=== PATIENT | male | born 1960 | race Caucasian/White ===

== ENCOUNTER 2017-10-10 01:41 | Emergency (ER) | payer MEDICARE, MEDICAID, SELFPAY ==
[2017-10-10 02:41] VITALS: BP 179/107; PULSE 64; RESP 18; TEMP 36.1; O2SAT 94; BMI 30.4
--- NOTE | 2017-10-10 03:05 | ED.NECK ---
HPI - Neck Pain/Injury General Chief Complaint: Neck Pain/Injury Stated Complaint: neck problem, right forearm scrape Time Seen by Provider: 10/10/17 01:46 Source: patient Mode of arrival: wheelchair Limitations: no limitations History of Present Illness HPI Narrative: 56-year-old male with a history of MS right for evaluation of an abrasion to his right arm and neck pain that is causing him headache. Patient states that he has a history of daily migraines. He is on Imitrex 100 mg but states that he only gets 9 pills of this month secondary to his insurance coverage and states that the rest of the time he takes ibuprofen. He states that he was moving some objects a couple days ago causing some right sided neck and shoulder pain. States he has been taking the ibuprofen at home. States that he was watching TV earlier today and turned his head to the right causing an increase in the neck pain. Related Data Previous Rx's Medication Instructions Recorded albuterol sulfate 3 ml INH Q6HP PRN #25 ea 06/09/16 atenolol 50 mg PO BID 15 Days #0 tab 06/09/16 baclofen 20 mg PO TID PRN 15 Days #0 tab 06/09/16 doxycycline hyclate 100 mg PO Q12H 7 Days #0 cap 06/09/16 prednisone 50 mg PO AMCC 5 Days #0 tab 06/09/16 sumatriptan succinate [Imitrex] 100 mg PO PRN PRN #10 tab 06/09/16 hydrocodone-acetaminophen [Colton] 1 tab PO Q4HP PRN #60 tab 05/23/17 penicillin V potassium 500 mg PO Q6H 7 Days #0 tab 05/23/17 uscyzfmdro-frebinftgqxje-xhgq 1 cap PO Q6H PRN #14 cap 10/10/17 Allergies Allergy/AdvReac Type Severity Reaction Status Date / Time aspirin [ASPIRIN] Allergy Severe stomach Verified 10/10/17 02:56 ulcers hydrocodone [HYDROCODONE] AdvReac Intermediate hurts Verified 10/10/17 02:56 stomach Review of Systems Constitutional Denies fatigue, Denies fever(s) and Reports headache(s) ENT Ears, Nose, Mouth, and Throat: Reports headache(s) Cardiovascular Denies chest pain, Denies irregular heart rhythm, Denies lightheadedness, Denies palpitations, Denies dyspnea, Denies dyspnea on exertion and Denies orthopnea Respiratory Denies cough, Denies dyspnea, Denies dyspnea on exertion and Denies wheezing Musculoskeletal Comments: Right-sided neck pain Integumentary/Breasts Denies pruritus, Denies erythema, Denies rash and Denies wounds Neurologic Reports headache(s) Endocrine Denies fatigue and Denies palpitations Allergic/Immunologic Denies wheezing Exam Initial Vital Signs Initial Vital Signs: Vital Signs Temperature 97.0 F L 10/10/17 02:41 Pulse Rate 64 10/10/17 02:41 Respiratory Rate 18 10/10/17 02:41 Blood Pressure 179/107 H 10/10/17 02:41 Pulse Oximetry 94 10/10/17 02:41 Const General: cooperative and well developed Nutritional Appearance: well nourished Orientation: alert, awake, oriented x3 and not confused HENMT Head: normal to inspection, normocephalic and atraumatic Resp Effort & Inspection: normal respiratory effort Back/Spine/Pelvis Back: normal to inspection Cervical Spine: cervical ROM normal, cervical muscular tenderness, No cervical spinal tenderness and No step off deformity Skin Other: Patient with a 3 cm superficial abrasion to his dorsal forearm just proximal to the wrist no active bleeding. Neuro General: alert, awake and oriented x3 Cognition: normal cognition Speech: speech normal Course Vital Signs - 8 hr 10/10/17 02:41 Temperature 97.0 F L Pulse Rate 64 Respiratory Rate 18 Blood Pressure 179/107 H Pulse Oximetry 94 MDM - Neck Pain/Injury MDM Narrative Medical decision making narrative: Patient with abrasion on his forearm has no signs of infection. Bacitracin was placed and covered with a bandage. No indication for suturing. Patient also with right-sided neck pain consistent with musculoskeletal pain causing his migraine. He was given an Imitrex injection here in the emergency department. Patient seems to be taking quite a bit amount of nonsteroidal anti-inflammatories that he is buying [id number] to control his headaches since he only gets 9 Imitrex pills a month secondary to his insurance coverage. Informed him that he needs to talk with his primary doctor regarding a possible switch to another medicine that his insurance could potentially cover. I also informed him that long-term use of nonsteroidal anti-inflammatories can cause problems with stomach issues and kidney issues. Informed him that he did need to be taking these with food. Will give a prescription for Fioricet. Informed him that I am unsure whether not his insurance would cover this however he could try and it may decrease the amount of anti-inflammatories that he has taken. He is given return precautions. He expressed understanding and agreement with plan Discharge Plan Departure Patient Disposition: Home, Self-Care Clinical Impression: Strain of neck muscle, Abrasion Instructions: DI for Cervical Muscle Strain, DI for Abrasion Activity Restrictions/Additional Instructions: I recommend that you contact your primary doctor did discuss a potential change in your migraine medicine. Unsure if your insurance will cover the Fioricet but recommend that you try to take this medication instead of the anti-inflammatories that you have been taking. Return to the emergency department for any new or worsening symptoms Prescriptions: New hamvmaizam-cjxawraqbnpvs-flck 50-325-40 mg capsule 1 cap PO Q6H PRN (Reason: pain) Qty: 14 RF: 0 No Action atenolol 50 MG tablet 50 mg PO BID 15 Days Qty: 0 RF: 0 baclofen 20 MG tablet 20 mg PO TID PRN15 Days Qty: 0 RF: 0 albuterol sulfate 2.5 MG/3 ML solution for nebulization 3 ml INH Q6HP PRNQty: 25 RF: 0 sumatriptan succinate [Imitrex] 100 MG tablet 100 mg PO PRN PRNQty: 10 RF: 0 doxycycline hyclate 100 MG capsule 100 mg PO Q12H 7 Days Qty: 0 RF: 0 prednisone 50 MG tablet 50 mg PO AMCC 5 Days Qty: 0 RF: 0 hydrocodone-acetaminophen [Colton] 5 MG/325 MG tablet 1 tab PO Q4HP PRNQty: 60 RF: 0 penicillin V potassium 500 MG tablet 500 mg PO Q6H 7 Days Qty: 0 RF: 0
--- NOTE | 2017-10-10 03:08 | ED_ITS ---
HPI - Neck Pain/Injury General Chief Complaint: Neck Pain/Injury Stated Complaint: neck problem, right forearm scrape Time Seen by Provider: 10/10/17 01:46 Source: patient Mode of arrival: wheelchair Limitations: no limitations History of Present Illness HPI Narrative: 56-year-old male with a history of MS right for evaluation of an abrasion to his right arm and neck pain that is causing him headache. Patient states that he has a history of daily migraines. He is on Imitrex 100 mg but states that he only gets 9 pills of this month secondary to his insurance coverage and states that the rest of the time he takes ibuprofen. He states that he was moving some objects a couple days ago causing some right sided neck and shoulder pain. States he has been taking the ibuprofen at home. States that he was watching TV earlier today and turned his head to the right causing an increase in the neck pain. Related Data Previous Rx's Medication Instructions Recorded albuterol sulfate 3 ml INH Q6HP PRN #25 ea 06/09/16 atenolol 50 mg PO BID 15 Days #0 tab 06/09/16 baclofen 20 mg PO TID PRN 15 Days #0 tab 06/09/16 doxycycline hyclate 100 mg PO Q12H 7 Days #0 cap 06/09/16 prednisone 50 mg PO AMCC 5 Days #0 tab 06/09/16 sumatriptan succinate [Imitrex] 100 mg PO PRN PRN #10 tab 06/09/16 hydrocodone-acetaminophen [Raymore] 1 tab PO Q4HP PRN #60 tab 05/23/17 penicillin V potassium 500 mg PO Q6H 7 Days #0 tab 05/23/17 cdajzteawb-exedossdikwum-fmzi 1 cap PO Q6H PRN #14 cap 10/10/17 Allergies Allergy/AdvReac Type Severity Reaction Status Date / Time aspirin [ASPIRIN] Allergy Severe stomach Verified 10/10/17 02:56 ulcers hydrocodone [HYDROCODONE] AdvReac Intermediate hurts Verified 10/10/17 02:56 stomach Review of Systems Constitutional Denies fatigue, Denies fever(s) and Reports headache(s) ENT Ears, Nose, Mouth, and Throat: Reports headache(s) Cardiovascular Denies chest pain, Denies irregular heart rhythm, Denies lightheadedness, Denies palpitations, Denies dyspnea, Denies dyspnea on exertion and Denies orthopnea Respiratory Denies cough, Denies dyspnea, Denies dyspnea on exertion and Denies wheezing Musculoskeletal Comments: Right-sided neck pain Integumentary/Breasts Denies pruritus, Denies erythema, Denies rash and Denies wounds Neurologic Reports headache(s) Endocrine Denies fatigue and Denies palpitations Allergic/Immunologic Denies wheezing Exam Initial Vital Signs Initial Vital Signs: Vital Signs Temperature 97.0 F L 10/10/17 02:41 Pulse Rate 64 10/10/17 02:41 Respiratory Rate 18 10/10/17 02:41 Blood Pressure 179/107 H 10/10/17 02:41 Pulse Oximetry 94 10/10/17 02:41 Const General: cooperative and well developed Nutritional Appearance: well nourished Orientation: alert, awake, oriented x3 and not confused HENMT Head: normal to inspection, normocephalic and atraumatic Resp Effort & Inspection: normal respiratory effort Back/Spine/Pelvis Back: normal to inspection Cervical Spine: cervical ROM normal, cervical muscular tenderness, No cervical spinal tenderness and No step off deformity Skin Other: Patient with a 3 cm superficial abrasion to his dorsal forearm just proximal to the wrist no active bleeding. Neuro General: alert, awake and oriented x3 Cognition: normal cognition Speech: speech normal Course Vital Signs - 8 hr 10/10/17 02:41 Temperature 97.0 F L Pulse Rate 64 Respiratory Rate 18 Blood Pressure 179/107 H Pulse Oximetry 94 MDM - Neck Pain/Injury MDM Narrative Medical decision making narrative: Patient with abrasion on his forearm has no signs of infection. Bacitracin was placed and covered with a bandage. No indication for suturing. Patient also with right-sided neck pain consistent with musculoskeletal pain causing his migraine. He was given an Imitrex injection here in the emergency department. Patient seems to be taking quite a bit amount of nonsteroidal anti-inflammatories that he is buying over-the- counter to control his headaches since he only gets 9 Imitrex pills a month secondary to his insurance coverage. Informed him that he needs to talk with his primary doctor regarding a possible switch to another medicine that his insurance could potentially cover. I also informed him that long-term use of nonsteroidal anti-inflammatories can cause problems with stomach issues and kidney issues. Informed him that he did need to be taking these with food. Will give a prescription for Fioricet. Informed him that I am unsure whether not his insurance would cover this however he could try and it may decrease the amount of anti-inflammatories that he has taken. He is given return precautions. He expressed understanding and agreement with plan Discharge Plan Departure Patient Disposition: Home, Self-Care Clinical Impression: Strain of neck muscle, Abrasion Instructions: DI for Cervical Muscle Strain, DI for Abrasion Activity Restrictions/Additional Instructions: I recommend that you contact your primary doctor did discuss a potential change in your migraine medicine. Unsure if your insurance will cover the Fioricet but recommend that you try to take this medication instead of the anti- inflammatories that you have been taking. Return to the emergency department for any new or worsening symptoms Prescriptions: New fabhdyfjst-hqpcqusbpkqip-iybu 50-325-40 mg capsule 1 cap PO Q6H PRN (Reason: pain) Qty: 14 RF: 0 No Action atenolol 50 MG tablet 50 mg PO BID 15 Days Qty: 0 RF: 0 baclofen 20 MG tablet 20 mg PO TID PRN15 Days Qty: 0 RF: 0 albuterol sulfate 2.5 MG/3 ML solution for nebulization 3 ml INH Q6HP PRNQty: 25 RF: 0 sumatriptan succinate [Imitrex] 100 MG tablet 100 mg PO PRN PRNQty: 10 RF: 0 doxycycline hyclate 100 MG capsule 100 mg PO Q12H 7 Days Qty: 0 RF: 0 prednisone 50 MG tablet 50 mg PO AMCC 5 Days Qty: 0 RF: 0 hydrocodone-acetaminophen [Raymore] 5 MG/325 MG tablet 1 tab PO Q4HP PRNQty: 60 RF: 0 penicillin V potassium 500 MG tablet 500 mg PO Q6H 7 Days Qty: 0 RF: 0
[2017-10-10] MEDS: SUMAtriptan 6 MG/0.5 ML VIAL SUBCUT (03:11)
[2017-10-10] MEDS: BACITRACIN OINT 0.9 GM PCKT 1 APPLIC TOP (03:11)
[2017-10-10] MEDS: ALBUTEROL/IPRATROPIUM 3 ML AMPUL INH (03:25)
[2017-10-10 03:44] VITALS: BP 192/104; PULSE 67; RESP 18; TEMP 36.4; O2SAT 95
== END 2017-10-10 03:44 | disposition home or self-care (01) ==
PROVIDERS: Emergency Provider Emergency Medicine; Family Provider Family Medicine; PCP Family Medicine
DX: M54.2 Cervicalgia (principal)
CPT/HCPCS: 99282; 99283; J3030

== ENCOUNTER 2017-11-06 05:09 | Emergency (ER) | payer MEDICARE, MEDICAID, SELFPAY ==
[2017-11-06 05:14] VITALS: BP 116/85; PULSE 69; RESP 20; TEMP 36.2; O2SAT 97; BMI 30.4
--- NOTE | 2017-11-06 05:17 | DI.CT.S_ITS ---
PROCEDURE: CT HEAD/BRAIN WO CON INDICATIONS: head injury s/p fall TECHNIQUE: Noncontrast 4.5 mm thick angled axial sections acquired from the foramen magnum to the vertex, with coronal and sagittal reformats. For radiation dose reduction, the following was used: automated exposure control, adjustment of mA and/or kV according to patient size. COMPARISON: [facility], CT, HEAD WITHOUT CONTRAST, 05/04/2015, 23:32. FINDINGS: Image quality: Excellent. CSF spaces: Basal cisterns are patent. No extra-axial fluid collections. Ventricles are normal in size and shape. Brain: Chronic left temporoparietal encephalomalacia No midline shift. No intracranial masses or hemorrhage. Yang-white matter interface is normal. Skull and face: Calvarium and visualized facial bones are intact, without suspicious lesions. Sinuses: Visualized sinuses and mastoids are clear. IMPRESSION: No acute intracranial process. Redemonstration of chronic left temporoparietal encephalomalacia Dictated by: Talib Edmondson M.D. on 11/06/2017 at 8:23 Approved by: Talib Edmondson M.D. on 11/06/2017 at 8:25
--- NOTE | 2017-11-06 05:28 | ED.FALL ---
HPI - Fall General Chief Complaint: Fall Stated Complaint: GLF Time Seen by Provider: 11/06/17 05:10 Source: patient and EMS Mode of arrival: EMS Limitations: no limitations History of Present Illness HPI Narrative: Patient presents to the emergency department today with a chief complaint of fall from a seated position. He was eating breakfast in his wheelchair a sidewalk up by the street when fell forward striking his head and causing a skin tear to the dorsum of his right arm. He is not dizzy nor weak or lightheaded. He denies any new neck or back pain. He denies chest pain or shortness of breath MD complaint: fall Onset (ago): minute(s) Fall from: wheelchair Fall witnessed: no Place fall occurred: street Loss of consciousness: none Prolonged down time: no Symptoms prior to fall: none Context: tripped/slipped and alcohol use Location of injury: head Location of injury - extremities: Right: forearm Severity: mild Associated symptoms (after fall): denies Related Data Previous Rx's Medication Instructions Recorded albuterol sulfate 3 ml INH Q6HP PRN #25 ea 06/09/16 atenolol 50 mg PO BID 15 Days #0 tab 06/09/16 baclofen 20 mg PO TID PRN 15 Days #0 tab 06/09/16 doxycycline hyclate 100 mg PO Q12H 7 Days #0 cap 06/09/16 prednisone 50 mg PO AMCC 5 Days #0 tab 06/09/16 sumatriptan succinate [Imitrex] 100 mg PO PRN PRN #10 tab 06/09/16 hydrocodone-acetaminophen [[place]] 1 tab PO Q4HP PRN #60 tab 05/23/17 penicillin V potassium 500 mg PO Q6H 7 Days #0 tab 05/23/17 lxzqbzhxkv-wdxtnlyvmfcja-agns 1 cap PO Q6H PRN #14 cap 10/10/17 Allergies Allergy/AdvReac Type Severity Reaction Status Date / Time aspirin [ASPIRIN] Allergy Severe stomach Verified 11/06/17 05:49 ulcers hydrocodone [HYDROCODONE] AdvReac Intermediate hurts Verified 11/06/17 05:49 stomach Review of Systems Review of Systems All systems reviewed & are unremarkable except as noted in HPI and below Constitutional Denies chills, Denies fever(s), Denies lethargy and Denies weakness Eyes Denies change in vision, Denies eye discharge, Denies irritation and Denies loss of vision ENT Ears, Nose, Mouth, and Throat: Denies change in voice, Denies neck pain and Denies sore throat Cardiovascular Denies chest pain, Denies irregular heart rhythm, Denies lightheadedness, Denies palpitations, Denies dyspnea, Denies dyspnea on exertion and Denies orthopnea Respiratory Denies cough, Denies dyspnea, Denies dyspnea on exertion and Denies wheezing Gastrointestinal Gastrointestinal: Denies abdominal pain, Denies change in bowel habits, Denies diarrhea, Denies nausea and Denies vomiting Genitourinary Denies hematuria, Denies flank pain, Denies urinary incontinence and Denies urinary urgency Musculoskeletal Denies neck pain Integumentary/Breasts Denies pruritus, Denies erythema, Denies rash and Denies wounds Neurologic Denies confusion, Denies loss of vision and Denies weakness Psychiatric Denies anxiety, Denies confusion, Denies depression, Denies homicidal ideation and Denies suicidal ideation Endocrine Denies palpitations Hematologic/Lymphatic Denies easy bruising Allergic/Immunologic Denies wheezing Exam Initial Vital Signs Initial Vital Signs: Vital Signs Temperature 97.2 F L 11/06/17 05:14 Pulse Rate 69 11/06/17 05:14 Respiratory Rate 20 11/06/17 05:14 Blood Pressure 116/85 H 11/06/17 05:14 Pulse Oximetry 97 11/06/17 05:14 Const General: cooperative, comfortable, well developed and disheveled Nutritional Appearance: well nourished Orientation: alert, awake and oriented x3 HENMT Head: abrasion (Forehead) Ears: hearing grossly normal bilaterally Nose: external nose normal Face and sinus: normal facial exam Mouth: oral mucosae normal Eyes General: appearance normal, both eyes and all related structures Eyelids: eyelids normal Conjunctivae: conjunctivae normal Sclera: sclerae normal Pupils: PERRL EOM: EOM intact bilaterally Neck Neck: normal visual inspection, trachea midline, No lymphadenopathy, No midline deformity and No JVD Lymphatic: No lymphedema Resp Effort & Inspection: normal respiratory effort, able to speak in complete sentences, no respiratory distress and no use of accessory muscles Auscultation: clear to auscultation bilaterally, no rales, no rhonchi and no wheezes Cardio Rate: regular rate Rhythm: regular rhythm Heart Sounds: no click, no gallops, no murmurs and no rubs Pulses: normal peripheral pulses GI Inspection: non-distended Palpation: soft, no hepatosplenomegaly, No guarding, No pulsatile mass and No tender Auscultation: normal bowel sounds Back/Spine/Pelvis Back: No CVA tenderness Cervical Spine: cervical ROM normal and No pain with cervical ROM Thoracic/Lumbar Spine: thoracic and lumbar spine normal to inspection Skin Trauma: abrasion (Right forearm) Neuro General: alert, awake and oriented x3 Cognition: normal cognition Speech: speech normal Gait: other (Bilateral lower extremity weakness from prior stroke and MS) Extrem Right upper extremity: full ROM, normal capillary refill and elbow/forearm Details: abrasion and laceration; no cyanosis and no edema PFSH Medical History CVA (cerebral vascular accident) (Acute) Emphysema lung (Acute) Multiple sclerosis (Acute) Social History Smoking Status: Current every day smoker Course Orders Ordered: Discontinued Medications Albuterol/Ipratropium (Duoneb) 3 ml INH NOW ONE Stop: 11/06/17 06:36 Last Admin: 11/06/17 06:40 Dose: 3 ml Diphtheria/Tetanus/Acell Pertussis (Adacel) 0.5 ml IM .ONCE ONE Stop: 11/06/17 05:51 Last Admin: 11/06/17 05:57 Dose: 0.5 ml Vital Signs - 8 hr 11/06/17 05:14 11/06/17 06:00 Temperature 97.2 F L Pulse Rate 69 Respiratory Rate 20 Blood Pressure 116/85 H Blood Pressure [Left Arm] 138/81 H Pulse Oximetry 97 MDM - Fall Differential Diagnosis Likely concussion with loss of consciousness and concussion without loss of consciousness Medical Records Attestation: I reviewed the patient's medical records. Imaging Data CT scan - head: Attestation: I personally reviewed and interpreted this imaging study as follows: My impression: NAP Radiologist's impression: NAP Discharge Plan Departure Patient Disposition: Home, Self-Care Clinical Impression: Abrasion of forehead, Skin tear of right upper extremity Discharge Date/Time: 11/06/17 06:55 Interventions: ED Discharge Assessment Last Done: 11/06/17 06:57 Instructions: DI for Abrasion Prescriptions: No Action atenolol 50 MG tablet 50 mg PO BID 15 Days Qty: 0 RF: 0 baclofen 20 MG tablet 20 mg PO TID PRN15 Days Qty: 0 RF: 0 albuterol sulfate 2.5 MG/3 ML solution for nebulization 3 ml INH Q6HP PRNQty: 25 RF: 0 sumatriptan succinate [Imitrex] 100 MG tablet 100 mg PO PRN PRNQty: 10 RF: 0 doxycycline hyclate 100 MG capsule 100 mg PO Q12H 7 Days Qty: 0 RF: 0 prednisone 50 MG tablet 50 mg PO AMCC 5 Days Qty: 0 RF: 0 hydrocodone-acetaminophen [Hillrose] 5 MG/325 MG tablet 1 tab PO Q4HP PRNQty: 60 RF: 0 penicillin V potassium 500 MG tablet 500 mg PO Q6H 7 Days Qty: 0 RF: 0 mlrpmuyyag-cpwhwpwpozezv-snts 50-325-40 mg capsule 1 cap PO Q6H PRN (Reason: pain) Qty: 14 RF: 0
[2017-11-06] MEDS: TET,DIPH,PERTUSS(ACELL),VAC/PF 0.5 ML SYRINGE IM (05:57)
[2017-11-06 06:00] VITALS: BP 138/81
[2017-11-06 06:30] VITALS: BP 133/90
[2017-11-06] MEDS: ALBUTEROL/IPRATROPIUM 3 ML AMPUL INH (06:40)
--- NOTE | 2017-11-06 06:58 | PC.NURSE ---
Pt skin tears cleansed well prior to D/C. Bacitracin, telfa, and coban applied to wound.
--- NOTE | 2018-02-09 17:31 | PC.NURSE ---
Called for pt follow up,no answer
== END 2017-11-06 06:55 | disposition home or self-care (01) ==
PROVIDERS: Emergency Provider Emergency Medicine; Family Provider Family Medicine; PCP Family Medicine
DX: S00.81XA Abrasion of other part of head, initial encounter (principal); S41.111A Laceration without foreign body of right upper arm, initial encounter; W07.XXXA Fall from chair, initial encounter
CPT/HCPCS: 70450; 90471; 99283; 99284; 90715

== ENCOUNTER 2018-01-09 20:14 | Emergency (ER) | payer MEDICARE, MEDICAID, SELFPAY ==
--- NOTE | 2018-01-09 | DI.RAD.S_ITS ---
PROCEDURE: XR CERVICAL SPINE 1V INDICATIONS: FORIEGN BODY TECHNIQUE: Single lateral view of the cervical spine acquired. COMPARISON: None. FINDINGS: Bones: No fractures or dislocations to the C5 level. No suspicious bony lesions. Degenerative endplate changes are noted throughout visualized cervical spine. Soft tissues: No prevertebral soft tissue swelling. No radiopaque foreign body is seen. IMPRESSION: No radiopaque foreign body is seen. Dictated by: Iron Miranda M.D. on 01/09/2018 at 20:50 Approved by: Iron Miranda M.D. on 01/09/2018 at 20:52
[2018-01-09 20:16] VITALS: TEMP 36.7
[2018-01-09 20:19] VITALS: BP 126/85; PULSE 104; RESP 18; O2SAT 96
--- NOTE | 2018-01-09 20:20 | DI.RAD.S_ITS ---
PROCEDURE: XR CHEST 2V INDICATIONS: possible fb, pt believes he may have a tooth in esophagus TECHNIQUE: 2 views of the chest were acquired. COMPARISON: [facility], , CHEST 1 VIEW, 06/08/2016, 22:13. FINDINGS: Surgical changes and devices: None. Lungs and pleura: No pleural effusions or pneumothorax. Lungs are clear. Mediastinum: Mediastinal contours are normal. Heart size is normal. Bones and chest wall: No suspicious bony abnormalities. Soft tissues appear unremarkable. IMPRESSION: No acute cardiopulmonary pathology. No radiopaque foreign body is seen. Dictated by: Iron Miranda M.D. on 01/09/2018 at 20:44 Approved by: Iron Miranda M.D. on 01/09/2018 at 20:45
--- NOTE | 2018-01-09 22:24 | ED.SOB ---
HPI - SOB/Dyspnea General Chief Complaint: Upper Respiratory Symptoms Stated Complaint: TOOTH BROKE OFF HURTING OF THE THROAT Time Seen by Provider: 01/09/18 21:37 Source: patient Mode of arrival: wheelchair History of Present Illness This is a 57-year-old gentleman who comes in with complaint of a fractured tooth and difficulty breathing. Patient states 3 days ago he was eating a sandwich with brisk it with the he noticed that his tooth was gone. He states that he did not have any pain at the area of the tooth. Patient states he then noticed sort of scratchy feeling in the back of his throat and felt like something might be stuck in the back of his throat. It has been feeling that way for several days. On the way here he sort of had a bump Um and felt like the tooth had mood further down in more to his central chest. He has felt sort of like it has been difficult to breathe since then he denies any fevers. He does have a history of COPD. He has not been having any productive cough. He does have some albuterol but only has 1 vial left. He does have a prescription to refill but did make it to the pharmacy tonight. No chest pain. No nausea or vomiting, no GI or urinary symptoms other new. Onset (ago): day(s) (3) Context: other (Thinks he swallowed or inhaled a tooth) Severity: moderate Consistency/Duration: constant Relieving factors: nothing Exacerbating factors: coughing Known history of: COPD Treatment prior to arrival: bronchodilator Related Data Previous Rx's Medication Instructions Recorded albuterol sulfate 3 ml INH Q6HP PRN #25 ea 06/09/16 atenolol 50 mg PO BID 15 Days #0 tab 06/09/16 baclofen 20 mg PO TID PRN 15 Days #0 tab 06/09/16 doxycycline hyclate 100 mg PO Q12H 7 Days #0 cap 06/09/16 prednisone 50 mg PO AMCC 5 Days #0 tab 06/09/16 sumatriptan succinate [Imitrex] 100 mg PO PRN PRN #10 tab 06/09/16 hydrocodone-acetaminophen [Glynn] 1 tab PO Q4HP PRN #60 tab 05/23/17 penicillin V potassium 500 mg PO Q6H 7 Days #0 tab 05/23/17 kovxotxaty-fwhnjofxgeyys-jfki 1 cap PO Q6H PRN #14 cap 10/10/17 Allergies Allergy/AdvReac Type Severity Reaction Status Date / Time aspirin [ASPIRIN] Allergy Severe stomach Verified 11/06/17 05:49 ulcers hydrocodone [HYDROCODONE] AdvReac Intermediate hurts Verified 11/06/17 05:49 stomach Review of Systems Review of Systems All systems reviewed & are unremarkable except as noted in HPI and below Constitutional Denies chills, Denies fever(s), Denies lethargy and Denies weakness ENT Ears, Nose, Mouth, and Throat: Reports as per HPI, Denies change in voice, Denies dental pain, Denies hoarseness, Denies nasal congestion, Denies neck pain, Denies sore throat, Denies throat swelling and Reports other (Fractured tooth, sensation of scratch in the back of throat) Cardiovascular Denies chest pain, Denies irregular heart rhythm, Denies lightheadedness, Denies palpitations, Denies dyspnea, Denies dyspnea on exertion and Denies orthopnea Respiratory Denies chest congestion, Reports cough (Chronic per patient), Denies excessive phlegm production, Denies dyspnea, Denies dyspnea on exertion, Denies stridor and Denies wheezing Gastrointestinal Gastrointestinal: Denies abdominal pain, Denies change in bowel habits, Denies diarrhea, Denies nausea and Denies vomiting Musculoskeletal Denies neck pain Neurologic Denies weakness Endocrine Denies palpitations Allergic/Immunologic Denies throat swelling and Denies wheezing [facility] Medical History CVA (cerebral vascular accident) (Acute) Emphysema lung (Acute) Multiple sclerosis (Acute) Exam Initial Vital Signs Initial Vital Signs: Vital Signs Temperature 98.1 F 01/09/18 20:16 Const General: cooperative and well developed Nutritional Appearance: average body habitus Orientation: alert, awake, oriented x3 and not confused Limitations: physical limitations (Sitting in wheelchair) [facility] Head: normocephalic and atraumatic Ears: external ears normal and TM's normal bilaterally Nose: external nose normal and No nasal discharge Face and sinus: sinuses nontender, face symmetric, no sinus tenderness and No dry mucous membranes Mouth: oral mucosae normal, oropharynx normal, moist mucous membranes, No audible dysphonia, No drooling and No muffled voice Teeth and gingiva: abnormal tooth or associated gingiva (Fractured incisor. Patient root is still present. There is no erythema, fluctuance or signs of infection. Patient has poor dentition in general.) upper left lateral incisor Throat: tonsils normal and uvula midline Neck Neck: normal visual inspection, full ROM, trachea midline, No lymphadenopathy, No midline deformity and No JVD Thyroid: not diffusely enlarged and no masses Lymphatic: No lymphedema Chest Chest: normal inspection of the chest Resp Effort & Inspection: normal respiratory effort, able to speak in complete sentences, cough Quality of cough: dry, no respiratory distress, no stridor, not tachypneic, no use of accessory muscles and No prolonged expiratory phase Auscultation: no crackles, diminished lung sounds bilaterally, no rales, no rhonchi and no wheezes Cardio Rate: regular rate Rhythm: regular rhythm Heart Sounds: no click, no gallops, no murmurs and no rubs Pulses: normal peripheral pulses GI Inspection: non-distended Palpation: soft, no hepatosplenomegaly, No guarding, No pulsatile mass and No tender Auscultation: normal bowel sounds Neuro General: alert, awake and oriented x3 Cranial Nerves: CN's II-XI intact bilaterally Cognition: normal cognition Speech: speech normal Motor: muscle tone abnormal (Decreased muscle tone bilateral lower extremity) and strength abnormal (Decreased strength bilateral lower extremities) Course Orders Ordered: ED Orders 01/09/18 20:20 Chest [XR chest 2V] Stat Discontinued Medications Albuterol/Ipratropium (Duoneb) 3 ml INH NOW ONE Stop: 01/09/18 22:25 Last Admin: 01/09/18 22:34 Dose: 3 ml Reevaluation(s) Time: 23:11 Vital Signs - 8 hr 01/09/18 20:16 01/09/18 20:19 01/09/18 22:51 Temperature 98.1 F Pulse Rate 104 H 98 H Respiratory Rate 18 20 Blood Pressure [Left Arm] 126/85 128/83 Pulse Oximetry 96 98 MDM - SOB/Dyspnea Imaging Data Chest x-ray: Attestation: I personally reviewed and interpreted this imaging study as follows: Radiologist's impression: Patient: Jose Denton RMR#: [id number] : 1960Acct:[id number] Age/Sex: 57 / MDate of Service: 01/09/18 Loc: ED Accession Number: [id number] Procedure: XR chest 2V Ordering Provider: Mignon Ashton D.O. PROCEDURE: XR CHEST 2V INDICATIONS: possible fb, pt believes he may have a tooth in esophagus TECHNIQUE: 2 views of the chest were acquired. COMPARISON: [facility], , CHEST 1 VIEW, 06/08/2016, 22:13. FINDINGS: Surgical changes and devices: None. Lungs and pleura: No pleural effusions or pneumothorax. Lungs are clear. Mediastinum: Mediastinal contours are normal. Heart size is normal. Bones and chest wall: No suspicious bony abnormalities. Soft tissues appear unremarkable. IMPRESSION: No acute cardiopulmonary pathology. No radiopaque foreign body is seen. Dictated by: Iron Miranda M.D. on 01/09/2018 at 20:44 Approved by: Iron Miranda M.D. on 01/09/2018 at 20:45 cspine xray: Attestation: I personally reviewed and interpreted this imaging study as follows: My impression: No fractures noted, no radiopaque foreign body noted. Radiologist's impression: [place] [address] XRay Report Signed Patient: Jose Denton RMR#: [id number] : 1960Acct:[id number] Age/Sex: 57 / MDate of Service: 01/09/18 Loc: ED Accession Number: [id number] Procedure: XR cervical spine 1V Ordering Provider: Mignon Ashton D.O. PROCEDURE: XR CERVICAL SPINE 1V INDICATIONS: FORIEGN BODY TECHNIQUE: Single lateral view of the cervical spine acquired. COMPARISON: None. FINDINGS: Bones: No fractures or dislocations to the C5 level. No suspicious bony lesions. Degenerative endplate changes are noted throughout visualized cervical spine. Soft tissues: No prevertebral soft tissue swelling. No radiopaque foreign body is seen. IMPRESSION: No radiopaque foreign body is seen. Dictated by: Iron Miranda M.D. on 01/09/2018 at 20:50 Approved by: Iron Miranda M.D. on 01/09/2018 at 20: MDM Narrative Medical decision making narrative: Patient does not have any foreign body on his C-spine or chest x-ray which makes me L&I to be to leave the he did not inhale the fractured portion of tooth. He may have ingested it by swallowing it down his esophagus Um midday could potentially be further along in his system. Patient was not having any distress other than cough here the emergency department. Checks x-ray also does not show any signs of focal infection. Patient was given a DuoNeb as he only has 1 while left until he can get to the pharmacy tomorrow to obtain his refill. He has not had any fevers or other signs of infection. He does not appear to be in any acute distress. We did discuss that the irritation in the back of his throat potentially be from the tooth there is no signs of trauma. The tooth itself is not uncomfortable although I am able to visualize the root of the tooth is still present Um and recommend follow-up with dentistry. Discharge Plan Departure Patient Disposition: Home Clinical Impression: Fracture of tooth, SOB (shortness of breath) Discharge Date/Time: 01/09/18 23:27 Interventions: ED Discharge Assessment Last Done: 01/09/18 23:26 Instructions: DI for Fractured Tooth Activity Restrictions/Additional Instructions: Follow-up with some a dentist in the next 3-5 days for dental care for her fractured tooth. You're tooth is not present on your imaging and suspected that you swallowed it and will pass that through your stool. Continue your home medications as prescribed. Prescriptions: No Action atenolol 50 MG tablet 50 mg PO BID 15 Days Qty: 0 RF: 0 baclofen 20 MG tablet 20 mg PO TID PRN15 Days Qty: 0 RF: 0 albuterol sulfate 2.5 MG/3 ML solution for nebulization 3 ml INH Q6HP PRNQty: 25 RF: 0 sumatriptan succinate [Imitrex] 100 MG tablet 100 mg PO PRN PRNQty: 10 RF: 0 doxycycline hyclate 100 MG capsule 100 mg PO Q12H 7 Days Qty: 0 RF: 0 prednisone 50 MG tablet 50 mg PO AMCC 5 Days Qty: 0 RF: 0 hydrocodone-acetaminophen [Glynn] 5 MG/325 MG tablet 1 tab PO Q4HP PRNQty: 60 RF: 0 penicillin V potassium 500 MG tablet 500 mg PO Q6H 7 Days Qty: 0 RF: 0 hsnpbfmvdy-yjqwnqgyyrxfh-zgln 50-325-40 mg capsule 1 cap PO Q6H PRN (Reason: pain) Qty: 14 RF: 0
[2018-01-09] MEDS: ALBUTEROL/IPRATROPIUM 3 ML AMPUL INH (22:34)
[2018-01-09 22:51] VITALS: BP 128/83; PULSE 98; RESP 20; O2SAT 98
== END 2018-01-09 23:27 | disposition home or self-care (01) ==
PROVIDERS: Emergency Provider Emergency Medicine; Family Provider Family Medicine; PCP Family Medicine
DX: S02.5XXA Fracture of tooth (traumatic), initial encounter for closed fracture (principal); R06.02 Shortness of breath
CPT/HCPCS: 71046; 72020; 99282; 99283

== ENCOUNTER 2018-01-15 17:11 | Inpatient (IN) | payer MEDICARE, MEDICAID, SELFPAY ==
[2018-01-15] VITALS (9 sets, daily range): BP systolic 80–155; BP diastolic 60–86; PULSE 88–112; RESP 18–32; TEMP 36.7–36.9; O2SAT 87–96; BMI 30.4; BMI 24.0
[2018-01-15] MEDS: ALBUTEROL/IPRATROPIUM 3 ML AMPUL INH ×2 (17:30→17:58)
[2018-01-15] MEDS: methylPREDNISolone 125 MG/2 ML VIAL IV (17:58)
[2018-01-15 18:03] LABS: Add Manual Diff / Slide Review NO; Basophils Percent Auto 0.4 % (0-2); Eosinophils Percent Auto 0.4 % (2-4); Hematocrit 46.3 % (41-53); Hemoglobin 15.9 g/dL (13.5-17.5); Lymphocytes Percent Auto 11.5 % (25-40); Mean Corpuscular HGB Conc 34.5 % (30-36); Mean Corpuscular Hemoglobin 30.7 PG (26-34); Mean Corpuscular Volume 89.2 fL (80-100); Monocytes Percent Auto 10.5 % (3-14); Neutrophils Absolute Auto 9500 /uL (3000-5900); Neutrophils Percent Auto 77.2 % (50-75); Platelet Count 186 X10^3/uL (150-400); Red Blood Cell Count 5.19 X10^6/uL (4.5-5.9); Red Cell Distribution Width 14.8 % (11.6-14.8); White Blood Cell Count 12.3 X10^3/uL (4.5-11.0)
[2018-01-15 18:07] LABS: BUN Creatinine Ratio 8.9 (6-22); Blood Urea Nitrogen 8 mg/dL (9-20); Calcium 9.6 mg/dL (8.4-10.2); Carbon Dioxide 28 mmol/L (22-32); Chloride 101 mmol/L (98-107); Creatine Kinase 134 U/L (55-170); Estimated Glomerular Filt Rate > 60.0 mL/min (>60); Glucose 113 mg/dL (70-100); HEMOLYSIS < 15 (0-50); Potassium 4.1 mmol/L (3.4-5.1); Sodium 140 mmol/L (137-145)
--- NOTE | 2018-01-15 18:10 | DI.RAD.S_ITS ---
PROCEDURE: XR CHEST 2V INDICATIONS: shortness of breath TECHNIQUE: 2 views of the chest were acquired. COMPARISON: None. FINDINGS: Surgical changes and devices: None. Lungs and pleura: No pleural effusions or pneumothorax. Lungs are clear. Mediastinum: Mediastinal contours are normal. Heart size is normal. Bones and chest wall: No suspicious bony abnormalities. Soft tissues appear unremarkable. IMPRESSION: No acute cardiopulmonary findings. Dictated by: Sara Abreu M.D. on 01/15/2018 at 18:28 Approved by: Sara Abreu M.D. on 01/15/2018 at 18:28
[2018-01-15 18:20] LABS: Troponin I < 0.012 ng/mL (0.01-0.034)
--- NOTE | 2018-01-15 18:21 | RT ---
Some improvement noted after second Duoneb tx. Pt appearing slightly more comfortable. Posterior LS still very diminished but a very faint intermittent expiratory wheeze can be noted. This could also be secretion related as pt has a very productive cough. When not coughing, he is appearing in less distress. A sputum culture has been collected and sent to lab. Will continue to monitor and provide more nebulizer tx as needed.
--- NOTE | 2018-01-15 18:28 | ED_ITS ---
HPI - Chest Pain General Chief Complaint: Chest Pain Stated Complaint: trouble breathing Time Seen by Provider: 01/15/18 18:11 Source: patient Mode of arrival: wheelchair Limitations: no limitations History of Present Illness HPI narrative: Patient is a 57-year-old male well known to this emergency department. He has a history of COPD. He is wheelchair-bound. He is not on oxygen at home. Patient states for the past couple days he has become more short of breath and has had a productive cough and subjective fevers. Has been using his inhaler at home. Arrived today because he was having a hard time breathing. Patient states that his symptoms today are worse than his normal COPD exacerbations. Has not tried anything for it prior to arrival except for his normal albuterol. Related Data Home Medications Medication Instructions Recorded Confirmed albuterol sulfate 3 ml INH Q6HP PRN 01/15/18 01/15/18 baclofen 1 tab PO TID PRN 01/15/18 01/15/18 hydroxyzine HCl 25 mg PO TID-QID PRN 01/15/18 01/15/18 levothyroxine 50 mcg PO DAILY 01/15/18 01/15/18 metoprolol tartrate 50 mg PO BID 01/15/18 01/15/18 oxycodone-acetaminophen [Percocet] 1 tab PO Q4-6H PRN 01/15/18 01/15/18 simvastatin 20 mg PO QPM 01/15/18 01/15/18 Previous Rx's Medication Instructions Recorded kaalapzkvn-hwmswfpgzdqwj-epif 1 cap PO Q6H PRN #14 cap 10/10/17 Allergies Allergy/AdvReac Type Severity Reaction Status Date / Time aspirin [ASPIRIN] Allergy Severe stomach Verified 01/15/18 17:26 ulcers hydrocodone [HYDROCODONE] AdvReac Intermediate hurts Verified 01/15/18 17:26 stomach Review of Systems Constitutional Reports chills, Reports fatigue and Reports fever(s) Cardiovascular Denies chest pain, Denies syncope, Denies edema, Denies palpitations and Reports dyspnea Respiratory Reports cough, Reports pain on inspiration, Reports pain with cough and Reports dyspnea Comments: Productive cough Gastrointestinal Gastrointestinal: Denies abdominal pain, Denies diarrhea, Denies nausea and Denies vomiting Genitourinary Denies dysuria Musculoskeletal Comments: No change in musculoskeletal status Integumentary/Breasts Denies lesions and Denies rash Neurologic Denies syncope Endocrine Reports fatigue and Denies palpitations Hematologic/Lymphatic Denies easy bleeding and Denies easy bruising [facility] Medical History Hypothyroid (Acute) CVA (cerebral vascular accident) (Acute) Emphysema lung (Acute) Multiple sclerosis (Acute) Social History household members: none Smoking Status: Current some day smoker alcohol intake: current Exam Initial Vital Signs Initial Vital Signs: Vital Signs Pulse Rate 94 H 01/15/18 17:26 Respiratory Rate 30 H 01/15/18 17:26 Blood Pressure 80/60 L 01/15/18 17:26 Pulse Oximetry 91 01/15/18 17:26 Const General: cooperative, comfortable, No acute distress and ill appearing [place] Head: normal to inspection and normocephalic Resp Effort & Inspection: cough, no grunting, labored, no nasal flaring, respiratory distress, no retractions, tachypneic, no use of accessory muscles and prolonged expiratory phase Auscultation: rhonchi upper bilaterally and lower bilaterally Cardio Rate: regular rate Rhythm: regular rhythm Pulses: radial pulses present GI Inspection: non-distended Palpation: soft Skin Lesions: no lesions Rashes: no rashes Neuro General: alert, awake and oriented x3 Cognition: normal cognition Speech: speech normal Extrem General: normal to inspection and capillary refill normal Psych Appearance: grossly normal and well kempt Course Orders Ordered: ED Orders 01/15/18 16:40 Sputum Culture Stat 01/15/18 17:42 B Type Natriuretic Peptide Stat Basic Metabolic Panel Stat Complete Blood Count AUTO DIFF Stat Magnesium Stat Procalcitonin Stat Troponin & CK Cardiac Panel Stat 01/15/18 17:48 Consult to Respiratory Therapy Evaluate & Treat EKG-12 Lead Stat 01/15/18 18:10 XR chest 2V Stat 01/15/18 18:30 Blood Culture Stat Lactate (Lactic Acid) Stat 01/15/18 20:10 Education, smoking cessation ONGOING RT Respiratory Nebulizer Treat RT PROTOCOL 01/15/18 20:14 Consult to Respiratory Therapy Evaluate & Treat Acetaminophen (Tylenol) 650 mg PO Q6HR PRN PRN Reason: As Needed for Fever/Mild Pain Albuterol (Ventolin) 2.5 mg INH [id number] PRN PRN Reason: Shortness Of Breath Albuterol/Ipratropium (Duoneb) 3 ml INH RTQ4HR PRN PRN Reason: Shortness Of Breath Baclofen (Lioresal) 10 mg PO TID [facility] Last Admin: 01/15/18 22:06 Dose: 10 mg Benzocaine (Cepacol Lozenge) 1 each PO Q1H PRN PRN Reason: Sore Throat Last Admin: 01/15/18 22:06 Dose: 1 each Guaifenesin/Codeine Phosphate (Guaifenesin/Codeine Liquid) 10 ml PO Q4H PRN PRN Reason: Cough Levofloxacin (Levaquin) 750 mg PO DAILY [facility] Magnesium Hydroxide (Milk Of Magnesia) 30 ml PO DAILY PRN PRN Reason: Constipation Methylprednisolone (Solu-Medrol 125 Mg Vial) 60 mg IV BID [facility] Metoprolol Tartrate (Lopressor) 50 mg PO BID [facility] Last Admin: 01/15/18 22:05 Dose: 50 mg Nicotine (Nicoderm) 21 mg TOP DAILY [facility] Last Admin: 01/15/18 22:09 Dose: 14 mg Simvastatin (Zocor) 20 mg PO BEDTIME [facility] Discontinued Medications Albuterol/Ipratropium (Duoneb) 3 ml INH NOW ONE Stop: 01/15/18 17:49 Last Admin: 01/15/18 17:30 Dose: 3 ml Albuterol/Ipratropium (Duoneb) 3 ml INH NOW ONE Stop: 01/15/18 17:55 Last Admin: 01/15/18 17:58 Dose: 3 ml Levofloxacin (Levaquin) 750 mg in 150 mls @ 100 mls/hr IV NOW ONE Stop: 01/15/18 19:56 Last Infusion: 01/15/18 20:28 Dose: 0 mls/hr Admin: 01/15/18 18:56 Dose: 100 mls/hr Methylprednisolone (Solu-Medrol 125 Mg Vial) 125 mg IV NOW ONE Stop: 01/15/18 17:49 Last Admin: 01/15/18 17:58 Dose: 125 mg Vital Signs - 8 hr 01/15/18 17:26 01/15/18 17:30 01/15/18 17:56 Temperature Pulse Rate 94 H 112 H Respiratory Rate 30 H 32 H Blood Pressure 80/60 L Blood Pressure [Right Arm] Pulse Oximetry 91 90 L 87 L 01/15/18 17:58 01/15/18 20:05 01/15/18 20:10 Temperature 98.4 F Pulse Rate 103 H 95 H 101 H Respiratory Rate 28 H 18 24 Blood Pressure 155/86 H Blood Pressure [Right Arm] 132/86 Pulse Oximetry 93 96 93 01/15/18 22:14 Temperature Pulse Rate 94 H Respiratory Rate 22 Blood Pressure Blood Pressure [Right Arm] Pulse Oximetry 94 MDM - Chest Pain Medical Records Data Attestation: I reviewed the patient's medical records. Lab Data Attestation: I reviewed the patient's lab results. Result diagrams: 01/15/18 17:42 01/15/18 17:42 Lab Results 01/15/18 01/15/18 01/15/18 Range/Units 17:42 17:42 17:42 WBC 12.3 H (4.5-11.0) X10^3/uL RBC 5.19 (4.5-5.9) X10^6/uL Hgb 15.9 (13.5-17.5) g/dL Hct 46.3 (41-53) % MCV 89.2 (80-100) fL MCH 30.7 (26-34) PG MCHC 34.5 (30-36) % RDW 14.8 (11.6-14.8) % Plt Count 186 (150-400) X10^3/uL Neut % (Auto) 77.2 H (50-75) % Lymph % (Auto) 11.5 L (25-40) % Winkler % (Auto) 10.5 (3-14) % Eos % (Auto) 0.4 L (2-4) % Baso % (Auto) 0.4 (0-2) % Neut # (Auto) 9500 H (2740-2447) /uL Sodium 140 (137-145) mmol/L Potassium 4.1 (3.4-5.1) mmol/L Chloride 101 (98-107) mmol/L Carbon Dioxide 28 (22-32) mmol/L BUN 8 L (9-20) mg/dL Creatinine 0.90 (0.66-1.25) mg/dL Estimated GFR > 60.0 (>60) mL/min BUN/Creatinine Ratio 8.9 (6-22) Glucose 113 H (70-100) mg/dL Lactate (0.7-2.1) mmol/L Calcium 9.6 (8.4-10.2) mg/dL Magnesium 2.0 (1.6-2.3) mg/dL Total Creatine Kinase 134 (55-170) U/L Troponin I < 0.012 (0.01-0.034) ng/mL B-Natriuretic Peptide 106.0 H (<100) Procalcitonin 0.05 (<0.5) ng/mL 01/15/18 Range/Units 18:30 WBC (4.5-11.0) X10^3/uL RBC (4.5-5.9) X10^6/uL Hgb (13.5-17.5) g/dL Hct (41-53) % MCV (80-100) fL MCH (26-34) PG MCHC (30-36) % RDW (11.6-14.8) % Plt Count (150-400) X10^3/uL Neut % (Auto) (50-75) % Lymph % (Auto) (25-40) % Winkler % (Auto) (3-14) % Eos % (Auto) (2-4) % Baso % (Auto) (0-2) % Neut # (Auto) (1540-9547) /uL Sodium (137-145) mmol/L Potassium (3.4-5.1) mmol/L Chloride (98-107) mmol/L Carbon Dioxide (22-32) mmol/L BUN (9-20) mg/dL Creatinine (0.66-1.25) mg/dL Estimated GFR (>60) mL/min BUN/Creatinine Ratio (6-22) Glucose (70-100) mg/dL Lactate 2.1 (0.7-2.1) mmol/L Calcium (8.4-10.2) mg/dL Magnesium (1.6-2.3) mg/dL Total Creatine Kinase (55-170) U/L Troponin I (0.01-0.034) ng/mL B-Natriuretic Peptide (<100) Procalcitonin (<0.5) ng/mL Urine Dip Bedside Urine Glucose Negative Bedside Urine Bilirubin - Negative Bedside Urine Ketone - Negative Urine Specific [place] 1.010 Bedside Urine Occult Blood - Negative Bedside Urine pH 6.0 Bedside Urine Protein - Negative Bedside Urine Urobilinogen +/- 1mg Bedside Urine Nitrite - Negative Bedside Urine Leukocytes - Negative Esterase Imaging Data Chest x-ray: Radiologist's impression: PROCEDURE: XR CHEST 2V INDICATIONS: shortness of breath TECHNIQUE: 2 views of the chest were acquired. COMPARISON: None. FINDINGS: Surgical changes and devices: None. Lungs and pleura: No pleural effusions or pneumothorax. Lungs are clear. Mediastinum: Mediastinal contours are normal. Heart size is normal. Bones and chest wall: No suspicious bony abnormalities. Soft tissues appear unremarkable. IMPRESSION: No acute cardiopulmonary findings. Dictated by: Sara Abreu M.D. on 01/15/2018 at 18:28 Approved by: Sara Abreu M.D. on 01/15/2018 at 18:28 ECG Data Attestation: I personally reviewed and interpreted this ECG as follows: Prior ECG tracings: not available for review Interpretation: Sinus rhythm Ventricular rate of 93 Normal axis Normal intervals Normal QRS Normal QTC Wandering baseline V2 through V 6 MDM Narrative Medical decision making narrative: Patient arrived hypoxic in improved with 2 L of nasal cannula. Received 2 nebulizer treatments and also steroids here in the ER. Secondary to his productive cough, subjective fevers and elevated white blood cell count he was given Levaquin here in the emergency department. He was observed here in the ER for period of time. His rhonchi improved after the 1st 2 nebulizers however was returning. When I took him off his oxygen during my exam he became hypoxic again into the high 80s. He is unable to ambulate given his history of multiple sclerosis. He states that he feels worse today than what he has in the past with his COPD exacerbations. He was afebrile. Lactate 2.1. Not hypotensive. Secondary to his oxygen requirement, the return of his rhonchi, his tachypnea, will admit to the hospital for further evaluation and treatment. Discussed the case with Dr. Gonzalez with Internal Medicine who accepts the patient in admission. Patient was informed of the decision for admission. He expressed understanding and agreement. Discharge Plan Departure Patient Disposition: Admitted As Inpatient Clinical Impression: COPD exacerbation, Acute respiratory distress Discharge Date/Time: 01/15/18 20:51 Interventions: ED Discharge Assessment Last Done: 01/15/18 20:51 Admit Date/Time: 01/15/18 20:40 Admit Provider: Bertin Gonzalez
[2018-01-15] MEDS: levoFLOXacin 750 MG/150 ML PIGGYBACK 100 MG IV (18:56)
[2018-01-15 19:26] LABS: Procalcitonin 0.05 ng/mL (<0.5)
[2018-01-15 19:29] LABS: Lactate (Lactic Acid) 2.1 mmol/L (0.7-2.1)
[2018-01-15] MEDS: METOPROLOL 50 MG TABLET PO (22:05)
[2018-01-15] MEDS: BENZOCAINE/MENTHOL 1 LOZ PKT 1 EACH PO (22:06)
[2018-01-15] MEDS: BACLOFEN 10 MG TABLET PO (22:06)
[2018-01-15] MEDS: NICOTINE 21 MG PATCH TOP (22:09)
[2018-01-16] VITALS (16 sets, daily range): BP systolic 110–153; BP diastolic 58–100; PULSE 82–113; RESP 18–30; TEMP 36.2–37.2; O2SAT 91–96
[2018-01-16] MEDS: ALBUTEROL/IPRATROPIUM 3 ML AMPUL INH ×6 (01:46→21:38)
[2018-01-16] MEDS: BENZOCAINE/MENTHOL 1 LOZ PKT 1 EACH PO ×3 (01:50→23:58)
[2018-01-16] MEDS: GUAIFENESIN/DM 200/20 MG/10 ML UDC PO ×3 (01:51→23:57)
--- NOTE | 2018-01-16 02:20 | PC.NURSE ---
Patient has MS and uses a motorized wheelchair for mobility.
[2018-01-16] MEDS: NICOTINE 21 MG PATCH TOP (08:24)
[2018-01-16] MEDS: CODEINE/GUAIFENESIN LIQUID 10 ML PO ×3 (08:31→20:42)
[2018-01-16] MEDS: BACLOFEN 10 MG TABLET PO ×3 (08:34→23:56)
[2018-01-16] MEDS: methylPREDNISolone 125 MG/2 ML VIAL 60 MG IV ×2 (08:34→20:42)
--- NOTE | 2018-01-16 08:36 | PM.HP.1 ---
History of Present Illness Date Patient Seen: 01/16/18 Time Patient Seen: 08:00 Chief complaint: trouble breathing Narrative: Patient is a 57-year-old male with history of COPD, cigarette dependence, multiple sclerosis, prior strokes, presented to emergency department due to cough and difficulty breathing. He is not on home O2 or chronic steroids. He was hypoxic with O2 sat 87% on room air. He states his breathing has bothered him for few weeks. He also recently broke off a tooth and felt it lodged in his throat and precipitated worsening cough. The past couple days his cough and breathing worsened. He states he is coughing up copious amounts of yellow to brown phlegm. He denies fever or chills. Chest x-ray did not show infiltrate. Patient History Medical History Multiple sclerosis (Chronic) COPD (chronic obstructive pulmonary disease) (Chronic) Cigarette nicotine dependence (Chronic) Hypothyroidism (Chronic) Hyperlipidemia (Chronic) Hypertension (Chronic) CVA (cerebral vascular accident) (Chronic) History of RI (myocardial infarction) (Chronic) Family & Social History Social History: household members none Prior [place] Safety & Behavioral: Feels Safe in Current No Environment Been Physically Hurt or No Threatened By a Person Suicidal Ideation Description None Suicide Plan Description No Plan Tobacco & Substance use: Smoking Status Current some day smoker Smoking packs per day 1.5 alcohol intake current alcohol intake frequency 0-2 drinks per day Substance Use Type marijuana Meds Home Medications Medication Instructions Recorded Confirmed Type [id number]-[id number] 1 cap PO Q6H PRN #14 cap 10/10/17 01/15/18 Rx albuterol sulfate 3 ml INH Q6HP PRN 01/15/18 01/15/18 History baclofen 1 tab PO TID PRN 01/15/18 01/15/18 History hydroxyzine HCl 25 mg PO TID-QID PRN 01/15/18 01/15/18 History levothyroxine 50 mcg PO DAILY 01/15/18 01/15/18 History metoprolol tartrate 50 mg PO BID 01/15/18 01/15/18 History oxycodone-acetaminophen [Percocet] 1 tab PO Q4-6H PRN 01/15/18 01/15/18 History simvastatin 20 mg PO QPM 01/15/18 01/15/18 History hydroxyzine pamoate 01/16/18 History Allergies Allergy/AdvReac Type Severity Reaction Status Date / Time aspirin [ASPIRIN] Allergy Severe stomach Verified 01/15/18 17:26 ulcers hydrocodone [HYDROCODONE] AdvReac Intermediate hurts Verified 01/15/18 17:26 stomach Review of Systems Review of Systems All systems reviewed & are unremarkable except as noted in HPI and below Exam Vital Signs (past 8 hours): - 01/16/18 01:10 01/16/18 01:47 01/16/18 04:15 Temperature 97.8 F Pulse Rate 85 88 Respiratory Rate 20 20 Blood Pressure 128/78 Pulse Oximetry 94 94 92 01/16/18 05:47 01/16/18 07:57 01/16/18 08:09 Temperature 98 F Pulse Rate 99 H 105 H Respiratory Rate 30 H 21 Blood Pressure 134/83 Pulse Oximetry 95 92 91 Oxygen Delivery Method Room Air Oxygen Flow Rate 0 Narrative Exam Narrative: GENERAL: Alert cooperative male with a productive cough HEAD: Atraumatic. Normocephalic. EYES: Pupils equal, round and reactive. Extraocular motions intact. No scleral icterus. No injection or drainage. OROPHARYNX: No lesions, very poor dentition with missing teeth NECK: Trachea midline. No JVD or lymphadenopathy. CARDIOVASCULAR: Mildly tachycardic with regular rhythm without murmurs, gallops, or rubs. RESPIRATORY: Breathing labored but able to speak full sentences and not using accessory muscles. Diminished throughout with bilateral wheeze GASTROINTESTINAL: Abdomen nondistended, soft, non-tender. No hepato-splenomegaly, or palpable masses. EXTREMITIES: No edema. NEUROLOGICAL: Alert, oriented x3, intact speech, able to raise both arms above shoulders, 0/5 strength in lower extremities SKIN: warm, dry, no rash Objective Imaging Chest x-ray: My impression: No cardiomegaly, no infiltrate, no effusions, no lung mass Radiologist's impression: Normal ECG: My impression: Sinus rhythm, normal axis and intervals, no ST or T-wave abnormality Labs Result Diagrams: 01/15/18 17:42 01/15/18 17:42 Labs: Laboratory Results - last 24 hr 01/15/18 01/15/18 01/15/18 17:42 17:42 17:42 WBC 12.3 H RBC 5.19 Hgb 15.9 Hct 46.3 MCV 89.2 MCH 30.7 MCHC 34.5 RDW 14.8 Plt Count 186 Neut % (Auto) 77.2 H Lymph % (Auto) 11.5 L [place] % (Auto) 10.5 Eos % (Auto) 0.4 L Baso % (Auto) 0.4 Neut # (Auto) 9500 H Sodium 140 Potassium 4.1 Chloride 101 Carbon Dioxide 28 BUN 8 L Creatinine 0.90 Estimated GFR > 60.0 BUN/Creatinine Ratio 8.9 Glucose 113 H Lactate Calcium 9.6 Magnesium 2.0 Total Creatine Kinase 134 Troponin I < 0.012 B-Natriuretic Peptide 106.0 H Procalcitonin 0.05 01/15/18 18:30 WBC RBC Hgb Hct MCV MCH MCHC RDW Plt Count Neut % (Auto) Lymph % (Auto) [place] % (Auto) Eos % (Auto) Baso % (Auto) Neut # (Auto) Sodium Potassium Chloride Carbon Dioxide BUN Creatinine Estimated GFR BUN/Creatinine Ratio Glucose Lactate 2.1 Calcium Magnesium Total Creatine Kinase Troponin I B-Natriuretic Peptide Procalcitonin Assessment & Plan Plan: Assessment/Plan Narrative: 1. COPD exacerbation: Patient presented with recent very productive cough, wheezing, hypoxia. Very diminished breath sounds on exam. No infiltrate on x-ray and normal procalcitonin but WBC slightly elevated. Sputum culture with many polys and gram-positive cocci and gram-negative bacteria, final pending. Plan: Continue Solu-Medrol 60 mg q.12 hours, Levaquin 750 mg by mouth daily times 5-7 days, DuoNeb q.4 hours, supplemental O2 as needed. Ordered codeine cough syrup as well. 2. Acute hypoxic respiratory failure: Treat underlying COPD exacerbation and provide supplemental O2 as needed. 3. Hypertension, hyperlipidemia, hypothyroidism: Continue routine home medications. 4. Cigarette dependency: Nicotine patch. Smoking cessation counseling provided. 5. Multiple sclerosis, history of strokes and RI: Patient takes care of self and uses motorized wheelchair. Patient states he is not on low-dose aspirin because it upset his stomach. 6. DVT prophylaxis: Low-dose Lovenox 7. Disposition: Inpatient management. Return to independent living when medically stable.
--- NOTE | 2018-01-16 08:55 | P.HP_ITS ---
History of Present Illness Date Patient Seen: 01/16/18 Time Patient Seen: 08:00 Chief complaint: trouble breathing Narrative: Patient is a 57-year-old male with history of COPD, cigarette dependence, multiple sclerosis, prior strokes, presented to emergency department due to cough and difficulty breathing. He is not on home O2 or chronic steroids. He was hypoxic with O2 sat 87% on room air. He states his breathing has bothered him for few weeks. He also recently broke off a tooth and felt it lodged in his throat and precipitated worsening cough. The past couple days his cough and breathing worsened. He states he is coughing up copious amounts of yellow to brown phlegm. He denies fever or chills. Chest x- ray did not show infiltrate. Patient History Medical History Multiple sclerosis (Chronic) COPD (chronic obstructive pulmonary disease) (Chronic) Cigarette nicotine dependence (Chronic) Hypothyroidism (Chronic) Hyperlipidemia (Chronic) Hypertension (Chronic) CVA (cerebral vascular accident) (Chronic) History of SD (myocardial infarction) (Chronic) Family & Social History Social History: household members none Prior [place] Safety & Behavioral: Feels Safe in Current No Environment Been Physically Hurt or No Threatened By a Person Suicidal Ideation Description None Suicide Plan Description No Plan Tobacco & Substance use: Smoking Status Current some day smoker Smoking packs per day 1.5 alcohol intake current alcohol intake frequency 0-2 drinks per day Substance Use Type marijuana Meds Home Medications Medication Instructions Recorded Confirmed Type [id number]-[id number] 1 cap PO Q6H PRN #14 cap 10/10/17 01/15/18 Rx albuterol sulfate 3 ml INH Q6HP PRN 01/15/18 01/15/18 History baclofen 1 tab PO TID PRN 01/15/18 01/15/18 History hydroxyzine HCl 25 mg PO TID-QID PRN 01/15/18 01/15/18 History levothyroxine 50 mcg PO DAILY 01/15/18 01/15/18 History metoprolol tartrate 50 mg PO BID 01/15/18 01/15/18 History oxycodone-acetaminophen [Percocet] 1 tab PO Q4-6H PRN 01/15/18 01/15/18 History simvastatin 20 mg PO QPM 01/15/18 01/15/18 History hydroxyzine pamoate 01/16/18 History Allergies Allergy/AdvReac Type Severity Reaction Status Date / Time aspirin [ASPIRIN] Allergy Severe stomach Verified 01/15/18 17:26 ulcers hydrocodone [HYDROCODONE] AdvReac Intermediate hurts Verified 01/15/18 17:26 stomach Review of Systems Review of Systems All systems reviewed & are unremarkable except as noted in HPI and below Exam Vital Signs (past 8 hours): - 01/16/18 01:10 01/16/18 01:47 01/16/18 04:15 Temperature 97.8 F Pulse Rate 85 88 Respiratory Rate 20 20 Blood Pressure 128/78 Pulse Oximetry 94 94 92 01/16/18 05:47 01/16/18 07:57 01/16/18 08:09 Temperature 98 F Pulse Rate 99 H 105 H Respiratory Rate 30 H 21 Blood Pressure 134/83 Pulse Oximetry 95 92 91 Oxygen Delivery Method Room Air Oxygen Flow Rate 0 Narrative Exam Narrative: GENERAL: Alert cooperative male with a productive cough HEAD: Atraumatic. Normocephalic. EYES: Pupils equal, round and reactive. Extraocular motions intact. No scleral icterus. No injection or drainage. OROPHARYNX: No lesions, very poor dentition with missing teeth NECK: Trachea midline. No JVD or lymphadenopathy. CARDIOVASCULAR: Mildly tachycardic with regular rhythm without murmurs, gallops , or rubs. RESPIRATORY: Breathing labored but able to speak full sentences and not using accessory muscles. Diminished throughout with bilateral wheeze GASTROINTESTINAL: Abdomen nondistended, soft, non-tender. No hepato- splenomegaly, or palpable masses. EXTREMITIES: No edema. NEUROLOGICAL: Alert, oriented x3, intact speech, able to raise both arms above shoulders, 0/5 strength in lower extremities SKIN: warm, dry, no rash Objective Imaging Chest x-ray: My impression: No cardiomegaly, no infiltrate, no effusions, no lung mass Radiologist's impression: Normal ECG: My impression: Sinus rhythm, normal axis and intervals, no ST or T- wave abnormality Labs Result Diagrams: 01/15/18 17:42 01/15/18 17:42 Labs: Laboratory Results - last 24 hr 01/15/18 01/15/18 01/15/18 17:42 17:42 17:42 WBC 12.3 H RBC 5.19 Hgb 15.9 Hct 46.3 MCV 89.2 MCH 30.7 MCHC 34.5 RDW 14.8 Plt Count 186 Neut % (Auto) 77.2 H Lymph % (Auto) 11.5 L [place] % (Auto) 10.5 Eos % (Auto) 0.4 L Baso % (Auto) 0.4 Neut # (Auto) 9500 H Sodium 140 Potassium 4.1 Chloride 101 Carbon Dioxide 28 BUN 8 L Creatinine 0.90 Estimated GFR > 60.0 BUN/Creatinine Ratio 8.9 Glucose 113 H Lactate Calcium 9.6 Magnesium 2.0 Total Creatine Kinase 134 Troponin I < 0.012 B-Natriuretic Peptide 106.0 H Procalcitonin 0.05 01/15/18 18:30 WBC RBC Hgb Hct MCV MCH MCHC RDW Plt Count Neut % (Auto) Lymph % (Auto) [place] % (Auto) Eos % (Auto) Baso % (Auto) Neut # (Auto) Sodium Potassium Chloride Carbon Dioxide BUN Creatinine Estimated GFR BUN/Creatinine Ratio Glucose Lactate 2.1 Calcium Magnesium Total Creatine Kinase Troponin I B-Natriuretic Peptide Procalcitonin Assessment & Plan Plan: Assessment/Plan Narrative: 1. COPD exacerbation: Patient presented with recent very productive cough, wheezing, hypoxia. Very diminished breath sounds on exam. No infiltrate on x- ray and normal procalcitonin but WBC slightly elevated. Sputum culture with many polys and gram-positive cocci and gram-negative bacteria, final pending. Plan: Continue Solu-Medrol 60 mg q.12 hours, Levaquin 750 mg by mouth daily times 5-7 days, DuoNeb q.4 hours, supplemental O2 as needed. Ordered codeine cough syrup as well. 2. Acute hypoxic respiratory failure: Treat underlying COPD exacerbation and provide supplemental O2 as needed. 3. Hypertension, hyperlipidemia, hypothyroidism: Continue routine home medications. 4. Cigarette dependency: Nicotine patch. Smoking cessation counseling provided. 5. Multiple sclerosis, history of strokes and SD: Patient takes care of self and uses motorized wheelchair. Patient states he is not on low-dose aspirin because it upset his stomach. 6. DVT prophylaxis: Low-dose Lovenox 7. Disposition: Inpatient management. Return to independent living when medically stable.
[2018-01-16] MEDS: ENOXAPARIN 40 MG/0.4 ML SYRINGE SUBCUT (11:25)
[2018-01-16] MEDS: METOPROLOL 50 MG TABLET PO ×2 (11:25→20:42)
--- NOTE | 2018-01-16 11:40 | PC.NURSE ---
AM shift Pt noted with Gram + Cocci to sputum, placed on contact precautions, education provided for such. Copious amount of sputum with coughing. Afebrile, flushed cheeks, fan placed at bedside. Lungs are tight, with exp wheeze. Dim to bases. C/o neck spasms, requesting home vistaril. Orders rec'd from Dr Gonzalez.
--- NOTE | 2018-01-16 12:11 | CM.DANOTE ---
DCP/Assessment: Reviewed chart. Patient is a 57yr old male admitted to [facility] with SOB. PCP listed is Tawanna Stoll. Primary payor is 1)Medicaid (specific plan not listed). [employer] attempted to meet with patient this AM. Patient coughing profusely and requiring respiratory attention throughout the morning. Spoke with RN/Hermelinda. Notified her that [employer] would reattempt visit later today or in AM tomorrow. Per notes, patient with h/o COPD. Patient currently with cigarette dependence. Patient medical history also includes MS, and previous strokes. Per notes, patient living situation unknown. It is suspected that patient is homeless. RN reports that patient told her that he couch surfs. All patient's belongings currently in room. P: [employer] to assess for d/c planning/social needs either later this afternoon or in AM. reports that patient most likely will not be medically stable for discharge for a few days. CONY Sweet
[2018-01-16] MEDS: hydrOXYzine pamoate 25 MG CAPSULE PO ×2 (14:14→20:42)
[2018-01-16] MEDS: levoFLOXacin 250 MG TABLET 750 MG PO (18:18)
[2018-01-16] MEDS: SIMVASTATIN 20 MG TABLET PO (20:42)
[2018-01-17] VITALS (13 sets, daily range): BP systolic 127–168; BP diastolic 72–95; PULSE 75–93; RESP 18–27; TEMP 35.8–37; O2SAT 85–97
[2018-01-17] MEDS: hydrOXYzine pamoate 25 MG CAPSULE PO ×3 (00:22→09:18)
[2018-01-17] MEDS: CODEINE/GUAIFENESIN LIQUID 10 ML PO ×6 (01:16→21:34)
[2018-01-17] MEDS: ALBUTEROL/IPRATROPIUM 3 ML AMPUL INH ×5 (02:49→23:37)
[2018-01-17] MEDS: LEVOTHYROXINE 50 MCG TABLET PO (05:29)
[2018-01-17] MEDS: BENZOCAINE/MENTHOL 1 LOZ PKT 1 EACH PO ×4 (05:35→17:25)
[2018-01-17] MEDS: GUAIFENESIN/DM 200/20 MG/10 ML UDC PO (05:51)
[2018-01-17] MEDS: ENOXAPARIN 40 MG/0.4 ML SYRINGE SUBCUT (09:14)
[2018-01-17] MEDS: methylPREDNISolone 125 MG/2 ML VIAL 60 MG IV (09:15)
[2018-01-17] MEDS: METOPROLOL 50 MG TABLET PO ×2 (09:15→21:35)
[2018-01-17] MEDS: BACLOFEN 10 MG TABLET PO ×2 (09:16→17:22)
[2018-01-17] MEDS: NICOTINE 21 MG PATCH TOP (09:16)
--- NOTE | 2018-01-17 13:05 | PM.PN.1 ---
Subjective Date Patient Seen: 01/17/18 Interval history: Patient is still short of breath with productive cough and wheezing. He is not hypoxic. We discussed SNF at discharge and he is only willing to go to a facility in town. He will be presented to [facility] today Exam Vital Signs (past 8 hours): - 01/17/18 05:58 01/17/18 07:20 01/17/18 08:52 Temperature 98 F Pulse Rate 87 85 Respiratory Rate 20 27 H Blood Pressure 168/89 H Pulse Oximetry 96 85 L 96 01/17/18 12:10 Temperature 98.1 F Pulse Rate 75 Respiratory Rate 19 Blood Pressure 150/95 H Pulse Oximetry 94 Oxygen Delivery Method Room Air Oxygen Flow Rate 0 Narrative Exam Narrative: Chronically ill appearing male Lungs: Decreased breath sounds which scattered rhonchi CV: RRR nl Sl S2 Abd: soft/ non tender/non distended Ext: no edema Objective Labs Result Diagrams: 01/15/18 17:42 01/15/18 17:42 Assessment & Plan (1) COPD (chronic obstructive pulmonary disease): Problem details: Will continue oxygen, nebs, sterods Current visit: No Status: Chronic (2) Cigarette nicotine dependence: Problem details: continue abstinence. Smoking cessation discussed today Current visit: No Status: Chronic (3) Hypothyroidism: Problem details: continue levothyroxine Current visit: No Status: Chronic (4) Hyperlipidemia: Problem details: continue statin Current visit: No Status: Chronic (5) Hypertension: Problem details: continue metoprolol Current visit: No Status: Chronic (6) Multiple sclerosis: Problem details: Uses motorized wheelchair Current visit: No Status: Chronic Plan: Assessment/Plan Narrative: To [facility] or home in 1-2 days
--- NOTE | 2018-01-17 13:08 | P.PN_ITS ---
Subjective Date Patient Seen: 01/17/18 Interval history: Patient is still short of breath with productive cough and wheezing. He is not hypoxic. We discussed SNF at discharge and he is only willing to go to a facility in town. He will be presented to [facility] today Exam Vital Signs (past 8 hours): - 01/17/18 05:58 01/17/18 07:20 01/17/18 08:52 Temperature 98 F Pulse Rate 87 85 Respiratory Rate 20 27 H Blood Pressure 168/89 H Pulse Oximetry 96 85 L 96 01/17/18 12:10 Temperature 98.1 F Pulse Rate 75 Respiratory Rate 19 Blood Pressure 150/95 H Pulse Oximetry 94 Oxygen Delivery Method Room Air Oxygen Flow Rate 0 Narrative Exam Narrative: Chronically ill appearing male Lungs: Decreased breath sounds which scattered rhonchi CV: RRR nl Sl S2 Abd: soft/ non tender/non distended Ext: no edema Objective Labs Result Diagrams: 01/15/18 17:42 01/15/18 17:42 Assessment & Plan (1) COPD (chronic obstructive pulmonary disease): Problem details: Will continue oxygen, nebs, sterods Current visit: No Status: Chronic (2) Cigarette nicotine dependence: Problem details: continue abstinence. Smoking cessation discussed today Current visit: No Status: Chronic (3) Hypothyroidism: Problem details: continue levothyroxine Current visit: No Status: Chronic (4) Hyperlipidemia: Problem details: continue statin Current visit: No Status: Chronic (5) Hypertension: Problem details: continue metoprolol Current visit: No Status: Chronic (6) Multiple sclerosis: Problem details: Uses motorized wheelchair Current visit: No Status: Chronic Plan: Assessment/Plan Narrative: To [facility] or home in 1-2 days
--- NOTE | 2018-01-17 13:40 | CM.DANOTE ---
DCP/continued: Reviewed chart. [employer] met with patient this AM to discuss d/c planning and community resources. Patient alert and oriented during visit but continues to have issues related to breathing. Spoke with Dr. Rhodes and she is requesting SNF to improve respiratory status. Patient reports that he currently has trailer in area and sleeps in that or stays at friend's in the area off/on. Patient identifies has w/c bound. He does report that he can transport himself to/from motorized chair. Notified patient that current medical team recommendation is for patient to go to SNF for short stay to improve his respiratory status. Patient hesitant but agreeable. Patient appears to be worried about affairs outside of the hospital i.e. paying bills etc. Patient notified that he is unable to smoke at facility. Discussed SNF options with patient and he reports that he will not leave [place]. Therefore, patient aware and agreeable for [facility] to review for potential admit. Patient denies needing additional community resources at this time. However, it would be worthwhile to recheck with patient when he is feeling better. Dr. Rhodes updated. Demographic sheet indicates that primary payor is 1)Medicaid 2)Medicare. CM team determined that it is the opposite and Medicare is prime. P: Anticipate [facility] if they can accept or patient to return to previous living arrangements. Patient strongly encourage to go to SNF for his well being. CONY Sweet
[2018-01-17] MEDS: predniSONE 20 MG TABLET 40 MG PO (14:21)
[2018-01-17] MEDS: AMOXICILLIN/CLAV 875/125 MG 1 TAB PO ×2 (14:21→21:35)
[2018-01-17] MEDS: SIMVASTATIN 20 MG TABLET PO (21:35)
--- NOTE | 2018-01-17 22:50 | PC.NURSE ---
01/170: pt continues to have extreme coughing episodes, temporary de-saturations with episodes but quickly rebounds on RA. uses call light appropriately and voices all needs.
[2018-01-17] MEDS: SODIUM CHLORIDE 0.9% FLUSH 10 ML IV (22:59)
[2018-01-18] VITALS (11 sets, daily range): BP systolic 113–163; BP diastolic 78–111; PULSE 64–111; RESP 16–22; TEMP 36.2–37.1; O2SAT 93–97
[2018-01-18] MEDS: GUAIFENESIN/DM 200/20 MG/10 ML UDC PO ×2 (00:01→08:38)
[2018-01-18] MEDS: BENZOCAINE/MENTHOL 1 LOZ PKT 1 EACH PO ×4 (00:02→23:47)
[2018-01-18] MEDS: CODEINE/GUAIFENESIN LIQUID 10 ML PO ×4 (01:48→20:12)
[2018-01-18] MEDS: hydrOXYzine pamoate 25 MG CAPSULE PO ×4 (04:27→15:56)
[2018-01-18] MEDS: LEVOTHYROXINE 50 MCG TABLET PO (06:00)
[2018-01-18] MEDS: ALBUTEROL/IPRATROPIUM 3 ML AMPUL INH ×6 (06:19→22:54)
[2018-01-18] MEDS: AMOXICILLIN/CLAV 875/125 MG 1 TAB PO ×2 (08:35→20:13)
[2018-01-18] MEDS: METOPROLOL 50 MG TABLET PO ×2 (08:36→20:13)
[2018-01-18] MEDS: predniSONE 20 MG TABLET 40 MG PO (08:36)
[2018-01-18] MEDS: BACLOFEN 10 MG TABLET PO ×4 (08:37→23:47)
[2018-01-18] MEDS: ENOXAPARIN 40 MG/0.4 ML SYRINGE SUBCUT (09:57)
[2018-01-18] MEDS: NICOTINE 21 MG PATCH TOP (09:57)
[2018-01-18] MEDS: SODIUM CHLORIDE 0.9% FLUSH 10 ML IV ×2 (09:57→20:12)
--- NOTE | 2018-01-18 10:00 | P.PN_ITS ---
Subjective Date Patient Seen: 01/18/18 Interval history: Patient is very [place]IN[place]. He is still short of breath. He continues to have a cough. He refuses to go to a SNF outside of [place] Patient feels a little better but not at baseline. He has a long history of tobacco use, up to 5 packs of cigarettes per day. Most recently he was smoking 2 packs per day Exam Vital Signs (past 8 hours): - 01/18/18 05:40 01/18/18 06:22 01/18/18 08:40 Temperature 97.1 F L 98.7 F Pulse Rate 111 H 85 85 Respiratory Rate 20 22 21 Blood Pressure 163/111 H 144/108 H Pulse Oximetry 97 95 95 Oxygen Delivery Method Room Air Oxygen Flow Rate 0 Narrative Exam Narrative: Awake and alert in no acute distress Lungs: Decreased breath sounds with prolonged expiratory phase and end expiratory wheezing CV: RRR nl Sl s2 Abd: soft/ non tender/ non distended Ext: no edema Objective Labs Result Diagrams: 01/15/18 17:42 01/15/18 17:42 Assessment & Plan (1) Acute bacterial bronchitis: Problem details: Continue Augmentin given sputum culture sensitivity Current visit: Yes Status: Acute (2) Acute exacerbation of chronic obstructive pulmonary disease (COPD): Problem details: Continue nebs, Steroids for now Current visit: Yes Status: Acute (3) Cigarette nicotine dependence: Problem details: continue abstinence. Smoking cessation discussed today Current visit: No Status: Chronic (4) Hypothyroidism: Problem details: continue levothyroxine Current visit: No Status: Chronic (5) Hyperlipidemia: Problem details: continue statin Current visit: No Status: Chronic (6) Hypertension: Problem details: continue metoprolol Current visit: No Status: Chronic Plan: Assessment/Plan Narrative: Awaiting on response from [facility] regarding placement
--- NOTE | 2018-01-18 15:00 | CM.DPC ---
DCP Cont: LM for [facility] admissions; requested update re: referral and acceptance (?). JOSELUIS
[2018-01-18] MEDS: ACETAMINOPHEN 325 MG TABLET 650 MG PO (15:55)
[2018-01-18] MEDS: SIMVASTATIN 20 MG TABLET PO (20:13)
[2018-01-19] VITALS (15 sets, daily range): BP systolic 152–177; BP diastolic 94–109; PULSE 70–89; RESP 14–22; TEMP 36.5–37.1; O2SAT 92–96
[2018-01-19] MEDS: CODEINE/GUAIFENESIN LIQUID 10 ML PO ×3 (00:20→18:13)
[2018-01-19] MEDS: ACETAMINOPHEN 325 MG TABLET 650 MG PO (03:06)
[2018-01-19] MEDS: hydrOXYzine pamoate 25 MG CAPSULE PO (03:06)
[2018-01-19] MEDS: ALBUTEROL/IPRATROPIUM 3 ML AMPUL INH ×5 (06:10→23:39)
[2018-01-19] MEDS: LEVOTHYROXINE 50 MCG TABLET PO (06:34)
[2018-01-19] MEDS: BENZOCAINE/MENTHOL 1 LOZ PKT 1 EACH PO ×3 (06:42→20:44)
[2018-01-19] MEDS: ALBUTEROL 2.5 MG/3 ML NEB (ADULT) INH (08:10)
[2018-01-19] MEDS: ENOXAPARIN 40 MG/0.4 ML SYRINGE SUBCUT (09:40)
[2018-01-19] MEDS: AMOXICILLIN/CLAV 875/125 MG 1 TAB PO ×2 (09:40→20:35)
[2018-01-19] MEDS: METOPROLOL 50 MG TABLET PO ×2 (09:40→20:35)
[2018-01-19] MEDS: NICOTINE 21 MG PATCH TOP (09:40)
[2018-01-19] MEDS: BACLOFEN 10 MG TABLET PO ×2 (09:41→18:13)
[2018-01-19] MEDS: SODIUM CHLORIDE 0.9% FLUSH 10 ML IV ×2 (09:41→20:35)
[2018-01-19] MEDS: predniSONE 20 MG TABLET 40 MG PO (09:41)
--- NOTE | 2018-01-19 14:54 | P.PN_ITS ---
Subjective Date Patient Seen: 01/19/18 Interval history: Patient is still markedly short of breath with any movement. He refuses to go to a SNF outside of [place]. He is still fairly winded with any activity Exam Vital Signs (past 8 hours): - 01/19/18 07:00 01/19/18 08:00 01/19/18 08:10 Temperature 97.7 F Pulse Rate 77 Respiratory Rate 15 Pulse Oximetry 93 92 01/19/18 12:02 Temperature Pulse Rate 76 Respiratory Rate 14 Pulse Oximetry 94 Oxygen Delivery Method Room Air Oxygen Flow Rate 0 Narrative Exam Narrative: Short of breath with minimal movement Lungs: Decreased breath sounds with end expiratory wheezing CV: RRR nl Sl S2 Abd: Soft/ non tender/non distended Ext: trace edema Objective Labs Result Diagrams: 01/15/18 17:42 01/15/18 17:42 Assessment & Plan (1) Acute exacerbation of chronic obstructive pulmonary disease (COPD): Problem details: Continue nebs, Steroids for now Current visit: Yes Status: Acute (2) Acute bacterial bronchitis: Problem details: Continue Augmentin given sputum culture sensitivity Current visit: Yes Status: Acute (3) Multiple sclerosis: Problem details: Uses motorized wheelchair Current visit: No Status: Chronic (4) Cigarette nicotine dependence: Problem details: continue abstinence. Smoking cessation discussed today Current visit: No Status: Chronic (5) Hypothyroidism: Problem details: continue levothyroxine Current visit: No Status: Chronic (6) Hyperlipidemia: Problem details: continue statin Current visit: No Status: Chronic (7) Hypertension: Problem details: continue metoprolol Current visit: No Status: Chronic Plan: Assessment/Plan Narrative: Home when breathing improved
[2018-01-19] MEDS: SIMVASTATIN 20 MG TABLET PO (20:35)
[2018-01-20] VITALS (10 sets, daily range): BP systolic 148–173; BP diastolic 100–117; PULSE 74–89; RESP 14–24; TEMP 36.3–36.8; O2SAT 92–97
[2018-01-20] MEDS: BACLOFEN 10 MG TABLET PO ×2 (00:48→09:17)
[2018-01-20] MEDS: CODEINE/GUAIFENESIN LIQUID 10 ML PO ×4 (00:48→14:15)
[2018-01-20] MEDS: BENZOCAINE/MENTHOL 1 LOZ PKT 1 EACH PO ×6 (00:49→16:00)
[2018-01-20] MEDS: hydrOXYzine pamoate 25 MG CAPSULE PO ×2 (00:58→05:30)
[2018-01-20] MEDS: ALBUTEROL/IPRATROPIUM 3 ML AMPUL INH ×3 (04:48→14:37)
[2018-01-20] MEDS: LEVOTHYROXINE 50 MCG TABLET PO (05:30)
[2018-01-20] MEDS: predniSONE 20 MG TABLET 40 MG PO (09:09)
[2018-01-20] MEDS: NICOTINE 21 MG PATCH TOP (09:15)
[2018-01-20] MEDS: ENOXAPARIN 40 MG/0.4 ML SYRINGE SUBCUT (09:15)
[2018-01-20] MEDS: METOPROLOL 50 MG TABLET PO (09:16)
[2018-01-20] MEDS: AMOXICILLIN/CLAV 875/125 MG 1 TAB PO (09:16)
[2018-01-20] MEDS: SODIUM CHLORIDE 0.9% FLUSH 10 ML IV (09:17)
--- NOTE | 2018-01-20 09:19 | RT ---
Assessed pt. Lung sounds remain distant, coarse with scattered rhonchi/exp wz. O2 sats on room air 96%, pulse 70ish, RR 20 Pt did infact, have a incessant coughing spell X ~5 min, and expectorated scant amt phlegm into blue bag. Neb tx given with fair results, informed Nurse Ramya to consider giving him guifenesin/codeine mixture (last was 529). Pt is using his acapella/IS often. Encouraged pt to increase water intake also.
--- NOTE | 2018-01-20 11:34 | PC.NURSE ---
Addendum entered by Ramya Howard R.N. 01/20/18 13:26: Pt will be discharging to [facility] today, Will be giving him a 1x dose of lisnopril and clonidine for increased blood pressure. Up to bathroom and had a bm. Will be picked up this afternoon. Original Note: Pt has been getting throat lozenges every hour this morning. He has had 1 each an hour apart. He has a productive cough with yellow colored, thick sputum. Given cough syrup x1 as well. After RT nebs, pt seems to cough the most. Bp has been running high, Dr. Flores is aware of this, given Metoprolol, will recheck VS before lunch time. Pt is stable and resting comfortably. He swabbed + for the Flu and is on droplet precautions.
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
[2018-01-20] MEDS: LISINOPRIL 10 MG TABLET PO (14:16)
[2018-01-20] MEDS: cloNIDine 0.1 MG TABLET PO (14:16)
--- NOTE | 2018-01-20 14:35 | P.DS_ITS ---
History of Present Illness Chief complaint: trouble breathing Discharge Providers Date of admission: 01/15/18 20:40 Primary care physician: Elly Stoll DO Consults: 01/15/18 17:48 Consult to Respiratory Therapy Evaluate & Treat Comment: Physician Instructions: Evaluate and treat 01/15/18 20:14 Consult to Respiratory Therapy Evaluate & Treat Comment: Physician Instructions: Evaluate and treat Discharge provider: Dioni William MD Summary Discharge Diagnosis: One acute exacerbation of COPD 2. Acute bacterial bronchitis 3. Multiple sclerosis 4. Tobacco dependence 5. Hypothyroidism 6. Hyperlipidemia 7. Hyperthyroidism 8. Prior CVA 9. 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 HOMELESS CONSULTATIONS: None PROCEDURES CHEST X-RAY 01/15/2018: NO ACUTE CARDIOPULMONARY DISEASE NOTED Hospital Course: The patient is a 57-year-old male with the diseases as listed above presented on admission 01/15/2018 with hypoxia of 87% on room air and increased breathlessness. He stated that this had been ongoing IgE the breathlessness for a few weeks and that in the past couple of days he has had increased cough and sputum production. He was afebrile white count was 12.3 and this x-ray did not reveal any acute infiltrate. He was admitted for acute exacerbation of his COPD. He was placed on IV Solu- Medrol, IV Levaquin, doing neb treatments and supplemental O2. With these measures his acute exacerbation resolved. His all been changed from IV Solu- Medrol to p.o. prednisone continues to do well. The same applies for his IV antibiotic. He is on Augmentin and continues to do well. He is continued to remain afebrile and his T-max in the prior 24 hr is 98.7 His only issue during his hospitalization has been his blood pressure. He will be placed on Procardia 30 mg XL in addition to his metoprolol.. He will need ongoing close monitoring of his blood pressures an outpatient Exam Vital Signs (past 8 hours): - 01/20/18 07:00 01/20/18 08:00 01/20/18 09:00 Temperature 97.9 F Pulse Rate 79 Respiratory Rate 14 Blood Pressure 163/100 H Pulse Oximetry 96 92 96 01/20/18 09:25 01/20/18 12:20 Temperature 98.2 F Pulse Rate 74 Respiratory Rate 16 Blood Pressure 164/113 H Pulse Oximetry 96 95 Oxygen Delivery Method Room Air Oxygen Flow Rate 0 Narrative Exam Narrative: General NAD talking in full sentences without stopping her head problems with shortness of breath HEENT normocephalic atraumatic extraocular movement was intact pupils were equal round reactive sclera nonicteric Neck is supple without thyromegaly bruits or jugular venous distension Respiratory slightly diminished breath sounds a very soft faint rare expiratory wheeze Cardiovascular regular rhythm S1-S2 was normal Abdomen benign bowel sounds active Neurologic decreased motor strength of the lower extremities Psychiatric mood and affect were normal Objective Labs Result Diagrams: 01/15/18 17:42 01/15/18 17:42 Discharge Plan Discharge Plan Patient Disposition: Home Discharge Med Rec/Prescriptions Prescriptions: New codeine-guaifenesin 10-100 mg/5 mL Liquid 10 ml PO Q4H PRN (Reason: Cough) Qty: 480 RF: 0 amoxicillin-pot clavulanate [Augmentin] 875-125 mg Tablet 1 tab PO BID 5 Days Qty: 10 RF: 0 Continue oxycodone-acetaminophen [Percocet] 5-325 mg Tablet 1 tab PO Q4-6H PRN (Reason: Pain, Moderate) RF: 0 hydroxyzine HCl 25 mg Tablet 25 mg PO TID-QID PRN (Reason: Muscle Spasm) RF: 0 levothyroxine 50 mcg Capsule 50 mcg PO DAILY RF: 0 baclofen 20 MG tablet 1 tab PO TID PRN (Reason: Muscle Spasm) RF: 0 albuterol sulfate 2.5 MG/3 ML solution for nebulization 3 ml INH Q6HP PRN (Reason: Shortness Of Breath Or Wheezing) RF: 0 simvastatin 20 mg Tablet 20 mg PO QPM RF: 0 metoprolol tartrate 50 mg Tablet 50 mg PO BID RF: 0 ngqzoijwyj-qbgabodpskwct-hrqz 50-325-40 mg capsule 1 cap PO Q6H PRN (Reason: pain) Qty: 14 RF: 0 Follow up/Referrals: Elly Stoll DO [Primary Care Provider] - Provider Discharge Instructions Diet: Diet as Tolerated Activity: Wheelchair/motorized chair as before admission Skin/Wound/Dressing Care Report to your healthcare provider any signs of infection, such as:: chills, fever Discharge Data Primary Care Provider: Elly Stoll Attending Provider: Bertin Gonzlaez Admit Date/Time: 01/15/18 20:40
== END 2018-01-20 17:20 | disposition home or self-care (01) | DRG 190 ==
LOC: ED 20:09 → AC 20:40
PROVIDERS: Emergency Medicine; Admitting Provider Internal Medicine; Emergency Provider Emergency Medicine; Family Provider Family Medicine; PCP Family Medicine; Visit Provider Internal Medicine
DX: J44.1 Chronic obstructive pulmonary disease with (acute) exacerbation (principal); J96.01 Acute respiratory failure with hypoxia; G35 Multiple sclerosis; Z59.0 Homelessness; J20.8 Acute bronchitis due to other specified organisms; J44.0 Chronic obstructive pulmonary disease with (acute) lower respiratory infection; F17.210 Nicotine dependence, cigarettes, uncomplicated; E03.9 Hypothyroidism, unspecified; E78.5 Hyperlipidemia, unspecified; I10 Essential (primary) hypertension; I25.10 Atherosclerotic heart disease of native coronary artery without angina pectoris; Z86.73 Personal history of transient ischemic attack (TIA), and cerebral infarction without residual deficits
CPT/HCPCS: 36415; 36591; 71046; 80048; 81003; 82550; 82553; 83605; 83735; 83880; 84145; 84484; 85025; 87040; 87070; 87077; 87147; 87186; 87205; 93005; 93041; 94640; 94760; 94762; 96365; 96367; 96375; 99284; 99406; J1650; J1956; J2930; J7613

== ENCOUNTER 2018-02-05 10:35 | Emergency (ER) | payer MEDICARE, MEDICAID, OTHER, SELFPAY ==
[2018-01-15 20:51] VITALS: BMI 24.0
[2018-02-05 10:46] VITALS: BP 139/88; PULSE 84; RESP 20; TEMP 36.9; O2SAT 96; BMI 30.4
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
[2018-02-05] MEDS: KETOROLAC 60 MG/2 ML VIAL IM (12:34)
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
[2018-02-05 13:35] LABS: Add Manual Diff / Slide Review NO; Eosinophils Percent Auto 1.6 % (2-4); Hematocrit 47.6 % (41-53); Hemoglobin 15.9 g/dL (13.5-17.5); Lymphocytes Percent Auto 19.4 % (25-40); Mean Corpuscular HGB Conc 33.5 % (30-36); Mean Corpuscular Hemoglobin 30.7 PG (26-34); Mean Corpuscular Volume 91.5 fL (80-100); Neutrophils Absolute Auto 10800 /uL (3000-5900); Platelet Count 187 X10^3/uL (150-400); Red Cell Distribution Width 14.7 % (11.6-14.8); White Blood Cell Count 15.4 X10^3/uL (4.5-11.0)
[2018-02-05 13:44] LABS: Appearance Urine UA CLEAR; Bacteria Urine None Seen; Bilirubin Urine UA NEGATIVE (NEGATIVE); Color Urine UA YELLOW; Glucose Urine UA NEGATIVE (Normal); Ketones Urine UA NEGATIVE (NEGATIVE); Leukocyte Esterase Urine UA NEGATIVE (NEGATIVE); Nitrite Urine UA Negative (Negative); Occult Blood Urine UA NEGATIVE (Negative); Protein Urine UA NEGATIVE (Negative); RBC Urine None Seen (0-5/HPF); WBC Urine None Seen (0-5/HPF); pH Urine UA 5.5 (4.5-8.0)
[2018-02-05 13:45] LABS: Alanine Aminotransferase 32 IU/L (21-72); Albumin 3.9 g/dL (3.5-5.0); Albumin Globulin Ratio 1.4 (1.0-2.8); Alkaline Phosphatase 68 U/L (38-126); Aspartate Aminotransferase 26 IU/L (17-59); Bilirubin Total 0.6 mg/dL (0.2-1.3); Blood Urea Nitrogen 23 mg/dL (9-20); Calcium 8.7 mg/dL (8.4-10.2); Carbon Dioxide 29 mmol/L (22-32); Chloride 100 mmol/L (98-107); Estimated Glomerular Filt Rate > 60.0 mL/min (>60); Globulin 2.7 g/dL (1.7-4.1); Glucose 97 mg/dL (70-100); HEMOLYSIS < 15 (0-50); Potassium 4.6 mmol/L (3.4-5.1); Sodium 136 mmol/L (137-145); Total Protein 6.6 g/dL (6.3-8.2)
[2018-02-05 13:51] LABS: Culture Indicated Urine Cult Not Indicated; Urine Comments Microscopic Normal
[2018-02-05 14:20] VITALS: PULSE 73; RESP 20; O2SAT 95
[2018-02-05] MEDS: ALBUTEROL/IPRATROPIUM 3 ML AMPUL INH (14:20)
== END 2018-02-05 15:03 | disposition home or self-care (01) ==
PROVIDERS: Emergency Provider Nurse Practitioner Family; PCP Family Medicine
DX: S20.229A Contusion of unspecified back wall of thorax, initial encounter (principal); Y04.8XXA Assault by other bodily force, initial encounter
CPT/HCPCS: 36415; 71101; 80053; 81001; 85025; 94640; 94760; 96372; 99282; 99284; J1885

== ENCOUNTER 2018-07-16 02:10 | Emergency (ER) | payer MEDICARE, MEDICAID, SELFPAY ==
[2018-01-15 20:51] VITALS: BMI 24.0
[2018-07-16] VITALS (11 sets, daily range): BP systolic 96–118; BP diastolic 68–84; PULSE 66–92; RESP 18–28; TEMP 36.7; O2SAT 88–100
[2018-07-16] MEDS: ALBUTEROL 2.5 MG/3 ML NEB (ADULT) INH (03:46)
[2018-07-16] MEDS: ALBUTEROL/IPRATROPIUM 3 ML AMPUL INH ×2 (03:46→04:08)
[2018-07-16] MEDS: SODIUM CHLORIDE 0.9% 1,000 ML 150 ML IV (04:00)
--- NOTE | 2018-07-16 04:01 | DI.RAD.S_ITS ---
PROCEDURE: XR CHEST 1V INDICATIONS: cough TECHNIQUE: One view of the chest was acquired. COMPARISON: [facility], CR, XR CHEST 2V, 01/15/2018, 17:26. [facility], CR, XR RIBS LT MIN 3V W CXR1V, 02/05/2018, 11:57. FINDINGS: Surgical changes and devices: None. Lungs and pleura: Lungs are clear. No pleural effusions or pneumothorax. Mediastinum: Mediastinal contours appear normal. Heart size is normal. Bones and chest wall: No suspicious bony lesions. Overlying soft tissues appear unremarkable. IMPRESSION: No acute process. Dictated by: Jono Aviles M.D. on 07/16/2018 at 10:04 Approved by: Jono Aviles M.D. on 07/16/2018 at 10:04
--- NOTE | 2018-07-16 04:02 | ED.SOB ---
HPI - SOB/Dyspnea <Rola Marcelle, DO - Last Filed: 07/16/18 18:38> General Chief Complaint: Shortness of Breath/Dyspnea Stated Complaint: RIGHT UPPER TOOTH PAIN/THROAT PROBLEM Time Seen by Provider: 07/16/18 03:48 Source: patient Mode of arrival: ambulatory Limitations: no limitations History of Present Illness The patient is a 57-year-old male with multiple sclerosis and COPD his. He states he is he is because he has some right-sided neck and jaw and throat pain. He says that been ongoing since November when he lost a tooth. He was actually admitted in December with COPD exacerbation looks as though they tried to get him to a care facility he only wanted to go to care facility in [place] and refuse to go elsewhere. On exam today he is noted to be hypoxic 88%. According to records this is not typical for him. He has not noticed any worsening shortness of breath no fever or cough. He has no chest pain but occasional chest tightness. MD Complaint: shortness of breath and cough Related Data Home Medications Medication Instructions Recorded Confirmed albuterol sulfate 3 ml INH Q6HP PRN 01/15/18 01/15/18 baclofen 1 tab PO TID PRN 01/15/18 01/15/18 hydroxyzine HCl 25 mg PO TID-QID PRN 01/15/18 01/15/18 levothyroxine 50 mcg PO DAILY 01/15/18 01/15/18 metoprolol tartrate 50 mg PO BID 01/15/18 01/15/18 oxycodone-acetaminophen [Percocet] 1 tab PO Q4-6H PRN 01/15/18 01/15/18 simvastatin 20 mg PO QPM 01/15/18 01/15/18 Previous Rx's Medication Instructions Recorded auyyqahdst-weyscjkxwlhoo-nnga 1 cap PO Q6H PRN #14 cap 10/10/17 codeine-guaifenesin 10 ml PO Q4H PRN #480 ml 01/20/18 naproxen 500 mg PO BID PRN #30 tab 02/05/18 prednisone 60 mg PO DAILY #15 tab 07/16/18 Allergies Allergy/AdvReac Type Severity Reaction Status Date / Time aspirin [ASPIRIN] Allergy Severe stomach Verified 01/15/18 17:26 ulcers hydrocodone [HYDROCODONE] AdvReac Intermediate hurts Verified 01/15/18 17:26 stomach Review of Systems <Rola Ibanez DO - Last Filed: 07/16/18 18:38> Review of Systems ROS Unobtainable: All systems reviewed & are unremarkable except as noted in HPI and below Constitutional Denies chills, Denies fever(s), Denies lethargy and Denies weakness Eyes Denies change in vision, Denies eye discharge, Denies irritation and Denies loss of vision ENT Ears, Nose, Mouth, and Throat: Reports neck pain (Right side ongoing November 2017), Reports sore throat and Denies throat swelling Cardiovascular Denies chest pain, Denies irregular heart rhythm, Denies lightheadedness, Denies palpitations and Denies orthopnea Respiratory Reports as per HPI Gastrointestinal Gastrointestinal: Denies abdominal pain, Denies change in bowel habits, Denies diarrhea, Denies nausea and Denies vomiting Musculoskeletal Reports neck pain (Right side ongoing November 2017) Integumentary/Breasts Denies pruritus, Denies erythema, Denies rash and Denies wounds Neurologic Denies loss of vision and Denies weakness Endocrine Denies palpitations Allergic/Immunologic Denies throat swelling PFSH <Rola Ibanez DO - Last Filed: 07/16/18 18:38> Medical History Multiple sclerosis (Chronic) COPD (chronic obstructive pulmonary disease) (Chronic) Cigarette nicotine dependence (Chronic) Hypothyroidism (Chronic) Hyperlipidemia (Chronic) Hypertension (Chronic) CVA (cerebral vascular accident) (Chronic) History of NV (myocardial infarction) (Chronic) Social History household members: none Smoking Status: Current some day smoker alcohol intake: current Social History household members: none Smoking Status: Current some day smoker alcohol intake: current Exam <Rola Ibanez DO - Last Filed: 07/16/18 18:38> Initial Vital Signs Initial Vital Signs: Vital Signs Temperature 98.0 F 07/16/18 03:18 Pulse Rate 70 07/16/18 03:18 Respiratory Rate 24 07/16/18 03:18 Blood Pressure 99/82 07/16/18 03:18 Pulse Oximetry 88 L 07/16/18 03:18 GENERAL: Alert male HEENT: Head atraumatic,EOMI, no JVD no bulging CARDIOVASCULAR: Regular rate and rhythm without murmurs, rubs or gallops. RESPIRATORY: Decreased breath sounds bilaterally slight expiratory wheeze ABDOMEN: Soft, nontender. Normoactive bowel sounds all 4 quadrants. No guarding or rebound. EXTREMITIES: Normal range of motion, no clubbing or edema. Neurovascularly intact NEUROLOGICAL: Alert and oriented x4. SKIN: Warm, dry, no laceration, no petechiae, no rashes or lesions. <Colleen Prado MD - Last Filed: 07/16/18 08:21> Initial Vital Signs Initial Vital Signs: Vital Signs Temperature 98.0 F 07/16/18 03:18 Pulse Rate 70 07/16/18 03:18 Respiratory Rate 24 07/16/18 03:18 Blood Pressure 99/82 07/16/18 03:18 Pulse Oximetry 88 L 07/16/18 03:18 Course <Rola Ibanez DO - Last Filed: 07/16/18 18:38> Orders Ordered: Discontinued Medications Albuterol (Ventolin) 2.5 mg INH NOW ONE Stop: 07/16/18 03:43 Last Admin: 07/16/18 03:46 Dose: 2.5 mg Albuterol (Ventolin) 20 mg INH NOW ONE Stop: 07/16/18 05:54 Last Admin: 07/16/18 05:55 Dose: 20 mg Albuterol/Ipratropium (Duoneb) 3 ml INH NOW ONE Stop: 07/16/18 03:43 Last Admin: 07/16/18 03:46 Dose: 3 ml Albuterol/Ipratropium (Duoneb) 3 ml INH NOW ONE Stop: 07/16/18 04:00 Last Admin: 07/16/18 04:08 Dose: 3 ml Sodium Chloride (Normal Saline 0.9%) 1,000 mls @ 150 mls/hr IV CONT KALEE Last Admin: 07/16/18 04:00 Dose: 150 mls/hr Methylprednisolone (Solu-Medrol 125 Mg Vial) 125 mg IV NOW ONE Stop: 07/16/18 04:00 Last Admin: 07/16/18 04:45 Dose: 125 mg Vital Signs - 8 hr 07/16/18 03:18 07/16/18 03:30 07/16/18 03:46 Temperature 98.0 F Pulse Rate 70 77 75 Respiratory Rate 24 21 28 H Blood Pressure 99/82 Blood Pressure [Right Arm] 106/74 Pulse Oximetry 88 L 96 92 07/16/18 04:00 07/16/18 04:30 07/16/18 05:21 Temperature Pulse Rate 75 69 66 Respiratory Rate 18 19 19 Blood Pressure Blood Pressure [Right Arm] 118/84 96/68 100/71 Pulse Oximetry 91 94 89 L 07/16/18 05:55 07/16/18 06:00 07/16/18 06:30 Temperature Pulse Rate 70 92 H 77 Respiratory Rate 28 H 26 H 21 Blood Pressure Blood Pressure [Right Arm] 106/71 110/75 Pulse Oximetry 97 91 100 07/16/18 07:00 Temperature Pulse Rate Respiratory Rate Blood Pressure Blood Pressure [Right Arm] Pulse Oximetry 98 <Colleen Prado MD - Last Filed: 07/16/18 08:21> Course Narrative: Eve note: The patient was signed out to me by Dr. Ibanez after being evaluated last night for anterior neck pain, which is chronic. The patient at time of presentation had no respiratory complaints other than occasional chest tightness, and did not have any respiratory complaints throughout his stay in the emergency department. However, his oxygen was found to be somewhat decreased from his baseline in our records, and as such, he was treated with inhaled bronchodilators and steroids. The patient did not have any worsening of his condition, and according to Dr. Jacobo neck is note, seemed to be moving air a little better after treatment. His chest x-ray was unremarkable and his white count was normal. The patient continued to be without respiratory complaints throughout his stay in the emergency department. He was found to be moderately acidotic on initial ABG and was hypercarbic prior to treatment. Patient was signed out to me after Dr. Ibanez had tried to admit the patient for observation, and patient was refused because hospitalist, who had not seen the patient, stated the patient could not be admitted without BiPAP. It was Dr. Ibanez's opinion, as well as mine, that this patient, who is without respiratory complaints or objective dyspnea, did not need BiPAP. He received several nebulizer treatments in the emergency department, including a period of continuous nebulizer, which did not change his oxygen saturation initially. However, re-evaluation I did come to his room and found him to have an oxygen saturation 99% on 2 L of oxygen per nasal cannula. The patient was sitting up in bed and speaking without difficulty. I did remove oxygen and found that as long as the patient was sitting in an upright position and awake, his oxygen saturation was 94-95% on room air. His lungs were clear, though air movement was diminished bilaterally. This may be the patient's baseline. The patient continued to be without respiratory complaints. He was not in any distress and was speaking easily in full sentences. He reiterated that his only complaint is anterior neck pain. The patient was noted to be resting in a position of leaning forward and laying forward on his lap, and when doing so, his oxygen saturation was noted to drop into the upper 80s. However, with upright position and being awake and talking again, his oxygen saturation did improve back to the mid 90s. I did not feel that this patient clinically was having a COPD exacerbation, and as his white count was normal and his chest x-ray was clear, I did not find a reason to admit the patient to the hospital. We have discussed home management of his symptoms, as well as the usual indications for return. Patient understands he may return to the emergency department any time, should he begin to have any difficulty breathing. As far as his neck pain, he may follow up with his primary care physician. No emergent condition has been identified in that regard at this time. Orders Ordered: Discontinued Medications Albuterol (Ventolin) 2.5 mg INH NOW ONE Stop: 07/16/18 03:43 Last Admin: 07/16/18 03:46 Dose: 2.5 mg Albuterol (Ventolin) 20 mg INH NOW ONE Stop: 07/16/18 05:54 Last Admin: 07/16/18 05:55 Dose: 20 mg Albuterol/Ipratropium (Duoneb) 3 ml INH NOW ONE Stop: 07/16/18 03:43 Last Admin: 07/16/18 03:46 Dose: 3 ml Albuterol/Ipratropium (Duoneb) 3 ml INH NOW ONE Stop: 07/16/18 04:00 Last Admin: 07/16/18 04:08 Dose: 3 ml Sodium Chloride (Normal Saline 0.9%) 1,000 mls @ 150 mls/hr IV CONT KALEE Last Admin: 07/16/18 04:00 Dose: 150 mls/hr Methylprednisolone (Solu-Medrol 125 Mg Vial) 125 mg IV NOW ONE Stop: 07/16/18 04:00 Last Admin: 07/16/18 04:45 Dose: 125 mg Vital Signs - 8 hr 07/16/18 03:18 07/16/18 03:30 07/16/18 03:46 Temperature 98.0 F Pulse Rate 70 77 75 Respiratory Rate 24 21 28 H Blood Pressure 99/82 Blood Pressure [Right Arm] 106/74 Pulse Oximetry 88 L 96 92 07/16/18 04:00 07/16/18 04:30 07/16/18 05:21 Temperature Pulse Rate 75 69 66 Respiratory Rate 18 19 19 Blood Pressure Blood Pressure [Right Arm] 118/84 96/68 100/71 Pulse Oximetry 91 94 89 L 07/16/18 05:55 07/16/18 06:00 07/16/18 06:30 Temperature Pulse Rate 70 92 H 77 Respiratory Rate 28 H 26 H 21 Blood Pressure Blood Pressure [Right Arm] 106/71 110/75 Pulse Oximetry 97 91 100 07/16/18 07:00 Temperature Pulse Rate Respiratory Rate Blood Pressure Blood Pressure [Right Arm] Pulse Oximetry 98 MDM - SOB/Dyspnea <Rola Ibanez, - Last Filed: 07/16/18 18:38> Lab Data Attestation: I reviewed the patient's lab results. Result diagrams: 07/16/18 03:30 07/16/18 03:30 Lab Results 07/16/18 07/16/18 07/16/18 Range/Units 03:30 03:30 03:30 WBC 8.9 (4.5-11.0) X10^3/uL RBC 4.97 (4.5-5.9) X10^6/uL Hgb 14.8 (13.5-17.5) g/dL Hct 44.0 (41-53) % MCV 88.4 (80-100) fL MCH 29.8 (26-34) PG MCHC 33.7 (30-36) % RDW 13.2 (11.6-14.8) % Plt Count 140 L (150-400) X10^3/uL Neut % (Auto) 58.6 (50-75) % Lymph % (Auto) 22.0 L (25-40) % [place] % (Auto) 13.3 (3-14) % Eos % (Auto) 5.3 H (2-4) % Baso % (Auto) 0.8 (0-2) % Neut # (Auto) 5200 (1533-2316) /uL Lymph # (Auto) 2000 (5706-7493) /uL [place] # (Auto) 1200 H (0-900) /uL Eos # (Auto) 500 H (0-450) /uL Baso # (Auto) 100 (0-100) /uL ABG pH (7.35-7.45) ABG pCO2 (35-45) mmHg ABG pO2 (80-100) mmHg ABG HCO3 (22-26) mmol/L ABG Total CO2 (21-31) mmol/L ABG O2 Saturation (95-100) % ABG Base Excess (-2-2) mmol/L FiO2 Sodium 138 (137-145) mmol/L Potassium 4.4 (3.4-5.1) mmol/L Chloride 101 (98-107) mmol/L Carbon Dioxide 28 (22-32) mmol/L BUN 20 (9-20) mg/dL Creatinine 1.00 (0.66-1.25) mg/dL Estimated GFR > 60.0 (>60) mL/min BUN/Creatinine Ratio 20.0 (6-22) Glucose 96 (70-100) mg/dL Lactate (0.7-2.1) mmol/L Calcium 9.2 (8.4-10.2) mg/dL Magnesium 2.0 (1.6-2.3) mg/dL Total Bilirubin 0.5 (0.2-1.3) mg/dL AST 24 (17-59) IU/L ALT 21 (21-72) IU/L Alkaline Phosphatase 71 (38-126) U/L Total Creatine Kinase 92 (55-170) U/L CK-MB (CK-2) TNP CK-MB (CK-2) Rel Index TNP Troponin I < 0.012 (0.01-0.034) ng/mL B-Natriuretic Peptide < 100 (<100) Total Protein 7.1 (6.3-8.2) g/dL Albumin 4.0 (3.5-5.0) g/dL Globulin 3.1 (1.7-4.1) g/dL Albumin/Globulin Ratio 1.3 (1.0-2.8) Procalcitonin < 0.05 (<0.5) ng/mL Influenza A & B (PCR) (Negative) 07/16/18 07/16/18 07/16/18 Range/Units 04:47 05:30 05:34 WBC (4.5-11.0) X10^3/uL RBC (4.5-5.9) X10^6/uL Hgb (13.5-17.5) g/dL Hct (41-53) % MCV (80-100) fL MCH (26-34) PG MCHC (30-36) % RDW (11.6-14.8) % Plt Count (150-400) X10^3/uL Neut % (Auto) (50-75) % Lymph % (Auto) (25-40) % [place] % (Auto) (3-14) % Eos % (Auto) (2-4) % Baso % (Auto) (0-2) % Neut # (Auto) (6239-5048) /uL Lymph # (Auto) (9951-5382) /uL [place] # (Auto) (0-900) /uL Eos # (Auto) (0-450) /uL Baso # (Auto) (0-100) /uL ABG pH 7.29 L (7.35-7.45) ABG pCO2 56.9 H (35-45) mmHg ABG pO2 68 L (80-100) mmHg ABG HCO3 28 H (22-26) mmol/L ABG Total CO2 29 (21-31) mmol/L ABG O2 Saturation 90 L (95-100) % ABG Base Excess 1.0 (-2-2) mmol/L FiO2 32 Sodium (137-145) mmol/L Potassium (3.4-5.1) mmol/L Chloride (98-107) mmol/L Carbon Dioxide (22-32) mmol/L BUN (9-20) mg/dL Creatinine (0.66-1.25) mg/dL Estimated GFR (>60) mL/min BUN/Creatinine Ratio (6-22) Glucose (70-100) mg/dL Lactate 1.0 (0.7-2.1) mmol/L Calcium (8.4-10.2) mg/dL Magnesium (1.6-2.3) mg/dL Total Bilirubin (0.2-1.3) mg/dL AST (17-59) IU/L ALT (21-72) IU/L Alkaline Phosphatase (38-126) U/L Total Creatine Kinase (55-170) U/L CK-MB (CK-2) CK-MB (CK-2) Rel Index Troponin I (0.01-0.034) ng/mL B-Natriuretic Peptide (<100) Total Protein (6.3-8.2) g/dL Albumin (3.5-5.0) g/dL Globulin (1.7-4.1) g/dL Albumin/Globulin Ratio (1.0-2.8) Procalcitonin (<0.5) ng/mL Influenza A & B (PCR) Negative (Negative) MDM Narrative Medical decision making narrative: Patient's oxygen level according to nursing was initially 84% but did come up and he seems to be 87-88% on room air. Not significantly tachypneic but definitely has decreased breath sounds bilaterally. According to records and previous vitals his O2 sat is normally in the 90s is so 88% is abnormal for him. His his complaint is that he has phlegm neck and throat pain ongoing for multiple months. At this time I believe his biggest problem to be his COPD. He is afebrile without leukocytosis did not appear septic. ABG confirms hypercapnia with a pH is 7.29. Unfortunately both BiPAP machines are currently being used however suspect someone will come off the BiPAP machine this morning. Patient is not in significant respiratory distress. He is put on continuous bronchodilator. He starts coughing more and is definitely moving more air than previously. At this time I do not believe patient to need BiPAP he really is speaking in full sentences. I spoke with Aleksandar Calderon and Dr. irwin. Due to on available BiPAP the they feel he needs to be transferred in case if he decompensates. At this time they feel that both patients on BiPAP may still need them. The patient signed out to Dr. Prado possible transfer He will be admitted for COPD exacerbation. <Colleen Prado MD - Last Filed: 07/16/18 08:21> Medical Records Attestation: I reviewed the patient's medical records. Lab Data Attestation: I reviewed the patient's lab results. Lab Results 07/16/18 07/16/18 07/16/18 Range/Units 03:30 03:30 03:30 WBC 8.9 (4.5-11.0) X10^3/uL RBC 4.97 (4.5-5.9) X10^6/uL Hgb 14.8 (13.5-17.5) g/dL Hct 44.0 (41-53) % MCV 88.4 (80-100) fL MCH 29.8 (26-34) PG MCHC 33.7 (30-36) % RDW 13.2 (11.6-14.8) % Plt Count 140 L (150-400) X10^3/uL Neut % (Auto) 58.6 (50-75) % Lymph % (Auto) 22.0 L (25-40) % [place] % (Auto) 13.3 (3-14) % Eos % (Auto) 5.3 H (2-4) % Baso % (Auto) 0.8 (0-2) % Neut # (Auto) 5200 (3853-2233) /uL Lymph # (Auto) 2000 (9940-2810) /uL [place] # (Auto) 1200 H (0-900) /uL Eos # (Auto) 500 H (0-450) /uL Baso # (Auto) 100 (0-100) /uL ABG pH (7.35-7.45) ABG pCO2 (35-45) mmHg ABG pO2 (80-100) mmHg ABG HCO3 (22-26) mmol/L ABG Total CO2 (21-31) mmol/L ABG O2 Saturation (95-100) % ABG Base Excess (-2-2) mmol/L FiO2 Sodium 138 (137-145) mmol/L Potassium 4.4 (3.4-5.1) mmol/L Chloride 101 (98-107) mmol/L Carbon Dioxide 28 (22-32) mmol/L BUN 20 (9-20) mg/dL Creatinine 1.00 (0.66-1.25) mg/dL Estimated GFR > 60.0 (>60) mL/min BUN/Creatinine Ratio 20.0 (6-22) Glucose 96 (70-100) mg/dL Lactate (0.7-2.1) mmol/L Calcium 9.2 (8.4-10.2) mg/dL Magnesium 2.0 (1.6-2.3) mg/dL Total Bilirubin 0.5 (0.2-1.3) mg/dL AST 24 (17-59) IU/L ALT 21 (21-72) IU/L Alkaline Phosphatase 71 (38-126) U/L Total Creatine Kinase 92 (55-170) U/L CK-MB (CK-2) TNP CK-MB (CK-2) Rel Index TNP Troponin I < 0.012 (0.01-0.034) ng/mL B-Natriuretic Peptide < 100 (<100) Total Protein 7.1 (6.3-8.2) g/dL Albumin 4.0 (3.5-5.0) g/dL Globulin 3.1 (1.7-4.1) g/dL Albumin/Globulin Ratio 1.3 (1.0-2.8) Procalcitonin < 0.05 (<0.5) ng/mL Influenza A & B (PCR) (Negative) 07/16/18 07/16/18 07/16/18 Range/Units 04:47 05:30 05:34 WBC (4.5-11.0) X10^3/uL RBC (4.5-5.9) X10^6/uL Hgb (13.5-17.5) g/dL Hct (41-53) % MCV (80-100) fL MCH (26-34) PG MCHC (30-36) % RDW (11.6-14.8) % Plt Count (150-400) X10^3/uL Neut % (Auto) (50-75) % Lymph % (Auto) (25-40) % [place] % (Auto) (3-14) % Eos % (Auto) (2-4) % Baso % (Auto) (0-2) % Neut # (Auto) (8338-9226) /uL Lymph # (Auto) (2907-7878) /uL [place] # (Auto) (0-900) /uL Eos # (Auto) (0-450) /uL Baso # (Auto) (0-100) /uL ABG pH 7.29 L (7.35-7.45) ABG pCO2 56.9 H (35-45) mmHg ABG pO2 68 L (80-100) mmHg ABG HCO3 28 H (22-26) mmol/L ABG Total CO2 29 (21-31) mmol/L ABG O2 Saturation 90 L (95-100) % ABG Base Excess 1.0 (-2-2) mmol/L FiO2 32 Sodium (137-145) mmol/L Potassium (3.4-5.1) mmol/L Chloride (98-107) mmol/L Carbon Dioxide (22-32) mmol/L BUN (9-20) mg/dL Creatinine (0.66-1.25) mg/dL Estimated GFR (>60) mL/min BUN/Creatinine Ratio (6-22) Glucose (70-100) mg/dL Lactate 1.0 (0.7-2.1) mmol/L Calcium (8.4-10.2) mg/dL Magnesium (1.6-2.3) mg/dL Total Bilirubin (0.2-1.3) mg/dL AST (17-59) IU/L ALT (21-72) IU/L Alkaline Phosphatase (38-126) U/L Total Creatine Kinase (55-170) U/L CK-MB (CK-2) CK-MB (CK-2) Rel Index Troponin I (0.01-0.034) ng/mL B-Natriuretic Peptide (<100) Total Protein (6.3-8.2) g/dL Albumin (3.5-5.0) g/dL Globulin (1.7-4.1) g/dL Albumin/Globulin Ratio (1.0-2.8) Procalcitonin (<0.5) ng/mL Influenza A & B (PCR) Negative (Negative) MDM Narrative Medical decision making narrative: See Eve note under Course. Discharge Plan Departure Patient Disposition: Home Clinical Impression: Anterior neck pain, Acute exacerbation of chronic obstructive pulmonary disease (COPD) Discharge Date/Time: 07/16/18 08:21 Interventions: ED Discharge Assessment Last Done: 07/16/18 08:19 Instructions: DI for Chronic Obstructive Pulmonary Disease, DI for Chronic Neck Pain Prescriptions: New prednisone 20 mg tablet 60 mg PO DAILY Qty: 15 RF: 0 No Action oxycodone-acetaminophen [Percocet] 5-325 mg Tablet 1 tab PO Q4-6H PRN (Reason: Pain, Moderate) RF: 0 hydroxyzine HCl 25 mg Tablet 25 mg PO TID-QID PRN (Reason: Muscle Spasm) RF: 0 levothyroxine 50 mcg Capsule 50 mcg PO DAILY RF: 0 baclofen 20 MG tablet 1 tab PO TID PRN (Reason: Muscle Spasm) RF: 0 albuterol sulfate 2.5 MG/3 ML solution for nebulization 3 ml INH Q6HP PRN (Reason: Shortness Of Breath Or Wheezing) RF: 0 simvastatin 20 mg Tablet 20 mg PO QPM RF: 0 metoprolol tartrate 50 mg Tablet 50 mg PO BID RF: 0 codeine-guaifenesin 10-100 mg/5 mL Liquid 10 ml PO Q4H PRN (Reason: Cough) Qty: 480 RF: 0 naproxen 500 mg tablet 500 mg PO BID PRN (Reason: pain) Qty: 30 RF: 0 xdiwjiqkns-vxbufdqnfyvvc-oeqf 50-325-40 mg capsule 1 cap PO Q6H PRN (Reason: pain) Qty: 14 RF: 0 Referrals: Elly Stoll DO [Primary Care Provider] -
--- NOTE | 2018-07-16 04:09 | ED_ITS ---
HPI - SOB/Dyspnea <Rola Marcelle, DO - Last Filed: 07/16/18 18:38> General Chief Complaint: Shortness of Breath/Dyspnea Stated Complaint: RIGHT UPPER TOOTH PAIN/THROAT PROBLEM Time Seen by Provider: 07/16/18 03:48 Source: patient Mode of arrival: ambulatory Limitations: no limitations History of Present Illness The patient is a 57-year-old male with multiple sclerosis and COPD his. He states he is he is because he has some right-sided neck and jaw and throat pain. He says that been ongoing since November when he lost a tooth. He was actually admitted in December with COPD exacerbation looks as though they tried to get him to a care facility he only wanted to go to care facility in [place] and refuse to go elsewhere. On exam today he is noted to be hypoxic 88%. According to records this is not typical for him. He has not noticed any worsening shortness of breath no fever or cough. He has no chest pain but occasional chest tightness. MD Complaint: shortness of breath and cough Related Data Home Medications Medication Instructions Recorded Confirmed albuterol sulfate 3 ml INH Q6HP PRN 01/15/18 01/15/18 baclofen 1 tab PO TID PRN 01/15/18 01/15/18 hydroxyzine HCl 25 mg PO TID-QID PRN 01/15/18 01/15/18 levothyroxine 50 mcg PO DAILY 01/15/18 01/15/18 metoprolol tartrate 50 mg PO BID 01/15/18 01/15/18 oxycodone-acetaminophen [Percocet] 1 tab PO Q4-6H PRN 01/15/18 01/15/18 simvastatin 20 mg PO QPM 01/15/18 01/15/18 Previous Rx's Medication Instructions Recorded zmtyjusera-lruxstpisqoub-vvik 1 cap PO Q6H PRN #14 cap 10/10/17 codeine-guaifenesin 10 ml PO Q4H PRN #480 ml 01/20/18 naproxen 500 mg PO BID PRN #30 tab 02/05/18 prednisone 60 mg PO DAILY #15 tab 07/16/18 Allergies Allergy/AdvReac Type Severity Reaction Status Date / Time aspirin [ASPIRIN] Allergy Severe stomach Verified 01/15/18 17:26 ulcers hydrocodone [HYDROCODONE] AdvReac Intermediate hurts Verified 01/15/18 17:26 stomach Review of Systems <Rola Ibanez DO - Last Filed: 07/16/18 18:38> Review of Systems ROS Unobtainable: All systems reviewed & are unremarkable except as noted in HPI and below Constitutional Denies chills, Denies fever(s), Denies lethargy and Denies weakness Eyes Denies change in vision, Denies eye discharge, Denies irritation and Denies loss of vision ENT Ears, Nose, Mouth, and Throat: Reports neck pain (Right side ongoing November 2017), Reports sore throat and Denies throat swelling Cardiovascular Denies chest pain, Denies irregular heart rhythm, Denies lightheadedness, Denies palpitations and Denies orthopnea Respiratory Reports as per HPI Gastrointestinal Gastrointestinal: Denies abdominal pain, Denies change in bowel habits, Denies diarrhea, Denies nausea and Denies vomiting Musculoskeletal Reports neck pain (Right side ongoing November 2017) Integumentary/Breasts Denies pruritus, Denies erythema, Denies rash and Denies wounds Neurologic Denies loss of vision and Denies weakness Endocrine Denies palpitations Allergic/Immunologic Denies throat swelling PFSH <oRla Ibanez DO - Last Filed: 07/16/18 18:38> Medical History Multiple sclerosis (Chronic) COPD (chronic obstructive pulmonary disease) (Chronic) Cigarette nicotine dependence (Chronic) Hypothyroidism (Chronic) Hyperlipidemia (Chronic) Hypertension (Chronic) CVA (cerebral vascular accident) (Chronic) History of [place] (myocardial infarction) (Chronic) Social History household members: none Smoking Status: Current some day smoker alcohol intake: current Social History household members: none Smoking Status: Current some day smoker alcohol intake: current Exam <Rola Ibanez DO - Last Filed: 07/16/18 18:38> Initial Vital Signs Initial Vital Signs: Vital Signs Temperature 98.0 F 07/16/18 03:18 Pulse Rate 70 07/16/18 03:18 Respiratory Rate 24 07/16/18 03:18 Blood Pressure 99/82 07/16/18 03:18 Pulse Oximetry 88 L 07/16/18 03:18 GENERAL: Alert male HEENT: Head atraumatic,EOMI, no JVD no bulging CARDIOVASCULAR: Regular rate and rhythm without murmurs, rubs or gallops. RESPIRATORY: Decreased breath sounds bilaterally slight expiratory wheeze ABDOMEN: Soft, nontender. Normoactive bowel sounds all 4 quadrants. No guarding or rebound. EXTREMITIES: Normal range of motion, no clubbing or edema. Neurovascularly intact NEUROLOGICAL: Alert and oriented x4. SKIN: Warm, dry, no laceration, no petechiae, no rashes or lesions. <Colleen Prado MD - Last Filed: 07/16/18 08:21> Initial Vital Signs Initial Vital Signs: Vital Signs Temperature 98.0 F 07/16/18 03:18 Pulse Rate 70 07/16/18 03:18 Respiratory Rate 24 07/16/18 03:18 Blood Pressure 99/82 07/16/18 03:18 Pulse Oximetry 88 L 07/16/18 03:18 Course <Rola Ibanez DO - Last Filed: 07/16/18 18:38> Orders Ordered: Discontinued Medications Albuterol (Ventolin) 2.5 mg INH NOW ONE Stop: 07/16/18 03:43 Last Admin: 07/16/18 03:46 Dose: 2.5 mg Albuterol (Ventolin) 20 mg INH NOW ONE Stop: 07/16/18 05:54 Last Admin: 07/16/18 05:55 Dose: 20 mg Albuterol/Ipratropium (Duoneb) 3 ml INH NOW ONE Stop: 07/16/18 03:43 Last Admin: 07/16/18 03:46 Dose: 3 ml Albuterol/Ipratropium (Duoneb) 3 ml INH NOW ONE Stop: 07/16/18 04:00 Last Admin: 07/16/18 04:08 Dose: 3 ml Sodium Chloride (Normal Saline 0.9%) 1,000 mls @ 150 mls/hr IV CONT KALEE Last Admin: 07/16/18 04:00 Dose: 150 mls/hr Methylprednisolone (Solu-Medrol 125 Mg Vial) 125 mg IV NOW ONE Stop: 07/16/18 04:00 Last Admin: 07/16/18 04:45 Dose: 125 mg Vital Signs - 8 hr 07/16/18 03:18 07/16/18 03:30 07/16/18 03:46 Temperature 98.0 F Pulse Rate 70 77 75 Respiratory Rate 24 21 28 H Blood Pressure 99/82 Blood Pressure [Right Arm] 106/74 Pulse Oximetry 88 L 96 92 07/16/18 04:00 07/16/18 04:30 07/16/18 05:21 Temperature Pulse Rate 75 69 66 Respiratory Rate 18 19 19 Blood Pressure Blood Pressure [Right Arm] 118/84 96/68 100/71 Pulse Oximetry 91 94 89 L 07/16/18 05:55 07/16/18 06:00 07/16/18 06:30 Temperature Pulse Rate 70 92 H 77 Respiratory Rate 28 H 26 H 21 Blood Pressure Blood Pressure [Right Arm] 106/71 110/75 Pulse Oximetry 97 91 100 07/16/18 07:00 Temperature Pulse Rate Respiratory Rate Blood Pressure Blood Pressure [Right Arm] Pulse Oximetry 98 <Colleen Prado MD - Last Filed: 07/16/18 08:21> Course Narrative: Eve note: The patient was signed out to me by Dr. Ibanez after being evaluated last night for anterior neck pain, which is chronic. The patient at time of presentation had no respiratory complaints other than occasional chest tightness, and did not have any respiratory complaints throughout his stay in the emergency department. However, his oxygen was found to be somewhat decreased from his baseline in our records, and as such, he was treated with inhaled bronchodilators and steroids. The patient did not have any worsening of his condition, and according to Dr. Jacobo neck is note, seemed to be moving air a little better after treatment. His chest x-ray was unremarkable and his white count was normal. The patient continued to be without respiratory complaints throughout his stay in the emergency department. He was found to be moderately acidotic on initial ABG and was hypercarbic prior to treatment. Patient was signed out to me after Dr. Ibanez had tried to admit the patient for observation, and patient was refused because hospitalist, who had not seen the patient, stated the patient could not be admitted without BiPAP. It was Dr. Ibanez's opinion, as well as mine, that this patient, who is without respiratory complaints or objective dyspnea, did not need BiPAP. He received several nebulizer treatments in the emergency department, including a period of continuous nebulizer, which did not change his oxygen saturation initially. However, re-evaluation I did come to his room and found him to have an oxygen saturation 99% on 2 L of oxygen per nasal cannula. The patient was sitting up in bed and speaking without difficulty. I did remove oxygen and found that as long as the patient was sitting in an upright position and awake, his oxygen saturation was 94-95% on room air. His lungs were clear, though air movement was diminished bilaterally. This may be the patient's baseline. The patient continued to be without respiratory complaints. He was not in any distress and was speaking easily in full sentences. He reiterated that his only complaint is anterior neck pain. The patient was noted to be resting in a position of leaning forward and laying forward on his lap, and when doing so, his oxygen saturation was noted to drop into the upper 80s. However, with upright position and being awake and talking again, his oxygen saturation did improve back to the mid 90s. I did not feel that this patient clinically was having a COPD exacerbation, and as his white count was normal and his chest x-ray was clear, I did not find a reason to admit the patient to the hospital. We have discussed home management of his symptoms, as well as the usual indications for return. Patient understands he may return to the emergency department any time, should he begin to have any difficulty breathing. As far as his neck pain, he may follow up with his primary care physician. No emergent condition has been identified in that regard at this time. Orders Ordered: Discontinued Medications Albuterol (Ventolin) 2.5 mg INH NOW ONE Stop: 07/16/18 03:43 Last Admin: 07/16/18 03:46 Dose: 2.5 mg Albuterol (Ventolin) 20 mg INH NOW ONE Stop: 07/16/18 05:54 Last Admin: 07/16/18 05:55 Dose: 20 mg Albuterol/Ipratropium (Duoneb) 3 ml INH NOW ONE Stop: 07/16/18 03:43 Last Admin: 07/16/18 03:46 Dose: 3 ml Albuterol/Ipratropium (Duoneb) 3 ml INH NOW ONE Stop: 07/16/18 04:00 Last Admin: 07/16/18 04:08 Dose: 3 ml Sodium Chloride (Normal Saline 0.9%) 1,000 mls @ 150 mls/hr IV CONT KALEE Last Admin: 07/16/18 04:00 Dose: 150 mls/hr Methylprednisolone (Solu-Medrol 125 Mg Vial) 125 mg IV NOW ONE Stop: 07/16/18 04:00 Last Admin: 07/16/18 04:45 Dose: 125 mg Vital Signs - 8 hr 07/16/18 03:18 07/16/18 03:30 07/16/18 03:46 Temperature 98.0 F Pulse Rate 70 77 75 Respiratory Rate 24 21 28 H Blood Pressure 99/82 Blood Pressure [Right Arm] 106/74 Pulse Oximetry 88 L 96 92 07/16/18 04:00 07/16/18 04:30 07/16/18 05:21 Temperature Pulse Rate 75 69 66 Respiratory Rate 18 19 19 Blood Pressure Blood Pressure [Right Arm] 118/84 96/68 100/71 Pulse Oximetry 91 94 89 L 07/16/18 05:55 07/16/18 06:00 07/16/18 06:30 Temperature Pulse Rate 70 92 H 77 Respiratory Rate 28 H 26 H 21 Blood Pressure Blood Pressure [Right Arm] 106/71 110/75 Pulse Oximetry 97 91 100 07/16/18 07:00 Temperature Pulse Rate Respiratory Rate Blood Pressure Blood Pressure [Right Arm] Pulse Oximetry 98 MDM - SOB/Dyspnea <Rola Ibanez, - Last Filed: 07/16/18 18:38> Lab Data Attestation: I reviewed the patient's lab results. Result diagrams: 07/16/18 03:30 07/16/18 03:30 Lab Results 07/16/18 07/16/18 07/16/18 Range/Units 03:30 03:30 03:30 WBC 8.9 (4.5-11.0) X10^3/uL RBC 4.97 (4.5-5.9) X10^6/uL Hgb 14.8 (13.5-17.5) g/dL Hct 44.0 (41-53) % MCV 88.4 (80-100) fL MCH 29.8 (26-34) PG MCHC 33.7 (30-36) % RDW 13.2 (11.6-14.8) % Plt Count 140 L (150-400) X10^3/uL Neut % (Auto) 58.6 (50-75) % Lymph % (Auto) 22.0 L (25-40) % Benzie % (Auto) 13.3 (3-14) % Eos % (Auto) 5.3 H (2-4) % Baso % (Auto) 0.8 (0-2) % Neut # (Auto) 5200 (7187-0487) /uL Lymph # (Auto) 2000 (5757-8062) /uL Benzie # (Auto) 1200 H (0-900) /uL Eos # (Auto) 500 H (0-450) /uL Baso # (Auto) 100 (0-100) /uL ABG pH (7.35-7.45) ABG pCO2 (35-45) mmHg ABG pO2 (80-100) mmHg ABG HCO3 (22-26) mmol/L ABG Total CO2 (21-31) mmol/L ABG O2 Saturation (95-100) % ABG Base Excess (-2-2) mmol/L FiO2 Sodium 138 (137-145) mmol/L Potassium 4.4 (3.4-5.1) mmol/L Chloride 101 (98-107) mmol/L Carbon Dioxide 28 (22-32) mmol/L BUN 20 (9-20) mg/dL Creatinine 1.00 (0.66-1.25) mg/dL Estimated GFR > 60.0 (>60) mL/min BUN/Creatinine Ratio 20.0 (6-22) Glucose 96 (70-100) mg/dL Lactate (0.7-2.1) mmol/L Calcium 9.2 (8.4-10.2) mg/dL Magnesium 2.0 (1.6-2.3) mg/dL Total Bilirubin 0.5 (0.2-1.3) mg/dL AST 24 (17-59) IU/L ALT 21 (21-72) IU/L Alkaline Phosphatase 71 (38-126) U/L Total Creatine Kinase 92 (55-170) U/L CK-MB (CK-2) TNP CK-MB (CK-2) Rel Index TNP Troponin I < 0.012 (0.01-0.034) ng/mL B-Natriuretic Peptide < 100 (<100) Total Protein 7.1 (6.3-8.2) g/dL Albumin 4.0 (3.5-5.0) g/dL Globulin 3.1 (1.7-4.1) g/dL Albumin/Globulin Ratio 1.3 (1.0-2.8) Procalcitonin < 0.05 (<0.5) ng/mL Influenza A & B (PCR) (Negative) 07/16/18 07/16/18 07/16/18 Range/Units 04:47 05:30 05:34 WBC (4.5-11.0) X10^3/uL RBC (4.5-5.9) X10^6/uL Hgb (13.5-17.5) g/dL Hct (41-53) % MCV (80-100) fL MCH (26-34) PG MCHC (30-36) % RDW (11.6-14.8) % Plt Count (150-400) X10^3/uL Neut % (Auto) (50-75) % Lymph % (Auto) (25-40) % Benzie % (Auto) (3-14) % Eos % (Auto) (2-4) % Baso % (Auto) (0-2) % Neut # (Auto) (0881-9118) /uL Lymph # (Auto) (7744-3890) /uL Benzie # (Auto) (0-900) /uL Eos # (Auto) (0-450) /uL Baso # (Auto) (0-100) /uL ABG pH 7.29 L (7.35-7.45) ABG pCO2 56.9 H (35-45) mmHg ABG pO2 68 L (80-100) mmHg ABG HCO3 28 H (22-26) mmol/L ABG Total CO2 29 (21-31) mmol/L ABG O2 Saturation 90 L (95-100) % ABG Base Excess 1.0 (-2-2) mmol/L FiO2 32 Sodium (137-145) mmol/L Potassium (3.4-5.1) mmol/L Chloride (98-107) mmol/L Carbon Dioxide (22-32) mmol/L BUN (9-20) mg/dL Creatinine (0.66-1.25) mg/dL Estimated GFR (>60) mL/min BUN/Creatinine Ratio (6-22) Glucose (70-100) mg/dL Lactate 1.0 (0.7-2.1) mmol/L Calcium (8.4-10.2) mg/dL Magnesium (1.6-2.3) mg/dL Total Bilirubin (0.2-1.3) mg/dL AST (17-59) IU/L ALT (21-72) IU/L Alkaline Phosphatase (38-126) U/L Total Creatine Kinase (55-170) U/L CK-MB (CK-2) CK-MB (CK-2) Rel Index Troponin I (0.01-0.034) ng/mL B-Natriuretic Peptide (<100) Total Protein (6.3-8.2) g/dL Albumin (3.5-5.0) g/dL Globulin (1.7-4.1) g/dL Albumin/Globulin Ratio (1.0-2.8) Procalcitonin (<0.5) ng/mL Influenza A & B (PCR) Negative (Negative) MDM Narrative Medical decision making narrative: Patient's oxygen level according to nursing was initially 84% but did come up and he seems to be 87-88% on room air. Not significantly tachypneic but definitely has decreased breath sounds bilaterally. According to records and previous vitals his O2 sat is normally in the 90s is so 88% is abnormal for him. His his complaint is that he has phlegm neck and throat pain ongoing for multiple months. At this time I believe his biggest problem to be his COPD. He is afebrile without leukocytosis did not appear septic. ABG confirms hypercapnia with a pH is 7.29. Unfortunately both BiPAP machines are currently being used however suspect someone will come off the BiPAP machine this morning. Patient is not in significant respiratory distress. He is put on continuous bronchodilator. He starts coughing more and is definitely moving more air than previously. At this time I do not believe patient to need BiPAP he really is speaking in full sentences. I spoke with Aleksandar Calderon and Dr. irwin. Due to on available BiPAP the they feel he needs to be transferred in case if he decompensates. At this time they feel that both patients on BiPAP may still need them. The patient signed out to Dr. Prado possible transfer He will be admitted for COPD exacerbation. <Colleen Prado MD - Last Filed: 07/16/18 08:21> Medical Records Attestation: I reviewed the patient's medical records. Lab Data Attestation: I reviewed the patient's lab results. Lab Results 07/16/18 07/16/18 07/16/18 Range/Units 03:30 03:30 03:30 WBC 8.9 (4.5-11.0) X10^3/uL RBC 4.97 (4.5-5.9) X10^6/uL Hgb 14.8 (13.5-17.5) g/dL Hct 44.0 (41-53) % MCV 88.4 (80-100) fL MCH 29.8 (26-34) PG MCHC 33.7 (30-36) % RDW 13.2 (11.6-14.8) % Plt Count 140 L (150-400) X10^3/uL Neut % (Auto) 58.6 (50-75) % Lymph % (Auto) 22.0 L (25-40) % Benzie % (Auto) 13.3 (3-14) % Eos % (Auto) 5.3 H (2-4) % Baso % (Auto) 0.8 (0-2) % Neut # (Auto) 5200 (9702-0565) /uL Lymph # (Auto) 2000 (4097-0497) /uL Benzie # (Auto) 1200 H (0-900) /uL Eos # (Auto) 500 H (0-450) /uL Baso # (Auto) 100 (0-100) /uL ABG pH (7.35-7.45) ABG pCO2 (35-45) mmHg ABG pO2 (80-100) mmHg ABG HCO3 (22-26) mmol/L ABG Total CO2 (21-31) mmol/L ABG O2 Saturation (95-100) % ABG Base Excess (-2-2) mmol/L FiO2 Sodium 138 (137-145) mmol/L Potassium 4.4 (3.4-5.1) mmol/L Chloride 101 (98-107) mmol/L Carbon Dioxide 28 (22-32) mmol/L BUN 20 (9-20) mg/dL Creatinine 1.00 (0.66-1.25) mg/dL Estimated GFR > 60.0 (>60) mL/min BUN/Creatinine Ratio 20.0 (6-22) Glucose 96 (70-100) mg/dL Lactate (0.7-2.1) mmol/L Calcium 9.2 (8.4-10.2) mg/dL Magnesium 2.0 (1.6-2.3) mg/dL Total Bilirubin 0.5 (0.2-1.3) mg/dL AST 24 (17-59) IU/L ALT 21 (21-72) IU/L Alkaline Phosphatase 71 (38-126) U/L Total Creatine Kinase 92 (55-170) U/L CK-MB (CK-2) TNP CK-MB (CK-2) Rel Index TNP Troponin I < 0.012 (0.01-0.034) ng/mL B-Natriuretic Peptide < 100 (<100) Total Protein 7.1 (6.3-8.2) g/dL Albumin 4.0 (3.5-5.0) g/dL Globulin 3.1 (1.7-4.1) g/dL Albumin/Globulin Ratio 1.3 (1.0-2.8) Procalcitonin < 0.05 (<0.5) ng/mL Influenza A & B (PCR) (Negative) 07/16/18 07/16/18 07/16/18 Range/Units 04:47 05:30 05:34 WBC (4.5-11.0) X10^3/uL RBC (4.5-5.9) X10^6/uL Hgb (13.5-17.5) g/dL Hct (41-53) % MCV (80-100) fL MCH (26-34) PG MCHC (30-36) % RDW (11.6-14.8) % Plt Count (150-400) X10^3/uL Neut % (Auto) (50-75) % Lymph % (Auto) (25-40) % Benzie % (Auto) (3-14) % Eos % (Auto) (2-4) % Baso % (Auto) (0-2) % Neut # (Auto) (6282-1753) /uL Lymph # (Auto) (7510-4552) /uL Benzie # (Auto) (0-900) /uL Eos # (Auto) (0-450) /uL Baso # (Auto) (0-100) /uL ABG pH 7.29 L (7.35-7.45) ABG pCO2 56.9 H (35-45) mmHg ABG pO2 68 L (80-100) mmHg ABG HCO3 28 H (22-26) mmol/L ABG Total CO2 29 (21-31) mmol/L ABG O2 Saturation 90 L (95-100) % ABG Base Excess 1.0 (-2-2) mmol/L FiO2 32 Sodium (137-145) mmol/L Potassium (3.4-5.1) mmol/L Chloride (98-107) mmol/L Carbon Dioxide (22-32) mmol/L BUN (9-20) mg/dL Creatinine (0.66-1.25) mg/dL Estimated GFR (>60) mL/min BUN/Creatinine Ratio (6-22) Glucose (70-100) mg/dL Lactate 1.0 (0.7-2.1) mmol/L Calcium (8.4-10.2) mg/dL Magnesium (1.6-2.3) mg/dL Total Bilirubin (0.2-1.3) mg/dL AST (17-59) IU/L ALT (21-72) IU/L Alkaline Phosphatase (38-126) U/L Total Creatine Kinase (55-170) U/L CK-MB (CK-2) CK-MB (CK-2) Rel Index Troponin I (0.01-0.034) ng/mL B-Natriuretic Peptide (<100) Total Protein (6.3-8.2) g/dL Albumin (3.5-5.0) g/dL Globulin (1.7-4.1) g/dL Albumin/Globulin Ratio (1.0-2.8) Procalcitonin (<0.5) ng/mL Influenza A & B (PCR) Negative (Negative) MDM Narrative Medical decision making narrative: See Eve note under Course. Discharge Plan Departure Patient Disposition: Home Clinical Impression: Anterior neck pain, Acute exacerbation of chronic obstructive pulmonary disease (COPD) Discharge Date/Time: 07/16/18 08:21 Interventions: ED Discharge Assessment Last Done: 07/16/18 08:19 Instructions: DI for Chronic Obstructive Pulmonary Disease, DI for Chronic Neck Pain Prescriptions: New prednisone 20 mg tablet 60 mg PO DAILY Qty: 15 RF: 0 No Action oxycodone-acetaminophen [Percocet] 5-325 mg Tablet 1 tab PO Q4-6H PRN (Reason: Pain, Moderate) RF: 0 hydroxyzine HCl 25 mg Tablet 25 mg PO TID-QID PRN (Reason: Muscle Spasm) RF: 0 levothyroxine 50 mcg Capsule 50 mcg PO DAILY RF: 0 baclofen 20 MG tablet 1 tab PO TID PRN (Reason: Muscle Spasm) RF: 0 albuterol sulfate 2.5 MG/3 ML solution for nebulization 3 ml INH Q6HP PRN (Reason: Shortness Of Breath Or Wheezing) RF: 0 simvastatin 20 mg Tablet 20 mg PO QPM RF: 0 metoprolol tartrate 50 mg Tablet 50 mg PO BID RF: 0 codeine-guaifenesin 10-100 mg/5 mL Liquid 10 ml PO Q4H PRN (Reason: Cough) Qty: 480 RF: 0 naproxen 500 mg tablet 500 mg PO BID PRN (Reason: pain) Qty: 30 RF: 0 fbkljwksik-lgcqttttmpezt-ymeo 50-325-40 mg capsule 1 cap PO Q6H PRN (Reason: pain) Qty: 14 RF: 0 Referrals: Elly Stoll DO [Primary Care Provider] -
[2018-07-16 04:31] LABS: Add Manual Diff / Slide Review NO; Basophils Absolute Auto 100 /uL (0-100); Basophils Percent Auto 0.8 % (0-2); Eosinophils Absolute Auto 500 /uL (0-450); Eosinophils Percent Auto 5.3 % (2-4); Hemoglobin 14.8 g/dL (13.5-17.5); Lymphocytes Absolute Auto 2000 /uL (1100-4500); Mean Corpuscular HGB Conc 33.7 % (30-36); Mean Corpuscular Hemoglobin 29.8 PG (26-34); Mean Corpuscular Volume 88.4 fL (80-100); Monocytes Absolute Auto 1200 /uL (0-900); Monocytes Percent Auto 13.3 % (3-14); Neutrophils Absolute Auto 5200 /uL (1500-7000); Neutrophils Percent Auto 58.6 % (50-75); Platelet Count 140 X10^3/uL (150-400); Red Blood Cell Count 4.97 X10^6/uL (4.5-5.9); Red Cell Distribution Width 13.2 % (11.6-14.8); White Blood Cell Count 8.9 X10^3/uL (4.5-11.0)
[2018-07-16 04:33] LABS: Alanine Aminotransferase 21 IU/L (21-72); Albumin Globulin Ratio 1.3 (1.0-2.8); Alkaline Phosphatase 71 U/L (38-126); Aspartate Aminotransferase 24 IU/L (17-59); Bilirubin Total 0.5 mg/dL (0.2-1.3); Blood Urea Nitrogen 20 mg/dL (9-20); Calcium 9.2 mg/dL (8.4-10.2); Carbon Dioxide 28 mmol/L (22-32); Chloride 101 mmol/L (98-107); Creatine Kinase 92 U/L (55-170); Estimated Glomerular Filt Rate > 60.0 mL/min (>60); Globulin 3.1 g/dL (1.7-4.1); Glucose 96 mg/dL (70-100); HEMOLYSIS 20 (0-50); Potassium 4.4 mmol/L (3.4-5.1); Sodium 138 mmol/L (137-145); Total Protein 7.1 g/dL (6.3-8.2)
[2018-07-16 04:44] LABS: B Type Natriuretic Peptide < 100 (<100)
[2018-07-16 04:45] LABS: Troponin I < 0.012 ng/mL (0.01-0.034)
[2018-07-16] MEDS: methylPREDNISolone 125 MG/2 ML VIAL IV (04:45)
[2018-07-16 04:49] LABS: Procalcitonin < 0.05 ng/mL (<0.5)
[2018-07-16] MEDS: ALBUTEROL 2.5 MG/3 ML NEB (ADULT) 20 MG INH (05:55)
[2018-07-16 06:01] LABS: Fractionated Inspired Oxygen 32; HCO3 ABG 28 mmol/L (22-26); Oxygen Saturation ABG 90 % (95-100); PCO2 ABG 56.9 mmHg (35-45); PO2 ABG 68 mmHg (80-100); TCO2 ABG 29 mmol/L (21-31); pH ABG 7.29 (7.35-7.45)
[2018-07-16 06:37] LABS: Influenza A and B by PCR Rapid Negative (Negative)
[2018-07-17 06:12] LABS: Enterococcus species Not Detected (Not Detect); Listeria monocytogenes Not Detected (Not Detect)
[2018-07-17 06:14] LABS: Acinetobacter baumannii Not Detected (Not Detect); Methicillin-resistant gene Not Detected (Not Detect); Staphylococcus species Detected (Not Detect); Streptococcus agalactiae (Gr B Not Detected (Not Detect); Streptococcus pneumonia Not Detected (Not Detect); Streptococcus pyogenes (Gr A) Not Detected (Not Detect); Streptococcus species Not Detected (Not Detect)
[2018-07-17 06:15] LABS: Candida albicans Not Detected (Not Detect); Candida glabrata Not Detected (Not Detect); Candida krusei Not Detected (Not Detect); Candida parapsilosis Not Detected (Not Detect); Candida tropicalis Not Detected (Not Detect); E. coli Not Detected (Not Detect); Enterobacter cloacae complex Not Detected (Not Detect); Enterobacteriaceae species Not Detected (Not Detect); Haemophilus influenzae Not Detected (Not Detect); Neisseria meningitidis Not Detected (Not Detect); Proteus species Not Detected (Not Detect); Pseudomonas aeruginosa Not Detected (Not Detect); Serratia marcescens Not Detected (Not Detect)
--- NOTE | 2018-08-15 06:32 | PC.NURSE ---
late entry. IV stop time at 08:10 on 07/16/18 with 1000mls infused.
== END 2018-07-16 08:21 | disposition home or self-care (01) ==
PROVIDERS: Emergency Medicine; Emergency Provider Emergency Medicine; PCP Family Medicine
DX: J44.1 Chronic obstructive pulmonary disease with (acute) exacerbation (principal)
CPT/HCPCS: 36415; 36591; 36600; 71045; 80053; 82550; 82805; 83605; 83735; 83880; 84145; 84484; 85025; 87040; 87077; 87150; 87186; 87205; 87400; 93005; 94640; 96374; 99284; 99285; J2930; J7613

== ENCOUNTER 2018-07-16 23:20 | Inpatient (IN) | payer MEDICARE, MEDICAID, SELFPAY ==
[2018-01-15 20:51] VITALS: BMI 24.0
[2018-07-16 23:50] VITALS: BP 138/81; PULSE 97; RESP 23; TEMP 36.9; O2SAT 94; BMI 30.4
[2018-07-16 23:52] VITALS: PULSE 94; RESP 26; O2SAT 94
[2018-07-16] MEDS: ALBUTEROL/IPRATROPIUM 3 ML AMPUL INH (23:54)
[2018-07-17] VITALS (20 sets, daily range): BP systolic 109–156; BP diastolic 69–104; PULSE 85–103; RESP 17–26; TEMP 36.3–36.8; O2SAT 90–97; BMI 30.4
--- NOTE | 2018-07-17 00:02 | DI.RAD.S_ITS ---
PROCEDURE: XR CHEST 1V INDICATIONS: short of breath TECHNIQUE: One view of the chest was acquired. COMPARISON: [facility], , CHEST 2 VIEW, 03/14/2009, 11:10. [facility], , XR CHEST 2V, 01/15/2018, 17:26. [facility], , CHEST 1 VIEW, 06/08/2016, 22:13. [facility], , XR CHEST 1V, 07/16/2018, 4:08. FINDINGS: Surgical changes and devices: None. Lungs and pleura: Lungs are clear. No pleural effusions or pneumothorax. Mediastinum: Mediastinal contours appear normal. Heart size is normal. Bones and chest wall: No suspicious bony lesions. Overlying soft tissues appear unremarkable. IMPRESSION: No acute cardiopulmonary disease. Dictated by: Shantelle Oliveira M.D. on 07/17/2018 at 8:31 Approved by: Shantelle Oliveira M.D. on 07/17/2018 at 8:33
--- NOTE | 2018-07-17 00:08 | ED_ITS ---
HPI - SOB/Dyspnea General Chief Complaint: Shortness of Breath/Dyspnea Stated Complaint: throat/right ear pain, chest pain headache Time Seen by Provider: 07/16/18 23:57 Source: patient Mode of arrival: wheelchair Limitations: no limitations History of Present Illness Patient is a 57-year-old male with known COPD presenting with increasing shortness of breath. He was seen evaluated here earlier this morning as. It was thought he may need admission however after continuous nebulizer treatment he was feeling much better and was discharged. He now returns with increasing shortness of breath and chest tightness. However his oxygen level is improved from what it was previously. He has full workup of this morning influenza was negative. Related Data Home Medications Medication Instructions Recorded Confirmed albuterol sulfate 3 ml INH Q6HP PRN 01/15/18 01/15/18 baclofen 1 tab PO TID PRN 01/15/18 01/15/18 hydroxyzine HCl 25 mg PO TID-QID PRN 01/15/18 01/15/18 levothyroxine 50 mcg PO DAILY 01/15/18 01/15/18 metoprolol tartrate 50 mg PO BID 01/15/18 01/15/18 oxycodone-acetaminophen [Percocet] 1 tab PO Q4-6H PRN 01/15/18 01/15/18 simvastatin 20 mg PO QPM 01/15/18 01/15/18 Previous Rx's Medication Instructions Recorded esiiufezxr-orxbiammqdddi-mcak 1 cap PO Q6H PRN #14 cap 10/10/17 codeine-guaifenesin 10 ml PO Q4H PRN #480 ml 01/20/18 naproxen 500 mg PO BID PRN #30 tab 02/05/18 prednisone 60 mg PO DAILY #15 tab 07/16/18 Allergies Allergy/AdvReac Type Severity Reaction Status Date / Time aspirin [ASPIRIN] Allergy Severe stomach Verified 01/15/18 17:26 ulcers hydrocodone [HYDROCODONE] AdvReac Intermediate hurts Verified 01/15/18 17:26 stomach Review of Systems Review of Systems ROS Unobtainable: All systems reviewed & are unremarkable except as noted in HPI and below Constitutional Denies chills, Denies fever(s), Denies lethargy and Denies weakness Cardiovascular Denies chest pain, Denies irregular heart rhythm, Denies lightheadedness, Denies palpitations, Denies dyspnea, Denies dyspnea on exertion and Denies orthopnea Respiratory Denies cough, Denies dyspnea, Denies dyspnea on exertion and Denies wheezing Neurologic Denies weakness Endocrine Denies palpitations Allergic/Immunologic Denies wheezing PFSH Social History household members: none Smoking Status: Current some day smoker alcohol intake: current Exam Initial Vital Signs Initial Vital Signs: Vital Signs Temperature 98.5 F 07/16/18 23:50 Pulse Rate 97 H 07/16/18 23:50 Respiratory Rate 23 07/16/18 23:50 Blood Pressure 138/81 07/16/18 23:50 Pulse Oximetry 94 07/16/18 23:50 GENERAL: Alert male in tnhe-cm-tjzplphu respiratory distress HEENT: Head atraumatic,EOMI, pupils reactive, CARDIOVASCULAR: Regular rate and rhythm without murmurs, rubs or gallops. RESPIRATORY: Decreased breath sounds bilaterally wheezing ABDOMEN: Soft, nontender. Normoactive bowel sounds all 4 quadrants. No guarding or rebound. EXTREMITIES: Normal range of motion, no clubbing or edema. Neurovascularly intact NEUROLOGICAL: Alert and oriented x4. SKIN: Warm, dry, no laceration, no petechiae, no rashes or lesions. Course Orders Ordered: ED Orders 07/16/18 23:39 EKG-12 Lead Routine 07/17/18 00:02 Consult to Respiratory Therapy Evaluate & Treat XR chest 1V Stat 07/17/18 00:30 B Type Natriuretic Peptide Stat Complete Blood Count AUTO DIFF Stat Comprehensive Metabolic Panel Stat Procalcitonin Stat Troponin & CK Cardiac Panel Stat 07/17/18 00:53 Blood Culture Stat 07/17/18 01:00 ABG [Arterial Blood Gas] Stat 07/17/18 02:54 RT Consult Eval and Treat Now Acetaminophen (Tylenol) 650 mg PO Q6HR PRN PRN Reason: As Needed for Fever/Mild Pain Sodium Chloride (Normal Saline 0.9%) 1,000 mls @ 125 mls/hr IV CONT KALEE Methylprednisolone (Solu-Medrol 125 Mg Vial) 60 mg IV Q6H KALEE Discontinued Medications Albuterol (Ventolin) 2.5 mg INH NOW ONE Stop: 07/17/18 00:28 Last Admin: 07/17/18 00:32 Dose: 2.5 mg Albuterol (Ventolin) 2.5 mg INH NOW ONE Stop: 07/17/18 00:35 Albuterol (Ventolin) 2.5 mg INH NOW ONE Stop: 07/17/18 00:37 Last Admin: 07/17/18 00:38 Dose: 2.5 mg Albuterol/Ipratropium (Duoneb) 3 ml INH NOW ONE Stop: 07/16/18 23:53 Last Admin: 07/16/18 23:54 Dose: 3 ml Albuterol/Ipratropium (Duoneb) 3 ml INH NOW ONE Stop: 07/17/18 00:03 Levofloxacin (Levaquin) 750 mg in 150 mls @ 100 mls/hr IV NOW ONE Stop: 07/17/18 03:07 Last Infusion: 07/17/18 02:59 Dose: 100 mls/hr Admin: 07/17/18 01:58 Dose: 100 mls/hr Methylprednisolone (Solu-Medrol 125 Mg Vial) 80 mg IV NOW ONE Stop: 07/17/18 00:03 Last Admin: 07/17/18 00:44 Dose: 80 mg Sumatriptan Succinate (Imitrex) 100 mg PO NOW ONE Stop: 07/17/18 02:12 Last Admin: 07/17/18 02:18 Dose: Not Given Sumatriptan Succinate (Imitrex) 6 mg SUBCUT NOW ONE Stop: 07/17/18 02:17 Last Admin: 07/17/18 02:18 Dose: 6 mg Vital Signs - 8 hr 07/16/18 23:50 07/16/18 23:52 07/17/18 00:05 Temperature 98.5 F Pulse Rate 97 H 94 H 95 H Respiratory Rate 23 26 H 24 Blood Pressure 138/81 Blood Pressure [Left Arm] Pulse Oximetry 94 94 90 L 07/17/18 00:25 07/17/18 01:20 07/17/18 01:21 Temperature Pulse Rate 97 H 94 H 97 H Respiratory Rate 21 24 20 Blood Pressure Blood Pressure [Left Arm] 125/104 H 115/74 Pulse Oximetry 90 L 91 07/17/18 01:45 07/17/18 03:00 07/17/18 03:02 Temperature 97.3 F L Pulse Rate 90 86 88 Respiratory Rate 18 18 20 Blood Pressure 124/73 131/77 Blood Pressure [Left Arm] 148/81 H Pulse Oximetry 94 94 94 MDM - SOB/Dyspnea Lab Data Attestation: I reviewed the patient's lab results. Result diagrams: 07/17/18 00:30 07/17/18 00:30 Lab Results 07/17/18 07/17/18 07/17/18 Range/Units 00:30 00:30 00:30 WBC 16.1 H D (4.5-11.0) X10^3/uL RBC 4.95 (4.5-5.9) X10^6/uL Hgb 14.5 (13.5-17.5) g/dL Hct 43.6 (41-53) % MCV 88.1 (80-100) fL MCH 29.3 (26-34) PG MCHC 33.3 (30-36) % RDW 13.1 (11.6-14.8) % Plt Count 152 (150-400) X10^3/uL Neut % (Auto) 91.8 H D (50-75) % Lymph % (Auto) 4.9 L (25-40) % [place] % (Auto) 3.1 (3-14) % Eos % (Auto) 0.0 L (2-4) % Baso % (Auto) 0.2 (0-2) % Neut # (Auto) 52855 H (9695-5917) /uL Lymph # (Auto) 800 L (6237-7622) /uL [place] # (Auto) 500 (0-900) /uL Eos # (Auto) 0 (0-450) /uL Baso # (Auto) 0 (0-100) /uL ABG pH (7.35-7.45) ABG pCO2 (35-45) mmHg ABG pO2 (80-100) mmHg ABG HCO3 (22-26) mmol/L ABG Total CO2 (21-31) mmol/L ABG O2 Saturation (95-100) % ABG Base Excess (-2-2) mmol/L FiO2 Sodium 138 (137-145) mmol/L Potassium 4.7 (3.4-5.1) mmol/L Chloride 102 (98-107) mmol/L Carbon Dioxide 25 (22-32) mmol/L BUN 23 H (9-20) mg/dL Creatinine 1.00 (0.66-1.25) mg/dL Estimated GFR > 60.0 (>60) mL/min BUN/Creatinine Ratio 23.0 H (6-22) Glucose 222 H D (70-100) mg/dL Calcium 9.4 (8.4-10.2) mg/dL Total Bilirubin 0.4 (0.2-1.3) mg/dL AST 20 (17-59) IU/L ALT 17 L (21-72) IU/L Alkaline Phosphatase 76 (38-126) U/L Total Creatine Kinase 76 (55-170) U/L CK-MB (CK-2) TNP CK-MB (CK-2) Rel Index TNP Troponin I < 0.012 (0.01-0.034) ng/mL B-Natriuretic Peptide 212 H (<100) Total Protein 7.0 (6.3-8.2) g/dL Albumin 4.0 (3.5-5.0) g/dL Globulin 3.0 (1.7-4.1) g/dL Albumin/Globulin Ratio 1.3 (1.0-2.8) Procalcitonin < 0.05 (<0.5) ng/mL 07/17/ Range/Units 01:00 WBC (4.5-11.0) X10^3/uL RBC (4.5-5.9) X10^6/uL Hgb (13.5-17.5) g/dL Hct (41-53) % MCV (80-100) fL MCH (26-34) PG MCHC (30-36) % RDW (11.6-14.8) % Plt Count (150-400) X10^3/uL Neut % (Auto) (50-75) % Lymph % (Auto) (25-40) % [place] % (Auto) (3-14) % Eos % (Auto) (2-4) % Baso % (Auto) (0-2) % Neut # (Auto) (6812-6251) /uL Lymph # (Auto) (3951-2045) /uL [place] # (Auto) (0-900) /uL Eos # (Auto) (0-450) /uL Baso # (Auto) (0-100) /uL ABG pH 7.33 L (7.35-7.45) ABG pCO2 46.0 H (35-45) mmHg ABG pO2 55 L (80-100) mmHg ABG HCO3 24 (22-26) mmol/L ABG Total CO2 26 (21-31) mmol/L ABG O2 Saturation 86 L (95-100) % ABG Base Excess -1.0 (-2-2) mmol/L FiO2 0.21 Sodium (137-145) mmol/L Potassium (3.4-5.1) mmol/L Chloride (98-107) mmol/L Carbon Dioxide (22-32) mmol/L BUN (9-20) mg/dL Creatinine (0.66-1.25) mg/dL Estimated GFR (>60) mL/min BUN/Creatinine Ratio (6-22) Glucose (70-100) mg/dL Calcium (8.4-10.2) mg/dL Total Bilirubin (0.2-1.3) mg/dL AST (17-59) IU/L ALT (21-72) IU/L Alkaline Phosphatase (38-126) U/L Total Creatine Kinase (55-170) U/L CK-MB (CK-2) CK-MB (CK-2) Rel Index Troponin I (0.01-0.034) ng/mL B-Natriuretic Peptide (<100) Total Protein (6.3-8.2) g/dL Albumin (3.5-5.0) g/dL Globulin (1.7-4.1) g/dL Albumin/Globulin Ratio (1.0-2.8) Procalcitonin (<0.5) ng/mL Imaging Data Chest x-ray: Attestation: I personally reviewed and interpreted this imaging study as follows: My impression: No acute cardiopulmonary process similar to previous ECG Data Attestation: I personally reviewed and interpreted this ECG as follows: Prior ECG tracings: available for review Interpretation: Normal sinus rhythm rate [address] changes similar to previous EKG MDM Narrative Medical decision making narrative: Patient's ABG actually is improved from earlier however he is still hypoxic. His breathing did improve with stacked bronchodilators. He has leukocytosis but also received IV Solu-Medrol earlier this morning. Patient is still able to keep talk without significant distress, at this time I do not believe him for require BiPAP. But does need to be admitted as for frequent breathing treatments and IV steroids. He is given a dose of IV Levaquin as well. Dr. Rueda accepts patient. Patient is complaining of migraine headache. He states that he does have headaches used to take Imitrex for it. Discharge Plan Departure Patient Disposition: Admitted As Inpatient Clinical Impression: COPD (chronic obstructive pulmonary disease) Qualifiers: COPD type: COPD with acute exacerbation Qualified Code(s): J44.1 - Chronic obstructive pulmonary disease with (acute) exacerbation Discharge Date/Time: 07/17/18 02:45 Interventions: ED Discharge Assessment Last Done: 07/17/18 03:00 Admit Date/Time: 07/17/18 01:44 Admit Provider: Ja Rueda
[2018-07-17] MEDS: ALBUTEROL 2.5 MG/3 ML NEB (ADULT) INH ×3 (00:32→13:47)
[2018-07-17] MEDS: methylPREDNISolone 125 MG/2 ML VIAL 80 MG IV (00:44)
[2018-07-17 00:49] LABS: Add Manual Diff / Slide Review NO; Basophils Absolute Auto 0 /uL (0-100); Basophils Percent Auto 0.2 % (0-2); Eosinophils Absolute Auto 0 /uL (0-450); Hematocrit 43.6 % (41-53); Hemoglobin 14.5 g/dL (13.5-17.5); Lymphocytes Absolute Auto 800 /uL (1100-4500); Lymphocytes Percent Auto 4.9 % (25-40); Mean Corpuscular HGB Conc 33.3 % (30-36); Mean Corpuscular Hemoglobin 29.3 PG (26-34); Mean Corpuscular Volume 88.1 fL (80-100); Monocytes Absolute Auto 500 /uL (0-900); Monocytes Percent Auto 3.1 % (3-14); Neutrophils Absolute Auto 14700 /uL (1500-7000); Neutrophils Percent Auto 91.8 % (50-75); Platelet Count 152 X10^3/uL (150-400); Red Blood Cell Count 4.95 X10^6/uL (4.5-5.9); Red Cell Distribution Width 13.1 % (11.6-14.8); White Blood Cell Count 16.1 X10^3/uL (4.5-11.0)
[2018-07-17 01:07] LABS: Alanine Aminotransferase 17 IU/L (21-72); Albumin Globulin Ratio 1.3 (1.0-2.8); Alkaline Phosphatase 76 U/L (38-126); Aspartate Aminotransferase 20 IU/L (17-59); Bilirubin Total 0.4 mg/dL (0.2-1.3); Blood Urea Nitrogen 23 mg/dL (9-20); Calcium 9.4 mg/dL (8.4-10.2); Carbon Dioxide 25 mmol/L (22-32); Chloride 102 mmol/L (98-107); Creatine Kinase 76 U/L (55-170); Estimated Glomerular Filt Rate > 60.0 mL/min (>60); Glucose 222 mg/dL (70-100); HEMOLYSIS < 15 (0-50); Potassium 4.7 mmol/L (3.4-5.1); Sodium 138 mmol/L (137-145)
[2018-07-17 01:14] LABS: B Type Natriuretic Peptide 212 (<100)
[2018-07-17 01:19] LABS: Troponin I < 0.012 ng/mL (0.01-0.034)
[2018-07-17 01:19] LABS: Fractionated Inspired Oxygen 0.21; HCO3 ABG 24 mmol/L (22-26); Oxygen Saturation ABG 86 % (95-100); PO2 ABG 55 mmHg (80-100); TCO2 ABG 26 mmol/L (21-31); pH ABG 7.33 (7.35-7.45)
[2018-07-17 01:23] LABS: Procalcitonin < 0.05 ng/mL (<0.5)
[2018-07-17] MEDS: levoFLOXacin 750 MG/150 ML PIGGYBACK 100 MG IV (01:58)
[2018-07-17] MEDS: SUMAtriptan 6 MG/0.5 ML VIAL SUBCUT (02:18)
[2018-07-17] MEDS: SODIUM CHLORIDE 0.9% 1,000 ML 125 ML IV (03:34)
[2018-07-17] MEDS: methylPREDNISolone 125 MG/2 ML VIAL 60 MG IV ×3 (05:10→18:30)
[2018-07-17] MEDS: NICOTINE 21 MG PATCH TOP (05:10)
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
[2018-07-17] MEDS: ALBUTEROL/IPRATROPIUM 3 ML AMPUL INH ×4 (07:27→19:30)
[2018-07-17] MEDS: VANCOMYCIN 1,500 MG in SODIUM CHLORIDE 0.9% 500 ML 333.333 ML IV (09:19)
[2018-07-17] MEDS: guaiFENesin/DEXTROMETH Syrup 5 ML SYRUP PO ×4 (10:19→21:55)
[2018-07-17] MEDS: HYDROCODONE/ACET 5/325 TABLET 1 TAB PO (12:17)
[2018-07-17] MEDS: ENOXAPARIN 40 MG/0.4 ML SYRINGE SUBCUT (13:13)
[2018-07-17] MEDS: SUMAtriptan 25 MG TABLET 100 MG PO (13:13)
[2018-07-17] MEDS: METOPROLOL ER 50 MG TABLET PO ×2 (13:13→21:55)
[2018-07-17] MEDS: BACLOFEN 10 MG TABLET PO ×3 (13:14→21:55)
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
[2018-07-17] MEDS: MORPHINE 2 MG/ML INJ IV ×3 (14:26→21:54)
[2018-07-17] MEDS: SODIUM CHLORIDE 0.9% FLUSH 10 ML IV ×2 (14:26→21:56)
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
--- NOTE | 2018-07-17 16:40 | PC.NURSE ---
Addendum entered by Elma Cuello R.N. 07/17/18 23:19: Patient more calm tonight, respirations less labored. Less cough, he reports cough syrup and Morphine are helping. Voiding with no difficulty, using urinal at bedside. Vitals remain stable and he is oriented, denies other needs/concerns tonight. IV Vanco infusing. Original Note: Evening note: Idris very SOB with any conversation or activity, RA oxygen 91-93%. Active cough, non-productive, LS tight throughout. RT in to give neb treatment. Pt with long coughing spell, face turning red, able to recover after few minutes. After that he started moaning with expiration, respirations 28/minute. Morphine 2 mg IV administered to help decrease oxygen demand. IV to right wrist flushing with no difficulty. Patient repositioning self in bed, sometimes sitting at side of bed to use urinal. Voided 250 ml clear yellow urine. Ox3 and using call button appropriately, I reminded him to call for any needs/concerns. Bed alarm active/fall precautions in place.
[2018-07-17] MEDS: VANCOMYCIN 1,500 MG in SODIUM CHLORIDE 0.9% 500 ML 333 ML IV (20:06)
[2018-07-17] MEDS: SIMVASTATIN 20 MG TABLET PO (21:55)
[2018-07-17] MEDS: DOXYCYCLINE HYCLATE 100 MG TABLET PO (21:55)
[2018-07-18] VITALS (17 sets, daily range): BP systolic 135–176; BP diastolic 87–106; PULSE 62–93; RESP 18–20; TEMP 36.3–36.8; O2SAT 91–97
[2018-07-18] MEDS: ALBUTEROL/IPRATROPIUM 3 ML AMPUL INH ×5 (00:11→19:26)
[2018-07-18] MEDS: methylPREDNISolone 125 MG/2 ML VIAL 60 MG IV ×3 (00:29→12:31)
--- NOTE | 2018-07-18 01:27 | PC.NURSE ---
2300- Pt admit for chronic COPD & possible bronchitis. Receiving IV predisone & Robitussin as treatment. Currently sats @ 92 on RA; chronic cough present w/ SOB at rest. Pt's skin is cece in face, neck, and arms. CO room being warm, fan in place, cool ice packs applied to skin. Pt is afebrile. Hx of MS, with no use of bilat legs--motorized wheelchair (pts home device) in room. BG checks taking place bc of IV prednisone treatment. 0000- IV predinose administered as ordered. Pt using the urinal in bed, educated pt on why IV Morphine was given to him last shift. Stated we would try just Robitussin next @ 0200 to see if that helps w/ cough. 0300- Inc cough/SOB. Reddened face, pt cannot talk to this RN with having a coughing fit. Sats at 88%; IV Morphine given & Robitussin given as well. 0600- AM meds & next dose of Robitussin given.
[2018-07-18] MEDS: guaiFENesin/DEXTROMETH Syrup 5 ML SYRUP PO ×5 (02:52→20:44)
[2018-07-18] MEDS: MORPHINE 2 MG/ML INJ IV ×4 (02:54→21:15)
[2018-07-18] MEDS: NICOTINE 21 MG PATCH TOP (03:02)
[2018-07-18] MEDS: PANTOPRAZOLE 40 MG TABLET PO (06:15)
[2018-07-18] MEDS: LEVOTHYROXINE 50 MCG TABLET PO (06:15)
[2018-07-18] MEDS: SODIUM CHLORIDE 0.9% FLUSH 10 ML IV ×4 (09:08→22:41)
[2018-07-18] MEDS: VANCOMYCIN 1,500 MG in SODIUM CHLORIDE 0.9% 500 ML 333 ML IV ×2 (09:08→20:39)
[2018-07-18] MEDS: DOXYCYCLINE HYCLATE 100 MG TABLET PO ×2 (09:09→22:40)
[2018-07-18] MEDS: VENLAFAXINE 37.5 MG TABLET 75 MG PO (09:10)
[2018-07-18] MEDS: ENOXAPARIN 40 MG/0.4 ML SYRINGE SUBCUT (09:10)
[2018-07-18] MEDS: METOPROLOL ER 50 MG TABLET PO ×2 (09:10→22:38)
[2018-07-18] MEDS: LISINOPRIL 20 MG TABLET 40 MG PO (09:10)
[2018-07-18] MEDS: BACLOFEN 10 MG TABLET PO ×3 (12:31→22:40)
--- NOTE | 2018-07-18 15:50 | P.PN_ITS ---
Subjective Date Patient Seen: 07/18/18 Interval history: The patient is a 57-year-old homeless man with a history of multiple sclerosis and COPD. The patient reports his breathing has improved somewhat. However he continues to have a productive cough. He continues to require extensive therapy with RT including multiple nebulizer treatments and the addition of morphine for his shortness of breath. Exam Vital Signs (past 8 hours): - 07/18/18 08:53 07/18/18 10:00 07/18/18 10:13 Temperature Pulse Rate Respiratory Rate Blood Pressure 151/98 H 146/98 H Pulse Oximetry 94 07/18/18 11:17 07/18/18 12:20 07/18/18 15:10 Temperature 97.7 F Pulse Rate 81 Respiratory Rate 18 Blood Pressure Pulse Oximetry 95 94 97 Oxygen Delivery Method Room Air Oxygen Flow Rate 0 Narrative Exam Narrative: Ill-appearing male coughing and short of breath lungs: Diffuse rhonchi bilaterally with end-expiratory wheezing cardiac exam: Regular rate and rhythm normal S1 and S2 abdomen: Soft nontender nondistended extremities: 1+ to 2+ pitting edema Objective Labs Result Diagrams: 07/17/18 00:30 07/17/18 00:30 Assessment & Plan (1) Acute respiratory failure with hypoxia: Problem details: 57-year-old male with known history of COPD admitted with acute hypoxic resp iratory failure present on admission. Patient has made significant improvement with nebulizer treatments. Will continue nebulizers and steroids. Will taper steroids given hyperglycemia and some improvement Current visit: Yes Status: Acute (2) Acute exacerbation of chronic obstructive pulmonary disease (COPD): Problem details: Acute COPD exacerbation, present on admission, acute will continue treatment as above patient will be placed on oral doxycycline given hospitalization for COPD. Current visit: No Status: Acute (3) Cigarette nicotine dependence: Problem details: continue abstinence. Smoking cessation discussed today Nicotine patch placed. Current visit: No Status: Chronic (4) Hypothyroidism: Problem details: continue levothyroxine Current visit: No Status: Chronic (5) Hyperlipidemia: Problem details: continue statin Current visit: No Status: Chronic (6) Hypertension: Problem details: continue metoprolol Current visit: No Status: Chronic Assessment & Plan narrative: Discharge in 1-2 days
[2018-07-18 20:12] LABS: Vancomycin Trough 18.5 ug/mL (10-20)
[2018-07-18] MEDS: VANCOMYCIN TROUGH 1 REQUEST MISC (20:40)
[2018-07-18] MEDS: SIMVASTATIN 20 MG TABLET PO (22:41)
[2018-07-18] MEDS: SUMAtriptan 25 MG TABLET 100 MG PO (22:46)
[2018-07-19] VITALS (21 sets, daily range): BP systolic 147–184; BP diastolic 94–115; PULSE 62–88; RESP 16–22; TEMP 36.3–36.8; O2SAT 92–98
[2018-07-19] MEDS: MORPHINE 2 MG/ML INJ IV ×5 (00:17→23:51)
[2018-07-19] MEDS: NICOTINE 21 MG PATCH TOP (00:21)
[2018-07-19] MEDS: guaiFENesin/DEXTROMETH Syrup 5 ML SYRUP PO ×4 (01:27→23:51)
[2018-07-19] MEDS: ALBUTEROL/IPRATROPIUM 3 ML AMPUL INH ×5 (01:51→19:01)
--- NOTE | 2018-07-19 01:52 | PC.NURSE ---
2300- Pt w/ chronic cough/COPD exacerb. getting neb treatments, IV morphine, & Robitussin currently. Wheezing heard on auscultation; tele in place reading SR at this time. 0000- PRINCIPAL ACCOUNTS CLERK stated pt's BP was high. When rechecked diastolic stable @ 95. Educated pt on albuterol and its affect on the heart. IV morphine given as ordered for persistant coughing/wheezing. Pt remains saline locked. 0600- Pt demanding more morphine thru the night. Educated on why he is taking this, still states that he needs it.
[2018-07-19] MEDS: LEVOTHYROXINE 50 MCG TABLET PO (05:24)
[2018-07-19] MEDS: PANTOPRAZOLE 40 MG TABLET PO (05:24)
[2018-07-19] MEDS: VENLAFAXINE 37.5 MG TABLET 75 MG PO (08:15)
[2018-07-19] MEDS: DOXYCYCLINE HYCLATE 100 MG TABLET PO ×2 (08:15→20:51)
[2018-07-19] MEDS: ENOXAPARIN 40 MG/0.4 ML SYRINGE SUBCUT (08:15)
[2018-07-19] MEDS: SODIUM CHLORIDE 0.9% FLUSH 10 ML IV ×2 (08:16→20:56)
[2018-07-19] MEDS: predniSONE 20 MG TABLET 40 MG PO (08:16)
[2018-07-19] MEDS: VANCOMYCIN 1,500 MG in SODIUM CHLORIDE 0.9% 500 ML 333 ML IV (08:18)
[2018-07-19] MEDS: LISINOPRIL 20 MG TABLET 40 MG PO (11:08)
[2018-07-19] MEDS: METOPROLOL ER 50 MG TABLET PO ×2 (11:08→23:51)
[2018-07-19] MEDS: BACLOFEN 10 MG TABLET PO ×3 (11:09→20:49)
--- NOTE | 2018-07-19 15:16 | PM.PN.1 ---
Subjective Date Patient Seen: 07/19/18 Interval history: Still short of breath. He has a non productive cough. He does not feel that he is at his baseline. Exam Vital Signs (past 8 hours): - 07/19/18 07:52 07/19/18 08:00 07/19/18 08:45 Temperature 98.3 F Pulse Rate 65 63 Respiratory Rate 22 Blood Pressure 173/110 H 184/115 H Pulse Oximetry 93 93 07/19/18 08:48 07/19/18 11:08 07/19/18 11:58 Temperature 97.7 F Pulse Rate 62 70 Respiratory Rate 20 Blood Pressure 178/111 H 178/111 H 168/110 H Pulse Oximetry 93 07/19/18 11:59 07/19/18 12:41 Temperature Pulse Rate 67 Respiratory Rate 20 Blood Pressure 158/108 H Pulse Oximetry 93 Oxygen Delivery Method Room Air Oxygen Flow Rate 0 Narrative Exam Narrative: ill appearing male Lungs: decreased breath sounds with end expiratory wheezing CV: RRR Nl Sl S2 ABd: soft/ nontender/ Ext 1+edema Objective Labs Result Diagrams: 07/17/18 00:30 07/17/18 00:30 Labs: Laboratory Results - last 24 hr 07/18/18 19:33 Vancomycin Trough 18.5 Assessment & Plan (1) Acute respiratory failure with hypoxia: Problem details: 57-year-old male with known history of COPD admitted with acute hypoxic respiratory failure present on admission. Patient has made significant improvement with nebulizer treatments. Will continue nebulizers and steroids. Will taper steroids given hyperglycemia and some improvement Current visit: Yes Status: Acute (2) Acute exacerbation of chronic obstructive pulmonary disease (COPD): Problem details: Acute COPD exacerbation, present on admission, acute will continue treatment as above patient will be placed on oral doxycycline given hospitalization for COPD. Current visit: No Status: Acute (3) Acute bacterial bronchitis: Problem details: Continue Augmentin given sputum culture sensitivity Current visit: No Status: Acute (4) Multiple sclerosis: Problem details: Uses motorized wheelchair Current visit: No Status: Chronic (5) Cigarette nicotine dependence: Problem details: continue abstinence. Smoking cessation discussed today Nicotine patch placed. Current visit: No Status: Chronic (6) Hypothyroidism: Problem details: continue levothyroxine Current visit: No Status: Chronic (7) Hyperlipidemia: Problem details: continue statin Current visit: No Status: Chronic (8) Hypertension: Problem details: continue metoprolol Current visit: No Status: Chronic Assessment & Plan narrative: Blood cultures revealed staph..likely a contaminant will stop vancomycin
[2018-07-19] MEDS: guaiFENesin ER 600 MG TAB PO (18:43)
--- NOTE | 2018-07-19 18:59 | PC.NURSE ---
Addendum entered by Nesha Davies R.N. 07/19/18 21:40: Relatively uneventful evening. In W/C most evening. Productive cough of small amout clear mucus. HL intact/patent. Voids per urinal. HS CBG = 124 Call light w/in reach. Bed alarm on for pt safety.. Continue w/plan of care. Original Note: Pt sitting up in W/C Lungs w/course throughout. SpO2 95% RA. Med at 1615 w/ MS 2mg IV w/good relief. Mucinex given for cough HL RFA intact/patent. Tele was D/C'd per MD orders. Call light w/in reach. Pt kasey appropriately.
[2018-07-19] MEDS: SIMVASTATIN 20 MG TABLET PO (20:56)
[2018-07-20] VITALS (14 sets, daily range): BP systolic 115–199; BP diastolic 77–122; PULSE 57–95; RESP 16–20; TEMP 36.2–36.6; O2SAT 91–100
--- NOTE | 2018-07-20 01:30 | PC.NURSE ---
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 No coughing at this time; some sputum coughed up as pt states Mucinex is helping him. VSS; RA; no tele in place. BG levels have been stable. Moving in room using his personal wheelchair. 0020- IV Morphine & Robitussin given to pt per his request. Educated on each of their uses, and pt agreed. 0630- Pt slightly hypertensive & tachy after breathing treatment; educated pt on effects of Albuterol. IV Morphine & Robitussin given for cough and inc work of breathing.
[2018-07-20] MEDS: ALBUTEROL/IPRATROPIUM 3 ML AMPUL INH ×4 (06:16→19:09)
[2018-07-20] MEDS: guaiFENesin/DEXTROMETH Syrup 5 ML SYRUP PO ×2 (06:28→15:49)
[2018-07-20] MEDS: LEVOTHYROXINE 50 MCG TABLET PO (06:28)
[2018-07-20] MEDS: PANTOPRAZOLE 40 MG TABLET PO (06:28)
[2018-07-20] MEDS: NICOTINE 21 MG PATCH TOP (06:28)
[2018-07-20] MEDS: MORPHINE 2 MG/ML INJ IV ×2 (06:31→09:17)
[2018-07-20] MEDS: guaiFENesin ER 600 MG TAB PO (07:59)
[2018-07-20] MEDS: BENZONATATE 100 MG CAPSULE PO (07:59)
[2018-07-20] MEDS: ENOXAPARIN 40 MG/0.4 ML SYRINGE SUBCUT (07:59)
[2018-07-20] MEDS: VENLAFAXINE 37.5 MG TABLET 75 MG PO (07:59)
[2018-07-20] MEDS: SODIUM CHLORIDE 0.9% FLUSH 10 ML IV (07:59)
[2018-07-20] MEDS: predniSONE 20 MG TABLET 40 MG PO (07:59)
[2018-07-20] MEDS: DOXYCYCLINE HYCLATE 100 MG TABLET PO (07:59)
[2018-07-20] MEDS: SUMAtriptan 25 MG TABLET 100 MG PO ×2 (08:01→15:49)
--- NOTE | 2018-07-20 08:22 | PM.DS.1 ---
History of Present Illness Chief complaint: throat/right ear pain, chest pain headache Narrative: The patient is a 57-year-old male with a history of COPD, hypertension, hypothyroidism, nicotine dependence and, multiple sclerosis who is wheelchair-bound. Patient was evaluated in the emergency room for acute shortness of breath. He received multiple nebulizer treatments and was discharged from the ER. Patient return to the emergency department with continued shortness of breath and wheezing. Repeat ABG revealed significant hypoxia. Patient was admitted to the hospital for inpatient treatment for acute respiratory failure secondary to COPD. Patient reports having a cough, wheezing, chills, unknown whether he has had a fever. The patient is homeless. He continues to smoke. He denies any hemoptysis. He does report some throat pain. And runny nose. Chest x-ray revealed no evidence of infiltrate. Patient received multiple nebulizers and is admitted for inpatient treatment. Discharge Providers Date of admission: 07/17/18 01:44 Discharge Date: 07/20/18 Primary care physician: Elly Stoll DO Consults: 07/17/18 00:02 Consult to Respiratory Therapy Evaluate & Treat Comment: Physician Instructions: Evaluate and treat Discharge provider: Hannah Rhodes MD Summary Discharge Diagnosis: The patient is a 57-year-old male with a history of COPD who presented with acute hypoxic respiratory failure. The patient's PO2 was 55 on admission. He received oxygen nebulizer treatment and antibiotics. He had improvement in his breathing. He continued to have significant coughing and occasional wheezing. He no longer required oxygen. The patient continued to have some evidence of shortness of breath but overall appeared to be improved. His chest x-ray was negative for infiltrate. Blood culture was positive for Staph epidermidis which was felt to be a contaminant. The patient was deemed appropriate for discharge management were made for him to be discharged. Exam Vital Signs (past 8 hours): - 07/20/18 00:40 07/20/18 06:16 07/20/18 06:20 Temperature 97.2 F L Pulse Rate 95 H 71 57 L Respiratory Rate 20 18 Blood Pressure 155/98 H 187/119 H Pulse Oximetry 96 100 07/20/18 06:31 07/20/18 07:55 Temperature Pulse Rate Respiratory Rate Blood Pressure 175/110 H Pulse Oximetry 98 Oxygen Delivery Method Room Air Oxygen Flow Rate 0 Narrative Exam Narrative: Pleasant male sitting up eating breakfast Lungs: Decreased breath sounds with end-expiratory wheezing Cardiac exam: Regular rate and rhythm normal S1-S2 Abdomen: Soft nontender nondistended Extremities: 1+ edema bilaterally Objective Labs Result Diagrams: 07/17/18 00:30 07/17/18 00:30 Discharge Plan Discharge Plan Discharge Problem: COPD (chronic obstructive pulmonary disease) Patient Disposition: Home Discharge Med Rec/Prescriptions Prescriptions: New albuterol sulfate 2.5 mg /3 mL (0.083 %) Solution For Nebulization 2.5 mg INH [id number] PRN (Reason: Shortness Of Breath) 30 Days RF: 0 dextromethorphan-guaifenesin 10-100 mg/5 mL Syrup 5 ml PO Q4H PRN (Reason: Cough) 14 Days RF: 0 baclofen 10 mg Tablet 10 mg PO 1100,1700,2100 30 Days Qty: 90 RF: 0 doxycycline hyclate 100 mg Tablet 100 mg PO BID 5 Days Qty: 10 RF: 0 prednisone 20 mg Tablet 40 mg PO DAILY 5 Days RF: 0 benzonatate 100 mg Capsule 100 mg PO Q4H PRN (Reason: Cough) Qty: 14 RF: 0 guaifenesin 600 mg Tablet Extended Release 12hr 600 mg PO BID 14 Days Qty: 28 RF: 0 Continued oxycodone-acetaminophen [Percocet] 5-325 mg Tablet 1 tab PO Q4-6H PRN (Reason: Pain, Moderate) RF: 0 hydroxyzine HCl 25 mg Tablet 25 mg PO TID-QID PRN (Reason: Muscle Spasm) RF: 0 levothyroxine 50 mcg Capsule 50 mcg PO DAILY RF: 0 baclofen 20 MG tablet 1 tab PO TID PRN (Reason: Muscle Spasm) RF: 0 albuterol sulfate 2.5 MG/3 ML solution for nebulization 3 ml INH Q6HP PRN (Reason: Shortness Of Breath Or Wheezing) RF: 0 simvastatin 20 mg Tablet 20 mg PO QPM RF: 0 metoprolol tartrate 50 mg Tablet 50 mg PO BID RF: 0 codeine-guaifenesin 10-100 mg/5 mL Liquid 10 ml PO Q4H PRN (Reason: Cough) Qty: 480 RF: 0 naproxen 500 mg tablet 500 mg PO BID PRN (Reason: pain) Qty: 30 RF: 0 venlafaxine 75 mg capsule,extended release 24hr 75 mg PO DAILY RF: 0 nifedipine 30 mg tablet extended release 30 mg PO DAILY RF: 0 ranitidine HCl 300 mg capsule 300 mg PO DAILY RF: 0 omeprazole 20 mg capsule,delayed release(DR/EC) 20 mg PO DAILY RF: 0 lisinopril 40 mg tablet 40 mg PO DAILY RF: 0 naproxen 500 mg tablet 500 mg PO BID RF: 0 sumatriptan succinate [Imitrex] 100 mg Tablet 100 mg PO Q4-6H PRN (Reason: Headache) RF: 0 yoigcwveio-vzwjaesnnwzxw-gfab 50-325-40 mg capsule 1 cap PO Q6H PRN (Reason: pain) Qty: 14 RF: 0 Discontinued prednisone 20 mg tablet 60 mg PO DAILY Qty: 15 RF: 0 Follow up/Referrals: Elly Stoll DO [Primary Care Provider] - Provider Discharge Instructions Diet: Diet as Tolerated Activity: as tolerated Oxygen: not indicated Discharge Data Primary Care Provider: Elly Stoll Attending Provider: Ja Rueda Admvinny Date/Time: 07/17/18 01:44
[2018-07-20] MEDS: LISINOPRIL 20 MG TABLET 40 MG PO (09:26)
[2018-07-20] MEDS: METOPROLOL ER 50 MG TABLET PO (09:27)
[2018-07-20] MEDS: BACLOFEN 10 MG TABLET PO ×2 (12:34→17:11)
[2018-07-20] MEDS: NIFEdipine 10 MG CAPSULE 30 MG PO (12:34)
--- NOTE | 2018-07-20 15:40 | CM.SWNOTE ---
Social Work Note: Reviewed chart. SW consult requested to review housing resources. Pt medically stable for DC today, DC order completed by Dr Rhodes. Met w/pt, reviewed DCP. IMM reviewed and verbal agreement obtained. Pt uses an electric w/c to get around town, he does not have any housing at this time. His truck, trailer, and other belongings are in storage. All together, pt pays approx $400 monthly in storage to keep these items. Pt explains he is looking for a place he can park his trailer. Re: efforts towards stable housing; pt admits to living at [facility], low income/subsidized housing in [place], approx 5 years ago. At that time, the person managing [facility] was embezzling money and kicking people out. Asked about efforts to get another apt? Pt says they will not allow him to move in until he pays an outstanding utility bill that has gone to collections. Pt says he will never pay this because I wasn't even living there during the month they are charging me for. Pt is aware of [facility] and [employer] network, although [facility] will not allow someone who has a w/c and can not walk up a flight of stairs. Pt is aware of the food bank, but states he can't carry or store bulk items. He attends the public dinners available monthly at local churches. Pt gets approx $700 in disability benefits. He has food stamps. He used [facility] cold weather usp in [place] until they closed June 30. Re: Medical coverage, pt admits he can not always pay for his Rx if there is any co-pay at all, even $1 Pt spends a lot of time at the [facility], visiting until they need to close, he then takes to the streets. Pt says he could take a bus to [place] or [facility] for [employer]. resources but says my bank and all my things are here (?) Pt admits he continues to smoke because it's something for my hands to do, I am fidgety. Reviewed all above w/pt and in conclusion pt asks if he can stay another night? This METHODS ANALYST consulted SHANTAL Zelaya and returned to pt's room to ask what he was hoping for if he stayed another night? Pt says he could have his friend p/u his clothes to help w/his laundry and he could see if Mucinex was working. Pt has no medical reason to remain another night, pt agreeable. P: DC in electric w/c, homeless, denies need for addtl. resources at this time and is familiar w/available housing resources. Melissa Mclean MSW
[2018-07-20] MEDS: ALBUTEROL 2.5 MG/3 ML NEB (ADULT) INH (17:06)
== END 2018-07-20 20:28 | disposition home or self-care (01) | DRG 190 ==
LOC: ED 07-17 01:32 → AC 07-17 02:06
PROVIDERS: Admitting Provider Internal Medicine; Emergency Provider Emergency Medicine; PCP Family Medicine; Visit Provider Internal Medicine
DX: J44.1 Chronic obstructive pulmonary disease with (acute) exacerbation (principal); J96.01 Acute respiratory failure with hypoxia; G82.20 Paraplegia, unspecified; G35 Multiple sclerosis; M54.2 Cervicalgia; Z99.3 Dependence on wheelchair; R53.1 Weakness; Z59.0 Homelessness; F17.210 Nicotine dependence, cigarettes, uncomplicated; I10 Essential (primary) hypertension; E78.5 Hyperlipidemia, unspecified; E03.9 Hypothyroidism, unspecified
CPT/HCPCS: 36415; 36591; 36600; 71045; 80053; 80202; 82550; 82805; 82962; 83605; 83735; 83880; 84145; 84484; 85025; 87040; 87077; 87150; 87186; 87205; 87400; 93005; 93041; 94640; 94760; 96365; 96374; 96375; 99283; 99285; J1650; J1956; J2270; J2930; J3030; J7613

== ENCOUNTER 2018-07-29 01:17 | Emergency (ER) | payer MEDICARE, MEDICAID, SELFPAY ==
[2018-07-17 01:49] VITALS: BMI 30.4
[2018-07-29] VITALS (8 sets, daily range): BP systolic 113–136; BP diastolic 79–89; PULSE 32–79; RESP 15–20; TEMP 36.5; O2SAT 91–98; BMI 27.8
[2018-07-29] MEDS: ALBUTEROL 2.5 MG/3 ML NEB (ADULT) INH ×2 (01:33→01:52)
[2018-07-29] MEDS: ALBUTEROL/IPRATROPIUM 3 ML AMPUL INH ×3 (01:33→02:43)
--- NOTE | 2018-07-29 01:45 | DI.RAD.S_ITS ---
PROCEDURE: XR SOFT TISSUE NECK INDICATIONS: Foreign body sensation TECHNIQUE: 2 views of the neck were acquired. COMPARISON: None. FINDINGS: Airway: The airway appears patent. However, there is a radiopacity projecting over the posterior aspect of the hypopharynx at the level of C3, which may actually represent a small radiopaque foreign body. Soft tissues: Prevertebral soft tissues are normal in thickness. The epiglottis and aryepiglottic folds appear normal. No soft tissue gas. Bones: No suspicious bony lesions. Visualized cervical spine is normally aligned. IMPRESSION: Question small radiopaque foreign body anterior to C3. CT or direct visualization may be helpful. Dictated by: Romeo Robison M.D. on 07/29/2018 at 9:08 Approved by: Romeo Robison M.D. on 07/29/2018 at 9:09
--- NOTE | 2018-07-29 02:35 | ED_ITS ---
HPI - SOB/Dyspnea General Chief Complaint: Shortness of Breath/Dyspnea Stated Complaint: hard time breathing and swallowing Time Seen by Provider: 07/29/18 01:21 Source: patient Mode of arrival: wheelchair Limitations: no limitations History of Present Illness 57-year-old male daily smoker presents with a chief complaint of an itching and scratching sensation on the left side of his throat. He questions if a bug may have crawled into his throat and is biting him. Furthermore patient states he has had a broken tooth stuck in his throat since November. He is able to eat and drink but states it feels a bit different than normal. He denies any chest pain or shortness of breath. He has been smoking since age 7 and has ongoing episodes of breathing difficulty, today no different than normal. He denies any nausea, vomiting or diarrhea Onset (ago): hour(s) Context: anxiety Severity: moderate Consistency/Duration: constant Relieving factors: nothing Exacerbating factors: nothing Known history of: COPD Treatment prior to arrival: none Related Data Home Medications Medication Instructions Recorded Confirmed albuterol sulfate 3 ml INH Q6HP PRN 01/15/18 07/17/18 baclofen 1 tab PO TID PRN 01/15/18 07/17/18 hydroxyzine HCl 25 mg PO TID-QID PRN 01/15/18 07/17/18 levothyroxine 50 mcg PO DAILY 01/15/18 07/17/18 metoprolol tartrate 50 mg PO BID 01/15/18 07/17/18 oxycodone-acetaminophen [Percocet] 1 tab PO Q4-6H PRN 01/15/18 07/17/18 simvastatin 20 mg PO QPM 01/15/18 07/17/18 lisinopril 40 mg PO DAILY 07/17/18 07/17/18 naproxen 500 mg PO BID 07/17/18 07/17/18 nifedipine 30 mg PO DAILY 07/17/18 07/17/18 omeprazole 20 mg PO DAILY 07/17/18 07/17/18 ranitidine HCl 300 mg PO DAILY 07/17/18 07/17/18 sumatriptan succinate [Imitrex] 100 mg PO Q4-6H PRN 07/17/18 07/17/18 venlafaxine 75 mg PO DAILY 07/17/18 07/17/18 Previous Rx's Medication Instructions Recorded [id number]-sqfwppekgcnrs-lyma 1 cap PO Q6H PRN #14 cap 10/10/17 codeine-guaifenesin 10 ml PO Q4H PRN #480 ml 01/20/18 naproxen 500 mg PO BID PRN #30 tab 02/05/18 albuterol sulfate 2.5 mg INH [id number] PRN 30 Days ml 07/20/18 baclofen 10 mg PO 1100,1700,2100 30 Days 07/20/18 #90 tab benzonatate 100 mg PO Q4H PRN #14 cap 07/20/18 dextromethorphan-guaifenesin 5 ml PO Q4H PRN 14 Days ml 07/20/18 guaifenesin 600 mg PO BID 14 Days #28 tab 07/20/18 Allergies Allergy/AdvReac Type Severity Reaction Status Date / Time aspirin [ASPIRIN] Allergy Severe stomach Verified 01/15/18 17:26 ulcers hydrocodone [HYDROCODONE] AdvReac Intermediate hurts Verified 01/15/18 17:26 stomach Review of Systems Constitutional Denies chills, Denies fever(s), Denies lethargy and Denies weakness Eyes Denies change in vision, Denies eye discharge, Denies irritation and Denies loss of vision ENT Ears, Nose, Mouth, and Throat: Denies change in voice, Denies neck pain and Reports sore throat Cardiovascular Denies chest pain, Denies irregular heart rhythm, Denies lightheadedness, Denies palpitations, Denies dyspnea, Denies dyspnea on exertion and Denies orthopnea Respiratory Reports cough, Denies dyspnea, Denies dyspnea on exertion and Denies wheezing Gastrointestinal Gastrointestinal: Denies abdominal pain, Denies change in bowel habits, Denies diarrhea, Denies nausea and Denies vomiting Genitourinary Denies hematuria, Denies flank pain, Denies urinary incontinence and Denies urinary urgency Musculoskeletal Denies neck pain Integumentary/Breasts Denies pruritus, Denies erythema, Denies rash and Denies wounds Neurologic Denies confusion, Denies loss of vision and Denies weakness Psychiatric Denies anxiety, Denies confusion, Denies depression, Denies homicidal ideation and Denies suicidal ideation Endocrine Denies palpitations Hematologic/Lymphatic Denies easy bruising Allergic/Immunologic Denies wheezing PFSH Medical History Multiple sclerosis (Chronic) COPD (chronic obstructive pulmonary disease) (Chronic) Cigarette nicotine dependence (Chronic) Hypothyroidism (Chronic) Hyperlipidemia (Chronic) Hypertension (Chronic) CVA (cerebral vascular accident) (Chronic) History of [place] (myocardial infarction) (Chronic) Family History (Updated 07/17/18 @ 16:44 by Hannah Rhodes MD) Mother Hypertension Diabetes mellitus Sister Pacemaker Social History household members: none Smoking Status: Current some day smoker alcohol intake: current Family History Mother Hypertension Diabetes mellitus Sister Pacemaker Social History household members: none Smoking Status: Current some day smoker alcohol intake: current Exam Narrative Exam Narrative: GENERAL: 57-year-old male is older and appearance than his stated age. He is in no obvious or significant distress HEAD: Atraumatic. Normocephalic. No temporal or scalp tenderness. EYES: Pupils equal round and reactive. Extraocular motions intact. No scleral icterus. No injection or drainage. ENT: Nose without bleeding, purulent drainage or septal hematoma. Throat without erythema, tonsillar hypertrophy or exudate. Uvula midline. Airway patent. NECK: Trachea midline. No JVD or lymphadenopathy. Supple, nontender, no meningeal signs. CARDIOVASCULAR: Regular rate and rhythm without murmurs, gallops, or rubs. RESPIRATORY: Prolonged expiratory phase with decreased bowel sounds bilaterally GASTROINTESTINAL: Abdomen soft, non-tender, nondistended. No hepato-splenomegal y, or palpable masses. No guarding. EXTREMITIES: No clubbing, cyanosis, or edema. No joint tenderness, effusion, or edema noted. BACK: Nontender without deformity or crepitance. No flank tenderness. NEURO: AOx3. SKIN: No rash or erythema. Initial Vital Signs Initial Vital Signs: Vital Signs Temperature 97.7 F 07/29/18 01:29 Pulse Rate 79 07/29/18 01:29 Respiratory Rate 20 07/29/18 01:29 Blood Pressure 136/89 07/29/18 01:29 Pulse Oximetry 98 07/29/18 01:29 Course Orders Ordered: ED Orders 07/29/18 01:20 EKG-12 Lead Stat 07/29/18 01:45 XR soft tissue neck Stat Discontinued Medications Albuterol (Ventolin) 2.5 mg INH NOW ONE Stop: 07/29/18 01:33 Last Admin: 07/29/18 01:33 Dose: 2.5 mg Albuterol (Ventolin) 2.5 mg INH NOW ONE Stop: 07/29/18 01:51 Last Admin: 07/29/18 01:52 Dose: 2.5 mg Albuterol/Ipratropium (Duoneb) 3 ml INH NOW ONE Stop: 07/29/18 01:33 Last Admin: 07/29/18 01:33 Dose: 3 ml Albuterol/Ipratropium (Duoneb) 3 ml INH NOW ONE Stop: 07/29/18 01:51 Last Admin: 07/29/18 01:52 Dose: 3 ml Albuterol/Ipratropium (Duoneb) 3 ml INH NOW ONE Stop: 07/29/18 02:44 Last Admin: 07/29/18 02:43 Dose: 3 ml Reevaluation(s) Reevaluation #1: Minimal improvement of respiratory troubles after a few bronchodilators Vital Signs - 8 hr 07/29/18 01:29 07/29/18 01:33 07/29/18 01:52 Temperature 97.7 F Pulse Rate 79 73 73 Respiratory Rate 20 18 18 Blood Pressure 136/89 Pulse Oximetry 98 95 95 07/29/18 02:43 Temperature Pulse Rate 71 Respiratory Rate 15 Blood Pressure Pulse Oximetry 94 Discharge Plan Departure Patient Disposition: Home Clinical Impression: COPD (chronic obstructive pulmonary disease) Qualifiers: COPD type: COPD with acute exacerbation Qualified Code(s): J44.1 - Chronic obstructive pulmonary disease with (acute) exacerbation Activity Restrictions/Additional Instructions: *You have been diagnosed with [ throat irritation and chronic obstructive pulmonary disease ] *What to do: *Take medications as directed *Follow up with your primary care provider in 2-3 days, call for an appointment. Let them know you were seen in the Emergency Department and that we ask that you be seen in follow up *Return to ER if you should have any new, worsening or concerning symptoms, such as [ ] Prescriptions: No Action oxycodone-acetaminophen [Percocet] 5-325 mg Tablet 1 tab PO Q4-6H PRN (Reason: Pain, Moderate) RF: 0 hydroxyzine HCl 25 mg Tablet 25 mg PO TID-QID PRN (Reason: Muscle Spasm) RF: 0 levothyroxine 50 mcg Capsule 50 mcg PO DAILY RF: 0 baclofen 20 MG tablet 1 tab PO TID PRN (Reason: Muscle Spasm) RF: 0 albuterol sulfate 2.5 MG/3 ML solution for nebulization 3 ml INH Q6HP PRN (Reason: Shortness Of Breath Or Wheezing) RF: 0 simvastatin 20 mg Tablet 20 mg PO QPM RF: 0 metoprolol tartrate 50 mg Tablet 50 mg PO BID RF: 0 codeine-guaifenesin 10-100 mg/5 mL Liquid 10 ml PO Q4H PRN (Reason: Cough) Qty: 480 RF: 0 naproxen 500 mg tablet 500 mg PO BID PRN (Reason: pain) Qty: 30 RF: 0 venlafaxine 75 mg capsule,extended release 24hr 75 mg PO DAILY RF: 0 nifedipine 30 mg tablet extended release 30 mg PO DAILY RF: 0 ranitidine HCl 300 mg capsule 300 mg PO DAILY RF: 0 omeprazole 20 mg capsule,delayed release(DR/EC) 20 mg PO DAILY RF: 0 lisinopril 40 mg tablet 40 mg PO DAILY RF: 0 naproxen 500 mg tablet 500 mg PO BID RF: 0 sumatriptan succinate [Imitrex] 100 mg Tablet 100 mg PO Q4-6H PRN (Reason: Headache) RF: 0 albuterol sulfate 2.5 mg /3 mL (0.083 %) Solution For Nebulization 2.5 mg INH [id number] PRN (Reason: Shortness Of Breath) 30 Days RF: 0 dextromethorphan-guaifenesin 10-100 mg/5 mL Syrup 5 ml PO Q4H PRN (Reason: Cough) 14 Days RF: 0 baclofen 10 mg Tablet 10 mg PO 1100,1700,2100 30 Days Qty: 90 RF: 0 benzonatate 100 mg Capsule 100 mg PO Q4H PRN (Reason: Cough) Qty: 14 RF: 0 guaifenesin 600 mg Tablet Extended Release 12hr 600 mg PO BID 14 Days Qty: 28 RF: 0 pelfrvpggc-lrnchxejxxzob-ceiw 50-325-40 mg capsule 1 cap PO Q6H PRN (Reason: pain) Qty: 14 RF: 0 Referrals: Andrew Tariq MD [Physician] - Elly Stoll DO [Primary Care Provider] -
== END 2018-07-29 03:25 | disposition home or self-care (01) ==
PROVIDERS: Emergency Provider Emergency Medicine; PCP Family Medicine
DX: J44.1 Chronic obstructive pulmonary disease with (acute) exacerbation (principal); I25.2 Old myocardial infarction
CPT/HCPCS: 70360; 93005; 94640; 99283; 99284; J7613

== ENCOUNTER 2018-08-03 11:23 | Emergency (ER) | payer MEDICARE, MEDICAID, SELFPAY ==
[2018-07-17 01:49] VITALS: BMI 30.4
[2018-08-03 11:33] VITALS: BP 125/86; PULSE 79; RESP 19; TEMP 36.6; O2SAT 98; BMI 30.4
[2018-08-03 12:16] VITALS: BP 96/59; PULSE 77; RESP 16; O2SAT 99
[2018-08-03] MEDS: ALBUTEROL/IPRATROPIUM 3 ML AMPUL INH (12:52)
[2018-08-03] MEDS: SILVER SULFADIAZINE 1% CREAM 25 GM 1 APPLIC TOP (12:55)
[2018-08-03 12:56] VITALS: PULSE 74; RESP 19; O2SAT 91
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
== END 2018-08-03 13:16 | disposition home or self-care (01) ==
PROVIDERS: Emergency Provider Emergency Medicine; PCP Family Medicine
DX: L55.0 Sunburn of first degree (principal); J44.1 Chronic obstructive pulmonary disease with (acute) exacerbation
CPT/HCPCS: 94640; 99282; 99283

== ENCOUNTER 2018-08-08 22:57 | Emergency (ER) | payer MEDICARE, MEDICAID, SELFPAY ==
[2018-07-17 01:49] VITALS: BMI 30.4
[2018-08-08 23:01] VITALS: BP 121/83; PULSE 80; RESP 16; TEMP 36.4; O2SAT 98
[2018-08-08 23:18] VITALS: O2SAT 97
[2018-08-08] MEDS: ALBUTEROL/IPRATROPIUM 3 ML AMPUL INH ×3 (23:18→23:27)
--- NOTE | 2018-08-08 23:24 | DI.RAD.S_ITS ---
PROCEDURE: XR CHEST 2V INDICATIONS: shortness of breath TECHNIQUE: 2 views of the chest were acquired. COMPARISON: [facility], CR, XR CHEST 1V, 07/17/2018, 0:09. [facility], CR, XR CHEST 1V, 07/16/2018, 4:08. FINDINGS: Surgical changes and devices: None. Lungs and pleura: Lungs are abnormal, with a mild interstitial prominence previously present and also with pulmonary hyperexpansion consistent with COPD. No pleural effusions or pneumothorax. Mediastinum: Mediastinal contours are normal. Heart size is normal. Bones and chest wall: No suspicious bony abnormalities. Soft tissues appear unremarkable. IMPRESSION: COPD, chronic mild interstitial prominence but no acute disease. Note: These findings are concordant with the preliminary interpretation. Dictated by: Kvng Velazco M.D. on 08/09/2018 at 8:27 Approved by: Kvng Velazco M.D. on 08/09/2018 at 8:27
[2018-08-08 23:25] VITALS: O2SAT 97
[2018-08-08 23:27] VITALS: O2SAT 95
--- NOTE | 2018-08-08 23:32 | ED.SOB ---
HPI - SOB/Dyspnea General Chief Complaint: Shortness of Breath/Dyspnea Stated Complaint: DIFFICULTY BREATHING Time Seen by Provider: 08/08/18 23:12 Source: patient Mode of arrival: ambulatory Limitations: no limitations History of Present Illness A 57-year-old male lifetime smoker with history of COPD and coronary disease presents with a chief complaint of increasing shortness of breath. He ran out of his albuterol and is hoping we can help him with that. He denies any fever or chills but has had some significant cough. He denies any chest pain is not dizzy nor weak or lightheaded. He denies nausea, vomiting or diarrhea MD Complaint: shortness of breath and cough Onset (ago): hour(s) Context: recent illness Severity: moderate Consistency/Duration: constant Relieving factors: rest Exacerbating factors: exertion, movement and coughing Known history of: COPD Associated symptoms: denies other symptoms Treatment prior to arrival: bronchodilator Related Data Home oxygen amount: none Home Medications Medication Instructions Recorded Confirmed albuterol sulfate 3 ml INH Q6HP PRN 01/15/18 07/17/18 baclofen 1 tab PO TID PRN 01/15/18 07/17/18 hydroxyzine HCl 25 mg PO TID-QID PRN 01/15/18 07/17/18 levothyroxine 50 mcg PO DAILY 01/15/18 07/17/18 metoprolol tartrate 50 mg PO BID 01/15/18 07/17/18 oxycodone-acetaminophen [Percocet] 1 tab PO Q4-6H PRN 01/15/18 07/17/18 simvastatin 20 mg PO QPM 01/15/18 07/17/18 lisinopril 40 mg PO DAILY 07/17/18 07/17/18 naproxen 500 mg PO BID 07/17/18 07/17/18 nifedipine 30 mg PO DAILY 07/17/18 07/17/18 omeprazole 20 mg PO DAILY 07/17/18 07/17/18 ranitidine HCl 300 mg PO DAILY 07/17/18 07/17/18 sumatriptan succinate [Imitrex] 100 mg PO Q4-6H PRN 07/17/18 07/17/18 venlafaxine 75 mg PO DAILY 07/17/18 07/17/18 Previous Rx's Medication Instructions Recorded [id number]-[id number]-hyid 1 cap PO Q6H PRN #14 cap 10/10/17 codeine-guaifenesin 10 ml PO Q4H PRN #480 ml 01/20/18 naproxen 500 mg PO BID PRN #30 tab 02/05/18 albuterol sulfate 2.5 mg INH [id number] PRN 30 Days ml 07/20/18 baclofen 10 mg PO 1100,1700,2100 30 Days 07/20/18 #90 tab benzonatate 100 mg PO Q4H PRN #14 cap 07/20/18 doxycycline monohydrate 100 mg PO BID 10 Days #20 cap 08/09/18 prednisone 20 mg PO DAILY #5 tab 08/09/18 Allergies Allergy/AdvReac Type Severity Reaction Status Date / Time aspirin [ASPIRIN] Allergy Severe stomach Verified 08/08/18 23:01 ulcers hydrocodone [HYDROCODONE] AdvReac Intermediate hurts Verified 08/08/18 23:01 stomach Review of Systems Review of Systems ROS Unobtainable: All systems reviewed & are unremarkable except as noted in HPI and below Constitutional Denies chills, Denies fever(s), Denies lethargy and Denies weakness Eyes Denies change in vision, Denies eye discharge, Denies irritation and Denies loss of vision ENT Ears, Nose, Mouth, and Throat: Denies change in voice, Denies neck pain and Denies sore throat Cardiovascular Denies chest pain, Denies irregular heart rhythm, Denies lightheadedness, Denies palpitations, Reports dyspnea, Reports dyspnea on exertion and Denies orthopnea Respiratory Reports cough, Reports dyspnea, Reports dyspnea on exertion and Reports wheezing Gastrointestinal Gastrointestinal: Denies abdominal pain, Denies change in bowel habits, Denies diarrhea, Denies nausea and Denies vomiting Genitourinary Denies hematuria, Denies flank pain, Denies urinary incontinence and Denies urinary urgency Musculoskeletal Denies neck pain Integumentary/Breasts Denies pruritus, Denies erythema, Denies rash and Denies wounds Neurologic Denies confusion, Denies loss of vision and Denies weakness Psychiatric Denies anxiety, Denies confusion, Denies depression, Denies homicidal ideation and Denies suicidal ideation Endocrine Denies palpitations Hematologic/Lymphatic Denies easy bruising Allergic/Immunologic Reports wheezing PFSH Medical History Multiple sclerosis (Chronic) COPD (chronic obstructive pulmonary disease) (Chronic) Cigarette nicotine dependence (Chronic) Hypothyroidism (Chronic) Hyperlipidemia (Chronic) Hypertension (Chronic) CVA (cerebral vascular accident) (Chronic) History of [place] (myocardial infarction) (Chronic) Family History Mother Hypertension Diabetes mellitus Sister Pacemaker Social History household members: none Smoking Status: Current some day smoker alcohol intake: current Family History Mother Hypertension Diabetes mellitus Sister Pacemaker Social History household members: none Smoking Status: Current some day smoker alcohol intake: current Exam Narrative Exam Narrative: GENERAL: 57-year-old male appears older than stated age, chronically ill and in mild respiratory distress HEAD: Atraumatic. Normocephalic. No temporal or scalp tenderness. EYES: Pupils equal round and reactive. Extraocular motions intact. No scleral icterus. No injection or drainage. ENT: Nose without bleeding, purulent drainage or septal hematoma. Throat without erythema, tonsillar hypertrophy or exudate. Uvula midline. Airway patent. NECK: Trachea midline. No JVD or lymphadenopathy. Supple, nontender, no meningeal signs. CARDIOVASCULAR: Regular rate and rhythm without murmurs, gallops, or rubs. RESPIRATORY: Clear to auscultation. Breath sounds equal bilaterally. No wheezes, rales, or rhonchi. GASTROINTESTINAL: Abdomen soft, non-tender, nondistended. No hepato-splenomegaly, or palpable masses. No guarding. EXTREMITIES: No clubbing, cyanosis, or edema. No joint tenderness, effusion, or edema noted. BACK: Nontender without deformity or crepitance. No flank tenderness. NEURO: AOx3. SKIN: No rash or erythema. Initial Vital Signs Initial Vital Signs: Vital Signs Temperature 97.5 F L 08/08/18 23:01 Pulse Rate 80 08/08/18 23:01 Respiratory Rate 16 08/08/18 23:01 Blood Pressure 121/83 08/08/18 23:01 Pulse Oximetry 98 08/08/18 23:01 Course Course Narrative: Patient feeling much better after above-stated therapies Orders Ordered: ED Orders 08/08/18 23:01 RT Consult Eval and Treat Now 08/08/18 23:05 EKG-12 Lead Stat 08/08/18 23:24 XR chest 2V Stat 08/08/18 23:45 Complete Blood Count AUTO DIFF Stat Comprehensive Metabolic Panel Stat Lactate (Lactic Acid) Stat 08/09/18 EKG-12 Lead Stat 08/09/18 00:08 Troponin & CK Cardiac Panel Stat 08/09/18 00:09 B Type Natriuretic Peptide Stat Discontinued Medications Albuterol (Ventolin Hfa Prepack) 1 box MISC SEEINSTR ONE Stop: 08/09/18 01:23 Last Admin: 08/09/18 01:23 Dose: 1 box Albuterol/Ipratropium (Duoneb) 3 ml INH NOW ONE Stop: 08/08/18 23:09 Last Admin: 08/08/18 23:18 Dose: 3 ml Albuterol/Ipratropium (Duoneb) 3 ml INH NOW ONE Stop: 08/08/18 23:24 Last Admin: 08/08/18 23:25 Dose: 3 ml Albuterol/Ipratropium (Duoneb) 3 ml INH NOW ONE Stop: 08/08/18 23:25 Last Admin: 08/08/18 23:27 Dose: 3 ml Vital Signs - 8 hr 08/08/18 23:01 08/08/18 23:18 08/08/18 23:25 Temperature 97.5 F L Pulse Rate 80 Respiratory Rate 16 Blood Pressure 121/83 Pulse Oximetry 98 97 97 08/08/18 23:27 08/09/18 02:01 Temperature Pulse Rate 81 Respiratory Rate 24 Blood Pressure 118/81 Pulse Oximetry 95 95 MDM - SOB/Dyspnea Differential Diagnosis Likely acute exacerbation of chronic obstructive airways disease Medical Records Attestation: I reviewed the patient's medical records. Lab Data Attestation: I reviewed the patient's lab results. Result diagrams: 08/08/18 23:45 08/08/18 23:45 Lab Results 08/08/18 08/08/18 08/08/18 Range/Units 23:45 23:45 23:45 WBC 7.3 (4.5-11.0) X10^3/uL RBC 4.92 (4.5-5.9) X10^6/uL Hgb 14.8 (13.5-17.5) g/dL Hct 43.8 (41-53) % MCV 88.9 (80-100) fL MCH 30.0 (26-34) PG MCHC 33.7 (30-36) % RDW 13.5 (11.6-14.8) % Plt Count 141 L (150-400) X10^3/uL Neut % (Auto) 48.3 L (50-75) % Lymph % (Auto) 36.0 (25-40) % Routt % (Auto) 9.0 (3-14) % Eos % (Auto) 5.5 H (2-4) % Baso % (Auto) 1.2 (0-2) % Neut # (Auto) 3500 (8418-0415) /uL Lymph # (Auto) 2600 (5605-5978) /uL Routt # (Auto) 700 (0-900) /uL Eos # (Auto) 400 (0-450) /uL Baso # (Auto) 100 (0-100) /uL Sodium 138 (137-145) mmol/L Potassium 4.5 (3.4-5.1) mmol/L Chloride 107 (98-107) mmol/L Carbon Dioxide 22 (22-32) mmol/L BUN 19 (9-20) mg/dL Creatinine 1.00 (0.66-1.25) mg/dL Estimated GFR > 60.0 (>60) mL/min BUN/Creatinine Ratio 19.0 (6-22) Glucose 83 (70-100) mg/dL Lactate 1.1 (0.7-2.1) mmol/L Calcium 9.0 (8.4-10.2) mg/dL Total Bilirubin 0.4 (0.2-1.3) mg/dL AST 24 (17-59) IU/L ALT 23 (21-72) IU/L Alkaline Phosphatase 68 (38-126) U/L Total Creatine Kinase (55-170) U/L CK-MB (CK-2) CK-MB (CK-2) Rel Index Troponin I (0.01-0.034) ng/mL B-Natriuretic Peptide (<100) Total Protein 6.5 (6.3-8.2) g/dL Albumin 3.9 (3.5-5.0) g/dL Globulin 2.6 (1.7-4.1) g/dL Albumin/Globulin Ratio 1.5 (1.0-2.8) 08/08/18 08/08/18 Range/Units 23:45 23:45 WBC (4.5-11.0) X10^3/uL RBC (4.5-5.9) X10^6/uL Hgb (13.5-17.5) g/dL Hct (41-53) % MCV (80-100) fL MCH (26-34) PG MCHC (30-36) % RDW (11.6-14.8) % Plt Count (150-400) X10^3/uL Neut % (Auto) (50-75) % Lymph % (Auto) (25-40) % Routt % (Auto) (3-14) % Eos % (Auto) (2-4) % Baso % (Auto) (0-2) % Neut # (Auto) (9501-6210) /uL Lymph # (Auto) (6115-7801) /uL Routt # (Auto) (0-900) /uL Eos # (Auto) (0-450) /uL Baso # (Auto) (0-100) /uL Sodium (137-145) mmol/L Potassium (3.4-5.1) mmol/L Chloride (98-107) mmol/L Carbon Dioxide (22-32) mmol/L BUN (9-20) mg/dL Creatinine (0.66-1.25) mg/dL Estimated GFR (>60) mL/min BUN/Creatinine Ratio (6-22) Glucose (70-100) mg/dL Lactate (0.7-2.1) mmol/L Calcium (8.4-10.2) mg/dL Total Bilirubin (0.2-1.3) mg/dL AST (17-59) IU/L ALT (21-72) IU/L Alkaline Phosphatase (38-126) U/L Total Creatine Kinase 99 (55-170) U/L CK-MB (CK-2) TNP CK-MB (CK-2) Rel Index TNP Troponin I < 0.012 (0.01-0.034) ng/mL B-Natriuretic Peptide < 100 (<100) Total Protein (6.3-8.2) g/dL Albumin (3.5-5.0) g/dL Globulin (1.7-4.1) g/dL Albumin/Globulin Ratio (1.0-2.8) Discharge Plan Departure Patient Disposition: Home Clinical Impression: COPD (chronic obstructive pulmonary disease) Qualifiers: COPD type: unspecified COPD Qualified Code(s): J44.9 - Chronic obstructive pulmonary disease, unspecified Discharge Date/Time: 08/09/18 02:01 Interventions: ED Discharge Assessment Last Done: 08/09/18 02:01 Instructions: DI for Chronic Obstructive Pulmonary Disease Activity Restrictions/Additional Instructions: *You have been diagnosed with [ acute COPD ] *What to do: *Take medications as directed *Follow up with your primary care provider in 2-3 days, call for an appointment. Let them know you were seen in the Emergency Department and that we ask that you be seen in follow up *Return to ER if you should have any new, worsening or concerning symptoms Prescriptions: New prednisone 20 mg tablet 20 mg PO DAILY Qty: 5 RF: 0 doxycycline monohydrate 100 mg capsule 100 mg PO BID 10 Days Qty: 20 RF: 0 No Action oxycodone-acetaminophen [Percocet] 5-325 mg Tablet 1 tab PO Q4-6H PRN (Reason: Pain, Moderate) RF: 0 hydroxyzine HCl 25 mg Tablet 25 mg PO TID-QID PRN (Reason: Muscle Spasm) RF: 0 levothyroxine 50 mcg Capsule 50 mcg PO DAILY RF: 0 baclofen 20 MG tablet 1 tab PO TID PRN (Reason: Muscle Spasm) RF: 0 albuterol sulfate 2.5 MG/3 ML solution for nebulization 3 ml INH Q6HP PRN (Reason: Shortness Of Breath Or Wheezing) RF: 0 simvastatin 20 mg Tablet 20 mg PO QPM RF: 0 metoprolol tartrate 50 mg Tablet 50 mg PO BID RF: 0 codeine-guaifenesin 10-100 mg/5 mL Liquid 10 ml PO Q4H PRN (Reason: Cough) Qty: 480 RF: 0 naproxen 500 mg tablet 500 mg PO BID PRN (Reason: pain) Qty: 30 RF: 0 venlafaxine 75 mg capsule,extended release 24hr 75 mg PO DAILY RF: 0 nifedipine 30 mg tablet extended release 30 mg PO DAILY RF: 0 ranitidine HCl 300 mg capsule 300 mg PO DAILY RF: 0 omeprazole 20 mg capsule,delayed release(DR/EC) 20 mg PO DAILY RF: 0 lisinopril 40 mg tablet 40 mg PO DAILY RF: 0 naproxen 500 mg tablet 500 mg PO BID RF: 0 sumatriptan succinate [Imitrex] 100 mg Tablet 100 mg PO Q4-6H PRN (Reason: Headache) RF: 0 albuterol sulfate 2.5 mg /3 mL (0.083 %) Solution For Nebulization 2.5 mg INH [id number] PRN (Reason: Shortness Of Breath) 30 Days RF: 0 baclofen 10 mg Tablet 10 mg PO 1100,1700,2100 30 Days Qty: 90 RF: 0 benzonatate 100 mg Capsule 100 mg PO Q4H PRN (Reason: Cough) Qty: 14 RF: 0 uyevvojydi-inarysjmuwngw-lhrz 50-325-40 mg capsule 1 cap PO Q6H PRN (Reason: pain) Qty: 14 RF: 0 Referrals: Elly Stoll DO [Primary Care Provider] -
[2018-08-08 23:55] LABS: Add Manual Diff / Slide Review NO; Basophils Absolute Auto 100 /uL (0-100); Basophils Percent Auto 1.2 % (0-2); Eosinophils Absolute Auto 400 /uL (0-450); Eosinophils Percent Auto 5.5 % (2-4); Hematocrit 43.8 % (41-53); Hemoglobin 14.8 g/dL (13.5-17.5); Lymphocytes Absolute Auto 2600 /uL (1100-4500); Mean Corpuscular HGB Conc 33.7 % (30-36); Mean Corpuscular Volume 88.9 fL (80-100); Monocytes Absolute Auto 700 /uL (0-900); Neutrophils Absolute Auto 3500 /uL (1500-7000); Neutrophils Percent Auto 48.3 % (50-75); Platelet Count 141 X10^3/uL (150-400); Red Blood Cell Count 4.92 X10^6/uL (4.5-5.9); Red Cell Distribution Width 13.5 % (11.6-14.8); White Blood Cell Count 7.3 X10^3/uL (4.5-11.0)
[2018-08-09 00:07] LABS: Lactate (Lactic Acid) 1.1 mmol/L (0.7-2.1)
[2018-08-09 00:18] LABS: Alanine Aminotransferase 23 IU/L (21-72); Albumin 3.9 g/dL (3.5-5.0); Albumin Globulin Ratio 1.5 (1.0-2.8); Alkaline Phosphatase 68 U/L (38-126); Aspartate Aminotransferase 24 IU/L (17-59); Bilirubin Total 0.4 mg/dL (0.2-1.3); Blood Urea Nitrogen 19 mg/dL (9-20); Carbon Dioxide 22 mmol/L (22-32); Chloride 107 mmol/L (98-107); Estimated Glomerular Filt Rate > 60.0 mL/min (>60); Globulin 2.6 g/dL (1.7-4.1); Glucose 83 mg/dL (70-100); HEMOLYSIS < 15 (0-50); Potassium 4.5 mmol/L (3.4-5.1); Sodium 138 mmol/L (137-145); Total Protein 6.5 g/dL (6.3-8.2)
[2018-08-09 00:25] LABS: Creatine Kinase 99 U/L (55-170)
[2018-08-09 00:34] LABS: B Type Natriuretic Peptide < 100 (<100)
[2018-08-09 00:37] LABS: Troponin I < 0.012 ng/mL (0.01-0.034)
--- NOTE | 2018-08-09 01:18 | ED_ITS ---
HPI - SOB/Dyspnea General Chief Complaint: Shortness of Breath/Dyspnea Stated Complaint: DIFFICULTY BREATHING Time Seen by Provider: 08/08/18 23:12 Source: patient Mode of arrival: ambulatory Limitations: no limitations History of Present Illness A 57-year-old male lifetime smoker with history of COPD and coronary disease presents with a chief complaint of increasing shortness of breath. He ran out of his albuterol and is hoping we can help him with that. He denies any fever or chills but has had some significant cough. He denies any chest pain is not dizzy nor weak or lightheaded. He denies nausea, vomiting or diarrhea MD Complaint: shortness of breath and cough Onset (ago): hour(s) Context: recent illness Severity: moderate Consistency/Duration: constant Relieving factors: rest Exacerbating factors: exertion, movement and coughing Known history of: COPD Associated symptoms: denies other symptoms Treatment prior to arrival: bronchodilator Related Data Home oxygen amount: none Home Medications Medication Instructions Recorded Confirmed albuterol sulfate 3 ml INH Q6HP PRN 01/15/18 07/17/18 baclofen 1 tab PO TID PRN 01/15/18 07/17/18 hydroxyzine HCl 25 mg PO TID-QID PRN 01/15/18 07/17/18 levothyroxine 50 mcg PO DAILY 01/15/18 07/17/18 metoprolol tartrate 50 mg PO BID 01/15/18 07/17/18 oxycodone-acetaminophen [Percocet] 1 tab PO Q4-6H PRN 01/15/18 07/17/18 simvastatin 20 mg PO QPM 01/15/18 07/17/18 lisinopril 40 mg PO DAILY 07/17/18 07/17/18 naproxen 500 mg PO BID 07/17/18 07/17/18 nifedipine 30 mg PO DAILY 07/17/18 07/17/18 omeprazole 20 mg PO DAILY 07/17/18 07/17/18 ranitidine HCl 300 mg PO DAILY 07/17/18 07/17/18 sumatriptan succinate [Imitrex] 100 mg PO Q4-6H PRN 07/17/18 07/17/18 venlafaxine 75 mg PO DAILY 07/17/18 07/17/18 Previous Rx's Medication Instructions Recorded [id number]-wnciardbwcwox-jrud 1 cap PO Q6H PRN #14 cap 10/10/17 codeine-guaifenesin 10 ml PO Q4H PRN #480 ml 01/20/18 naproxen 500 mg PO BID PRN #30 tab 02/05/18 albuterol sulfate 2.5 mg INH [id number] PRN 30 Days ml 07/20/18 baclofen 10 mg PO 1100,1700,2100 30 Days 07/20/18 #90 tab benzonatate 100 mg PO Q4H PRN #14 cap 07/20/18 doxycycline monohydrate 100 mg PO BID 10 Days #20 cap 08/09/18 prednisone 20 mg PO DAILY #5 tab 08/09/18 Allergies Allergy/AdvReac Type Severity Reaction Status Date / Time aspirin [ASPIRIN] Allergy Severe stomach Verified 08/08/18 23:01 ulcers hydrocodone [HYDROCODONE] AdvReac Intermediate hurts Verified 08/08/18 23:01 stomach Review of Systems Review of Systems ROS Unobtainable: All systems reviewed & are unremarkable except as noted in HPI and below Constitutional Denies chills, Denies fever(s), Denies lethargy and Denies weakness Eyes Denies change in vision, Denies eye discharge, Denies irritation and Denies loss of vision ENT Ears, Nose, Mouth, and Throat: Denies change in voice, Denies neck pain and Denies sore throat Cardiovascular Denies chest pain, Denies irregular heart rhythm, Denies lightheadedness, Denies palpitations, Reports dyspnea, Reports dyspnea on exertion and Denies orthopnea Respiratory Reports cough, Reports dyspnea, Reports dyspnea on exertion and Reports wheezing Gastrointestinal Gastrointestinal: Denies abdominal pain, Denies change in bowel habits, Denies diarrhea, Denies nausea and Denies vomiting Genitourinary Denies hematuria, Denies flank pain, Denies urinary incontinence and Denies urinary urgency Musculoskeletal Denies neck pain Integumentary/Breasts Denies pruritus, Denies erythema, Denies rash and Denies wounds Neurologic Denies confusion, Denies loss of vision and Denies weakness Psychiatric Denies anxiety, Denies confusion, Denies depression, Denies homicidal ideation and Denies suicidal ideation Endocrine Denies palpitations Hematologic/Lymphatic Denies easy bruising Allergic/Immunologic Reports wheezing PFSH Medical History Multiple sclerosis (Chronic) COPD (chronic obstructive pulmonary disease) (Chronic) Cigarette nicotine dependence (Chronic) Hypothyroidism (Chronic) Hyperlipidemia (Chronic) Hypertension (Chronic) CVA (cerebral vascular accident) (Chronic) History of [place] (myocardial infarction) (Chronic) Family History Mother Hypertension Diabetes mellitus Sister Pacemaker Social History household members: none Smoking Status: Current some day smoker alcohol intake: current Family History Mother Hypertension Diabetes mellitus Sister Pacemaker Social History household members: none Smoking Status: Current some day smoker alcohol intake: current Exam Narrative Exam Narrative: GENERAL: 57-year-old male appears older than stated age, chronically ill and in mild respiratory distress HEAD: Atraumatic. Normocephalic. No temporal or scalp tenderness. EYES: Pupils equal round and reactive. Extraocular motions intact. No scleral icterus. No injection or drainage. ENT: Nose without bleeding, purulent drainage or septal hematoma. Throat without erythema, tonsillar hypertrophy or exudate. Uvula midline. Airway patent. NECK: Trachea midline. No JVD or lymphadenopathy. Supple, nontender, no me ningeal signs. CARDIOVASCULAR: Regular rate and rhythm without murmurs, gallops, or rubs. RESPIRATORY: Clear to auscultation. Breath sounds equal bilaterally. No wheezes, rales, or rhonchi. GASTROINTESTINAL: Abdomen soft, non-tender, nondistended. No hepato- splenomegaly, or palpable masses. No guarding. EXTREMITIES: No clubbing, cyanosis, or edema. No joint tenderness, effusion, or edema noted. BACK: Nontender without deformity or crepitance. No flank tenderness. NEURO: AOx3. SKIN: No rash or erythema. Initial Vital Signs Initial Vital Signs: Vital Signs Temperature 97.5 F L 08/08/18 23:01 Pulse Rate 80 08/08/18 23:01 Respiratory Rate 16 08/08/18 23:01 Blood Pressure 121/83 08/08/18 23:01 Pulse Oximetry 98 08/08/18 23:01 Course Course Narrative: Patient feeling much better after above-stated therapies Orders Ordered: ED Orders 08/08/18 23:01 RT Consult Eval and Treat Now 08/08/18 23:05 EKG-12 Lead Stat 08/08/18 23:24 XR chest 2V Stat 08/08/18 23:45 Complete Blood Count AUTO DIFF Stat Comprehensive Metabolic Panel Stat Lactate (Lactic Acid) Stat 08/09/18 EKG-12 Lead Stat 08/09/18 00:08 Troponin & CK Cardiac Panel Stat 08/09/18 00:09 B Type Natriuretic Peptide Stat Discontinued Medications Albuterol (Ventolin Hfa Prepack) 1 box MISC SEEINSTR ONE Stop: 08/09/18 01:23 Last Admin: 08/09/18 01:23 Dose: 1 box Albuterol/Ipratropium (Duoneb) 3 ml INH NOW ONE Stop: 08/08/18 23:09 Last Admin: 08/08/18 23:18 Dose: 3 ml Albuterol/Ipratropium (Duoneb) 3 ml INH NOW ONE Stop: 08/08/18 23:24 Last Admin: 08/08/18 23:25 Dose: 3 ml Albuterol/Ipratropium (Duoneb) 3 ml INH NOW ONE Stop: 08/08/18 23:25 Last Admin: 08/08/18 23:27 Dose: 3 ml Vital Signs - 8 hr 08/08/18 23:01 08/08/18 23:18 08/08/18 23:25 Temperature 97.5 F L Pulse Rate 80 Respiratory Rate 16 Blood Pressure 121/83 Pulse Oximetry 98 97 97 08/08/18 23:27 08/09/18 02:01 Temperature Pulse Rate 81 Respiratory Rate 24 Blood Pressure 118/81 Pulse Oximetry 95 95 MDM - SOB/Dyspnea Differential Diagnosis Likely acute exacerbation of chronic obstructive airways disease Medical Records Attestation: I reviewed the patient's medical records. Lab Data Attestation: I reviewed the patient's lab results. Result diagrams: 08/08/18 23:45 08/08/18 23:45 Lab Results 08/08/18 08/08/18 08/08/18 Range/Units 23:45 23:45 23:45 WBC 7.3 (4.5-11.0) X10^3/uL RBC 4.92 (4.5-5.9) X10^6/uL Hgb 14.8 (13.5-17.5) g/dL Hct 43.8 (41-53) % MCV 88.9 (80-100) fL MCH 30.0 (26-34) PG MCHC 33.7 (30-36) % RDW 13.5 (11.6-14.8) % Plt Count 141 L (150-400) X10^3/uL Neut % (Auto) 48.3 L (50-75) % Lymph % (Auto) 36.0 (25-40) % [place] % (Auto) 9.0 (3-14) % Eos % (Auto) 5.5 H (2-4) % Baso % (Auto) 1.2 (0-2) % Neut # (Auto) 3500 (8033-1281) /uL Lymph # (Auto) 2600 (5406-2477) /uL [place] # (Auto) 700 (0-900) /uL Eos # (Auto) 400 (0-450) /uL Baso # (Auto) 100 (0-100) /uL Sodium 138 (137-145) mmol/L Potassium 4.5 (3.4-5.1) mmol/L Chloride 107 (98-107) mmol/L Carbon Dioxide 22 (22-32) mmol/L BUN 19 (9-20) mg/dL Creatinine 1.00 (0.66-1.25) mg/dL Estimated GFR > 60.0 (>60) mL/min BUN/Creatinine Ratio 19.0 (6-22) Glucose 83 (70-100) mg/dL Lactate 1.1 (0.7-2.1) mmol/L Calcium 9.0 (8.4-10.2) mg/dL Total Bilirubin 0.4 (0.2-1.3) mg/dL AST 24 (17-59) IU/L ALT 23 (21-72) IU/L Alkaline Phosphatase 68 (38-126) U/L Total Creatine Kinase (55-170) U/L CK-MB (CK-2) CK-MB (CK-2) Rel Index Troponin I (0.01-0.034) ng/mL B-Natriuretic Peptide (<100) Total Protein 6.5 (6.3-8.2) g/dL Albumin 3.9 (3.5-5.0) g/dL Globulin 2.6 (1.7-4.1) g/dL Albumin/Globulin Ratio 1.5 (1.0-2.8) 08/08/18 08/08/18 Range/Units 23:45 23:45 WBC (4.5-11.0) X10^3/uL RBC (4.5-5.9) X10^6/uL Hgb (13.5-17.5) g/dL Hct (41-53) % MCV (80-100) fL MCH (26-34) PG MCHC (30-36) % RDW (11.6-14.8) % Plt Count (150-400) X10^3/uL Neut % (Auto) (50-75) % Lymph % (Auto) (25-40) % [place] % (Auto) (3-14) % Eos % (Auto) (2-4) % Baso % (Auto) (0-2) % Neut # (Auto) (9363-0765) /uL Lymph # (Auto) (7903-8981) /uL [place] # (Auto) (0-900) /uL Eos # (Auto) (0-450) /uL Baso # (Auto) (0-100) /uL Sodium (137-145) mmol/L Potassium (3.4-5.1) mmol/L Chloride (98-107) mmol/L Carbon Dioxide (22-32) mmol/L BUN (9-20) mg/dL Creatinine (0.66-1.25) mg/dL Estimated GFR (>60) mL/min BUN/Creatinine Ratio (6-22) Glucose (70-100) mg/dL Lactate (0.7-2.1) mmol/L Calcium (8.4-10.2) mg/dL Total Bilirubin (0.2-1.3) mg/dL AST (17-59) IU/L ALT (21-72) IU/L Alkaline Phosphatase (38-126) U/L Total Creatine Kinase 99 (55-170) U/L CK-MB (CK-2) TNP CK-MB (CK-2) Rel Index TNP Troponin I < 0.012 (0.01-0.034) ng/mL B-Natriuretic Peptide < 100 (<100) Total Protein (6.3-8.2) g/dL Albumin (3.5-5.0) g/dL Globulin (1.7-4.1) g/dL Albumin/Globulin Ratio (1.0-2.8) Discharge Plan Departure Patient Disposition: Home Clinical Impression: COPD (chronic obstructive pulmonary disease) Qualifiers: COPD type: unspecified COPD Qualified Code(s): J44.9 - Chronic obstructive pulmonary disease, unspecified Discharge Date/Time: 08/09/18 02:01 Interventions: ED Discharge Assessment Last Done: 08/09/18 02:01 Instructions: DI for Chronic Obstructive Pulmonary Disease Activity Restrictions/Additional Instructions: *You have been diagnosed with [ acute COPD ] *What to do: *Take medications as directed *Follow up with your primary care provider in 2-3 days, call for an appointment. Let them know you were seen in the Emergency Department and that we ask that you be seen in follow up *Return to ER if you should have any new, worsening or concerning symptoms Prescriptions: New prednisone 20 mg tablet 20 mg PO DAILY Qty: 5 RF: 0 doxycycline monohydrate 100 mg capsule 100 mg PO BID 10 Days Qty: 20 RF: 0 No Action oxycodone-acetaminophen [Percocet] 5-325 mg Tablet 1 tab PO Q4-6H PRN (Reason: Pain, Moderate) RF: 0 hydroxyzine HCl 25 mg Tablet 25 mg PO TID-QID PRN (Reason: Muscle Spasm) RF: 0 levothyroxine 50 mcg Capsule 50 mcg PO DAILY RF: 0 baclofen 20 MG tablet 1 tab PO TID PRN (Reason: Muscle Spasm) RF: 0 albuterol sulfate 2.5 MG/3 ML solution for nebulization 3 ml INH Q6HP PRN (Reason: Shortness Of Breath Or Wheezing) RF: 0 simvastatin 20 mg Tablet 20 mg PO QPM RF: 0 metoprolol tartrate 50 mg Tablet 50 mg PO BID RF: 0 codeine-guaifenesin 10-100 mg/5 mL Liquid 10 ml PO Q4H PRN (Reason: Cough) Qty: 480 RF: 0 naproxen 500 mg tablet 500 mg PO BID PRN (Reason: pain) Qty: 30 RF: 0 venlafaxine 75 mg capsule,extended release 24hr 75 mg PO DAILY RF: 0 nifedipine 30 mg tablet extended release 30 mg PO DAILY RF: 0 ranitidine HCl 300 mg capsule 300 mg PO DAILY RF: 0 omeprazole 20 mg capsule,delayed release(DR/EC) 20 mg PO DAILY RF: 0 lisinopril 40 mg tablet 40 mg PO DAILY RF: 0 naproxen 500 mg tablet 500 mg PO BID RF: 0 sumatriptan succinate [Imitrex] 100 mg Tablet 100 mg PO Q4-6H PRN (Reason: Headache) RF: 0 albuterol sulfate 2.5 mg /3 mL (0.083 %) Solution For Nebulization 2.5 mg INH [id number] PRN (Reason: Shortness Of Breath) 30 Days RF: 0 baclofen 10 mg Tablet 10 mg PO 1100,1700,2100 30 Days Qty: 90 RF: 0 benzonatate 100 mg Capsule 100 mg PO Q4H PRN (Reason: Cough) Qty: 14 RF: 0 vgthtwqvww-olzjyuzoiokqt-uumu 50-325-40 mg capsule 1 cap PO Q6H PRN (Reason: pain) Qty: 14 RF: 0 Referrals: Elly Stoll DO [Primary Care Provider] -
[2018-08-09] MEDS: ALBUTEROL HFA PREPACK 1 BOX MISC (01:23)
[2018-08-09 02:01] VITALS: BP 118/81; PULSE 81; RESP 24; O2SAT 95
== END 2018-08-09 02:01 | disposition home or self-care (01) ==
PROVIDERS: Emergency Provider Emergency Medicine; Family Provider Family Medicine; PCP Family Medicine
DX: J44.9 Chronic obstructive pulmonary disease, unspecified (principal)
CPT/HCPCS: 36591; 71046; 80053; 82550; 83605; 83880; 84484; 85025; 93005; 93010; 94640; 99283; 99285

== ENCOUNTER 2019-01-08 20:57 | Emergency (ER) | payer MEDICARE, MEDICAID, SELFPAY ==
[2018-07-17 01:49] VITALS: BMI 30.4
[2019-01-08 21:21] VITALS: BP 148/97; PULSE 63; RESP 16; TEMP 36.4; O2SAT 96
--- NOTE | 2019-01-08 22:52 | ED_ITS ---
HPI - Dental/Oral General Chief complaint: Dental/Oral Stated complaint: ABSCESS IN MOUTH AND NECK AND THROAT PAIN Time Seen by Provider: 01/08/19 22:52 Source: patient Mode of arrival: wheelchair (patient has electric wheelchair) Limitations: no limitations History of Present Illness HPI Narrative: This is a 58-year-old male comes to the emergency department with complaint of dental pain. Patient states he had swelling of his jaw, right neck and radiating into his ear. He states that the swelling has gotten better about a week ago but he continues to have pain into the ear draw and just behind. Patient does not think that he has had any fevers subjectively. He does not have access to a thermometer he has not had any nausea or vomiting. He has not had any swelling in his throat. He states he has been a little bit hoarse. He has not had any new chest pain or shortness of breath. He does had a cough and was treated for pneumonia and hospitalized for several days. Patient states that he did develop a sunburn from the antibiotics that he was on. He states this has been healing. He states that he did have a tooth removed couple months ago, they told him that part of the root was still in place and would ?work its way free? but that he might need to see an oral surgeon at some point. Related Data Home Medications Medication Instructions Recorded Confirmed albuterol sulfate 3 ml INH Q6HP PRN 01/15/18 07/17/18 baclofen 1 tab PO TID PRN 01/15/18 07/17/18 hydroxyzine HCl 25 mg PO TID-QID PRN 01/15/18 07/17/18 levothyroxine 50 mcg PO DAILY 01/15/18 07/17/18 metoprolol tartrate 50 mg PO BID 01/15/18 07/17/18 oxycodone-acetaminophen [Percocet] 1 tab PO Q4-6H PRN 01/15/18 07/17/18 simvastatin 20 mg PO QPM 01/15/18 07/17/18 lisinopril 40 mg PO DAILY 07/17/18 07/17/18 naproxen 500 mg PO BID 07/17/18 07/17/18 nifedipine 30 mg PO DAILY 07/17/18 07/17/18 omeprazole 20 mg PO DAILY 07/17/18 07/17/18 ranitidine HCl 300 mg PO DAILY 07/17/18 07/17/18 sumatriptan succinate [Imitrex] 100 mg PO Q4-6H PRN 07/17/18 07/17/18 venlafaxine 75 mg PO DAILY 07/17/18 07/17/18 Previous Rx's Medication Instructions Recorded [id number]-[id number] 1 cap PO Q6H PRN #14 cap 10/10/17 codeine-guaifenesin 10 ml PO Q4H PRN #480 ml 01/20/18 naproxen 500 mg PO BID PRN #30 tab 02/05/18 benzonatate 100 mg PO Q4H PRN #14 cap 07/20/18 prednisone 20 mg PO DAILY #5 tab 08/09/18 meloxicam [Mobic] 7.5 mg PO DAILY PRN #7 tab 01/08/19 penicillin V potassium 500 mg PO QID #40 tab 01/08/19 Allergies Allergy/AdvReac Type Severity Reaction Status Date / Time aspirin [ASPIRIN] Allergy Severe stomach Verified 08/08/18 23:01 ulcers hydrocodone [HYDROCODONE] AdvReac Intermediate hurts Verified 08/08/18 23:01 stomach Review of Systems Review of Systems ROS Unobtainable: All systems reviewed & are unremarkable except as noted in HPI and below Constitutional Constitutional: Denies chills, Denies fatigue, Denies fever(s) and Denies headache(s) ENT Ears, Nose, Mouth, and Throat: Reports as per HPI, Denies change in voice, Reports dental pain, Denies dysphagia, Reports otalgia (Right), Denies facial pain, Denies headache(s), Reports hoarseness, Denies lip swelling, Denies nasal congestion, Denies nasal discharge, Denies neck mass, Reports neck pain, Denies sinus pain, Denies sinus pressure, Denies sore throat, Denies throat swelling an d Denies tongue swelling Cardiovascular Cardiovascular: Denies chest pain, Denies palpitations and Denies dyspnea Respiratory Respiratory: Denies change in phlegm color, Denies chest congestion, Reports cough, Denies excessive phlegm production, Denies pain on inspiration, Denies pain with cough, Denies dyspnea and Reports wheezing (Occasionally) Gastrointestinal Gastrointestinal: Denies abdominal pain, Denies constipation, Denies dysphagia, Denies diarrhea, Denies nausea and Denies vomiting Genitourinary Genitourinary: Denies hematuria, Denies dysuria, Denies flank pain, Denies urinary frequency, Denies urinary incontinence and Denies urinary urgency Musculoskeletal Musculoskeletal: Reports neck pain Integumentary/Breasts Skin/Breast: Reports other (Sunburn) Neurologic Neurologic: Denies headache(s) Endocrine Endocrine: Denies fatigue and Denies palpitations Allergic/Immunologic Allergic/Immunologic: Denies lip swelling, Denies throat swelling, Denies tongue swelling and Reports wheezing (Occasionally) [facility] Medical History Cigarette nicotine dependence (Chronic) COPD (chronic obstructive pulmonary disease) (Chronic) CVA (cerebral vascular accident) (Chronic) History of [place] (myocardial infarction) (Chronic) Hyperlipidemia (Chronic) Hypertension (Chronic) Hypothyroidism (Chronic) Multiple sclerosis (Chronic) Family History Mother Hypertension Diabetes mellitus Sister Pacemaker Social History household members: none Smoking Status: Current some day smoker alcohol intake: current Social History household members: none Smoking Status: Current some day smoker alcohol intake: current Exam Narrative Exam Narrative: GEN: well nourished, well appearing male, alert and oriented x 3, patient appears to be in mild distress. Patient is seated in a motorized wheelchair. HEENT: Atraumatic, pupils are equal round reactive to light, extraocular movements are intact, nares are clear, TMs are clear with no fluid, there is no conjunctival pallor. Throat is clear without any exudates, erythema, tonsillar enlargement or uvular deviation, no facial swelling, no mastoid tenderness, no sinus tenderness. Patient has dental caries but no obvious fluctuance or fluid collection. Patient does have a little bit of erythema on the upper posterior jaw inthe location where his molars would have been. HEART: Regular rate and rhythm without murmur, clicks, rubs. LUNGS:Lungs clear to auscultation, no wheezes, rales, crackles, chest moves symmetrically ABD:bowel sounds normal, soft, non-tender, no guarding, rebound, rigidity, no masses noted, no hepatosplenomegaly NEURO:CN 2-12 intact, sensation normal Initial Vital Signs Initial Vital Signs: Vital Signs Temperature 97.5 F L 01/08/19 21:21 Pulse Rate 63 01/08/19 21:21 Respiratory Rate 16 01/08/19 21:21 Blood Pressure 148/97 H 01/08/19 21:21 Pulse Oximetry 96 01/08/19 21:21 Course Orders Ordered: Discontinued Medications Ketorolac Tromethamine (Toradol) 30 mg IM NOW ONE Stop: 01/08/19 23:15 Last Admin: 01/08/19 23:25 Dose: 30 mg Documented by: JIM Penicillin V Potassium (Penicillin Vk 250mg Tab Prepack) 1 bottle MISC SEEINSTR ONE Stop: 01/08/19 23:15 Last Admin: 01/08/19 23:27 Dose: 1 bottle Documented by: JIM Vital Signs Vital signs: Vital Signs - 8 hr 01/08/19 21:21 01/08/19 23:47 Temperature 97.5 F L 97.6 F Pulse Rate 63 62 Respiratory Rate 16 14 Blood Pressure 148/97 H 142/89 H Pulse Oximetry 96 97 Discharge Plan Departure Patient Disposition: Home Clinical Impression: Pain, dental Discharge Date/Time: 01/09/19 00:05 Instructions: DI for Dental Pain Activity Restrictions/Additional Instructions: Follow-up with your local dentist and/or [facility] regarding the retained portion of tooth that was described to you by your dentist. Take antibiotics until gone. Take pain medication as prescribed. Your prescription was sent to [facility] in [place]. Return to the emergency department for fevers greater than 100.4 F, worsening swelling, new redness, increasing pain, persistent vomiting, new chest pain, shortness of breath swelling of her tongue, oropharynx or throat, sudden changes to your voice or other new or concerning symptoms. Prescriptions: New penicillin V potassium 500 mg tablet 500 mg PO QID Qty: 40 RF: 0 meloxicam [Mobic] 7.5 mg tablet 7.5 mg PO DAILY PRN (Reason: pain) Qty: 7 RF: 0 No Action oxycodone-acetaminophen [Percocet] 5-325 mg Tablet 1 tab PO Q4-6H PRN (Reason: Pain, Moderate) RF: 0 hydroxyzine HCl 25 mg Tablet 25 mg PO TID-QID PRN (Reason: Muscle Spasm) RF: 0 levothyroxine 50 mcg Capsule 50 mcg PO DAILY RF: 0 baclofen 20 MG tablet 1 tab PO TID PRN (Reason: Muscle Spasm) RF: 0 albuterol sulfate 2.5 MG/3 ML solution for nebulization 3 ml INH Q6HP PRN (Reason: Shortness Of Breath Or Wheezing) RF: 0 simvastatin 20 mg Tablet 20 mg PO QPM RF: 0 metoprolol tartrate 50 mg Tablet 50 mg PO BID RF: 0 codeine-guaifenesin 10-100 mg/5 mL Liquid 10 ml PO Q4H PRN (Reason: Cough) Qty: 480 RF: 0 naproxen 500 mg tablet 500 mg PO BID PRN (Reason: pain) Qty: 30 RF: 0 venlafaxine 75 mg capsule,extended release 24hr 75 mg PO DAILY RF: 0 nifedipine 30 mg tablet extended release 30 mg PO DAILY RF: 0 ranitidine HCl 300 mg capsule 300 mg PO DAILY RF: 0 omeprazole 20 mg capsule,delayed release(DR/EC) 20 mg PO DAILY RF: 0 lisinopril 40 mg tablet 40 mg PO DAILY RF: 0 naproxen 500 mg tablet 500 mg PO BID RF: 0 sumatriptan succinate [Imitrex] 100 mg Tablet 100 mg PO Q4-6H PRN (Reason: Headache) RF: 0 benzonatate 100 mg Capsule 100 mg PO Q4H PRN (Reason: Cough) Qty: 14 RF: 0 prednisone 20 mg tablet 20 mg PO DAILY Qty: 5 RF: 0 zbvotzlyka-zydfjabiljmqm-tkzu 50-325-40 mg capsule 1 cap PO Q6H PRN (Reason: pain) Qty: 14 RF: 0 Referrals: Rosendo Ballard DMD [Physician] - Elly Stoll DO [Primary Care Provider] -
[2019-01-08] MEDS: KETOROLAC 60 MG/2 ML VIAL 30 MG IM (23:25)
[2019-01-08] MEDS: PENICILLIN 250 MG TAB PREPACK 1 BOTTLE MISC (23:27)
[2019-01-08 23:47] VITALS: BP 142/89; PULSE 62; RESP 14; TEMP 36.4; O2SAT 97
== END 2019-01-09 00:05 | disposition home or self-care (01) ==
PROVIDERS: Emergency Provider Emergency Medicine; Family Provider Family Medicine; PCP Family Medicine
DX: K08.89 Other specified disorders of teeth and supporting structures (principal)
CPT/HCPCS: 96372; 99282; 99283; J1885

== ENCOUNTER 2019-01-11 20:20 | Emergency (ER) | payer MEDICARE, MEDICAID, SELFPAY ==
[2018-07-17 01:49] VITALS: BMI 30.4
[2019-01-11 20:42] VITALS: BP 116/78; PULSE 83; RESP 20; TEMP 36.9; O2SAT 92
--- NOTE | 2019-01-11 20:50 | PC.NURSE ---
pt replies doesn't feel safe living on the streets.
--- NOTE | 2019-01-11 22:05 | ED_ITS ---
HPI - Extremity Injury (Lower) General Chief Complaint: Extremity Injury, Lower Stated Complaint: fall hit head, abrasion over left eye Time Seen by Provider: 01/11/19 21:39 Source: patient Mode of arrival: wheelchair Limitations: no limitations History of Present Illness HPI Narrative: 58-year-old male who is a wheelchair-bound individual. I have evaluated him in the emergency department in the past. Patient states that he fell out of his wheelchair hitting his left forehead and also causing abrasion on his right arm and injuring his right great toenail. Related Data Home Medications Medication Instructions Recorded Confirmed albuterol sulfate 3 ml INH Q6HP PRN 01/15/18 07/17/18 baclofen 1 tab PO TID PRN 01/15/18 07/17/18 hydroxyzine HCl 25 mg PO TID-QID PRN 01/15/18 07/17/18 levothyroxine 50 mcg PO DAILY 01/15/18 07/17/18 metoprolol tartrate 50 mg PO BID 01/15/18 07/17/18 oxycodone-acetaminophen [Percocet] 1 tab PO Q4-6H PRN 01/15/18 07/17/18 simvastatin 20 mg PO QPM 01/15/18 07/17/18 lisinopril 40 mg PO DAILY 07/17/18 07/17/18 naproxen 500 mg PO BID 07/17/18 07/17/18 nifedipine 30 mg PO DAILY 07/17/18 07/17/18 omeprazole 20 mg PO DAILY 07/17/18 07/17/18 ranitidine HCl 300 mg PO DAILY 07/17/18 07/17/18 sumatriptan succinate [Imitrex] 100 mg PO Q4-6H PRN 07/17/18 07/17/18 venlafaxine 75 mg PO DAILY 07/17/18 07/17/18 Previous Rx's Medication Instructions Recorded [id number]-agkffxutoteyn-qpde 1 cap PO Q6H PRN #14 cap 10/10/17 codeine-guaifenesin 10 ml PO Q4H PRN #480 ml 01/20/18 naproxen 500 mg PO BID PRN #30 tab 02/05/18 benzonatate 100 mg PO Q4H PRN #14 cap 07/20/18 prednisone 20 mg PO DAILY #5 tab 08/09/18 meloxicam [Mobic] 7.5 mg PO DAILY PRN #7 tab 01/08/19 penicillin V potassium 500 mg PO QID #40 tab 01/08/19 Allergies Allergy/AdvReac Type Severity Reaction Status Date / Time aspirin [ASPIRIN] Allergy Severe stomach Verified 01/11/19 20:52 ulcers hydrocodone [HYDROCODONE] AdvReac Intermediate hurts Verified 01/11/19 20:52 stomach Review of Systems Constitutional Constitutional: Denies fever(s) and Denies headache(s) Eyes Eyes: Denies change in vision and Denies diplopia ENT Ears, Nose, Mouth, and Throat: Denies headache(s) Cardiovascular Cardiovascular: Denies chest pain and Denies dyspnea Respiratory Respiratory: Denies dyspnea Gastrointestinal Gastrointestinal: Denies abdominal pain Musculoskeletal Comments: Right great toe pain Integumentary/Breasts Comments: Abrasion above the left eye Skin tear to the right form Neurologic Neurologic: Denies behavioral changes and Denies headache(s) Psychiatric Psychiatric: Denies behavioral changes Hematologic/Lymphatic Hematologic/Lymphatic: Denies easy bleeding and Denies easy bruising [facility] Medical History Cigarette nicotine dependence (Chronic) COPD (chronic obstructive pulmonary disease) (Chronic) CVA (cerebral vascular accident) (Chronic) History of [place] (myocardial infarction) (Chronic) Hyperlipidemia (Chronic) Hypertension (Chronic) Hypothyroidism (Chronic) Multiple sclerosis (Chronic) Social History household members: none Smoking Status: Current some day smoker alcohol intake: current Exam Initial Vital Signs Initial Vital Signs: Vital Signs Temperature 98.4 F 01/11/19 20:42 Pulse Rate 83 01/11/19 20:42 Respiratory Rate 20 01/11/19 20:42 Blood Pressure 116/78 01/11/19 20:42 Pulse Oximetry 92 01/11/19 20:42 Const General: cooperative and comfortable Orientation: alert, awake and oriented x3 HENMT Head: abrasion Eyes Pupils: PERRL EOM: EOM intact bilaterally Resp Effort & Inspection: normal respiratory effort Cardio Rate: regular rate Skin Other: Patient with a 5 cm abrasion above the left eye. There is no active bleeding. Also has a 3 cm skin tear to the dorsum of the right forearm Neuro General: alert and awake Extrem Other: Patient with an avulsion of the distal portion of the right great toenail. No active bleeding Psych Appearance: grossly normal and well kempt Course Vital Signs Vital signs: Vital Signs - 8 hr 01/11/19 20:42 Temperature 98.4 F Pulse Rate 83 Respiratory Rate 20 Blood Pressure 116/78 Pulse Oximetry 92 MDM - Extremity Injury (Lower) MDM Narrative Medical decision making narrative: The abrasion above the left eye in the skin tear on the right forearm knee no intervention here in the emergency department. We discussed care instructions with regard to this. He did avulse the right great toenail however it is still covering the underlying skin. No intervention needed for this. Low suspicion for fracture. We discussed return precautions and follow-up instructions he expressed understanding and agreement of plan. Discharge Plan Departure Patient Disposition: Home Clinical Impression: Skin tear, Abrasion, Avulsion of toenail of right foot Discharge Date/Time: 01/11/19 22:27 Instructions: DI for Abrasion Activity Restrictions/Additional Instructions: Keep the skin tears and the abrasions clean with soap and water. Keep all of your scheduled medical appointments. Return to the emergency department for any new or worsening symptoms Prescriptions: No Action oxycodone-acetaminophen [Percocet] 5-325 mg Tablet 1 tab PO Q4-6H PRN (Reason: Pain, Moderate) RF: 0 hydroxyzine HCl 25 mg Tablet 25 mg PO TID-QID PRN (Reason: Muscle Spasm) RF: 0 levothyroxine 50 mcg Capsule 50 mcg PO DAILY RF: 0 baclofen 20 MG tablet 1 tab PO TID PRN (Reason: Muscle Spasm) RF: 0 albuterol sulfate 2.5 MG/3 ML solution for nebulization 3 ml INH Q6HP PRN (Reason: Shortness Of Breath Or Wheezing) RF: 0 simvastatin 20 mg Tablet 20 mg PO QPM RF: 0 metoprolol tartrate 50 mg Tablet 50 mg PO BID RF: 0 codeine-guaifenesin 10-100 mg/5 mL Liquid 10 ml PO Q4H PRN (Reason: Cough) Qty: 480 RF: 0 naproxen 500 mg tablet 500 mg PO BID PRN (Reason: pain) Qty: 30 RF: 0 venlafaxine 75 mg capsule,extended release 24hr 75 mg PO DAILY RF: 0 nifedipine 30 mg tablet extended release 30 mg PO DAILY RF: 0 ranitidine HCl 300 mg capsule 300 mg PO DAILY RF: 0 omeprazole 20 mg capsule,delayed release(DR/EC) 20 mg PO DAILY RF: 0 lisinopril 40 mg tablet 40 mg PO DAILY RF: 0 naproxen 500 mg tablet 500 mg PO BID RF: 0 sumatriptan succinate [Imitrex] 100 mg Tablet 100 mg PO Q4-6H PRN (Reason: Headache) RF: 0 benzonatate 100 mg Capsule 100 mg PO Q4H PRN (Reason: Cough) Qty: 14 RF: 0 prednisone 20 mg tablet 20 mg PO DAILY Qty: 5 RF: 0 wqgdkquyzh-djwqpnwzrnebi-ygbf 50-325-40 mg capsule 1 cap PO Q6H PRN (Reason: pain) Qty: 14 RF: 0 penicillin V potassium 500 mg tablet 500 mg PO QID Qty: 40 RF: 0 meloxicam [Mobic] 7.5 mg tablet 7.5 mg PO DAILY PRN (Reason: pain) Qty: 7 RF: 0 Referrals: Elly Stoll DO [Primary Care Provider] -
== END 2019-01-11 22:27 | disposition home or self-care (01) ==
PROVIDERS: Emergency Provider Emergency Medicine; Family Provider Family Medicine; PCP Family Medicine
DX: S00.81XA Abrasion of other part of head, initial encounter (principal); S51.811A Laceration without foreign body of right forearm, initial encounter; S91.209A Unspecified open wound of unspecified toe(s) with damage to nail, initial encounter; W05.0XXA Fall from non-moving wheelchair, initial encounter
CPT/HCPCS: 99282

== ENCOUNTER 2019-01-27 08:28 | Inpatient (IN) | payer MEDICARE, MEDICAID, SELFPAY ==
[2018-07-17 01:49] VITALS: BMI 30.4
[2019-01-27] VITALS (42 sets, daily range): BP systolic 77–132; BP diastolic 40–108; PULSE 74–118; RESP 5–32; TEMP 30.5–37.1; O2SAT 69–100; BMI 27.8
[2019-01-27] MEDS: ALBUTEROL/IPRATROPIUM 3 ML AMPUL 6 ML INH (08:33)
--- NOTE | 2019-01-27 08:33 | DI.RAD.S_ITS ---
PROCEDURE: XR CHEST 1V INDICATIONS: sob TECHNIQUE: One view of the chest was acquired. COMPARISON: [facility], [place], XR CHEST 2V, 08/08/2018, 23:35. FINDINGS: Surgical changes and devices: None. Lungs and pleura: There is hyperinflation of the lungs with flattening of the hemidiaphragms compatible with COPD. There is a nodular opacity in the right lung base measuring approximately 1.5 cm which appears new from the prior study. Although this may represent nipple shadow, a pulmonary nodule is not excluded. No acute consolidation. No pleural effusions or pneumothorax. Mediastinum: Mediastinal contours appear normal. Heart size is normal. Bones and chest wall: No suspicious bony lesions. Overlying soft tissues appear unremarkable. IMPRESSION: 1. Findings compatible with COPD. 2. New nodular opacity in the right lung base may represent nipple shadow but a pulmonary nodule is not excluded. Recommend a repeat study with nipple markers when clinically feasible. Dictated by: Madhav Vergara M.D. on 01/27/2019 at 8:30 Approved by: Madhav Vergara M.D. on 01/27/2019 at 8:32
--- NOTE | 2019-01-27 08:34 | ED_ITS ---
HPI - SOB/Dyspnea General Chief Complaint: Shortness of Breath/Dyspnea Stated Complaint: Respiratory Distress Time Seen by Provider: 01/27/19 08:32 Source: patient and EMS Limitations: no limitations History of Present Illness HPI Narrative: Patient is a 58-year-old male with history of COPD and CVA presenting with increased shortness of breath that started suddenly today. Initially satting in the 80s for EMS improved slightly with DuoNeb. He continues to have conversation dyspnea. He denies any fever or productive cough. Was at the [facility] with that started. He denies chest pain, or heart palpitations.. MD Complaint: shortness of breath Consistency/Duration: constant Related Data Home Medications Medication Instructions Recorded Confirmed albuterol sulfate 3 ml INH Q6HP PRN 01/15/18 07/17/18 baclofen 1 tab PO TID PRN 01/15/18 07/17/18 hydroxyzine HCl 25 mg PO TID-QID PRN 01/15/18 07/17/18 levothyroxine 50 mcg PO DAILY 01/15/18 07/17/18 metoprolol tartrate 50 mg PO BID 01/15/18 07/17/18 oxycodone-acetaminophen [Percocet] 1 tab PO Q4-6H PRN 01/15/18 07/17/18 simvastatin 20 mg PO QPM 01/15/18 07/17/18 lisinopril 40 mg PO DAILY 07/17/18 07/17/18 naproxen 500 mg PO BID 07/17/18 07/17/18 nifedipine 30 mg PO DAILY 07/17/18 07/17/18 omeprazole 20 mg PO DAILY 07/17/18 07/17/18 ranitidine HCl 300 mg PO DAILY 07/17/18 07/17/18 sumatriptan succinate [Imitrex] 100 mg PO Q4-6H PRN 07/17/18 07/17/18 venlafaxine 75 mg PO DAILY 07/17/18 07/17/18 Previous Rx's Medication Instructions Recorded lajxzjwyxd-tzwzquhvmlhxa-ezfs 1 cap PO Q6H PRN #14 cap 10/10/17 codeine-guaifenesin 10 ml PO Q4H PRN #480 ml 01/20/18 naproxen 500 mg PO BID PRN #30 tab 02/05/18 benzonatate 100 mg PO Q4H PRN #14 cap 07/20/18 prednisone 20 mg PO DAILY #5 tab 08/09/18 meloxicam [Mobic] 7.5 mg PO DAILY PRN #7 tab 01/08/19 penicillin V potassium 500 mg PO QID #40 tab 01/08/19 Allergies Allergy/AdvReac Type Severity Reaction Status Date / Time aspirin [ASPIRIN] Allergy Severe stomach Verified 01/11/19 20:52 ulcers hydrocodone [HYDROCODONE] AdvReac Intermediate hurts Verified 01/11/19 20:52 stomach Review of Systems Review of Systems ROS Unobtainable: All systems reviewed & are unremarkable except as noted in HPI and below Constitutional Constitutional: Denies chills, Denies fever(s), Denies lethargy and Denies weakness Eyes Eyes: Denies change in vision, Denies eye discharge, Denies irritation and Denies loss of vision ENT Ears, Nose, Mouth, and Throat: Denies change in voice, Denies neck pain and Denies sore throat Cardiovascular Cardiovascular: Denies chest pain, Denies irregular heart rhythm, Denies lightheadedness, Denies palpitations and Denies orthopnea Respiratory Respiratory: Reports as per HPI Gastrointestinal Gastrointestinal: Denies abdominal pain, Denies change in bowel habits, Denies diarrhea, Denies nausea and Denies vomiting Genitourinary Genitourinary: Denies hematuria, Denies flank pain, Denies urinary incontinence and Denies urinary urgency Musculoskeletal Musculoskeletal: Denies neck pain Integumentary/Breasts Skin/Breast: Denies pruritus, Denies erythema, Denies rash and Denies wounds Neurologic Neurologic: Denies loss of vision and Denies weakness Endocrine Endocrine: Denies palpitations [facility] Medical History Cigarette nicotine dependence (Chronic) COPD (chronic obstructive pulmonary disease) (Chronic) CVA (cerebral vascular accident) (Chronic) History of CT (myocardial infarction) (Chronic) Hyperlipidemia (Chronic) Hypertension (Chronic) Hypothyroidism (Chronic) Multiple sclerosis (Chronic) Family History Mother Hypertension Diabetes mellitus Sister Pacemaker Social History household members: none Smoking Status: Current some day smoker alcohol intake: current Family History Mother Hypertension Diabetes mellitus Sister Pacemaker Social History household members: none Smoking Status: Current some day smoker alcohol intake: current Exam Initial Vital Signs Initial Vital Signs: Vital Signs Pulse Rate 110 H 01/27/19 08:30 Respiratory Rate 30 H 01/27/19 08:30 Blood Pressure 120/85 01/27/19 08:30 Pulse Oximetry 91 01/27/19 08:30 GENERAL: Alert male in moderate respiratory distress HEENT: Head atraumatic,EOMI, pupils reactive, face symmetric, moist mucous membranes CARDIOVASCULAR: Regular rate and rhythm without murmurs, rubs or gallops. RESPIRATORY: Tri podding conversational dyspnea speaks in 2 word sentences decreased breath sounds bilaterally ABDOMEN: Soft, nontender. Normoactive bowel sounds all 4 quadrants. No guarding or rebound. EXTREMITIES: Normal range of motion, no clubbing or edema. Neurovascularly intact NEUROLOGICAL: Alert and oriented x4. Does not walk moving arms equally SKIN: Warm, dry, no laceration, no petechiae, no rashes or lesions. Course Orders Ordered: ED Orders 01/27/19 08:33 Consult to Respiratory Therapy Evaluate & Treat XR chest 1V Stat EKG-12 Lead Stat 01/27/19 09:03 Blood Culture Stat 01/27/19 09:06 B Type Natriuretic Peptide Stat Complete Blood Count AUTO DIFF Stat Comprehensive Metabolic Panel Stat Lactate (Lactic Acid) Stat Magnesium Stat Partial Thromboplastin Time Stat Procalcitonin Stat Prothrombin Time INR Stat Troponin & CK Cardiac Panel Stat 01/27/19 09:30 Arterial Blood Gas Stat 01/27/19 10:41 ABG [Arterial Blood Gas] Stat 01/27/19 11:04 Respiratory Panel (Film Array) Stat Acetaminophen (Tylenol) 650 mg PO Q6HR PRN PRN Reason: As Needed for Fever/Mild Pain Al Hydrox/Mg Hydrox/Simethicone (Maalox Plus) 30 ml PO Q6HR PRN PRN Reason: Dyspepsia Albuterol (Ventolin) 2.5 mg INH [id number] PRN PRN Reason: Shortness Of Breath Albuterol/Ipratropium (Duoneb) 3 ml INH RTQ4HR KALEE Last Admin: 01/27/19 13:40 Dose: 3 ml Documented by: JANAE Bisacodyl (Dulcolax) 10 mg NV DAILY PRN PRN Reason: Constipation Calcium Carbonate (Tums) 1,000 mg PO Q4HR PRN PRN Reason: Dyspepsia Heparin Sodium (Porcine) (Heparin) 5,000 unit SUBCUT BID KALEE Sodium Chloride (Normal Saline 0.9%) 1,000 mls @ 100 mls/hr IV CONT KALEE Last Infusion: 01/27/19 11:48 Dose: 100 mls/hr Documented by: Infusion: 01/27/19 11:36 Dose: 0 mls/hr Documented by: Admin: 01/27/19 09:14 Dose: 150 mls/hr Documented by: VIDAL Azithromycin 500 mg/ Dextrose 250 mls @ 250 mls/hr IV Q24H KALEE Stop: 01/29/19 09:01 Magnesium Hydroxide (Milk Of Magnesia) 30 ml PO DAILY PRN PRN Reason: Constipation Ondansetron HCl (Zofran) 4 mg IV Q8HR PRN PRN Reason: Nausea And Vomiting Discontinued Medications Albuterol (Ventolin) 5 mg INH NOW ONE Stop: 01/27/19 09:18 Last Admin: 01/27/19 09:19 Dose: 5 mg Documented by: JANAE Albuterol/Ipratropium (Duoneb) 6 ml INH NOW ONE Stop: 01/27/19 08:32 Last Admin: 01/27/19 08:33 Dose: 6 ml Documented by: JANAE Albuterol/Ipratropium (Duoneb) 3 ml INH NOW ONE Stop: 01/27/19 08:34 Last Admin: 01/27/19 08:39 Dose: 3 ml Documented by: JANAE Albuterol/Ipratropium (Duoneb) 3 ml INH RTQ4HR PRN PRN Reason: Shortness Of Breath Sodium Chloride (Normal Saline 0.9%) 1,000 mls @ 1,000 mls/hr IV BOLUS ONE Stop: 01/27/19 11:33 Last Infusion: 01/27/19 11:36 Dose: 0 mls/hr Documented by: Admin: 01/27/19 10:35 Dose: 1,000 mls/hr Documented by: VIDAL Azithromycin 500 mg/ Dextrose 250 mls @ 250 mls/hr IV NOW ONE Stop: 01/27/19 10:49 Last Infusion: 01/27/19 12:48 Dose: 0 mls/hr Documented by: Infusion: 01/27/19 11:36 Dose: 0 mls/hr Documented by: Admin: 01/27/19 11:13 Dose: 250 mls/hr Documented by: VIDAL Methylprednisolone (Solu-Medrol 125 Mg Vial) 125 mg IV NOW ONE Stop: 01/27/19 08:34 Last Admin: 01/27/19 08:40 Dose: 125 mg Documented by: VIDAL Vital Signs Vital signs: Vital Signs - 8 hr 01/27/19 08:30 01/27/19 08:34 01/27/19 08:35 Temperature 97.6 F Pulse Rate 110 H 103 H 101 H Respiratory Rate 30 H 23 25 H Blood Pressure Blood Pressure [Right Arm] 120/85 108/70 Pulse Oximetry 91 88 L 99 01/27/19 08:39 01/27/19 08:40 01/27/19 08:45 Temperature 97.6 F Pulse Rate 96 H 100 H 101 H Respiratory Rate 24 25 H 23 Blood Pressure Blood Pressure [Right Arm] 131/108 H Pulse Oximetry 99 100 99 01/27/19 08:50 01/27/19 08:55 01/27/19 09:00 Temperature Pulse Rate 98 H 95 H 94 H Respiratory Rate 20 22 21 Blood Pressure Blood Pressure [Right Arm] 111/88 Pulse Oximetry 100 100 99 01/27/19 09:05 01/27/19 09:10 01/27/19 09:15 Temperature Pulse Rate 93 H 94 H 93 H Respiratory Rate 22 24 21 Blood Pressure Blood Pressure [Right Arm] 128/77 132/80 Pulse Oximetry 99 99 99 01/27/19 09:20 01/27/19 09:50 01/27/19 10:02 Temperature Pulse Rate 97 H 87 88 Respiratory Rate 23 21 21 Blood Pressure Blood Pressure [Right Arm] 92/68 92/68 95/62 Pulse Oximetry 99 98 98 01/27/19 10:10 01/27/19 10:21 01/27/19 10:31 Temperature Pulse Rate 85 86 85 Respiratory Rate 21 22 20 Blood Pressure Blood Pressure [Right Arm] 91/60 84/57 L 77/55 L Pulse Oximetry 97 97 97 01/27/19 10:50 01/27/19 10:57 01/27/19 11:04 Temperature Pulse Rate 82 80 Respiratory Rate 18 20 Blood Pressure 88/71 L Blood Pressure [Right Arm] 116/68 116/68 Pulse Oximetry 96 97 MDM - SOB/Dyspnea Lab Data Result diagrams: 01/27/19 09:06 01/27/19 09:06 Labs: Lab Results 01/27/19 01/27/19 01/27/19 Range/Units 09:06 09:06 09:06 WBC 10.2 (4.5-11.0) X10^3/uL RBC 5.32 (4.5-5.9) X10^6/uL Hgb 16.2 (13.5-17.5) g/dL Hct 47.8 (41-53) % MCV 89.8 (80-100) fL MCH 30.5 (26-34) PG MCHC 33.9 (30-36) % RDW 13.9 (11.6-14.8) % Plt Count 114 L (150-400) X10^3/uL Neut % (Auto) 72.0 (50-75) % Lymph % (Auto) 13.3 L (25-40) % [place] % (Auto) 10.9 (3-14) % Eos % (Auto) 3.0 (2-4) % Baso % (Auto) 0.8 (0-2) % Neut # (Auto) 7300 H (2415-8191) /uL Lymph # (Auto) 1300 (3351-7208) /uL [place] # (Auto) 1100 H (0-900) /uL Eos # (Auto) 300 (0-450) /uL Baso # (Auto) 100 (0-100) /uL PT 10.7 (10.1-12.7) SECONDS INR 0.9 (0.9-1.3) APTT 29 (26.4-36.2) SECONDS ABG pH (7.35-7.45) ABG pCO2 (35-45) mmHg ABG pO2 (80-100) mmHg ABG HCO3 (22-26) mmol/L ABG Total CO2 (21-31) mmol/L ABG O2 Saturation (95-100) % ABG Base Excess (-2-2) mmol/L FiO2 Sodium 139 (137-145) mmol/L Potassium 4.2 (3.4-5.1) mmol/L Chloride 102 (98-107) mmol/L Carbon Dioxide 30 (22-32) mmol/L BUN 15 (9-20) mg/dL Creatinine 1.10 (0.66-1.25) mg/dL Estimated GFR > 60.0 (>60) mL/min BUN/Creatinine Ratio 13.6 (6-22) Glucose 115 H (70-100) mg/dL Lactate (0.7-2.1) mmol/L Calcium 9.1 (8.4-10.2) mg/dL Magnesium 1.9 (1.6-2.3) mg/dL Total Bilirubin 0.5 (0.2-1.3) mg/dL AST 26 (17-59) IU/L ALT 17 L (21-72) IU/L Alkaline Phosphatase 76 (38-126) U/L Total Creatine Kinase 81 (55-170) U/L CK-MB (CK-2) TNP CK-MB (CK-2) Rel Index TNP Troponin I < 0.012 (0.01-0.034) ng/mL B-Natriuretic Peptide 130 H (<100) Total Protein 6.7 (6.3-8.2) g/dL Albumin 4.0 (3.5-5.0) g/dL Globulin 2.7 (1.7-4.1) g/dL Albumin/Globulin Ratio 1.5 (1.0-2.8) Procalcitonin (<0.5) ng/mL Chlamy pneumoniae PCR (Not Detect) Adenovirus (PCR) (Not Detect) B.parapertussis DNA PCR (Not Detect) Coronavirus OC43 (PCR) (Not Detect) Coronavirus HKU1 (PCR) (Not Detect) Coronavirus 229E (PCR) (Not Detect) Coronavirus NL63 (PCR) (Not Detect) Human Metapneumovir PCR (Not Detect) Influenza Type A (PCR) (Not Detect) Influenza Type B (PCR) (Not Detect) M. pneumoniae (PCR) (Not Detect) Parainfluenza 1 (PCR) (Not Detect) Parainfluenza 2 (PCR) (Not Detect) Parainfluenza 3 (PCR) (Not Detect) Parainfluenza 4 (PCR) (Not Detect) RSV (PCR) (Not Detect) Entero/Rhino (PCR) (Not Detect) 01/27/19 01/27/19 01/27/19 Range/Units 09:06 09:06 09:30 WBC (4.5-11.0) X10^3/uL RBC (4.5-5.9) X10^6/uL Hgb (13.5-17.5) g/dL Hct (41-53) % MCV (80-100) fL MCH (26-34) PG MCHC (30-36) % RDW (11.6-14.8) % Plt Count (150-400) X10^3/uL Neut % (Auto) (50-75) % Lymph % (Auto) (25-40) % [place] % (Auto) (3-14) % Eos % (Auto) (2-4) % Baso % (Auto) (0-2) % Neut # (Auto) (8279-6945) /uL Lymph # (Auto) (6529-1925) /uL [place] # (Auto) (0-900) /uL Eos # (Auto) (0-450) /uL Baso # (Auto) (0-100) /uL PT (10.1-12.7) SECONDS INR (0.9-1.3) APTT (26.4-36.2) SECONDS ABG pH 7.29 L (7.35-7.45) ABG pCO2 68.0 H* (35-45) mmHg ABG pO2 84 (80-100) mmHg ABG HCO3 33 H (22-26) mmol/L ABG Total CO2 35 H (21-31) mmol/L ABG O2 Saturation 94 L (95-100) % ABG Base Excess 6.0 H (-2-2) mmol/L FiO2 35 Sodium (137-145) mmol/L Potassium (3.4-5.1) mmol/L Chloride (98-107) mmol/L Carbon Dioxide (22-32) mmol/L BUN (9-20) mg/dL Creatinine (0.66-1.25) mg/dL Estimated GFR (>60) mL/min BUN/Creatinine Ratio (6-22) Glucose (70-100) mg/dL Lactate 1.1 (0.7-2.1) mmol/L Calcium (8.4-10.2) mg/dL Magnesium (1.6-2.3) mg/dL Total Bilirubin (0.2-1.3) mg/dL AST (17-59) IU/L ALT (21-72) IU/L Alkaline Phosphatase (38-126) U/L Total Creatine Kinase (55-170) U/L CK-MB (CK-2) CK-MB (CK-2) Rel Index Troponin I (0.01-0.034) ng/mL B-Natriuretic Peptide (<100) Total Protein (6.3-8.2) g/dL Albumin (3.5-5.0) g/dL Globulin (1.7-4.1) g/dL Albumin/Globulin Ratio (1.0-2.8) Procalcitonin < 0.05 (<0.5) ng/mL Chlamy pneumoniae PCR (Not Detect) Adenovirus (PCR) (Not Detect) B.parapertussis DNA PCR (Not Detect) Coronavirus OC43 (PCR) (Not Detect) Coronavirus HKU1 (PCR) (Not Detect) Coronavirus 229E (PCR) (Not Detect) Coronavirus NL63 (PCR) (Not Detect) Human Metapneumovir PCR (Not Detect) Influenza Type A (PCR) (Not Detect) Influenza Type B (PCR) (Not Detect) M. pneumoniae (PCR) (Not Detect) Parainfluenza 1 (PCR) (Not Detect) Parainfluenza 2 (PCR) (Not Detect) Parainfluenza 3 (PCR) (Not Detect) Parainfluenza 4 (PCR) (Not Detect) RSV (PCR) (Not Detect) Entero/Rhino (PCR) (Not Detect) 01/27/19 01/27/19 Range/Units 10:41 11:04 WBC (4.5-11.0) X10^3/uL RBC (4.5-5.9) X10^6/uL Hgb (13.5-17.5) g/dL Hct (41-53) % MCV (80-100) fL MCH (26-34) PG MCHC (30-36) % RDW (11.6-14.8) % Plt Count (150-400) X10^3/uL Neut % (Auto) (50-75) % Lymph % (Auto) (25-40) % [place] % (Auto) (3-14) % Eos % (Auto) (2-4) % Baso % (Auto) (0-2) % Neut # (Auto) (4850-5406) /uL Lymph # (Auto) (5353-4024) /uL [place] # (Auto) (0-900) /uL Eos # (Auto) (0-450) /uL Baso # (Auto) (0-100) /uL PT (10.1-12.7) SECONDS INR (0.9-1.3) APTT (26.4-36.2) SECONDS ABG pH 7.28 L* (7.35-7.45) ABG pCO2 61.3 H* (35-45) mmHg ABG pO2 72 L (80-100) mmHg ABG HCO3 29 H (22-26) mmol/L ABG Total CO2 31 (21-31) mmol/L ABG O2 Saturation 92 L (95-100) % ABG Base Excess 2.0 (-2-2) mmol/L FiO2 35 Sodium (137-145) mmol/L Potassium (3.4-5.1) mmol/L Chloride (98-107) mmol/L Carbon Dioxide (22-32) mmol/L BUN (9-20) mg/dL Creatinine (0.66-1.25) mg/dL Estimated GFR (>60) mL/min BUN/Creatinine Ratio (6-22) Glucose (70-100) mg/dL Lactate (0.7-2.1) mmol/L Calcium (8.4-10.2) mg/dL Magnesium (1.6-2.3) mg/dL Total Bilirubin (0.2-1.3) mg/dL AST (17-59) IU/L ALT (21-72) IU/L Alkaline Phosphatase (38-126) U/L Total Creatine Kinase (55-170) U/L CK-MB (CK-2) CK-MB (CK-2) Rel Index Troponin I (0.01-0.034) ng/mL B-Natriuretic Peptide (<100) Total Protein (6.3-8.2) g/dL Albumin (3.5-5.0) g/dL Globulin (1.7-4.1) g/dL Albumin/Globulin Ratio (1.0-2.8) Procalcitonin (<0.5) ng/mL Chlamy pneumoniae PCR Not detected (Not Detect) Adenovirus (PCR) Not detected (Not Detect) B.parapertussis DNA PCR Not detected (Not Detect) Coronavirus OC43 (PCR) Not detected (Not Detect) Coronavirus HKU1 (PCR) Not detected (Not Detect) Coronavirus 229E (PCR) Not detected (Not Detect) Coronavirus NL63 (PCR) Not detected (Not Detect) Human Metapneumovir PCR Not detected (Not Detect) Influenza Type A (PCR) Not detected (Not Detect) Influenza Type B (PCR) Not detected (Not Detect) M. pneumoniae (PCR) Not detected (Not Detect) Parainfluenza 1 (PCR) Not detected (Not Detect) Parainfluenza 2 (PCR) Not detected (Not Detect) Parainfluenza 3 (PCR) Not detected (Not Detect) Parainfluenza 4 (PCR) Not detected (Not Detect) RSV (PCR) Not detected (Not Detect) Entero/Rhino (PCR) Detected H (Not Detect) ECG Data Attestation: I personally reviewed and interpreted this ECG as follows: Prior ECG tracings: available for review Interpretation: Sinus rhythm rate 93 p.r. interval 186 artifact noted Q-waves noted in V1 and V2 MDM Narrative Medical decision making narrative: Patient immediately started on broncho dilators. Improved slightly however a was placed on BiPAP. He seems to be tolerating BiPAP. I did discuss with him possible intubation, which he had no objection to. The patient now on BiPAP for about 60 minutes overall much improved. ABG also done after about 60 minutes of BiPAP difficult to get it before then. He still respiratory acidosis with CO2 60 a and pH 7.28. No leukocytosis or fever. The patient overall looks significantly better on the BiPAP. However he is sleepy. He is easily aroused double with a touch of the arm. He is able to follow commands no neurologic or focal deficits. Repeat ABG shows some improvement in that the CO2. Some changes were made it to the BiPAP settings which improved his blood pressure significantly also responded well to 1 L of IV fluids. No need for vasopressors, patient does He does not appear septic. Normal lactic acid and no leukocytosis and afebrile. Patient has history of COPD of this presents consistently with COPD. At this time I do not believe him to have PE. No evidence of congestive heart failure. Troponin is negative no evidence of CT. Dr. gr updated on patient's symptoms and test results initially requested for head CT with a decreasing mental status however I feel No indication for head CT and fact he would not be able to lie down in the CT scanner. He is given azithromycin upon request along with respiratory panel pending Critical Care Time Critical Care Time Critical Care Time: Yes Total Critical Care Time: 45 Attestation: The high probability of a clinically significant, sudden or life threatening deterioration of the cardiovascular and respiratory system(s) required my full and direct attention, intervention and personal management. The aggregate critical care time was [45] minutes. This time is in addition to time spent performing reported procedures but includes the following: [x] Data Review and interpretation [x] Patient assessment and monitoring of vital signs [x] Documentation [x] Medication orders and management Discharge Plan Departure Patient Disposition: Admitted As Inpatient Clinical Impression: COPD exacerbation Discharge Date/Time: 01/27/19 11:58 Admit Date/Time: 01/27/19 11:07 Admit Provider: Denisse Gr
[2019-01-27] MEDS: ALBUTEROL/IPRATROPIUM 3 ML AMPUL INH ×5 (08:39→22:33)
[2019-01-27] MEDS: methylPREDNISolone 125 MG/2 ML VIAL IV (08:40)
[2019-01-27] MEDS: SODIUM CHLORIDE 0.9% 1,000 ML 150 ML IV (09:14)
[2019-01-27] MEDS: ALBUTEROL 2.5 MG/3 ML NEB (ADULT) 5 MG INH (09:19)
[2019-01-27 09:25] LABS: Add Manual Diff / Slide Review NO; Basophils Absolute Auto 100 /uL (0-100); Basophils Percent Auto 0.8 % (0-2); Eosinophils Absolute Auto 300 /uL (0-450); Hematocrit 47.8 % (41-53); Hemoglobin 16.2 g/dL (13.5-17.5); Lymphocytes Absolute Auto 1300 /uL (1100-4500); Lymphocytes Percent Auto 13.3 % (25-40); Mean Corpuscular HGB Conc 33.9 % (30-36); Mean Corpuscular Hemoglobin 30.5 PG (26-34); Mean Corpuscular Volume 89.8 fL (80-100); Monocytes Absolute Auto 1100 /uL (0-900); Monocytes Percent Auto 10.9 % (3-14); Neutrophils Absolute Auto 7300 /uL (1500-7000); Platelet Count 114 X10^3/uL (150-400); Red Blood Cell Count 5.32 X10^6/uL (4.5-5.9); Red Cell Distribution Width 13.9 % (11.6-14.8); White Blood Cell Count 10.2 X10^3/uL (4.5-11.0)
[2019-01-27 09:36] LABS: INR 0.9 (0.9-1.3); Prothrombin Time 10.7 SECONDS (10.1-12.7)
[2019-01-27 09:39] LABS: PTT Partial Thromboplastin Tim 29 SECONDS (26.4-36.2)
[2019-01-27 09:41] LABS: B Type Natriuretic Peptide 130 (<100)
[2019-01-27 09:43] LABS: Alanine Aminotransferase 17 IU/L (21-72); Albumin Globulin Ratio 1.5 (1.0-2.8); Alkaline Phosphatase 76 U/L (38-126); Aspartate Aminotransferase 26 IU/L (17-59); BUN Creatinine Ratio 13.6 (6-22); Bilirubin Total 0.5 mg/dL (0.2-1.3); Blood Urea Nitrogen 15 mg/dL (9-20); Calcium 9.1 mg/dL (8.4-10.2); Carbon Dioxide 30 mmol/L (22-32); Chloride 102 mmol/L (98-107); Creatine Kinase 81 U/L (55-170); Estimated Glomerular Filt Rate > 60.0 mL/min (>60); Globulin 2.7 g/dL (1.7-4.1); Glucose 115 mg/dL (70-100); HEMOLYSIS 22 (0-50); Lactate (Lactic Acid) 1.1 mmol/L (0.7-2.1); Magnesium 1.9 mg/dL (1.6-2.3); Potassium 4.2 mmol/L (3.4-5.1); Sodium 139 mmol/L (137-145); Total Protein 6.7 g/dL (6.3-8.2)
[2019-01-27 09:54] LABS: Troponin I < 0.012 ng/mL (0.01-0.034)
[2019-01-27 09:59] LABS: pH ABG 7.29 (7.35-7.45)
[2019-01-27 10:00] LABS: PO2 ABG 84 mmHg (80-100)
[2019-01-27 10:01] LABS: Fractionated Inspired Oxygen 35; HCO3 ABG 33 mmol/L (22-26); Oxygen Saturation ABG 94 % (95-100); TCO2 ABG 35 mmol/L (21-31)
[2019-01-27 10:10] LABS: Procalcitonin < 0.05 ng/mL (<0.5)
[2019-01-27] MEDS: SODIUM CHLORIDE 0.9% 1,000 ML 1000 ML IV (10:35)
[2019-01-27 11:03] LABS: Fractionated Inspired Oxygen 35; HCO3 ABG 29 mmol/L (22-26); Oxygen Saturation ABG 92 % (95-100); PCO2 ABG 61.3 mmHg (35-45); PO2 ABG 72 mmHg (80-100); TCO2 ABG 31 mmol/L (21-31); pH ABG 7.28 (7.35-7.45)
[2019-01-27] MEDS: AZITHROMYCIN 500 MG in DEXTROSE 5% IN WATER 250 ML IV (11:13)
--- NOTE | 2019-01-27 12:48 | PC.NURSE ---
Addendum entered by Itzel Gudino R.N. 01/27/19 13:34: placed back on bipap at 35% with pressures 18/8-spo2 96% Original Note: PT TRANSFERRED OVER TO ICU FROM ED ON BIPAP- HE WAS ANXIOUS AND TALKING RAPID AND CONTINUOUSLY- UNSETTLED ABOUT THE WAY THE BIPAP MASK WAS FITTING HIM- CALL TO RT- WHO CAME AND ATTEMPTED TO READJUST ( THIS RN DID WELL) AND LEFT PT ON 2L NC - THIS APPEARED TO APPEASE PT. - PT HAS NOT DOFFED HIS SWEAT PANTS AND NO VOID OF YET- AWAITING ROUNDS BY
[2019-01-27 13:42] LABS: Adenovirus Not Detected (Not Detect); Bordetella pertussis Not Detected (Not Detect); Chlamydophila pneumoniae Not Detected (Not Detect); Coronavirus 229E Not Detected (Not Detect); Coronavirus HKU1 Not Detected (Not Detect); Coronavirus NL 63 Not Detected (Not Detect); Coronavirus OC43 Not Detected (Not Detect); Human Metapneumovirus Not Detected (Not Detect); Human Rhinovirus/Enterovirus Detected (Not Detect); Influenza A Not Detected (Not Detect); Influenza B Not Detected (Not Detect); Mycoplasma pneumoniae Not Detected (Not Detect); Parainfluenza Virus 1 Not Detected (Not Detect); Parainfluenza Virus 2 Not Detected (Not Detect); Parainfluenza Virus 3 Not Detected (Not Detect); Parainfluenza Virus 4 Not Detected (Not Detect); Respiratory Syncytial Virus Not Detected (Not Detect)
[2019-01-27] MEDS: MORPHINE 2 MG/ML INJ IV (15:43)
[2019-01-27] MEDS: methylPREDNISolone 125 MG/2 ML VIAL 80 MG IV (15:45)
[2019-01-27] MEDS: SODIUM CHLORIDE 0.9% 500 ML 1000 ML IV (15:45)
[2019-01-27] MEDS: ALBUTEROL 2.5 MG/3 ML NEB (ADULT) INH ×3 (15:51→20:35)
[2019-01-27] MEDS: LORazepam 2 MG/ML INJ 0.5 MG IV (16:01)
--- NOTE | 2019-01-27 16:37 | PM.HP.1 ---
History of Present Illness History of Present Illness Date Patient Seen: 01/27/19 Chief complaint: Respiratory Distress Narrative: Jose Denton is a 58-year-old male with a past medical history significant for oxygen-dependent COPD, hypertension, hypothyroidism, nicotine dependence and, multiple sclerosis who is wheelchair-bound presented to the ED due to trouble with breathing including coughing and wheezing. In the ED, the patient received multiple nebulizer treatments, IV steroids and was placed on BiPAP. ABG performed after patient was placed on BiPAP revealed respiratory acidosis with metabolic compensation and pH 7.29, pCO2 68, PO2 84, HC03 33, SpO2 94% on BiPAP with FiO2 35%. Respiratory PCR positive for rhinovirus. Chest x-ray revealed no evidence of infiltrate. Patient was admitted to the ICU for acute hypoxemic and hypercarbic respiratory failure secondary to COPD. The patient is severely short of breath, tachypneic, lungs are tight with little air movement and diffuse wheezing, therefore, the patient's history of present illness is not obtainable. Per ER physician, Dr. Ibanez: The patient presented with increased shortness of breath that started suddenly today. Initially satting in the 80s for EMS improved slightly with DuoNeb. He continues to have conversation dyspnea. He denies any fever or productive cough[place] He denies chest pain, or heart palpitations. Discussed patient's code status in detail with his mother Leticia Denton as patient was unable to make a decision and defaulted decision to his mother and father. His mother decided to make him a limited code and allow for intubation but no CPR or defibrillation as she thinks this would be his wishes. Answered all her questions in detail. Patient History Medical History Cigarette nicotine dependence (Chronic) COPD (chronic obstructive pulmonary disease) (Chronic) CVA (cerebral vascular accident) (Chronic) History of MN (myocardial infarction) (Chronic) Hyperlipidemia (Chronic) Hypertension (Chronic) Hypothyroidism (Chronic) Multiple sclerosis (Chronic) Family History Mother Hypertension Diabetes mellitus Sister Pacemaker Social History household members: none Smoking Status: Current some day smoker alcohol intake: current Family & Social History Family History Mother Hypertension Diabetes mellitus Sister Pacemaker Social History: household members none Prior Living Arrangements Homeless Safety & Behavioral: Feels Safe in Current Unwilling to Answer Environment Been Physically Hurt or Unwilling to Answer Threatened By a Person Suicidal Ideation Description None Suicide Plan Description No Plan Tobacco & Substance use: Tobacco type cigarettes Smoking Status Current some day smoker alcohol intake current alcohol intake frequency a few times a month Substance Use Type does not use Meds Home Medications and Allergies Home Medications Medication Instructions Recorded Confirmed Type [id number] 1 cap PO Q6H PRN #14 cap 10/10/17 07/17/18 Rx albuterol sulfate 3 ml INH Q6HP PRN 01/15/18 01/27/19 History baclofen 1 tab PO Q8H PRN 01/15/18 01/27/19 History hydroxyzine HCl 25 mg PO QID PRN 01/15/18 01/27/19 History levothyroxine 50 mcg PO DAILY 01/15/18 01/27/19 History metoprolol tartrate 50 mg PO BID 01/15/18 01/27/19 History oxycodone-acetaminophen [Percocet] 1 tab PO Q4-6H PRN 01/15/18 07/17/18 History simvastatin 20 mg PO QPM 01/15/18 01/27/19 History codeine-guaifenesin 10 ml PO Q4H PRN #480 ml 01/20/18 07/17/18 Rx naproxen 500 mg PO BID PRN #30 tab 02/05/18 01/27/19 Rx lisinopril 40 mg PO DAILY 07/17/18 01/27/19 History nifedipine 30 mg PO DAILY 07/17/18 01/27/19 History omeprazole 20 mg PO DAILY 07/17/18 01/27/19 History ranitidine HCl 300 mg PO DAILY 07/17/18 01/27/19 History sumatriptan succinate [Imitrex] 100 mg PO DAILY PRN 07/17/18 01/27/19 History venlafaxine 75 mg PO DAILY 07/17/18 01/27/19 History benzonatate 100 mg PO Q4H PRN #14 cap 07/20/18 Rx prednisone 20 mg PO DAILY #5 tab 08/09/18 Rx meloxicam [Mobic] 7.5 mg PO DAILY PRN #7 tab 01/08/19 Rx penicillin V potassium 500 mg PO QID #40 tab 01/08/19 Rx Allergies Allergy/AdvReac Type Severity Reaction Status Date / Time aspirin [ASPIRIN] Allergy Severe stomach Verified 01/11/19 20:52 ulcers hydrocodone [HYDROCODONE] AdvReac Intermediate hurts Verified 01/11/19 20:52 stomach Review of Systems Review of Systems Narrative: Review of systems unobtainable due to patient's status Exam Vital Signs (past 8 hours): - 01/27/19 08:39 01/27/19 08:40 01/27/19 08:45 Temperature 97.6 F Pulse Rate 96 H 100 H 101 H Respiratory Rate 24 25 H 23 Blood Pressure Blood Pressure [Right Arm] 131/108 H Pulse Oximetry 99 100 99 01/27/19 08:50 01/27/19 08:55 01/27/19 09:00 Temperature Pulse Rate 98 H 95 H 94 H Respiratory Rate 20 22 21 Blood Pressure Blood Pressure [Right Arm] 111/88 Pulse Oximetry 100 100 99 01/27/19 09:05 01/27/19 09:10 01/27/19 09:15 Temperature Pulse Rate 93 H 94 H 93 H Respiratory Rate 22 24 21 Blood Pressure Blood Pressure [Right Arm] 128/77 132/80 Pulse Oximetry 99 99 99 01/27/19 09:20 01/27/19 09:50 01/27/19 10:02 Temperature Pulse Rate 97 H 87 88 Respiratory Rate 23 21 21 Blood Pressure Blood Pressure [Right Arm] 92/68 92/68 95/62 Pulse Oximetry 99 98 98 01/27/19 10:10 01/27/19 10:21 01/27/19 10:31 Temperature Pulse Rate 85 86 85 Respiratory Rate 21 22 20 Blood Pressure Blood Pressure [Right Arm] 91/60 84/57 L 77/55 L Pulse Oximetry 97 97 97 01/27/19 10:50 01/27/19 10:57 01/27/19 11:04 Temperature Pulse Rate 82 80 Respiratory Rate 18 20 Blood Pressure 88/71 L Blood Pressure [Right Arm] 116/68 116/68 Pulse Oximetry 96 97 01/27/19 11:08 01/27/19 11:22 01/27/19 11:59 Temperature 97.4 F L Pulse Rate 80 87 92 H Respiratory Rate 19 19 32 H Blood Pressure 106/70 Blood Pressure [Right Arm] 102/74 118/78 Pulse Oximetry 96 96 99 01/27/19 12:37 01/27/19 15:00 01/27/19 16:16 Temperature 97.7 F Pulse Rate 79 107 H Respiratory Rate 18 22 Blood Pressure 106/70 91/64 126/72 Blood Pressure [Right Arm] Pulse Oximetry 95 99 97 01/27/19 16:32 Temperature Pulse Rate Respiratory Rate Blood Pressure 126/72 Blood Pressure [Right Arm] Pulse Oximetry Fraction of Inspired Oxygen 35 Oxygen Delivery Method BiPAP Oxygen Flow Rate 2 Narrative Exam Narrative: General: Middle-aged male appears older than stated age with poor hygiene, sitting in bed and in mild distress due to work of breathing, in tripod position, anxious. HEENT: Normocephalic, atraumatic. External ears without defect. Pupils equal, round, and reactive to light. Anicteric sclerae, moist conjunctivae, and no lid lag. Oropharynx free of erythema and cobble stoning with moist mucosa. Poor dentition. Neck: Supple with full range of motion. No jugular venous distension. No lymphadenopathy or thyromegaly. Cardiovascular: Regular rhythm, tachycardic, without murmurs, rubs, or gallops appreciated. Pulmonary: Lungs are very tight with little air movement and diffuse wheezing. Significantly short of breath and tachypneic with use of accessory muscles. Abdomen: Soft, bowel sounds present, nontender, nondistended. No hepatosplenomegaly or masses appreciated. Extremities: No clubbing or cyanosis. Lower extremities flaccid secondary to multiple sclerosis. Skin: Normal temperature, turgor, and texture; no rash, ulcers, or subcutaneous nodules appreciated. Neurological: Cranial nerves grossly intact. Psychiatric: Appears anxious. Unable to think coherently due to shortness of breath and tachypnea. Objective Labs Result Diagrams: 01/27/19 09:06 01/27/19 09:06 Labs: Laboratory Results - last 24 hr 01/27/19 01/27/19 01/27/19 09:06 09:06 09:06 WBC 10.2 RBC 5.32 Hgb 16.2 Hct 47.8 MCV 89.8 MCH 30.5 MCHC 33.9 RDW 13.9 Plt Count 114 L Neut % (Auto) 72.0 Lymph % (Auto) 13.3 L [place] % (Auto) 10.9 Eos % (Auto) 3.0 Baso % (Auto) 0.8 Neut # (Auto) 7300 H Lymph # (Auto) 1300 [place] # (Auto) 1100 H Eos # (Auto) 300 Baso # (Auto) 100 PT 10.7 INR 0.9 APTT 29 ABG pH ABG pCO2 ABG pO2 ABG HCO3 ABG Total CO2 ABG O2 Saturation ABG Base Excess FiO2 Sodium 139 Potassium 4.2 Chloride 102 Carbon Dioxide 30 BUN 15 Creatinine 1.10 Estimated GFR > 60.0 BUN/Creatinine Ratio 13.6 Glucose 115 H Lactate Calcium 9.1 Magnesium 1.9 Total Bilirubin 0.5 AST 26 ALT 17 L Alkaline Phosphatase 76 Total Creatine Kinase 81 CK-MB (CK-2) TNP CK-MB (CK-2) Rel Index TNP Troponin I < 0.012 B-Natriuretic Peptide 130 H Total Protein 6.7 Albumin 4.0 Globulin 2.7 Albumin/Globulin Ratio 1.5 Procalcitonin Nasal Screen MRSA (PCR) Chlamy pneumoniae PCR Adenovirus (PCR) B.parapertussis DNA PCR Coronavirus OC43 (PCR) Coronavirus HKU1 (PCR) Coronavirus 229E (PCR) Coronavirus NL63 (PCR) Human Metapneumovir PCR Influenza Type A (PCR) Influenza Type B (PCR) M. pneumoniae (PCR) Parainfluenza 1 (PCR) Parainfluenza 2 (PCR) Parainfluenza 3 (PCR) Parainfluenza 4 (PCR) RSV (PCR) Entero/Rhino (PCR) 01/27/19 01/27/19 01/27/19 09:06 09:06 09:30 WBC RBC Hgb Hct MCV MCH MCHC RDW Plt Count Neut % (Auto) Lymph % (Auto) [place] % (Auto) Eos % (Auto) Baso % (Auto) Neut # (Auto) Lymph # (Auto) [place] # (Auto) Eos # (Auto) Baso # (Auto) PT INR APTT ABG pH 7.29 L ABG pCO2 68.0 H* ABG pO2 84 ABG HCO3 33 H ABG Total CO2 35 H ABG O2 Saturation 94 L ABG Base Excess 6.0 H FiO2 35 Sodium Potassium Chloride Carbon Dioxide BUN Creatinine Estimated GFR BUN/Creatinine Ratio Glucose Lactate 1.1 Calcium Magnesium Total Bilirubin AST ALT Alkaline Phosphatase Total Creatine Kinase CK-MB (CK-2) CK-MB (CK-2) Rel Index Troponin I B-Natriuretic Peptide Total Protein Albumin Globulin Albumin/Globulin Ratio Procalcitonin < 0.05 Nasal Screen MRSA (PCR) Chlamy pneumoniae PCR Adenovirus (PCR) B.parapertussis DNA PCR Coronavirus OC43 (PCR) Coronavirus HKU1 (PCR) Coronavirus 229E (PCR) Coronavirus NL63 (PCR) Human Metapneumovir PCR Influenza Type A (PCR) Influenza Type B (PCR) M. pneumoniae (PCR) Parainfluenza 1 (PCR) Parainfluenza 2 (PCR) Parainfluenza 3 (PCR) Parainfluenza 4 (PCR) RSV (PCR) Entero/Rhino (PCR) 01/27/19 01/27/19 01/27/19 10:41 11:04 11:55 WBC RBC Hgb Hct MCV MCH MCHC RDW Plt Count Neut % (Auto) Lymph % (Auto) [place] % (Auto) Eos % (Auto) Baso % (Auto) Neut # (Auto) Lymph # (Auto) [place] # (Auto) Eos # (Auto) Baso # (Auto) PT INR APTT ABG pH 7.28 L* ABG pCO2 61.3 H* ABG pO2 72 L ABG HCO3 29 H ABG Total CO2 31 ABG O2 Saturation 92 L ABG Base Excess 2.0 FiO2 35 Sodium Potassium Chloride Carbon Dioxide BUN Creatinine Estimated GFR BUN/Creatinine Ratio Glucose Lactate Calcium Magnesium Total Bilirubin AST ALT Alkaline Phosphatase Total Creatine Kinase CK-MB (CK-2) CK-MB (CK-2) Rel Index Troponin I B-Natriuretic Peptide Total Protein Albumin Globulin Albumin/Globulin Ratio Procalcitonin Nasal Screen MRSA (PCR) Negative for mrsa Chlamy pneumoniae PCR Not detected Adenovirus (PCR) Not detected B.parapertussis DNA PCR Not detected Coronavirus OC43 (PCR) Not detected Coronavirus HKU1 (PCR) Not detected Coronavirus 229E (PCR) Not detected Coronavirus NL63 (PCR) Not detected Human Metapneumovir PCR Not detected Influenza Type A (PCR) Not detected Influenza Type B (PCR) Not detected M. pneumoniae (PCR) Not detected Parainfluenza 1 (PCR) Not detected Parainfluenza 2 (PCR) Not detected Parainfluenza 3 (PCR) Not detected Parainfluenza 4 (PCR) Not detected RSV (PCR) Not detected Entero/Rhino (PCR) Detected H Assessment & Plan Assessment & Plan narrative: Jose Denton is a 58-year-old male with a past medical history significant for COPD, hypertension, hypothyroidism, nicotine dependence and, multiple sclerosis who is wheelchair-bound presented to the ED due to trouble with breathing including coughing and wheezing. 1. Acute viral sepsis, present on admission. Active. -Patient is tachypneic (RR 32), tachycardic (HR 110), with target end-organ failure hypoxemic and hypercarbic respiratory failure and source viral upper respiratory tract infection. SOFA score 5. -Continue to treat underlying cause as below and early goal-directed therapy with IV fluids. 2. Acute hypoxemic and hypercarbic respiratory failure, present on admission. Active. -Patient presented with severe shortness of breath, wheezing, and tachypnea. -Placed on BiPAP with current settings 18/8 and FiO2 0.35 with backup rate of 10. -Initial ABG demonstrated respiratory acidosis with metabolic compensation with pH 7.29, pCO2 68, PO2 84, HC03 33, SpO2 94% on BiPAP with FiO2 35%. -Consulted respiratory therapy for evaluation and treatment. Continue current BiPAP settings as above and periodic ABG to adjust settings. Continue duo nebs every 2-4 hours, Xopenex every 2 hours as needed for shortness of breath and wheezing, and budesonide nebs twice daily. Received racemic epinephrine nebulized x2. -ordered morphine 2-4 mg IV every 4 hours as needed for air hunger and lorazepam 0.5 mg IV every 4 hours as needed for anxiety. 3. Acute oxygen-dependent COPD exacerbation, secondary to acute rhinovirus upper respiratory tract infection, present on admission. Active. -Respiratory viral PCR positive for rhinovirus. Continue droplet precautions. -Consulted respiratory therapy for evaluation and treatment. Continue current BiPAP settings as above. Continue duo nebs every 2-4 hours, Xopenex every 2 hours as needed for shortness of breath and wheezing, and budesonide nebs twice daily. Received racemic epinephrine nebulized x2. -Continue methylprednisolone 80 mg IV every 6 hours. -Received azithromycin 500 mg IV x1 in ED. Continue azithromycin 500 mg x2 additional doses for anti-inflammatory effect. -Continue famotidine 20 mg IV every 12 hours and loratadine 10 mg daily for antihistamine effect. -Ordered magnesium sulfate 2 g IV x1 for smooth muscle relaxant and anti-inflammatory effect. 4. Multiple sclerosis, chronic, present on admission. Stable. -Held baclofen and hydroxyzine due to patient's status and concern for respiratory depression. 5. Hypertension, chronic, present on admission. Stable. -Patients blood pressure is low normal and slightly hypotensive, therefore, lisinopril 40 mg daily, metoprolol tartrate 50 mg twice daily, and nifedipine 30 mg daily has been held. -Received 1 L NS bolus in ED. Received another 500 cc bolus NICU. Continue IV fluids at 75 mL/hr 6. Cardiovascular disease, and hyperlipidemia chronic, present on admission. Stable. -Patient has a history of MN and CVA. -Continue simvastatin 20 mg daily at bedtime. 7. Hypothyroidism, chronic, present on admission. Stable. -Ordered TSH with reflex to free T4, pending. -Continue levothyroxine 25 mcg IV daily (PO dose 50 mcg) during acute COPD exacerbation and on BiPAP. 8. GERD, chronic, present on admission. Stable. -Continue famotidine 20 mg IV every 12 hours and Protonix 20 mg IV daily. 9. Tobacco dependence, chronic, present on admission. Stable. -Ordered nicotine patch as needed for nicotine withdrawal. -Plan to budget counselor patient regarding smoking cessation. Critical care time spent 75 minutes Patient is admitted under inpatient status with expected length of stay greater than 2 midnights due to severity of presenting symptoms, risk of adverse event, and complexity of treatment plan.
[2019-01-27] MEDS: RACEPINEPHRINE 0.5 ML NEB 1 ML INH (16:45)
[2019-01-27] MEDS: FAMOTIDINE 20 MG/50 ML PIGGYBACK 200 MG IV (18:29)
[2019-01-27 18:37] LABS: Fractionated Inspired Oxygen 35; HCO3 ABG 24 mmol/L (22-26); Oxygen Saturation ABG 94 % (95-100); PO2 ABG 85 mmHg (80-100); TCO2 ABG 26 mmol/L (21-31); pH ABG 7.25 (7.35-7.45)
[2019-01-27] MEDS: BUDESONIDE 0.5 MG/2 ML NEB INH (18:38)
[2019-01-27] MEDS: MAGNESIUM SULFATE 2 GM/50 ML PIGGYBACK IV (19:27)
[2019-01-27] MEDS: LORATADINE 10 MG TABLET PO (19:30)
--- NOTE | 2019-01-27 20:16 | PC.NURSE ---
jemma note Pt RR 30s-42. On bipap currently. Lungs with sparse air movement heard, with wheezing. Rt called to bedside for albuterol tx. Dr. Roca called to bedside for assessment. Gave pt morphine, ativan, IV steroids, nebulizer albuterol. IV bolus ordered for soft B/P 91/54. Pt trying to talk all the time. Had to instuct pt to not talk at all unless emergency. Pt also received racemic epi nebulizer which increased his tidal volumes. Pt now resting, on bipap. O2 sats 97% on 35% FiO2. RR 18. B/P 94/63.
[2019-01-27] MEDS: SODIUM CHLORIDE 0.9% 1,000 ML 75 ML IV (21:05)
[2019-01-27] MEDS: HEPARIN 5,000 UNIT/ML VIAL 5000 UNIT SUBCUT (21:39)
[2019-01-28] VITALS (24 sets, daily range): BP systolic 93–165; BP diastolic 49–111; PULSE 71–148; RESP 10–27; TEMP 30.5–37.1; O2SAT 85–100; BMI 27.8
[2019-01-28] MEDS: FAMOTIDINE 20 MG/50 ML PIGGYBACK 200 MG IV
[2019-01-28] MEDS: LORazepam 2 MG/ML INJ 0.5 MG IV ×3 (00:01→09:43)
[2019-01-28] MEDS: methylPREDNISolone 125 MG/2 ML VIAL 80 MG IV ×2 (00:01→07:56)
[2019-01-28] MEDS: MORPHINE 2 MG/ML INJ IV ×3 (00:02→09:43)
[2019-01-28] MEDS: ALBUTEROL/IPRATROPIUM 3 ML AMPUL INH ×6 (03:22→23:28)
[2019-01-28] MEDS: LEVALBUTEROL 0.63 MG/3 ML NEB INH (05:26)
[2019-01-28 05:36] LABS: Procalcitonin 0.29 ng/mL (<0.5)
[2019-01-28 06:00] LABS: TSH w/ Reflex to FT4 0.02 uIU/mL (0.47-4.68)
--- NOTE | 2019-01-28 06:28 | PC.NURSE ---
Patient is oriented x3, sitting in [place] position throughout night, or in tri-pod position during coughing episodes and dyspnea. On Bi-pap FIO2 35% 18/8, SpO2 >92% at rest, but desats to 80s when anxious or when he takes mask off. Breath sounds tight with exp. wheezes throughout. IV morphine and IV Ativan given per prn for 'air hunger', is effective. SR/ST, BP stable, see vital trends.
[2019-01-28 06:43] LABS: Free T4, Direct Thyroxine 1.05 ng/dL (0.78-2.19)
[2019-01-28] MEDS: LEVALBUTEROL 1.25 MG/0.5 ML NEB INH ×2 (07:32→13:07)
[2019-01-28] MEDS: BUDESONIDE 0.5 MG/2 ML NEB INH ×2 (07:32→23:27)
[2019-01-28 07:43] LABS: Fractionated Inspired Oxygen 35; HCO3 ABG 27 mmol/L (22-26); Oxygen Saturation ABG 92 % (95-100); PCO2 ABG 56.1 mmHg (35-45); PO2 ABG 71 mmHg (80-100); TCO2 ABG 29 mmol/L (21-31)
[2019-01-28 07:44] LABS: pH ABG 7.29 (7.35-7.45)
[2019-01-28] MEDS: HEPARIN 5,000 UNIT/ML VIAL 5000 UNIT SUBCUT ×2 (07:54→21:21)
[2019-01-28] MEDS: PANTOPRAZOLE 40 MG VIAL 20 MG IV (07:54)
[2019-01-28] MEDS: NICOTINE 21 MG PATCH TOP (07:54)
[2019-01-28] MEDS: AZITHROMYCIN 500 MG in DEXTROSE 5% IN WATER 250 ML IV (07:57)
--- NOTE | 2019-01-28 09:02 | PM.PN.1 ---
Subjective Subjective Date Patient Seen: 01/28/19 Interval history: Jose Denton is a 58-year-old male with a past medical history significant for COPD, hypertension, hypothyroidism, nicotine dependence and, multiple sclerosis who is wheelchair-bound presented to the ED due to trouble with breathing including coughing and wheezing. The patient is resting in bed comfortably. He is no longer in respiratory distress. He continues to be significantly short of breath and on BiPAP. Overall, his lung tightness has slightly improved but continues to be significantly diminished with scattered wheeze. Plan to allow for 30 minutes breaks off BiPAP for meals. Discussed patient's lung disease in detail and the patient had a hard time understanding the severity of his lung disease and the gravity of situation. He continues to have cough paroxysms with mild post-tussive emesis. He denies headache, chest pain, abdominal pain, nausea, vomiting, fever, chills, dysuria, diarrhea or constipation. He is voiding without difficulty. Discuss code status in detail with the patient to would like to be a limited code and would allow for CPR and defibrillation and does not want intubation. Exam Vital Signs (past 8 hours): - 01/28/19 02:59 01/28/19 04:44 01/28/19 07:00 Temperature 97.3 F L 98.5 F Pulse Rate 75 71 Respiratory Rate 17 14 Blood Pressure 98/64 104/62 Pulse Oximetry 94 94 92 01/28/19 07:32 01/28/19 08:00 01/28/19 08:42 Temperature Pulse Rate 97 H Respiratory Rate 17 Blood Pressure 104/62 117/78 Pulse Oximetry 98 93 Fraction of Inspired Oxygen 35 Oxygen Delivery Method Nasal Cannula Oxygen Flow Rate 3.5 Narrative Exam Narrative: General: Middle-aged male appears older than stated age with poor hygiene, sitting in bed and in no acute distress, HEENT: Normocephalic, atraumatic. External ears without defect. Pupils equal, round, and reactive to light. Anicteric sclerae, moist conjunctivae, and no lid lag. Poor dentition. Neck: Supple with full range of motion. No lymphadenopathy or thyromegaly. Cardiovascular: Regular rhythm, mildly tachycardic, without murmurs, rubs, or gallops appreciated. Pulmonary: Lungs continue to be tight with little air movement but improved and scattered end expiratory wheezing. Mild use of accessory muscles. Abdomen: Soft, bowel sounds present, nontender, nondistended. No hepatosplenomegaly or masses appreciated. Extremities: No clubbing or cyanosis. Lower extremities flaccid secondary to multiple sclerosis. Skin: Normal temperature, turgor, and texture; no rash, ulcers, or subcutaneous nodules appreciated. Neurological: Cranial nerves grossly intact. Psychiatric: Anxious and normal affect. Appears to be alert oriented to person place and time. Objective Labs Result Diagrams: 01/27/19 09:06 01/27/19 09:06 Labs: Laboratory Results - last 24 hr 01/27/19 01/27/19 01/27/19 09:06 09:06 09:06 WBC 10.2 RBC 5.32 Hgb 16.2 Hct 47.8 MCV 89.8 MCH 30.5 MCHC 33.9 RDW 13.9 Plt Count 114 L Neut % (Auto) 72.0 Lymph % (Auto) 13.3 L [place] % (Auto) 10.9 Eos % (Auto) 3.0 Baso % (Auto) 0.8 Neut # (Auto) 7300 H Lymph # (Auto) 1300 [place] # (Auto) 1100 H Eos # (Auto) 300 Baso # (Auto) 100 PT 10.7 INR 0.9 APTT 29 ABG pH ABG pCO2 ABG pO2 ABG HCO3 ABG Total CO2 ABG O2 Saturation ABG Base Excess FiO2 Sodium 139 Potassium 4.2 Chloride 102 Carbon Dioxide 30 BUN 15 Creatinine 1.10 Estimated GFR > 60.0 BUN/Creatinine Ratio 13.6 Glucose 115 H Lactate Calcium 9.1 Magnesium 1.9 Total Bilirubin 0.5 AST 26 ALT 17 L Alkaline Phosphatase 76 Total Creatine Kinase 81 CK-MB (CK-2) TNP CK-MB (CK-2) Rel Index TNP Troponin I < 0.012 B-Natriuretic Peptide 130 H Total Protein 6.7 Albumin 4.0 Globulin 2.7 Albumin/Globulin Ratio 1.5 Procalcitonin TSH Free T4 Nasal Screen MRSA (PCR) Chlamy pneumoniae PCR Adenovirus (PCR) B.parapertussis DNA PCR Coronavirus OC43 (PCR) Coronavirus HKU1 (PCR) Coronavirus 229E (PCR) Coronavirus NL63 (PCR) Human Metapneumovir PCR Influenza Type A (PCR) Influenza Type B (PCR) M. pneumoniae (PCR) Parainfluenza 1 (PCR) Parainfluenza 2 (PCR) Parainfluenza 3 (PCR) Parainfluenza 4 (PCR) RSV (PCR) Entero/Rhino (PCR) 01/27/19 01/27/19 01/27/19 09:06 09:06 09:30 WBC RBC Hgb Hct MCV MCH MCHC RDW Plt Count Neut % (Auto) Lymph % (Auto) [place] % (Auto) Eos % (Auto) Baso % (Auto) Neut # (Auto) Lymph # (Auto) [place] # (Auto) Eos # (Auto) Baso # (Auto) PT INR APTT ABG pH 7.29 L ABG pCO2 68.0 H* ABG pO2 84 ABG HCO3 33 H ABG Total CO2 35 H ABG O2 Saturation 94 L ABG Base Excess 6.0 H FiO2 35 Sodium Potassium Chloride Carbon Dioxide BUN Creatinine Estimated GFR BUN/Creatinine Ratio Glucose Lactate 1.1 Calcium Magnesium Total Bilirubin AST ALT Alkaline Phosphatase Total Creatine Kinase CK-MB (CK-2) CK-MB (CK-2) Rel Index Troponin I B-Natriuretic Peptide Total Protein Albumin Globulin Albumin/Globulin Ratio Procalcitonin < 0.05 TSH Free T4 Nasal Screen MRSA (PCR) Chlamy pneumoniae PCR Adenovirus (PCR) B.parapertussis DNA PCR Coronavirus OC43 (PCR) Coronavirus HKU1 (PCR) Coronavirus 229E (PCR) Coronavirus NL63 (PCR) Human Metapneumovir PCR Influenza Type A (PCR) Influenza Type B (PCR) M. pneumoniae (PCR) Parainfluenza 1 (PCR) Parainfluenza 2 (PCR) Parainfluenza 3 (PCR) Parainfluenza 4 (PCR) RSV (PCR) Entero/Rhino (PCR) 01/27/19 01/27/19 01/27/19 10:41 11:04 11:55 WBC RBC Hgb Hct MCV MCH MCHC RDW Plt Count Neut % (Auto) Lymph % (Auto) [place] % (Auto) Eos % (Auto) Baso % (Auto) Neut # (Auto) Lymph # (Auto) [place] # (Auto) Eos # (Auto) Baso # (Auto) PT INR APTT ABG pH 7.28 L* ABG pCO2 61.3 H* ABG pO2 72 L ABG HCO3 29 H ABG Total CO2 31 ABG O2 Saturation 92 L ABG Base Excess 2.0 FiO2 35 Sodium Potassium Chloride Carbon Dioxide BUN Creatinine Estimated GFR BUN/Creatinine Ratio Glucose Lactate Calcium Magnesium Total Bilirubin AST ALT Alkaline Phosphatase Total Creatine Kinase CK-MB (CK-2) CK-MB (CK-2) Rel Index Troponin I B-Natriuretic Peptide Total Protein Albumin Globulin Albumin/Globulin Ratio Procalcitonin TSH Free T4 Nasal Screen MRSA (PCR) Negative for mrsa Chlamy pneumoniae PCR Not detected Adenovirus (PCR) Not detected B.parapertussis DNA PCR Not detected Coronavirus OC43 (PCR) Not detected Coronavirus HKU1 (PCR) Not detected Coronavirus 229E (PCR) Not detected Coronavirus NL63 (PCR) Not detected Human Metapneumovir PCR Not detected Influenza Type A (PCR) Not detected Influenza Type B (PCR) Not detected M. pneumoniae (PCR) Not detected Parainfluenza 1 (PCR) Not detected Parainfluenza 2 (PCR) Not detected Parainfluenza 3 (PCR) Not detected Parainfluenza 4 (PCR) Not detected RSV (PCR) Not detected Entero/Rhino (PCR) Detected H 01/27/19 01/28/19 01/28/19 18:19 04:35 04:35 WBC RBC Hgb Hct MCV MCH MCHC RDW Plt Count Neut % (Auto) Lymph % (Auto) [place] % (Auto) Eos % (Auto) Baso % (Auto) Neut # (Auto) Lymph # (Auto) [place] # (Auto) Eos # (Auto) Baso # (Auto) PT INR APTT ABG pH 7.25 L* ABG pCO2 56.0 H ABG pO2 85 ABG HCO3 24 ABG Total CO2 26 ABG O2 Saturation 94 L ABG Base Excess -3.0 L FiO2 35 Sodium Potassium Chloride Carbon Dioxide BUN Creatinine Estimated GFR BUN/Creatinine Ratio Glucose Lactate Calcium Magnesium Total Bilirubin AST ALT Alkaline Phosphatase Total Creatine Kinase CK-MB (CK-2) CK-MB (CK-2) Rel Index Troponin I B-Natriuretic Peptide Total Protein Albumin Globulin Albumin/Globulin Ratio Procalcitonin 0.29 TSH 0.02 L Free T4 1.05 Nasal Screen MRSA (PCR) Chlamy pneumoniae PCR Adenovirus (PCR) B.parapertussis DNA PCR Coronavirus OC43 (PCR) Coronavirus HKU1 (PCR) Coronavirus 229E (PCR) Coronavirus NL63 (PCR) Human Metapneumovir PCR Influenza Type A (PCR) Influenza Type B (PCR) M. pneumoniae (PCR) Parainfluenza 1 (PCR) Parainfluenza 2 (PCR) Parainfluenza 3 (PCR) Parainfluenza 4 (PCR) RSV (PCR) Entero/Rhino (PCR) 01/28/19 07:04 WBC RBC Hgb Hct MCV MCH MCHC RDW Plt Count Neut % (Auto) Lymph % (Auto) [place] % (Auto) Eos % (Auto) Baso % (Auto) Neut # (Auto) Lymph # (Auto) [place] # (Auto) Eos # (Auto) Baso # (Auto) PT INR APTT ABG pH 7.29 L ABG pCO2 56.1 H ABG pO2 71 L ABG HCO3 27 H ABG Total CO2 29 ABG O2 Saturation 92 L ABG Base Excess 1.0 FiO2 35 Sodium Potassium Chloride Carbon Dioxide BUN Creatinine Estimated GFR BUN/Creatinine Ratio Glucose Lactate Calcium Magnesium Total Bilirubin AST ALT Alkaline Phosphatase Total Creatine Kinase CK-MB (CK-2) CK-MB (CK-2) Rel Index Troponin I B-Natriuretic Peptide Total Protein Albumin Globulin Albumin/Globulin Ratio Procalcitonin TSH Free T4 Nasal Screen MRSA (PCR) Chlamy pneumoniae PCR Adenovirus (PCR) B.parapertussis DNA PCR Coronavirus OC43 (PCR) Coronavirus HKU1 (PCR) Coronavirus 229E (PCR) Coronavirus NL63 (PCR) Human Metapneumovir PCR Influenza Type A (PCR) Influenza Type B (PCR) M. pneumoniae (PCR) Parainfluenza 1 (PCR) Parainfluenza 2 (PCR) Parainfluenza 3 (PCR) Parainfluenza 4 (PCR) RSV (PCR) Entero/Rhino (PCR) Assessment & Plan Assessment & Plan narrative: Jose Denton is a 58-year-old male with a past medical history significant for COPD, hypertension, hypothyroidism, nicotine dependence and, multiple sclerosis who is wheelchair-bound presented to the ED due to trouble with breathing including coughing and wheezing. 1. Acute viral sepsis, present on admission. Resolved. -Patient is tachypneic (RR 32), tachycardic (HR 110), with target end-organ failure hypoxemic and hypercarbic respiratory failure and source viral upper respiratory tract infection. SOFA score 5. -Continue to treat underlying cause as below and early goal-directed therapy with IV fluids. 2. Acute on chronic hypoxemic and hypercarbic respiratory failure, present on admission. Active. -Patient presented with severe shortness of breath, wheezing, and tachypnea. -Placed on BiPAP with current settings 18/8 and FiO2 0.35 with backup rate of 10. -Initial ABG demonstrated respiratory acidosis with metabolic compensation with pH 7.29, pCO2 68, PO2 84, HC03 33, SpO2 94% on BiPAP with FiO2 0.35. Repeat ABG today significantly improved and demonstrated respiratory acidosis with metabolic compensation with pH 7.29, pCO2 56, PO2 71, HC03 27, SpO2 92% on FiO2 0.35. -Consulted respiratory therapy for evaluation and treatment. Continue current BiPAP settings as above and periodic ABG to adjust settings. Continue duo nebs every 2-4 hours, Xopenex every 2 hours as needed for shortness of breath and wheezing, and budesonide nebs twice daily. Received racemic epinephrine nebulized x2. -Continue morphine 2-4 mg IV every 4 hours as needed for air hunger and lorazepam 0.5 mg IV every 4 hours as needed for anxiety. 3. Acute oxygen-dependent COPD exacerbation, secondary to acute rhinovirus upper respiratory tract infection, present on admission. Active. -Respiratory viral PCR positive for rhinovirus. Continue droplet precautions. -Consulted respiratory therapy for evaluation and treatment. Continue current BiPAP settings as above. Continue duo nebs every 2-4 hours, Xopenex every 2 hours as needed for shortness of breath and wheezing, and budesonide nebs twice daily. Received racemic epinephrine nebulized x2. -Continue methylprednisolone 80 mg IV every 6 hours. -Received azithromycin 500 mg IV x1 in ED. Continue azithromycin 500 mg x2 additional doses for anti-inflammatory effect. -Switched famotidine to ranitidine 150 mg twice daily for antihistamine effect and GI prophylaxis. Continue loratadine 10 mg daily for antihistamine effect. -Received magnesium sulfate 2 g IV x1 for smooth muscle relaxant and anti-inflammatory effect. 4. Multiple sclerosis, chronic, present on admission. Stable. -Restarted baclofen and hydroxyzine now that acute respiratory failure is stable. 5. Hypertension, chronic, present on admission. Stable. -Held lisinopril 40 mg daily, metoprolol tartrate 50 mg twice daily, and nifedipine 30 mg daily due to labile blood pressures and will restart when appropriate. -Received 1 L NS bolus in ED. Received another 500 cc bolus NICU. Discontinued IV fluids once patient adequately hydrated. 6. Cardiovascular disease, and hyperlipidemia chronic, present on admission. Stable. -Patient has a history of NH and CVA. -Continue simvastatin 20 mg daily at bedtime. 7. Hypothyroidism, chronic, present on admission. Stable. -TSH 0.02 and free T4 1.05. -Continue levothyroxine 50 mcg daily. 8. GERD, chronic, present on admission. Stable. -Continue ranitidine 150 mg twice daily. 9. Tobacco dependence, chronic, present on admission. Stable. -Continue nicotine patch as needed for nicotine withdrawal. -Plan to developmental training counselor patient regarding smoking cessation. Disposition: Patient likely to [facility].
[2019-01-28] MEDS: BENZOCAINE/MENTHOL 1 LOZ PKT 1 EACH PO ×2 (09:06→14:18)
[2019-01-28] MEDS: LEVOTHYROXINE 50 MCG TABLET PO (09:19)
[2019-01-28] MEDS: LORATADINE 10 MG TABLET PO (09:19)
--- NOTE | 2019-01-28 12:59 | PC.NURSE ---
Day Shift Note Pt off bipap and placed on 3.5L NC this morning about [address] Roca at bedside. Pt unable to speak in full sentences and tachypneic in the 30s, breathing labored, ST up to the 130s. Oxygen sats maintaining in the upper 80s to low 90s. Pt exhibits a frequent and productive hacking cough, prompting pt to remove bipap mask intermittently when on bipap. Instructed on importance of leaving mask in place for optimal breathing. Bipap replaced after breakfast at 1000 - goal per Dr. Roca is to have patient on bipap majority of the time but ok to be off about 30 min at a time for meals. FiO2 35% and pressures 18/8. Ativan and morphine IV administered for pt anxiety and air hunger. Currently appears comfortable, oxygen sats 93%, SR in the 80s. Droplet isolation measures remain in place. Call light within reach, using appropriately to make needs known.
--- NOTE | 2019-01-28 15:23 | CM.DANOTE ---
DCP Assessment: EMR reviewed: Patient is a 58 yr old male admitted to the ICU for respiratory distress. No PCP noted. Patient is currently on Bi-pap 23 hours a day and struggling with End stage COPD. Met with patient at bed side, while off of bi-pap, CM/RN role explained. Patient struggled with breathing/ talking while off of bi-pap. Patient stated that he is currently homeless and sleeps at local churches and friends trailors. Patient stated his emergency contact is his father Doron [phone]. patient also stated he has a daughter who he would like to get in touch with but has not talk to in a few years. Patient currently smokes a 1/2 pack to a pack a day and has attempted to quit in the past but is not sure he will be able to quit. CM explained [facility] to patient and he stated interest. Expedited [facility] application completed and faxed 01/28/2019 to [phone]. [facility] contacted 01/28/2019 and spoke to Adi Faxed clinicals for [facility] to review patients record for possible admission once patient is d/c from hospital. Insurance 1st payer: Medicare, 2nd payer: Medicaid Discharge plan:Patient is open to the idea of d/c to SNF to help with medical needs when stable. Current plan is to d/c to [facility] when medically stable enough. Sherrie Vivar RN Discharge Planning/Care Management CM Discharge Assessment Start: 01/28/19 15:10 Freq: Status: Active Protocol: Document 01/28/19 15:10 HS (Rec: 01/28/19 15:22 HS [id number]) Discharge Planning Assessment Assigned Fishing Tool Operator Sherrie Vivar RN DPOA/Assigned Designee Name Doron Denton Contact Information [phone] Advance Directives? No Advance Directives on File No History Provided By Patient,Medical Record Has Patient been admitted in last 30 No days? Prior Living Arrangements Homeless Household Members none Type of transporation used prior to Public Transportation admit Independent with ADL's No Is patient alert and oriented? Yes Needs Assistance With Bathing,Eating,Grooming,Meal Prep,Toileting,Managing Medications,Home Chores / Shopping Caregiver for Another No Patient/Family Preference [facility] Comment Unclear of discharge barriers until in person assessment can be performed. Discharge Plan [facility] Transportation Arrangement Patient's discharge wherabouts unknown at this time. Patient does have Medicaid has primary insurance, most likely with transport benefit. Referrals Initiated [facility],Other Additional Comment Pt will benefit from a CM [employer] consult as he is homeless. He has worked with the [facility] team during a past admission Medicare Choice List Provided Yes SNF/HH Preference FCC Contact Name/Phone [facility] (Adi) [phone] Has Agency SNF been contacted Yes Whiteboard Updated in Patient Room with Yes name and ext. # of Fishing Tool Operator Review Status In Process Next Review Type Continued Stay Review
[2019-01-28] MEDS: BACLOFEN 10 MG TABLET PO (19:15)
[2019-01-28] MEDS: MORPHINE 2 MG/ML INJ 4 MG IV (19:15)
[2019-01-28] MEDS: SODIUM CHLORIDE 0.9% FLUSH 10 ML IV (21:22)
[2019-01-28] MEDS: methylPREDNISolone 125 MG/2 ML VIAL 60 MG IV (21:24)
--- NOTE | 2019-01-28 22:54 | PC.NURSE ---
jemma note pt talks all the time. Pt has coughing fits, turns purple in the face, gets tachy rate 120s-140s, expectorates white to clear mucous. Pt has been off bipap since 17:00. Took pt one hour to prepare his sandwich for eating. Had long discussion with pt about smoking, hanging out in casino with pt who are smoking. Pt has poor insight into the severity of his lung disease. Pt talks about how his bad tooth causes him to cough, his sinus congestion causes him to cough, getting overheated causes him to cough. HR holding in 100s while on 4 L NC. HR up to 140s when coughing.
[2019-01-29] VITALS (19 sets, daily range): BP systolic 122–181; BP diastolic 57–112; PULSE 56–124; RESP 10–44; TEMP 32–36.8; O2SAT 85–99
[2019-01-29] MEDS: LORazepam 2 MG/ML INJ 0.5 MG IV ×4 (00:11→23:54)
[2019-01-29] MEDS: MORPHINE 2 MG/ML INJ IV ×4 (00:13→23:54)
--- NOTE | 2019-01-29 00:15 | PC.NURSE ---
Addendum entered by Mat Dial R.N. 01/29/19 06:54: 0440: Awake, having shortness of breath. Medicated with Morphine 2mg IV, and Ativan 0.5mg IV. Pt off BiPAP, states he will call when he finishes clearing his nose. 0530: Pt back on BiPAP. Addendum entered by Mat Dial R.N. 01/29/19 00:46: 0045: RT at bedside to put BiPAP on. Original Note: Custom Bow Maker Note: 2345: Awake, sitting in bed in hi-fowlers position. Frequent tight cough with HR going up above 130, and difficulty catching his breath. He has been on the phone with family, so off BiPAP. He remains on O2 4L/NC while off BiPAP. IVs in place in rt wrist and rt AC. 0015: Pt having air hunger as well as back pain. Medicated with Morphine 2mg IV and Ativan 0.5mg IV. RT notified that pt is ready to be put back on BiPAP.
[2019-01-29] MEDS: BACLOFEN 10 MG TABLET PO ×3 (03:20→23:53)
[2019-01-29] MEDS: ALBUTEROL/IPRATROPIUM 3 ML AMPUL INH ×4 (04:23→17:38)
[2019-01-29] MEDS: LEVOTHYROXINE 50 MCG TABLET PO (04:37)
[2019-01-29] MEDS: LORATADINE 10 MG TABLET PO (08:17)
[2019-01-29] MEDS: methylPREDNISolone 125 MG/2 ML VIAL 60 MG IV ×2 (08:17→23:09)
[2019-01-29] MEDS: NICOTINE 21 MG PATCH TOP (08:17)
[2019-01-29] MEDS: HEPARIN 5,000 UNIT/ML VIAL 5000 UNIT SUBCUT ×2 (08:17→22:03)
[2019-01-29] MEDS: AZITHROMYCIN 500 MG in DEXTROSE 5% IN WATER 250 ML IV (08:20)
[2019-01-29] MEDS: ACETAMINOPHEN 325 MG TABLET 650 MG PO (08:22)
[2019-01-29] MEDS: BUDESONIDE 0.5 MG/2 ML NEB INH ×2 (10:17→17:38)
[2019-01-29] MEDS: SODIUM CHLORIDE 0.9% FLUSH 10 ML IV ×2 (10:56→23:09)
[2019-01-29] MEDS: METOPROLOL IR 50 MG TABLET PO (10:56)
[2019-01-29] MEDS: LISINOPRIL 20 MG TABLET 40 MG PO (10:56)
[2019-01-29 11:41] LABS: Add Manual Diff / Slide Review NO; Basophils Absolute Auto 0 /uL (0-100); Eosinophils Absolute Auto 0 /uL (0-450); Hematocrit 45.2 % (41-53); Hemoglobin 15.1 g/dL (13.5-17.5); Lymphocytes Absolute Auto 700 /uL (1100-4500); Lymphocytes Percent Auto 5.1 % (25-40); Mean Corpuscular HGB Conc 33.4 % (30-36); Mean Corpuscular Hemoglobin 30.1 PG (26-34); Mean Corpuscular Volume 90.1 fL (80-100); Monocytes Absolute Auto 400 /uL (0-900); Monocytes Percent Auto 2.8 % (3-14); Neutrophils Absolute Auto 12400 /uL (1500-7000); Neutrophils Percent Auto 92.1 % (50-75); Platelet Count 148 X10^3/uL (150-400); Red Blood Cell Count 5.01 X10^6/uL (4.5-5.9); Red Cell Distribution Width 14.3 % (11.6-14.8); White Blood Cell Count 13.5 X10^3/uL (4.5-11.0)
[2019-01-29 11:46] LABS: Blood Urea Nitrogen 26 mg/dL (9-20); Calcium 9.6 mg/dL (8.4-10.2); Carbon Dioxide 29 mmol/L (22-32); Chloride 99 mmol/L (98-107); Estimated Glomerular Filt Rate > 60.0 mL/min (>60); Glucose 121 mg/dL (70-100); HEMOLYSIS < 15 (0-50); Potassium 4.5 mmol/L (3.4-5.1); Sodium 137 mmol/L (137-145)
[2019-01-29 11:47] LABS: Fractionated Inspired Oxygen 32; HCO3 ABG 28 mmol/L (22-26); Oxygen Saturation ABG 98 % (95-100); PO2 ABG 109 mmHg (80-100); TCO2 ABG 29 mmol/L (21-31); pH ABG 7.31 (7.35-7.45)
[2019-01-29] MEDS: CODEINE/GUAIFENESIN LIQUID 5ML UDC 10 ML PO ×2 (11:50→18:32)
[2019-01-29] MEDS: MORPHINE 2 MG/ML INJ 4 MG IV (12:42)
--- NOTE | 2019-01-29 13:44 | PC.NURSE ---
Awoke pt for breakfast at 0800. Pt with significant bronchospastic cough. Pt states exacerbated by transition from bipap to 3L NC. SPO2 90-98% on 3L NC. RR 18-28 depending on activity. Pt is noted to be hypertensive. On review of chart, noted home BP meds not ordered. Called to Dr. Roca and reported assessment findings. TORB to restart home anti-hypertensive medications (see orders). Later received orders for guifenasen/codeine cough syrup. Pt cough and BP improved with these interventions. Pt able to eat lunch and then was positioned for comfort and placed on bipap. Pt declined hygiene care, linen change, clothing change at this time. He is maintaining his position upright, supported by pillows. Educated to turning for skin integrity. He verbalizes understanding but states current position helps him breath better. Safety intact. Will monitor.
--- NOTE | 2019-01-29 16:41 | PC.NURSE ---
Addendum entered by Samantha Parker R.N. 01/29/19 17:05: Jessica from [facility] here to see pt. Original Note: jemma alonzo pt put back on bipap at 16:10 for napping.
--- NOTE | 2019-01-29 17:12 | CM.DANOTE ---
Addendum entered by Sherrie Moore R.N. 01/29/19 17:23: This is a CM/DCP note not an assessment. Wrong note template selected, Sherrie Moore RN Addendum entered by Sherrie Moore R.N. 01/29/19 17:22: Original Note: DCP; CM/RN spoke with Cyndee Wolff about expedited [facility] application faxed in on 01/28/2019. Mrs. Wolff will come in to do a bedside assessment when the patient gets closer to d/c. Mrs. Wolff asked for CM to call [phone] as the patient gets closer to d/c. [facility] providing Bi-pap machine for patient. newsperson Augusto [phone]. Jessica from [facility] spoke with patient who stated he doesn't want to quit smoking and the community administrator will review patient to determine if patient will be accepted to [facility].
--- NOTE | 2019-01-29 17:15 | P.PN_ITS ---
Subjective Subjective Date Patient Seen: 01/29/19 Interval history: Jose Denton is a 58-year-old male with a past medical history significant for COPD, hypertension, hypothyroidism, nicotine dependence and, multiple sclerosis who is wheelchair-bound presented to the ED due to trouble with breathing including coughing and wheezing. The patient is resting in bed comfortably. He has significant shortness of breath at baseline and due to this he is unsure if he feels his breathing has improved. Overall, his lung tightness has improved but continues to be significantly diminished with scattered wheeze likely approaching baseline. Continue short breaks off BiPAP for meals. Continued to discuss patient's end- stage COPD in detail and the patient has little insight and poor comprehension of the severity of his lung disease and the gravity of situation likely due to his multiple sclerosis and several CVAs. He continues to have cough paroxysms with mild post-tussive emesis. He now complains of chest wall pain due to violent coughing and ordered guaifenesin with codeine. He denies headache, chest pain, abdominal pain, nausea, vomiting, fever, chills, dysuria, diarrhea or constipation. He is voiding without difficulty. Patient has not had BM since admission, therefore, implemented bowel regimen. Exam Vital Signs (past 8 hours): - 01/29/19 09:35 01/29/19 10:18 01/29/19 10:56 Temperature Pulse Rate 91 H 93 H 119 H Respiratory Rate 21 20 Blood Pressure 148/111 H 155/102 H Pulse Oximetry 98 97 01/29/19 11:00 01/29/19 11:30 01/29/19 11:43 Temperature Pulse Rate 116 H Respiratory Rate 28 H Blood Pressure 151/91 H Pulse Oximetry 97 98 93 01/29/19 12:00 01/29/19 14:22 01/29/19 15:54 Temperature 97.4 F L 97.2 F L Pulse Rate 83 56 L Respiratory Rate 18 18 Blood Pressure 127/90 122/68 122/57 L Pulse Oximetry 96 Fraction of Inspired Oxygen 30 Oxygen Delivery Method Nasal Cannula Oxygen Flow Rate 1 Narrative Exam Narrative: General: Middle-aged male appears older than stated age, poor hygiene, sitting in bed, sits in a tripod position (not due to shortness of breath but MS) poor insight and comprehension but appropriately interactive. HEENT: Normocephalic, atraumatic. External ears without defect. Pupils equal, round, and reactive to light. Anicteric sclerae, moist conjunctivae, and no lid lag. Poor dentition. Neck: Supple with full range of motion. No lymphadenopathy or thyromegaly. Cardiovascular: Regular rhythm, mildly tachycardic, without murmurs, rubs, or gallops appreciated. Pulmonary: Lungs continue to be tight with little air movement but slightly improved with persistent end expiratory wheezing. Mild use of accessory muscles. Abdomen: Soft, bowel sounds present, nontender, nondistended. No hep atosplenomegaly or masses appreciated. Extremities: No clubbing or cyanosis. Lower extremities flaccid secondary to multiple sclerosis. Skin: Normal temperature, turgor, and texture; no rash, ulcers, or subcutaneous nodules appreciated. Neurological: Cranial nerves grossly intact. Psychiatric: Anxious and normal affect. Appears to be alert oriented to person place and time. Objective Labs Result Diagrams: 01/29/19 11:25 01/29/19 11:25 Labs: Laboratory Results - last 24 hr 01/29/19 01/29/19 01/29/19 11:25 11:25 11:32 WBC 13.5 H RBC 5.01 Hgb 15.1 Hct 45.2 MCV 90.1 MCH 30.1 MCHC 33.4 RDW 14.3 Plt Count 148 L Neut % (Auto) 92.1 H Lymph % (Auto) 5.1 L [place] % (Auto) 2.8 L Eos % (Auto) 0.0 L Baso % (Auto) 0.0 Neut # (Auto) 81315 H Lymph # (Auto) 700 L [place] # (Auto) 400 Eos # (Auto) 0 Baso # (Auto) 0 ABG pH 7.31 L ABG pCO2 55.0 H ABG pO2 109 H ABG HCO3 28 H ABG Total CO2 29 ABG O2 Saturation 98 ABG Base Excess 1.0 FiO2 32 Sodium 137 Potassium 4.5 Chloride 99 Carbon Dioxide 29 BUN 26 H Creatinine 1.00 Estimated GFR > 60.0 BUN/Creatinine Ratio 26.0 H Glucose 121 H Calcium 9.6 Magnesium 2.0 Assessment & Plan Assessment & Plan narrative: Jose Denton is a 58-year-old male with a past medical history significant for COPD, hypertension, hypothyroidism, nicotine dependence and, multiple sclerosis who is wheelchair-bound presented to the ED due to trouble with breathing including coughing and wheezing. 1. Acute viral sepsis, present on admission. Resolved. -Patient is tachypneic (RR 32), tachycardic (HR 110), with target end-organ failure hypoxemic and hypercarbic respiratory failure and source viral upper respiratory tract infection. SOFA score 5. -Continue to treat underlying cause as below and early goal-directed therapy met with IV fluids. 2. Acute on chronic hypoxemic and hypercarbic respiratory failure, present on admission. Active. -Patient presented with severe shortness of breath, wheezing, and tachypnea. -Placed on BiPAP with current settings 18/8 and FiO2 0.35 with backup rate of 10. -Initial ABG demonstrated respiratory acidosis with metabolic compensation with pH 7.29, pCO2 68, PO2 84, HC03 33, SpO2 94% on BiPAP with FiO2 0.35. Repeat ABG today significantly improved and demonstrated respiratory acidosis with metabolic compensation with pH 7.29, pCO2 56, PO2 71, HC03 27, SpO2 92% on FiO2 0.35. -Consulted respiratory therapy for evaluation and treatment. Continue current BiPAP settings as above and periodic ABG to adjust settings. Continue duo nebs every 2-4 hours, Xopenex every 2 hours as needed for shortness of breath and wheezing, and budesonide nebs twice daily. Received racemic epinephrine nebulized x2. -Continue morphine 2-4 mg IV every 4 hours as needed for air hunger and lorazepam 0.5 mg IV every 4 hours as needed for anxiety. 3. Acute oxygen-dependent end-stage COPD exacerbation, secondary to acute rhinovirus upper respiratory tract infection, present on admission. Active. -Respiratory viral PCR positive for rhinovirus. Continue droplet precautions. -Consulted respiratory therapy for evaluation and treatment. Continue current BiPAP settings as above. Continue duo nebs every 2-4 hours, Xopenex every 2 hours as needed for shortness of breath and wheezing, and budesonide nebs twice daily. Received racemic epinephrine nebulized x2. -Continue methylprednisolone now on 60 mg IV every 12 hours. -Received azithromycin 500 mg IV x 3 doses. Due to severity of COPD which is end stage will plan to continue azithromycin 250 mg daily for anti-inflammatory effects. -Continue ranitidine 150 mg twice daily for antihistamine effect and GI prophylaxis. Continue loratadine 10 mg daily for antihistamine effect. -Received magnesium sulfate 2 g IV x1 for smooth muscle relaxant and anti- inflammatory effect. 4. Multiple sclerosis, chronic, present on admission. Stable. -Continue baclofen and hydroxyzine now that acute respiratory failure is stable. 5. Hypertension, chronic, present on admission. Stable. -restarted lisinopril 40 mg daily, metoprolol tartrate 50 mg twice daily, and nifedipine 30 mg daily due to labile blood pressures. -Received 1 L NS bolus in ED. Received another 500 cc bolus in the ICU. Discontinued IV fluids once patient adequately hydrated. 6. Cardiovascular disease, and hyperlipidemia chronic, present on admission. Stable. -Patient has a history of MS and CVA. -Continue simvastatin 20 mg daily at bedtime. 7. Hypothyroidism, chronic, present on admission. Stable. -TSH 0.02 and free T4 1.05. -Continue levothyroxine 50 mcg daily. 8. GERD, chronic, present on admission. Stable. -Continue ranitidine 150 mg twice daily. 9. Tobacco dependence, chronic, present on admission. Stable. -Continue nicotine patch as needed for nicotine withdrawal. -Plan to appliance counselor patient regarding smoking cessation. Patient is open to quitting but would like help with smoking cessation and is interested in a smoking cessation program and smoking cessation aids. Disposition: Patient likely to discharge in 1-2 days to care home facility for continued respiratory support.
[2019-01-29] MEDS: BENZOCAINE/MENTHOL 1 LOZ PKT 1 EACH PO ×2 (18:30→23:53)
[2019-01-29] MEDS: DOCUSATE 100 MG CAPSULE PO (22:02)
[2019-01-29] MEDS: LEVALBUTEROL 1.25 MG/0.5 ML NEB INH (22:03)
[2019-01-29] MEDS: NIFEdipine 30 MG TAB ER PO (23:06)
[2019-01-30] VITALS (13 sets, daily range): BP systolic 131–164; BP diastolic 84–96; PULSE 67–106; RESP 10–28; TEMP 36.2–36.8; O2SAT 92–98
[2019-01-30] MEDS: LEVALBUTEROL 1.25 MG/0.5 ML NEB INH (00:20)
[2019-01-30] MEDS: CODEINE/GUAIFENESIN LIQUID 5ML UDC 10 ML PO ×4 (00:41→17:21)
[2019-01-30] MEDS: RACEPINEPHRINE 0.5 ML NEB INH (00:41)
--- NOTE | 2019-01-30 01:21 | PC.NURSE ---
Since beginning of telemarketer, patient has been persistently coughing, small clear frothy sputum, cough is dry and hacking, breath sounds tight with diffuse long end expiratory wheezes, medicated with IV morphine and lorazepam, codeine elixer, Baclofen per prn. RT in to give neb tx. RT will start O2 trial when patient relaxes.
[2019-01-30] MEDS: MORPHINE 2 MG/ML INJ IV ×3 (01:42→20:56)
[2019-01-30] MEDS: SODIUM CHLORIDE 0.9% FLUSH 10 ML IV ×3 (01:42→22:55)
[2019-01-30] MEDS: ALBUTEROL/IPRATROPIUM 3 ML AMPUL INH ×6 (04:40→23:09)
[2019-01-30] MEDS: MORPHINE 2 MG/ML INJ 4 MG IV ×3 (04:56→14:11)
[2019-01-30] MEDS: LORazepam 2 MG/ML INJ 0.5 MG IV ×3 (04:56→17:21)
[2019-01-30] MEDS: LEVOTHYROXINE 50 MCG TABLET PO (05:48)
[2019-01-30] MEDS: BENZOCAINE/MENTHOL 1 LOZ PKT 1 EACH PO ×4 (05:49→20:56)
[2019-01-30] MEDS: BUDESONIDE 0.5 MG/2 ML NEB INH ×2 (07:50→19:59)
[2019-01-30] MEDS: HEPARIN 5,000 UNIT/ML VIAL 5000 UNIT SUBCUT ×2 (09:32→20:56)
[2019-01-30] MEDS: METOPROLOL IR 50 MG TABLET PO ×2 (09:32→20:56)
[2019-01-30] MEDS: LISINOPRIL 20 MG TABLET 40 MG PO (09:32)
[2019-01-30] MEDS: LORATADINE 10 MG TABLET PO (09:32)
[2019-01-30] MEDS: BACLOFEN 10 MG TABLET PO (09:32)
[2019-01-30] MEDS: NICOTINE 21 MG PATCH TOP (09:34)
[2019-01-30] MEDS: AZITHROMYCIN 250 MG TABLET PO (09:35)
[2019-01-30] MEDS: methylPREDNISolone 125 MG/2 ML VIAL 60 MG IV ×2 (09:35→17:20)
--- NOTE | 2019-01-30 10:36 | P.PN_ITS ---
Subjective Subjective Date Patient Seen: 01/30/19 Interval history: The patient is a 58-year-old male well known to the hospitalist team who was admitted to the hospital for sepsis, acute on chronic respiratory failure and underlying COPD. The patient continues to have significant coughing, wheezing, and hypoxemia. He was taken off his oxygen today and desaturated to 87%. He had an overnight sleep study here in the hospital which confirmed 77 desaturation events of less than 3 minutes in duration the highest 93.4% the low as 84.5%. The patient had a continuous time with a saturation of less than 88 at 5 minute. He continues to be highly symptomatic with coughing. Cough syrup appears to help somewhat. In addition he has some redness in the groins bilaterally. Exam Vital Signs (past 8 hours): - 01/30/19 04:40 01/30/19 04:56 01/30/19 07:50 Temperature 97.5 F L Pulse Rate 98 H Respiratory Rate 24 Blood Pressure 150/86 H Pulse Oximetry 95 93 94 01/30/19 08:00 Temperature 98.2 F Pulse Rate 106 H Respiratory Rate 18 Blood Pressure 164/92 H Pulse Oximetry 98 Fraction of Inspired Oxygen 30 Oxygen Delivery Method Nasal Cannula Oxygen Flow Rate 2 Narrative Exam Narrative: Ill-appearing male coughing who appears to be uncomfortable and hypoxic Lungs: Diffuse wheezing bilaterally Cardiac exam: Tachycardic regular rate and rhythm normal S1-S2 Abdomen: Soft nontender nondistended without appreciable hepatosplenomegaly Groin: Inter to Liliya Zayra with erythema in the bilateral inguinal folds Extremities no edema Objective Labs Result Diagrams: 01/29/19 11:25 01/29/19 11:25 Labs: Laboratory Results - last 24 hr 01/29/19 01/29/19 01/29/19 11:25 11:25 11:32 WBC 13.5 H RBC 5.01 Hgb 15.1 Hct 45.2 MCV 90.1 MCH 30.1 MCHC 33.4 RDW 14.3 Plt Count 148 L Neut % (Auto) 92.1 H Lymph % (Auto) 5.1 L [place] % (Auto) 2.8 L Eos % (Auto) 0.0 L Baso % (Auto) 0.0 Neut # (Auto) 96284 H Lymph # (Auto) 700 L [place] # (Auto) 400 Eos # (Auto) 0 Baso # (Auto) 0 ABG pH 7.31 L ABG pCO2 55.0 H ABG pO2 109 H ABG HCO3 28 H ABG Total CO2 29 ABG O2 Saturation 98 ABG Base Excess 1.0 FiO2 32 Sodium 137 Potassium 4.5 Chloride 99 Carbon Dioxide 29 BUN 26 H Creatinine 1.00 Estimated GFR > 60.0 BUN/Creatinine Ratio 26.0 H Glucose 121 H Calcium 9.6 Magnesium 2.0 Assessment & Plan Assessment & Plan narrative: 1. Acute on chronic respiratory failure secondary to COPD an RSV virus. Patient continues to have significant coughing, hypoxia, and wheezing. Will continue nebulizer treatment. Will increase his steroids to 60 mg IV q.8. Will add Tessalon Perles to his regimen to assist with cough. The patient did have an overnight oximetry study. It appears that he qualifies for nighttime CPAP. This will be arranged for him when he discharges. 2. Severe sepsis, secondary to RSV virus, she patient met sofa criteria, given his worsening hypoxia. His sepsis has resolved. He continues with IV hydration. 3. Intertriginous Zayra, will start him on nystatin powder 4. Hypertension, continue usual home medication 5. Hypothyroidism, continu e L-thyroxine 6. GERD, continue current treatment 7. Hyperlipidemia, continue statin 8. Nicotine dependence, will continue nicotine patch 9. Multiple sclerosis, chronic Disposition, once the patient is no longer hypoxic and no longer with significant wheezing and desaturation with coughing he will be clinically ready [place] [facility]. Will continue to [facility] for [facility] for him.
[2019-01-30] MEDS: BENZONATATE 100 MG CAPSULE PO ×2 (11:12→20:56)
[2019-01-30] MEDS: SUMAtriptan 25 MG TABLET 100 MG PO (14:11)
[2019-01-30] MEDS: NYSTATIN POWDER 30 GM 1 APPLIC TOP ×2 (14:12→20:56)
--- NOTE | 2019-01-30 15:31 | CM.DPC ---
DCP: Recieved a call from [facility] and they denied patient for admission due to smoking concerns. CM attempted to meet with patient but was unable to due to respiratory therapy treatment. Durning Am rounds Dr. Rhodes stated patient would not be medically stable and ready for d/c for at least 48 to 72 hours. Will pass on to CM department that CM needs to F/U tomorrow 01/31/2019 with other SNFs and further d/c planning options since [facility] wont accept the patient. CM will Contact Augusto From [facility] (please see other note for contact info) and inform him of d/c option once determined. Sherrie Vivar RN
--- NOTE | 2019-01-30 19:23 | PC.NURSE ---
Addendum entered by Vashti Saeed R.N. 01/30/19 21:57: 2100 - Pt moved to edge of bed to void. Significant coughing and SOB with activity. Sats decreased to 85%. Frequently removes O2 cannula, c/o nasal irritation. Pt calmly resistive to standard care ideas. Ice pack leaked on linen. Pt refused linen change. Oh that will feel good, I get hot. Attempt pericare and Nystatin application, pt unable to recline r/t work of breathing. Declines to have mesh undergarment changed. Pt declines to do self oral care, c/o dental pain. Pt is now agreeable to replace SCD's that he had refused earlier. Discussion of bowel med, pt reports hx of diarrhea and declines intervention. Last documented BM was 01/26, however pt report more recent results. Original Note: 1700 - Pt awake after dozing for a short time. Significant coughing jag began with waking. RX given for air hunger and cough. Pt not currently wearing NC. I am giving my nose a break. 88-93% on RA. Reinforced treatment plan and dx education. Pt states that he will improve if he can have a multiple nicotine patches. Offered mark for chest wall discomfort related to coughing. Pt states I will need more than 2, give me 12. Discussed Tylenol toxicity and again offered pt 2 tabs or 0. Pt declines this medication. Educated to safety and call light use. Call light in reach. Bed alarm on.
[2019-01-30] MEDS: NIFEdipine 30 MG TAB ER PO (20:56)
[2019-01-30] MEDS: DOCUSATE 100 MG CAPSULE PO (20:56)
[2019-01-31] VITALS (13 sets, daily range): BP systolic 131–160; BP diastolic 62–100; PULSE 63–86; RESP 8–30; TEMP 35.7–36.8; O2SAT 90–100
[2019-01-31] MEDS: CODEINE/GUAIFENESIN LIQUID 5ML UDC 10 ML PO ×6 (00:16→22:25)
[2019-01-31] MEDS: methylPREDNISolone 125 MG/2 ML VIAL 60 MG IV ×2 (00:16→08:55)
[2019-01-31] MEDS: BACLOFEN 10 MG TABLET PO ×3 (00:16→14:13)
[2019-01-31] MEDS: LORazepam 2 MG/ML INJ 0.5 MG IV ×3 (00:17→17:01)
[2019-01-31] MEDS: SODIUM CHLORIDE 0.9% FLUSH 10 ML IV ×4 (01:23→20:58)
[2019-01-31] MEDS: BENZOCAINE/MENTHOL 1 LOZ PKT 1 EACH PO ×4 (01:23→22:32)
[2019-01-31] MEDS: MORPHINE 2 MG/ML INJ 4 MG IV (01:23)
[2019-01-31] MEDS: ALBUTEROL/IPRATROPIUM 3 ML AMPUL INH ×5 (02:10→23:12)
[2019-01-31] MEDS: BENZONATATE 100 MG CAPSULE PO ×4 (03:39→20:57)
[2019-01-31] MEDS: LEVOTHYROXINE 50 MCG TABLET PO (05:01)
--- NOTE | 2019-01-31 06:43 | PC.NURSE ---
Patient dozed with Bi-pap on for approximately 3 hrs after morphine, Ativan, and codeine/guafen elixer given for shortness of breath and persistent cough, otherwise he is on 2L NC, SpO2 90-100%. Breath sounds diminished with long end expiratory wheezes. 2 person assist to BSC, smear stool. Remains in Droplet precautions.
[2019-01-31] MEDS: BUDESONIDE 0.5 MG/2 ML NEB INH ×2 (07:16→20:45)
[2019-01-31] MEDS: LISINOPRIL 20 MG TABLET 40 MG PO (08:04)
[2019-01-31] MEDS: HEPARIN 5,000 UNIT/ML VIAL 5000 UNIT SUBCUT ×2 (08:08→20:57)
[2019-01-31] MEDS: METOPROLOL IR 50 MG TABLET PO ×2 (08:08→20:57)
[2019-01-31] MEDS: NICOTINE 21 MG PATCH TOP (08:09)
[2019-01-31] MEDS: LORATADINE 10 MG TABLET PO (08:09)
--- NOTE | 2019-01-31 09:01 | P.PN_ITS ---
Subjective Subjective Date Patient Seen: 01/31/19 Interval history: The patient is a 58-year-old male who was admitted to the hospital for acute respiratory failure, and COPD exacerbation. The patient was able to tolerate 3 hours of BiPAP last evening. This morning he continues to have nonproductive cough. It he has had some wheezing. However despite that he has been able to be off oxygen with saturations anywhere between 86 and 92%. Patient reports some back pain. I have tried to discuss with him discharge planning. He reports he will be going to what sounds like a [facility] care [facility]. He has some concerns about whether they will have a quit med for him when he leaves per attempted to have a discussion with him about consideration of a group home facility and he was unable to discuss any further. He continues to have coughing spells. But when calm oxygenation appears improved Exam Vital Signs (past 8 hours): - 01/31/19 04:32 01/31/19 07:16 01/31/19 08:16 Temperature 96.9 F L 97.8 F Pulse Rate 68 72 85 Respiratory Rate 30 H 19 15 Blood Pressure 147/100 H 147/98 H Pulse Oximetry 95 92 99 Fraction of Inspired Oxygen 0.30 Oxygen Delivery Method Nasal Cannula Oxygen Flow Rate 0 Narrative Exam Narrative: Disheveled ill-appearing male cough short of breath Lungs: Decreased breath sounds with end-expiratory wheezing bilaterally Cardiac exam: Regular rate and rhythm normal S1-S2 Abdomen: Soft nontender nondistended, no hepatosplenomegaly Extremities: No edema Skin exam: Bruising on the abdomen from heparin injection Psychiatric: No hallucinations, no obvious delusions Objective Labs Result Diagrams: 01/29/19 11:25 01/29/19 11:25 Assessment & Plan Assessment & Plan narrative: Impression 1. Severe sepsis secondary to rhino virus infection, present on admission, now resolved. Patient developed hypercapnic hypoxic respiratory failure. This is slowly improving. His procalcitonin is normal and antibiotics have been discontinued. 2. Hypercapnic hypoxic respiratory failure, acute on chronic, overall improving. Patient is still hypoxic with O2 sats in the 86 percentile range when off oxygen. However he quickly improved to the 92 percentile range. He will need t o continue oxygen intermittently during the day. He will also need BiPAP at night. In addition would continue steroids, and inhalers, given his significant wheezing, will switch to oral prednisone today. 3. Rhino virus infection, no active treatment indicated, antibiotics discontinued 4. Multiple sclerosis, chronic 5. Hypertension, chronic, continue usual home medication 6. Hyperlipidemia, chronic, continue statin 7. Hypothyroidism, continue L-thyroxine 8. GERD, continue H2 pres[place] 9. Depression, continue Effexor 10. Nicotine dependence continue nicotine patch 11. Intertriginous Zayra. Will continue nystatin powder 12. Migraine headache Imitrex as needed as needed Plan patient likely is ready for disposition either to group home or to the senior care. He will need to continue oxygen nebulizer and steroids. He will need to be on BiPAP at night. Will attempt to discuss this again with the patient once he is ready to have the discussion.
[2019-01-31] MEDS: predniSONE 20 MG TABLET 40 MG PO (10:36)
[2019-01-31] MEDS: OXYCODONE/ACETAMINOPHEN 5/325 TABLET 1 TAB PO ×3 (10:36→22:25)
[2019-01-31] MEDS: NYSTATIN POWDER 30 GM 1 APPLIC TOP (14:15)
--- NOTE | 2019-01-31 14:49 | PC.NURSE ---
Pt continues with persistant cough that sounds bone drier than previous 2 days. He has found some benefit with use of apple cider vinegar and honey. He is AO x3 but not receptive to education regarding disease process/correction treatment goals. Intermittently using 2L NC. O2 sats 90-98% depending on activity or coughing. Pt occasionally removes O2 independently to take a break. Sats at that time range from 87-95% depending on activity. SR/ST on bedside monitor. BP improved with AM meds. Pt is using call light and waiting for assistance.
--- NOTE | 2019-01-31 15:04 | CM.DPNOTE ---
DCP Cont: Reviewed chart. Pt discussed in multidisciplinary rounds this AM. Dr Rhodes would like pt to DC to SNF if possible. [facility] has declined and Assisted Fac[facility] are most typically unable to accept a patient that will need to DC to the streets. Dr Rhodes expects pt will need ongoing inpt medical management if no SNF available. Pt has told Dr Rhodes that if [facility] can deliver a Bipap machine, they could deliver it to a local long term attached to the [facility] in [place]. This GEAR INSPECTOR met w/pt this afternoon, reviewed DCP. Pt has lost his voice so is writing and using gestures to communicate, difficult to understand pt. Pt agreeable to use Bipap upon DC. He would like this GEAR INSPECTOR to contact Father Samson w/the [facility] to ask if pt could stay at this long term (through the congregational?) that would have a plug in for pt's Bipap machine. Pt has spoken w/ Father Samson about this long term in the past but Father Samson doesn't know he is admitted at . Placed call to the [facility]'s main number P#[phone], spoke w/ someone who explained that Father Samson French is attached to the [facility] and she agreed to relay this GEAR INSPECTOR's name and contact to discuss this patient and his DC needs. Following closely for coordination of the safest DCP available to patient. CONY Fritz
[2019-01-31] MEDS: LEVALBUTEROL 1.25 MG/0.5 ML NEB INH (20:45)
[2019-01-31] MEDS: SUMAtriptan 25 MG TABLET 100 MG PO (20:58)
[2019-01-31] MEDS: NIFEdipine 30 MG TAB ER PO (20:58)
--- NOTE | 2019-01-31 21:49 | PC.NURSE ---
1730 - Pt sister called on phone. Pt gave permission to talk with her. Pt sister, Brandi, is tearful and explaining current life stessors. She is requesting that pt have a Psychological evaluation prior to discharge. Updated on current plan of care and pt status. She continues to cry and insist on pt seeing a counselor. Notified the MD would need to initiate such a referral. Pt sister requesting pt speak with MD. Number taken and request given to Dr. Rhodes. [phone] - Pt called to request assistance with the urinal. Bed linen found to be soiled. Encouraged pt to sit on commode. Pt begins with a coughing jag, Pt continues cough and talking at the same time. Guaifenisine given. Complains of being rushed, and attempting to do all care independently. Pt attempting to refuse gaitbelt and any type of assistance with transfer. Educated to safety and fall precautions. Pt coughing with a significant forward lean while sitting. Contact guard. Pt reports inability to breath, but continues to talk and complain about contact guard. what I am saying is your not helping, you are just getting in the way. Reinforced hospital policy of safety. Pt finally able to move back to the bed. Encouraging pt to scoot back further from the edge, pt increased exaggerated cough, falling back onto the bed, flailing arms all while calling out, you are making me not be able to breath. Encouraged pt to relax and slow deep breath, assist to sit up and attempt to assist to position for ease of breathing. Pt continues to talk throughout all care. Sats without O2, pt reports as Not helping, greater than 90%.
[2019-02-01] VITALS (15 sets, daily range): BP systolic 100–158; BP diastolic 46–105; PULSE 63–100; RESP 12–24; TEMP 36.3–36.9; O2SAT 90–98
[2019-02-01] MEDS: SODIUM CHLORIDE 0.9% FLUSH 10 ML IV ×3 (00:39→21:32)
[2019-02-01] MEDS: LORazepam 2 MG/ML INJ 0.5 MG IV ×2 (00:39→09:08)
[2019-02-01] MEDS: BENZOCAINE/MENTHOL 1 LOZ PKT 1 EACH PO ×2 (02:56→20:15)
[2019-02-01] MEDS: BACLOFEN 10 MG TABLET PO ×2 (02:56→16:56)
[2019-02-01] MEDS: CODEINE/GUAIFENESIN LIQUID 5ML UDC 10 ML PO ×4 (02:57→21:37)
[2019-02-01] MEDS: ALBUTEROL/IPRATROPIUM 3 ML AMPUL INH ×5 (03:26→18:49)
[2019-02-01] MEDS: OXYCODONE/ACETAMINOPHEN 5/325 TABLET 1 TAB PO ×3 (05:02→19:12)
[2019-02-01] MEDS: LEVOTHYROXINE 50 MCG TABLET PO (05:02)
[2019-02-01] MEDS: BENZONATATE 100 MG CAPSULE PO ×3 (05:03→16:56)
--- NOTE | 2019-02-01 05:40 | PC.NURSE ---
Patient wore Bi-pap for approximately 1/2 hour, then refused, on 2L NC most of night with SpO2 90-99%, will desat to 86-88% on RA only while having a coughing episode. Declined use of SCDs most of the night as well, is independent with mobility in the bed. Patient was mildly receptive to teaching about breathing techniques for chronic lung disease.
[2019-02-01] MEDS: BUDESONIDE 0.5 MG/2 ML NEB INH ×2 (07:33→18:49)
[2019-02-01] MEDS: LORATADINE 10 MG TABLET PO (09:07)
[2019-02-01] MEDS: HEPARIN 5,000 UNIT/ML VIAL 5000 UNIT SUBCUT ×2 (09:07→21:30)
[2019-02-01] MEDS: METOPROLOL IR 50 MG TABLET PO ×2 (09:07→21:31)
[2019-02-01] MEDS: LISINOPRIL 20 MG TABLET 40 MG PO (09:07)
[2019-02-01] MEDS: predniSONE 20 MG TABLET 40 MG PO (09:08)
--- NOTE | 2019-02-01 10:28 | P.DS_ITS ---
History of Present Illness History of Present Illness Date Patient Seen: 02/01/19 Chief complaint: Respiratory Distress Narrative: Jose Denton is a 58-year-old male with a past medical history significant for oxygen-dependent COPD, hypertension, hypothyroidism, nicotine dependence and, multiple sclerosis who is wheelchair-bound presented to the ED due to trouble with breathing including coughing and wheezing. In the ED, the patient received multiple nebulizer treatments, IV steroids and was placed on BiPAP. ABG performed after patient was placed on BiPAP revealed respiratory acidosis with metabolic compensation and pH 7.29, pCO2 68, PO2 84, HC03 33, SpO2 94% on BiPAP with FiO2 35%. Respiratory PCR positive for rhinovirus. Chest x- ray revealed no evidence of infiltrate. Patient was admitted to the ICU for acute hypoxemic and hypercarbic respiratory failure secondary to COPD. The patient is severely short of breath, tachypneic, lungs are tight with little air movement and diffuse wheezing, therefore, the patient's history of present illness is not obtainable. Per ER physician, Dr. Ibanez: The patient presented with increased shortness of breath that started suddenly today. Initially satting in the 80s for EMS improved slightly with DuoNeb. He continues to have conversation dyspnea. He denies any fever or productive cough[place] He denies chest pain, or heart palpitations. Discussed patient's code status in detail with his mother Leticia Denton as patient was unable to make a decision and defaulted decision to his mother and father. His mother decided to make him a limited code and allow for intubation but no CPR or defibrillation as she thinks this would be his wishes. Answered all her questions in detail. Discharge Providers Provider Date of admission: 01/27/19 11:07 Discharge Date: 02/01/19 Consults: 01/27/19 08:33 Consult to Respiratory Therapy Evaluate & Treat Comment: Physician Instructions: Evaluate and treat 01/27/19 12:30 Consult to Discharge Planning Routine Comment: 01/27/19 12:31 Consult to Respiratory Therapy Evaluate & Treat Comment: Nebs and BiPAP Physician Instructions: Evaluate and treat Discharge provider: Hannah Rhodes MD Summary Hospital Course Discharge Diagnosis: 1. Acute on chronic hypoxemic, hypercapnic, respiratory failure 2. Sepsis, secondary to rhino virus infection, present on admission 3. COPD exacerbation, O2 dependent, present on admission 4. Hypertension, chronic 5. Hypothyroidism, chronic 6. Hyperlipidemia, chronic 7. Multiple sclerosis, chronic 8. History of CVA 9. Nicotine dependence 10. Alcohol dependence 11. Homeless Hospital Course: The patient is a 58-year-old male with a history of chronic respiratory failure on O2 secondary to COPD who presented to the hospital with acute respiratory failure. Patient was found to have rhino virus infection. He had significant wheezing and cough. He required extensive treatment to include BiPAP, nebulizers, oxygen, steroids and antibiotics. Patient's procalcitonin came back normal and there was no evidence of bacterial infection. The is a 3 mycin was discontinued after 4 days. The patient was seen by respiratory therapy. He had an overnight sleep study which did revealed desaturation qualifying him for BiPAP at home. The patient is continued to have significant wheezing and shortness of breath but overall it improved by day 5 of his hospitalization. The patient was deemed ready for discharge. There was a long discussion with the patient regarding transfer to a long term facility. Unfortunately there were no long term facilities that would accept the patient. He had made arrangements with the [facility]. They agreed to allow him to live at a senior living next to the [facility]. They would allow him to plug in his CPAP/BiPAP machine. In addition he would continue to utilize oxygen. The [employer] oxygen company agreed to deliver the oxygen to the [facility] for the patient. He continued to have some coughing spasms. However his wheezing had improved. His oxygenation had improved. He had O2 sats of 88-90% on room air. His oxygen saturation decreases with coughing spasm. Patient's sister called and express concern regarding his decisional capacity. She specifically reques krissy a psychiatric evaluation having concern for an underlying personality and or psychiatric disorder. I discussed this with the patient who refused to have a psychiatric evaluation. The patient medically was deemed to be appropriate for discharge. Arrangements have been made by case management to discharge him to the senior living with oxygen and BiPAP as above. Status at Discharge Cognitive/behavioral status at discharge: oriented Functional status at discharge: wheelchair bound Overall status at discharge: patient is progressing back to baseline Time Spent with Patient Time spent: Less than 30 minutes Time spent discussing smoking cessation with patient: 3 to 10 minutes Exam Vital Signs (past 8 hours): - 02/01/19 03:26 02/01/19 04:35 02/01/19 07:33 Temperature 98.3 F Pulse Rate 64 91 H 71 Respiratory Rate 15 15 12 Blood Pressure 100/46 L Pulse Oximetry 91 93 96 02/01/19 07:57 Temperature 98.4 F Pulse Rate 98 H Respiratory Rate 20 Blood Pressure 140/98 H Pulse Oximetry 93 Fraction of Inspired Oxygen 40 Oxygen Delivery Method Nasal Cannula Oxygen Flow Rate 2 Narrative Exam Narrative: 58-year-old male sitting in bed eating breakfast. It he does developed episodic coughing Lungs: Decreased breath sounds but improved airway movement. Decreased wheezing today. Cardiac exam: Regular rate and rhythm normal S1-S2 Abdomen: Soft nontender nondistended Extremities: Trace edema bilaterally Objective Labs Result Diagrams: 01/29/19 11:25 01/29/19 11:25 Discharge Plan Discharge Plan Patient Disposition: Home Discharge Med Rec/Prescriptions Prescriptions: New codeine-guaifenesin 10-100 mg/5 mL Liquid 10 ml PO Q4H PRN (Reason: Cough) 7 Days RF: 0 nystatin [Nystop] 100,000 unit/gram Powder 1 applic topical TID PRN (Reason: Rash) 7 Days RF: 0 budesonide [Pulmicort] 0.5 mg/2 mL Suspension For Nebulization 0.5 mg INH RTBID 30 Days RF: 0 benzonatate 100 mg Capsule 100 mg PO TID PRN (Reason: Cough) Qty: 7 RF: 0 prednisone 20 mg Tablet 40 mg PO DAILY 4 Days RF: 0 Continued hydroxyzine HCl 25 mg Tablet 25 mg PO QID PRN (Reason: Spasms) RF: 0 levothyroxine 50 mcg Capsule 50 mcg PO DAILY RF: 0 baclofen 20 MG tablet 1 tab PO Q8H PRN (Reason: Muscle Spasm) RF: 0 albuterol sulfate 2.5 MG/3 ML solution for nebulization 3 ml INH Q6HP PRN (Reason: Shortness Of Breath Or Wheezing) RF: 0 simvastatin 20 mg Tablet 20 mg PO QPM RF: 0 metoprolol tartrate 50 mg Tablet 50 mg PO BID RF: 0 naproxen 500 mg tablet 500 mg PO BID PRN (Reason: pain) Qty: 30 RF: 0 venlafaxine 75 mg capsule,extended release 24hr 75 mg PO DAILY RF: 0 nifedipine 30 mg tablet extended release 30 mg PO DAILY RF: 0 ranitidine HCl 300 mg capsule 300 mg PO DAILY RF: 0 omeprazole 20 mg capsule,delayed release(DR/EC) 20 mg PO DAILY RF: 0 lisinopril 40 mg tablet 40 mg PO DAILY RF: 0 sumatriptan succinate [Imitrex] 100 mg Tablet 100 mg PO DAILY PRN (Reason: Headache) RF: 0 Provider Discharge Instructions Diet: Diet as Tolerated, Low-fat and Low-sodium Activity: aS tolerated Oxygen: Continue 2 L of oxygen Other treatments: Bipap at night
[2019-02-01 12:03] LABS: Add Manual Diff / Slide Review NO; Basophils Absolute Auto 0 /uL (0-100); Basophils Percent Auto 0.1 % (0-2); Eosinophils Absolute Auto 0 /uL (0-450); Eosinophils Percent Auto 0.4 % (2-4); Hematocrit 45.2 % (41-53); Hemoglobin 15.3 g/dL (13.5-17.5); Lymphocytes Absolute Auto 1700 /uL (1100-4500); Lymphocytes Percent Auto 15.2 % (25-40); Mean Corpuscular HGB Conc 33.8 % (30-36); Mean Corpuscular Hemoglobin 30.1 PG (26-34); Monocytes Absolute Auto 1400 /uL (0-900); Monocytes Percent Auto 12.4 % (3-14); Neutrophils Absolute Auto 8000 /uL (1500-7000); Neutrophils Percent Auto 71.9 % (50-75); Platelet Count 148 X10^3/uL (150-400); Red Blood Cell Count 5.08 X10^6/uL (4.5-5.9); Red Cell Distribution Width 13.6 % (11.6-14.8); White Blood Cell Count 11.1 X10^3/uL (4.5-11.0)
[2019-02-01 12:11] LABS: BUN Creatinine Ratio 26.4 (6-22); Blood Urea Nitrogen 29 mg/dL (9-20); Calcium 9.4 mg/dL (8.4-10.2); Carbon Dioxide 34 mmol/L (22-32); Chloride 94 mmol/L (98-107); Estimated Glomerular Filt Rate > 60.0 mL/min (>60); Glucose 112 mg/dL (70-100); HEMOLYSIS < 15 (0-50); Potassium 4.4 mmol/L (3.4-5.1); Sodium 133 mmol/L (137-145)
[2019-02-01] MEDS: NICOTINE 21 MG PATCH TOP (14:50)
[2019-02-01] MEDS: SUMAtriptan 25 MG TABLET 100 MG PO (16:56)
[2019-02-01] MEDS: DOCUSATE 100 MG CAPSULE PO (21:30)
[2019-02-01] MEDS: NIFEdipine 30 MG TAB ER PO (21:31)
--- NOTE | 2019-02-01 22:03 | PC.NURSE ---
jemma note pt able to transfer self from chair to bed. Pt has tight wheezy lungs and frequent coughing episodes. Pt c/o migraine headache. Medicated with Imitrex and Percocet.
[2019-02-01] MEDS: LEVALBUTEROL 1.25 MG/0.5 ML NEB INH (22:17)
[2019-02-02] VITALS (9 sets, daily range): BP systolic 137–168; BP diastolic 93–123; PULSE 67–101; RESP 14–24; TEMP 35.8–36.7; O2SAT 89–96
[2019-02-02] MEDS: BENZOCAINE/MENTHOL 1 LOZ PKT 1 EACH PO ×3 (00:19→14:05)
[2019-02-02] MEDS: BACLOFEN 10 MG TABLET PO ×3 (00:19→14:05)
--- NOTE | 2019-02-02 00:39 | PC.NURSE ---
Pt asked for Baclofen and throat lozenge, I brought both; the Baclofen in a paper cup, and the lozenge in a plastic cup. He immediately threw the lozenge to the back of his mouth and grabbed the H2O to swallow it, and I warned him it was the lozenge he was swallowing not the pill. He then switched it around and swallowed the pill and showed me the reji. between his teeth. I then tried to clean his overbed table and was told he needed all the spoons as nothing can go out of the room. I am to ask day shift not to bring his meals until he is ready as he doesn't like to eat at normal times, and he won't eat cold food.
[2019-02-02] MEDS: BENZONATATE 100 MG CAPSULE PO ×3 (02:43→14:04)
[2019-02-02] MEDS: ALBUTEROL/IPRATROPIUM 3 ML AMPUL INH ×3 (02:53→11:17)
[2019-02-02] MEDS: CODEINE/GUAIFENESIN LIQUID 5ML UDC 10 ML PO ×2 (04:04→14:04)
[2019-02-02] MEDS: OXYCODONE/ACETAMINOPHEN 5/325 TABLET 1 TAB PO ×2 (06:09→14:05)
[2019-02-02] MEDS: LEVOTHYROXINE 50 MCG TABLET PO (06:13)
[2019-02-02] MEDS: BUDESONIDE 0.5 MG/2 ML NEB INH (06:55)
[2019-02-02] MEDS: HEPARIN 5,000 UNIT/ML VIAL 5000 UNIT SUBCUT (08:46)
[2019-02-02] MEDS: DOCUSATE 100 MG CAPSULE PO (08:47)
[2019-02-02] MEDS: predniSONE 20 MG TABLET 40 MG PO (08:47)
[2019-02-02] MEDS: METOPROLOL IR 50 MG TABLET PO (08:47)
[2019-02-02] MEDS: LISINOPRIL 20 MG TABLET 40 MG PO (08:47)
[2019-02-02] MEDS: LORazepam 2 MG/ML INJ 0.5 MG IV (08:47)
[2019-02-02] MEDS: LORATADINE 10 MG TABLET PO (08:47)
[2019-02-02] MEDS: SODIUM CHLORIDE 0.9% FLUSH 10 ML IV (09:01)
[2019-02-02] MEDS: NICOTINE 21 MG PATCH TOP (09:10)
--- NOTE | 2019-02-02 10:08 | PM.DS.1 ---
History of Present Illness History of Present Illness Chief complaint: Respiratory Distress Narrative: Written by myself Dr. Roca: Jose Denton is a 58-year-old male with a past medical history significant for oxygen-dependent COPD, hypertension, hypothyroidism, nicotine dependence and, multiple sclerosis who is wheelchair-bound presented to the ED due to trouble with breathing including coughing and wheezing. In the ED, the patient received multiple nebulizer treatments, IV steroids and was placed on BiPAP. ABG performed after patient was placed on BiPAP revealed respiratory acidosis with metabolic compensation and pH 7.29, pCO2 68, PO2 84, HC03 33, SpO2 94% on BiPAP with FiO2 35%. Respiratory PCR positive for rhinovirus. Chest x-ray revealed no evidence of infiltrate. Patient was admitted to the ICU for acute hypoxemic and hypercarbic respiratory failure secondary to COPD. The patient is severely short of breath, tachypneic, lungs are tight with little air movement and diffuse wheezing, therefore, the patient's history of present illness is not obtainable. Per ER physician, Dr. Ibanez: The patient presented with increased shortness of breath that started suddenly today. Initially satting in the 80s for EMS improved slightly with DuoNeb. He continues to have conversation dyspnea. He denies any fever or productive cough[place] He denies chest pain, or heart palpitations. Discussed patient's code status in detail with his mother Leticia Denton as patient was unable to make a decision and defaulted decision to his mother and father. His mother decided to make him a limited code and allow for intubation but no CPR or defibrillation as she thinks this would be his wishes. Answered all her questions in detail. Discharge Providers Provider Date of admission: 01/27/19 11:07 Consults: 01/27/19 08:33 Consult to Respiratory Therapy Evaluate & Treat Comment: Physician Instructions: Evaluate and treat 01/27/19 12:30 Consult to Discharge Planning Routine Comment: 01/27/19 12:31 Consult to Respiratory Therapy Evaluate & Treat Comment: Nebs and BiPAP Physician Instructions: Evaluate and treat Discharge provider: Denisse Roca DO Exam Vital Signs (past 8 hours): - 02/02/19 02:53 02/02/19 03:04 02/02/19 06:56 Temperature 97.9 F Pulse Rate 101 H 79 81 Respiratory Rate 24 18 20 Blood Pressure 164/96 H Pulse Oximetry 90 L 93 96 02/02/19 09:00 02/02/19 09:16 Temperature 98.1 F Pulse Rate 94 H 92 H Respiratory Rate 20 23 Blood Pressure 152/93 H 152/93 H Pulse Oximetry 92 91 Fraction of Inspired Oxygen 40 Oxygen Delivery Method Nasal Cannula Oxygen Flow Rate 2 Objective Labs Result Diagrams: 02/01/19 11:30 02/01/19 11:30 Labs: Laboratory Results - last 24 hr 02/01/19 02/01/19 11:30 11:30 WBC 11.1 H RBC 5.08 Hgb 15.3 Hct 45.2 MCV 89.0 MCH 30.1 MCHC 33.8 RDW 13.6 Plt Count 148 L Neut % (Auto) 71.9 Lymph % (Auto) 15.2 L [place] % (Auto) 12.4 Eos % (Auto) 0.4 L Baso % (Auto) 0.1 Neut # (Auto) 8000 H Lymph # (Auto) 1700 [place] # (Auto) 1400 H Eos # (Auto) 0 Baso # (Auto) 0 Sodium 133 L Potassium 4.4 Chloride 94 L Carbon Dioxide 34 H BUN 29 H Creatinine 1.10 Estimated GFR > 60.0 BUN/Creatinine Ratio 26.4 H Glucose 112 H Calcium 9.4 Discharge Plan Discharge Plan Patient Disposition: Home Discharge comment: You are being discharged home. Due to your living situation there is no way to provide you with oxygen during the day or a breathing machine called BiPAP for night or napping. If you living situation should change, please go to your primary care physician immediately to have an oxygen company provide you with both oxygen and the breathing machine called BiPAP. You have end stage COPD and it is advised that you to quit smoking immediately as the life expectancy with your disease is weeks to months. Discharge Med Rec/Prescriptions Prescriptions: New prednisone 20 mg Tablet 40 mg PO DAILY 4 Days RF: 0 benzonatate 100 mg Capsule 100 mg PO TID PRN (Reason: Cough) Qty: 7 RF: 0 budesonide [Pulmicort] 0.5 mg/2 mL Suspension For Nebulization 0.5 mg INH RTBID 30 Days RF: 0 codeine-guaifenesin 10-100 mg/5 mL Liquid 10 ml PO Q4H PRN (Reason: Cough) 7 Days RF: 0 nystatin [Nystop] 100,000 unit/gram Powder 1 applic topical TID PRN (Reason: Rash) 7 Days RF: 0 Continued hydroxyzine HCl 25 mg Tablet 25 mg PO QID PRN (Reason: Spasms) RF: 0 levothyroxine 50 mcg Capsule 50 mcg PO DAILY RF: 0 baclofen 20 MG tablet 1 tab PO Q8H PRN (Reason: Muscle Spasm) RF: 0 albuterol sulfate 2.5 MG/3 ML solution for nebulization 3 ml INH Q6HP PRN (Reason: Shortness Of Breath Or Wheezing) RF: 0 simvastatin 20 mg Tablet 20 mg PO QPM RF: 0 metoprolol tartrate 50 mg Tablet 50 mg PO BID RF: 0 naproxen 500 mg tablet 500 mg PO BID PRN (Reason: pain) Qty: 30 RF: 0 venlafaxine 75 mg capsule,extended release 24hr 75 mg PO DAILY RF: 0 nifedipine 30 mg tablet extended release 30 mg PO DAILY RF: 0 ranitidine HCl 300 mg capsule 300 mg PO DAILY RF: 0 omeprazole 20 mg capsule,delayed release(DR/EC) 20 mg PO DAILY RF: 0 lisinopril 40 mg tablet 40 mg PO DAILY RF: 0 sumatriptan succinate [Imitrex] 100 mg Tablet 100 mg PO DAILY PRN (Reason: Headache) RF: 0 Provider Discharge Instructions Diet: Diet as Tolerated, Low-fat, Low-sodium and Low-cholesterol Activity: Activity as tolerated Oxygen: Continue 2 L of oxygen Other treatments: BiPAP at night and while napping Visit Report/Discharge Packet Visit Report Forms: Patient Portal/API, Stroke Signs & Symptoms
--- NOTE | 2019-02-02 15:20 | CM.DPNOTE ---
DC Note: DC order for home placed by Dr Rhodes yesterday. This MICROBIOLOGY LAB ANALYST contacted Father Samson French yesterday at P# [phone], discussed pt's DCP w/Father Samson.. w/pt's permission. According to our conversation yesterday: Father Samson has been attempting to assist pt the best he can but he can not offer any half-way for pt upon DC nor can he offer a reliable option for pt to plug in his compressor or Bipap machine at night. There is Day Program for disabled folks to spend the day w/a few caregivers (?) but this is a private cost for families that need day time respite for their loved ones. Pt has been staying overnight in a carport that is on the [facility]. Father Samson updates this MICROBIOLOGY LAB ANALYST that the cold weather half-way through the [employer] will not be open this year and so he is fearful for pt's safety upon DC. Updated Dr Rhodes yesterday that pt did not have a half-way available to him and/or any location with the cabaility to plug in any device. DC order cancelled. Today 02.02.19, pt was discussed in multidisciplinary rounds; this MICROBIOLOGY LAB ANALYST, VENKATESH Frey and Dr Roca aware of and discussed the difficulties of discharging pt to the streets w/a very compromised respiratory system although with facility, half-way and housing resources very limited, nothing could be secured for pt at this time. DC order by Dr Roca. This MICROBIOLOGY LAB ANALYST placed call to Father Samson to update on DC today, back to the streets since no facility or half-way can be secured that could accommodate pt. According to Dr Roca; she explained to pt today that she had spoken w/family members that were willing to house pt and he declined, in no uncertain terms. Father Samson reiterates his concern for pt's safety upon DC although is willing to meet pt at the [facility] this afternoon if Merts can take him there, pt's electric w/c [place]. Pt can then take the bus for transportation. Updated SHANTAL Robbins and Dakota arranged for p/u this afternoon, taxi voucher completed and signed by this MICROBIOLOGY LAB ANALYST. Then picked up call from pt's sister Brandi who discussed her concerns about pt's DC. Brandi is tearful and this MICROBIOLOGY LAB ANALYST and she discussed termination clerk care/ assisted living options through Medicaid/[employer] program if pt were agreeable. This MICROBIOLOGY LAB ANALYST needed to move on d/t caseload demands; encouraged Brandi to connect w/ Father Samson because a [employer] application has already been faxed on pt's behalf. P: Pt homeless and as such went back to living on the streets, and electric w/c. Outpt f/u (?) although in review of notes no PCP listed. May work on this upon pt's next admission. CONY Fritz
--- NOTE | 2019-02-02 15:23 | PC.NURSE ---
discharged from hospital at this time- he had no c/o anything but chronic cough until d/c plan in action- he had many excuses and took so long to prepare- we assisted him as able and wheeled him to ED entryway via w/c as [employer] will transport to [facility] where his motorized wheelchair is- his ring rolling machine operator, FATHER ALISSA will meet him there and assist him to get his scooter- discharged from hospital at this time
== END 2019-02-02 15:26 | disposition home or self-care (01) | DRG 871 ==
LOC: ED 10:12 → AC 11:08 → ICU 12:14
PROVIDERS: Internal Medicine; Nurse Practitioner Gerontology; Admitting Provider Internal Medicine; Emergency Provider Emergency Medicine; Visit Provider Internal Medicine
DX: A41.89 Other specified sepsis (principal); J96.21 Acute and chronic respiratory failure with hypoxia; J96.22 Acute and chronic respiratory failure with hypercapnia; J44.1 Chronic obstructive pulmonary disease with (acute) exacerbation; B97.89 Other viral agents as the cause of diseases classified elsewhere; R65.20 Severe sepsis without septic shock; Z99.81 Dependence on supplemental oxygen; G35 Multiple sclerosis; F17.210 Nicotine dependence, cigarettes, uncomplicated; I10 Essential (primary) hypertension; E03.9 Hypothyroidism, unspecified; B37.2 Candidiasis of skin and nail; K21.9 Gastro-esophageal reflux disease without esophagitis; Z99.3 Dependence on wheelchair; Z59.0 Homelessness
CPT/HCPCS: 36415; 36600; 71045; 80048; 80053; 82550; 82805; 83605; 83735; 83880; 84145; 84439; 84443; 84484; 85025; 85610; 85730; 87040; 87633; 87797; 93005; 93010; 94640; 94660; 94760; 96361; 96365; 96375; 99285; 99291; C9113; J1644; J2060; J2270; J2930; J7613; J7614

== ENCOUNTER 2019-11-11 13:31 | Emergency (ER) | payer MEDICARE, MEDICAID, SELFPAY ==
[2019-01-28 10:46] VITALS: BMI 27.8
[2019-01-31 23:17] VITALS: PULSE 86; RESP 20; O2SAT 100
[2019-11-11] VITALS (12 sets, daily range): BP systolic 98–128; BP diastolic 60–99; PULSE 88–123; RESP 17–39; O2SAT 91–100
--- NOTE | 2019-11-11 13:37 | DI.RAD.S_ITS ---
PROCEDURE: XR CHEST 1V INDICATIONS: sob TECHNIQUE: One view of the chest was acquired. COMPARISON: [facility], CR, XR CHEST 1 VIEW, 10/26/2019, 9:26. FINDINGS: Surgical changes and devices: None. Lungs and pleura: There may be mild pulmonary hyperexpansion. No large effusion or pneumothorax is evident. There may be trace right-sided pleural effusion. Mild scarring within the lung apices may be present. Mediastinum: Mediastinal contours appear normal. Heart size is normal. Bones and chest wall: No suspicious bony lesions. Overlying soft tissues appear unremarkable. IMPRESSION: No acute cardiopulmonary process is evident. Dictated by: Juan Saenz M.D. on 11/11/2019 at 13:26 Approved by: Juan Saenz M.D. on 11/11/2019 at 13:26
[2019-11-11] MEDS: ALBUTEROL HFA 60 PUFF/8 GM INH INH (14:00)
[2019-11-11 14:01] LABS: Add Manual Diff / Slide Review NO; Basophils Absolute Auto 100 /uL (0-100); Basophils Percent Auto 0.9 % (0-2); Eosinophils Absolute Auto 400 /uL (0-450); Hematocrit 36.2 % (41-53); Hemoglobin 11.8 g/dL (13.5-17.5); Lymphocytes Absolute Auto 1200 /uL (1100-4500); Lymphocytes Percent Auto 11.5 % (25-40); Mean Corpuscular HGB Conc 32.5 % (30-36); Mean Corpuscular Hemoglobin 27.7 PG (26-34); Mean Corpuscular Volume 85.2 fL (80-100); Monocytes Absolute Auto 700 /uL (0-900); Monocytes Percent Auto 7.1 % (3-14); Neutrophils Absolute Auto 7800 /uL (1500-7000); Neutrophils Percent Auto 76.5 % (50-75); Platelet Count 219 X10^3/uL (150-400); Red Blood Cell Count 4.25 X10^6/uL (4.5-5.9); Red Cell Distribution Width 16.1 % (11.6-14.8); White Blood Cell Count 10.2 X10^3/uL (4.5-11.0)
--- NOTE | 2019-11-11 14:01 | ED_ITS ---
HPI - SOB/Dyspnea General Chief Complaint: Shortness of Breath/Dyspnea Stated Complaint: SOB Time Seen by Provider: 11/11/19 13:35 Source: patient and EMS Mode of arrival: EMS History of Present Illness HPI Narrative: Patient is a 58-year-old male with history of COPD CVA and recent CO presenting with increasing shortness of breath. He apparently was at [facility] for few weeks and discharged yesterday. He said this started suddenly as he was moving. He did not have access to his inhaler and call 911. He denies any fever however he said he was sweating just prior to arrival. He recently had a COVID-19 test while in the hospital which was negative. He unfortunately is out of his albuterol inhaler and medications she has not been able to make it to the pharmacy thing is that he was just discharged yesterday. MD Complaint: shortness of breath and cough Severity: moderate Consistency/Duration: constant Related Data Home Medications Medication Instructions Recorded Confirmed albuterol sulfate 3 ml INH Q6HP PRN 01/15/18 01/27/19 baclofen 1 tab PO Q8H PRN 01/15/18 01/27/19 hydroxyzine HCl 25 mg PO QID PRN 01/15/18 01/27/19 levothyroxine 50 mcg PO DAILY 01/15/18 01/27/19 metoprolol tartrate 50 mg PO BID 01/15/18 01/27/19 simvastatin 20 mg PO QPM 01/15/18 01/27/19 lisinopril 40 mg PO DAILY 07/17/18 01/27/19 nifedipine 30 mg PO DAILY 07/17/18 01/27/19 omeprazole 20 mg PO DAILY 07/17/18 01/27/19 ranitidine HCl 300 mg PO DAILY 07/17/18 01/27/19 sumatriptan succinate [Imitrex] 100 mg PO DAILY PRN 07/17/18 01/27/19 venlafaxine 75 mg PO DAILY 07/17/18 01/27/19 Previous Rx's Medication Instructions Recorded naproxen 500 mg PO BID PRN #30 tab 02/05/18 benzonatate 100 mg PO TID PRN #7 cap 02/01/19 benzocaine-menthol [Cepacol Sore 1 lozenge MM Q2-4H PRN #384 each 02/02/19 Throat (nereyda-men)] nicotine 1 patch TRANSDERMAL DAILY #28 each 02/02/19 prednisone 50 mg PO DAILY #5 tab 11/11/19 Allergies Allergy/AdvReac Type Severity Reaction Status Date / Time aspirin [ASPIRIN] Allergy Severe stomach Verified 01/11/19 20:52 ulcers squash Allergy Verified 01/28/19 22:03 hydrocodone [HYDROCODONE] AdvReac Intermediate hurts Verified 01/11/19 20:52 stomach Review of Systems Review of Systems Narrative: GENERAL: Denies chills, fatigue, malaise, fever, sweats, travel HEENT: Denies sinus pain, ear pain, sore throat, difficulty swallowing, neck pain RESPIRATORY: See HPI CARDIOVASCULAR: Recent hospitalization see HPI GASTROINTESTINAL: Denies nausea, vomiting, abdominal pain, diarrhea, constipation, melena. : Denies dysuria, frequency, incontinence, hematuria, urinary retention, flank pain. MUSCULOSKELETAL: Denies weakness, joint pain, or bony pain SKIN: No rash, no erythema, no pruritus NEUROLOGIC:+ headache Denies weakness, dizziness, numbness, change in speech, confusion PSYCHIATRIC: No concerning psychosocial issues. 12 point review of systems is negative except for those stated above and HPI Patient History Medical History Cigarette nicotine dependence (Chronic) COPD (chronic obstructive pulmonary disease) (Chronic) CVA (cerebral vascular accident) (Chronic) History of CO (myocardial infarction) (Chronic) Hyperlipidemia (Chronic) Hypertension (Chronic) Hypothyroidism (Chronic) Multiple sclerosis (Chronic) Family History Mother Hypertension Diabetes mellitus Sister Pacemaker Social History household members: none Smoking Status: Current some day smoker alcohol intake: current Smoking Status: Current some day smoker alcohol intake frequency: a few times a month Substance Use Type: does not use Exam Initial Vital Signs Initial Vital Signs: Vital Signs Pulse Rate 123 H 11/11/19 13:39 Respiratory Rate 39 H 11/11/19 13:39 Pulse Oximetry 91 11/11/19 13:39 GENERAL: Moderate respiratory distress and in no acute distress. HEENT: Head atraumatic,EOMI, pupils reactive, face symmetric, moist mucous membranes CARDIOVASCULAR: Regular rate and rhythm without murmurs, rubs or gallops. RESPIRATORY: Try potting but speaking in full sentences without difficulty decreased breath sounds bilaterally no wheezes rales or rhonchi ABDOMEN: Soft, nontender. Normoactive bowel sounds all 4 quadrants. No guarding or rebound. EXTREMITIES: Normal range of motion, no clubbing or edema. Neurovascularly intact NEUROLOGICAL: Alert and oriented x4. Nonambulatory but moving both arms at baseline SKIN: Warm, dry, no laceration, no petechiae, no rashes or lesions. Course Orders Ordered: ED Orders 11/11/19 13:36 Consult to Respiratory Therapy Evaluate & Treat 11/11/19 13:37 XR chest 1V Stat 11/11/19 13:56 Complete Blood Count AUTO DIFF Stat Comprehensive Metabolic Panel Stat Magnesium Stat Partial Thromboplastin Time Stat Prothrombin Time INR Stat Troponin & CK Cardiac Panel Stat 11/11/19 13:57 EKG-12 Lead Stat 11/11/19 14:13 NT-proBNP (BNP-Adult 18+) Stat 11/11/19 17:20 Troponin I Stat Discontinued Medications Albuterol (Ventolin Hfa) 2 puff INH NOW ONE Stop: 11/11/19 13:37 Last Admin: 11/11/19 14:00 Dose: 2 puff Documented by: FELICITAS Albuterol (Ventolin) 2.5 mg INH [id number] PRN PRN Reason: Shortness Of Breath Last Admin: 11/11/19 15:55 Dose: 2.5 mg Documented by: FELICITAS Albuterol/Ipratropium (Combivent Respimat) 2 puff INH NOW ONE Stop: 11/11/19 13:35 Last Admin: 11/11/19 14:27 Dose: 2 puff Documented by: FELICITAS Methylprednisolone (Solu-Medrol 125 Mg Vial) 125 mg IV NOW ONE Stop: 11/11/19 13:37 Last Admin: 11/11/19 14:16 Dose: 125 mg Documented by: MITA Methylprednisolone (Solu-Medrol 125 Mg Vial) 125 mg IV NOW ONE Stop: 11/11/19 14:06 Last Admin: 11/11/19 14:43 Dose: Not Given Documented by: MITA Sumatriptan Succinate (Imitrex) 6 mg SUBCUT NOW ONE Stop: 11/11/19 16:16 Last Admin: 11/11/19 16:22 Dose: 6 mg Documented by: MITA Vital Signs Vital signs: Vital Signs - 8 hr 11/11/19 13:39 11/11/19 13:57 11/11/19 14:00 Pulse Rate 123 H 105 H 104 H Respiratory Rate 39 H 35 H 17 Blood Pressure 128/99 H Pulse Oximetry 91 92 99 11/11/19 14:15 11/11/19 14:20 11/11/19 14:30 Pulse Rate 108 H 105 H 109 H Respiratory Rate 30 H 30 H Blood Pressure 99/63 98/66 Pulse Oximetry 92 98 97 11/11/19 15:00 11/11/19 15:30 11/11/19 15:58 Pulse Rate 104 H 91 H Respiratory Rate 30 H 22 Blood Pressure 99/70 112/68 Pulse Oximetry 93 97 11/11/19 16:01 11/11/19 17:15 11/11/19 18:00 Pulse Rate 88 95 H 98 H Respiratory Rate 22 28 H 30 H Blood Pressure 103/60 108/76 102/71 Pulse Oximetry 100 95 96 MDM - SOB/Dyspnea Lab Data Attestation: I reviewed the patient's lab results. Result diagrams: 11/11/19 13:56 11/11/19 13:56 Labs: Lab Results 11/11/19 11/11/19 11/11/19 Range/Units 13:35 13:56 13:56 WBC 10.2 (4.5-11.0) X10^3/uL RBC 4.25 L (4.5-5.9) X10^6/uL Hgb 11.8 L (13.5-17.5) g/dL Hct 36.2 L (41-53) % MCV 85.2 (80-100) fL MCH 27.7 (26-34) PG MCHC 32.5 (30-36) % RDW 16.1 H (11.6-14.8) % Plt Count 219 (150-400) X10^3/uL Neut % (Auto) 76.5 H (50-75) % Lymph % (Auto) 11.5 L (25-40) % Lane % (Auto) 7.1 (3-14) % Eos % (Auto) 4.0 (2-4) % Baso % (Auto) 0.9 (0-2) % Neut # (Auto) 7800 H (7180-8384) /uL Lymph # (Auto) 1200 (7540-2254) /uL Lane # (Auto) 700 (0-900) /uL Eos # (Auto) 400 (0-450) /uL Baso # (Auto) 100 (0-100) /uL PT 11.4 (10.1-12.7) SECONDS INR 1.0 (0.9-1.3) APTT 29 (26.4-36.2) SECONDS Sodium (137-145) mmol/L Potassium (3.4-5.1) mmol/L Chloride (98-107) mmol/L Carbon Dioxide (22-32) mmol/L BUN (9-20) mg/dL Creatinine (0.66-1.25) mg/dL Estimated GFR (>60) mL/min BUN/Creatinine Ratio (6-22) Glucose (70-100) mg/dL Calcium (8.4-10.2) mg/dL Magnesium (1.6-2.3) mg/dL Total Bilirubin (0.2-1.3) mg/dL AST (17-59) IU/L ALT (<50) IU/L Alkaline Phosphatase (38-126) U/L Total Creatine Kinase (55-170) U/L CK-MB (CK-2) CK-MB (CK-2) Rel Index Troponin I (0.01-0.034) ng/mL NT-Pro-B Natriuret Pep (<125) pg/mL Total Protein (6.3-8.2) g/dL Albumin (3.5-5.0) g/dL Globulin (1.7-4.1) g/dL Albumin/Globulin Ratio (1.0-2.8) COVID-19 PCR Negative (Negative) 11/11/19 11/11/19 11/11/19 Range/Units 13:56 13:56 14:13 WBC (4.5-11.0) X10^3/uL RBC (4.5-5.9) X10^6/uL Hgb (13.5-17.5) g/dL Hct (41-53) % MCV (80-100) fL MCH (26-34) PG MCHC (30-36) % RDW (11.6-14.8) % Plt Count (150-400) X10^3/uL Neut % (Auto) (50-75) % Lymph % (Auto) (25-40) % Lane % (Auto) (3-14) % Eos % (Auto) (2-4) % Baso % (Auto) (0-2) % Neut # (Auto) (9016-0341) /uL Lymph # (Auto) (0906-0439) /uL Lane # (Auto) (0-900) /uL Eos # (Auto) (0-450) /uL Baso # (Auto) (0-100) /uL PT (10.1-12.7) SECONDS INR (0.9-1.3) APTT (26.4-36.2) SECONDS Sodium 134 L (137-145) mmol/L Potassium 4.6 (3.4-5.1) mmol/L Chloride 99 (98-107) mmol/L Carbon Dioxide 31 (22-32) mmol/L BUN 12 (9-20) mg/dL Creatinine 0.96 (0.66-1.25) mg/dL Estimated GFR > 60.0 (>60) mL/min BUN/Creatinine Ratio 12.5 (6-22) Glucose 99 (70-100) mg/dL Calcium 9.0 (8.4-10.2) mg/dL Magnesium 1.5 L (1.6-2.3) mg/dL Total Bilirubin 1.2 (0.2-1.3) mg/dL AST 41 (17-59) IU/L ALT 38 (<50) IU/L Alkaline Phosphatase 73 (38-126) U/L Total Creatine Kinase 46 L (55-170) U/L CK-MB (CK-2) TNP CK-MB (CK-2) Rel Index TNP Troponin I 0.060 H (0.01-0.034) ng/mL NT-Pro-B Natriuret Pep 1480 H (<125) pg/mL Total Protein 6.1 L (6.3-8.2) g/dL Albumin 3.4 L (3.5-5.0) g/dL Globulin 2.7 (1.7-4.1) g/dL Albumin/Globulin Ratio 1.3 (1.0-2.8) COVID-19 PCR (Negative) 11/11/19 Range/Units 17:20 WBC (4.5-11.0) X10^3/uL RBC (4.5-5.9) X10^6/uL Hgb (13.5-17.5) g/dL Hct (41-53) % MCV (80-100) fL MCH (26-34) PG MCHC (30-36) % RDW (11.6-14.8) % Plt Count (150-400) X10^3/uL Neut % (Auto) (50-75) % Lymph % (Auto) (25-40) % Lane % (Auto) (3-14) % Eos % (Auto) (2-4) % Baso % (Auto) (0-2) % Neut # (Auto) (1604-0321) /uL Lymph # (Auto) (5152-4734) /uL Lane # (Auto) (0-900) /uL Eos # (Auto) (0-450) /uL Baso # (Auto) (0-100) /uL PT (10.1-12.7) SECONDS INR (0.9-1.3) APTT (26.4-36.2) SECONDS Sodium (137-145) mmol/L Potassium (3.4-5.1) mmol/L Chloride (98-107) mmol/L Carbon Dioxide (22-32) mmol/L BUN (9-20) mg/dL Creatinine (0.66-1.25) mg/dL Estimated GFR (>60) mL/min BUN/Creatinine Ratio (6-22) Glucose (70-100) mg/dL Calcium (8.4-10.2) mg/dL Magnesium (1.6-2.3) mg/dL Total Bilirubin (0.2-1.3) mg/dL AST (17-59) IU/L ALT (<50) IU/L Alkaline Phosphatase (38-126) U/L Total Creatine Kinase (55-170) U/L CK-MB (CK-2) CK-MB (CK-2) Rel Index Troponin I 0.050 H (0.01-0.034) ng/mL NT-Pro-B Natriuret Pep (<125) pg/mL Total Protein (6.3-8.2) g/dL Albumin (3.5-5.0) g/dL Globulin (1.7-4.1) g/dL Albumin/Globulin Ratio (1.0-2.8) COVID-19 PCR (Negative) Urine Dip Bedside Urine Glucose Negative Bedside Urine Bilirubin - Negative Bedside Urine Ketone - Negative Urine Specific [place] 1.010 Bedside Urine Occult Blood - Negative Bedside Urine pH 7.5 Bedside Urine Protein - Negative Bedside Urine Urobilinogen - Negative Bedside Urine Nitrite - Negative Bedside Urine Leukocytes - Negative Esterase Imaging Data Chest x-ray: Radiologist's Impression: PROCEDURE: XR CHEST 1V INDICATIONS: sob TECHNIQUE: One view of the chest was acquired. COMPARISON: [facility], , XR CHEST 1 VIEW, 10/26/2019, 9:26. FINDINGS: Surgical changes and devices: None. Lungs and pleura: There may be mild pulmonary hyperexpansion. No large effusion or pneumothorax is evident. There may be trace right-sided pleural effusion. Mild scarring within the lung apices may be present. Mediastinum: Mediastinal contours appear normal. Heart size is normal. Bones and chest wall: No suspicious bony lesions. Overlying soft tissues appear unremarkable. IMPRESSION: No acute cardiopulmonary process is evident. Dictated by: Juan Saenz M.D. on 11/11/2019 at 13:26 Approved by: Juan Saenz M.D. on 11/11/2019 at 13:26 ECG Data Attestation: I personally reviewed and interpreted this ECG as follows: Interpretation: Sinus tachycardia rate [address] changes similar to previous EKG she in 2019 [facility] Narrative Medical decision making narrative: The patient is given MDI in till covered test returns. His breathing actually improves. Despite his try potting position he is speaking full sentences and does not appear to be any severe respiratory distress. He had improvement with MDI. Cover test is negative. He is given nebulizer at this time. He is no longer requiring oxygen he has 2-troponins BMP is noted to be elevated however he did just have CO echocardiogram recently suggest EF of 60-65%. His lungs do not sound wet and there is no pulmonary edema or vascular congestion noted on chest x-ray. At this time it patient's sinus symptoms are consistent with COPD exacerbation. His discharge instructi ons actually state that Ventolin was stopped. It also looks like through the notes he was previously on methylprednisone but is unclear fat is a home medication. I will put him on short burst of prednisone and give him albuterol inhaler to take home with him. Patient is wheelchair-bound his wheelchair is not here he is currently staying in hotel. His telephone was also unfortunately left in the hotel room he has no in he is able to call to pick him up. At this time BLS arrangements have been made for him. Discharge Plan Departure Patient Disposition: Home Clinical Impression: COPD exacerbation Discharge Date/Time: 11/11/19 18:02 Instructions: Chronic Obstructive Pulmonary Disease Activity Restrictions/Additional Instructions: *You have been diagnosed with COPD exacerbation *What to do: You need to picking tech prescriptions as soon as possible *Continue to take medications as directed Albuterol inhaler 1-2 puffs every 4 hours with spacer if needed for shortness of breaths Prednisone 50 mg once a day for 5 days start tomorrow--> sent to [facility] *Follow up with your primary care provider in 2-3 days *Return to ER if you should have increasing shortness of breath, chest pain heart palpitation or any new, worsening or concerning symptoms Prescriptions: New prednisone 50 mg tablet 50 mg PO DAILY Qty: 5 RF: 0 No Action hydroxyzine HCl 25 mg Tablet 25 mg PO QID PRN (Reason: Spasms) RF: 0 levothyroxine 50 mcg Capsule 50 mcg PO DAILY RF: 0 baclofen 20 MG tablet 1 tab PO Q8H PRN (Reason: Muscle Spasm) RF: 0 albuterol sulfate 2.5 MG/3 ML solution for nebulization 3 ml INH Q6HP PRN (Reason: Shortness Of Breath Or Wheezing) RF: 0 simvastatin 20 mg Tablet 20 mg PO QPM RF: 0 metoprolol tartrate 50 mg Tablet 50 mg PO BID RF: 0 naproxen 500 mg tablet 500 mg PO BID PRN (Reason: pain) Qty: 30 RF: 0 venlafaxine 75 mg capsule,extended release 24hr 75 mg PO DAILY RF: 0 nifedipine 30 mg tablet extended release 30 mg PO DAILY RF: 0 ranitidine HCl 300 mg capsule 300 mg PO DAILY RF: 0 omeprazole 20 mg capsule,delayed release(DR/EC) 20 mg PO DAILY RF: 0 lisinopril 40 mg tablet 40 mg PO DAILY RF: 0 sumatriptan succinate [Imitrex] 100 mg Tablet 100 mg PO DAILY PRN (Reason: Headache) RF: 0 benzonatate 100 mg Capsule 100 mg PO TID PRN (Reason: Cough) Qty: 7 RF: 0 nicotine 21 mg/24 hr patch 24 hour 1 patch transdermal DAILY Qty: 28 RF: 1 Cepacol Sore Throat (nereyda-men) 15-3.6 mg lozenge 1 lozenge MM Q2-4H PRN (Reason: cough) Qty: 384 RF: 0
[2019-11-11 14:07] LABS: Prothrombin Time 11.4 SECONDS (10.1-12.7)
[2019-11-11 14:10] LABS: PTT Partial Thromboplastin Tim 29 SECONDS (26.4-36.2)
[2019-11-11 14:11] LABS: Creatine Kinase 46 U/L (55-170); Magnesium 1.5 mg/dL (1.6-2.3)
[2019-11-11 14:13] LABS: Alanine Aminotransferase 38 IU/L (<50); Albumin 3.4 g/dL (3.5-5.0); Albumin Globulin Ratio 1.3 (1.0-2.8); Alkaline Phosphatase 73 U/L (38-126); Aspartate Aminotransferase 41 IU/L (17-59); BUN Creatinine Ratio 12.5 (6-22); Bilirubin Total 1.2 mg/dL (0.2-1.3); Blood Urea Nitrogen 12 mg/dL (9-20); Carbon Dioxide 31 mmol/L (22-32); Chloride 99 mmol/L (98-107); Estimated Glomerular Filt Rate > 60.0 mL/min (>60); Globulin 2.7 g/dL (1.7-4.1); Glucose 99 mg/dL (70-100); HEMOLYSIS 61 (0-50); Potassium 4.6 mmol/L (3.4-5.1); Sodium 134 mmol/L (137-145); Total Protein 6.1 g/dL (6.3-8.2)
[2019-11-11] MEDS: methylPREDNISolone 125 MG/2 ML VIAL IV (14:16)
[2019-11-11] MEDS: ALBUTEROL/IPRATROPIUM MDI 2 PUFF INH (14:27)
[2019-11-11 14:30] LABS: NT-proBNP (BNP-Adult 18+) 1480 pg/mL (<125)
[2019-11-11 15:42] LABS: COVID19 -Nasal RAPID Negative (Negative)
[2019-11-11] MEDS: ALBUTEROL 2.5 MG/3 ML NEB (ADULT) INH (15:55)
[2019-11-11] MEDS: SUMAtriptan 6 MG/0.5 ML VIAL SUBCUT (16:22)
== END 2019-11-11 18:02 | disposition home or self-care (01) ==
PROVIDERS: Emergency Provider Emergency Medicine
DX: J44.1 Chronic obstructive pulmonary disease with (acute) exacerbation (principal)
CPT/HCPCS: 36415; 71045; 80053; 81003; 82550; 83735; 83880; 84484; 85025; 85610; 85730; 87635; 93005; 94640; J2930; J3030; J7613

== ENCOUNTER 2019-11-11 19:04 | Emergency (ER) | payer MEDICARE, MEDICAID, SELFPAY ==
[2019-01-28 10:46] VITALS: BMI 27.8
[2019-01-31 23:17] VITALS: PULSE 86; RESP 20; O2SAT 100
[2019-11-11 19:11] VITALS: BP 100/74; PULSE 106; RESP 20; TEMP 36.8; O2SAT 96
--- NOTE | 2019-11-11 19:16 | PC.NURSE ---
I completed the triage on mr morrissey. anand hauser
--- NOTE | 2019-11-11 19:31 | ED.RECABL ---
HPI - Recheck/Abnormal Lab/Rx General Chief Complaint: Recheck/Abnormal Lab/Rx Stated Complaint: without residence Time Seen by Provider: 11/11/19 19:20 Source: patient Mode of arrival: EMS Limitations: physical limitation History of Present Illness HPI narrative: Patient is a 58-year-old male who was just discharged from the emergency department via BLS back to the hotel where he is staying. Apparently according to the report from the EMS crew when he arrived back to the hotel the hotel would not allow him back in his room. Apparently there was some concern about him being in a wheelchair in the fact that the hotel was not ADA compliant. There was also some reports that the patient had ?trashed? his room. Apparently the BLS crew had concerns about leaving the patient at that location. The patient is wheelchair-bound. So they brought the patient back to the emergency department. Patient has no new symptoms. Related Data Home Medications Medication Instructions Recorded Confirmed albuterol sulfate 3 ml INH Q6HP PRN 01/15/18 01/27/19 baclofen 1 tab PO Q8H PRN 01/15/18 01/27/19 hydroxyzine HCl 25 mg PO QID PRN 01/15/18 01/27/19 levothyroxine 50 mcg PO DAILY 01/15/18 01/27/19 metoprolol tartrate 50 mg PO BID 01/15/18 01/27/19 simvastatin 20 mg PO QPM 01/15/18 01/27/19 lisinopril 40 mg PO DAILY 07/17/18 01/27/19 nifedipine 30 mg PO DAILY 07/17/18 01/27/19 omeprazole 20 mg PO DAILY 07/17/18 01/27/19 ranitidine HCl 300 mg PO DAILY 07/17/18 01/27/19 sumatriptan succinate [Imitrex] 100 mg PO DAILY PRN 07/17/18 01/27/19 venlafaxine 75 mg PO DAILY 07/17/18 01/27/19 Previous Rx's Medication Instructions Recorded naproxen 500 mg PO BID PRN #30 tab 02/05/18 benzonatate 100 mg PO TID PRN #7 cap 02/01/19 benzocaine-menthol [Cepacol Sore 1 lozenge MM Q2-4H PRN #384 each 02/02/19 Throat (nereyda-men)] nicotine 1 patch TRANSDERMAL DAILY #28 each 02/02/19 prednisone 50 mg PO DAILY #5 tab 11/11/19 Allergies Allergy/AdvReac Type Severity Reaction Status Date / Time aspirin [ASPIRIN] Allergy Severe stomach Verified 01/11/19 20:52 ulcers squash Allergy Verified 01/28/19 22:03 hydrocodone [HYDROCODONE] AdvReac Intermediate hurts Verified 01/11/19 20:52 stomach Review of Systems Constitutional Constitutional: Denies headache(s) ENT Ears, Nose, Mouth, and Throat: Denies headache(s) Cardiovascular Cardiovascular: Denies chest pain and Denies dyspnea Respiratory Respiratory: Denies dyspnea Gastrointestinal Gastrointestinal: Denies abdominal pain Neurologic Neurologic: Denies headache(s) Patient History Medical History Cigarette nicotine dependence (Chronic) COPD (chronic obstructive pulmonary disease) (Chronic) CVA (cerebral vascular accident) (Chronic) History of CO (myocardial infarction) (Chronic) Hyperlipidemia (Chronic) Hypertension (Chronic) Hypothyroidism (Chronic) Multiple sclerosis (Chronic) Family History Mother Hypertension Diabetes mellitus Sister Pacemaker Social History household members: none Smoking Status: Current some day smoker alcohol intake: current Smoking Status: Current some day smoker alcohol intake frequency: a few times a month Substance Use Type: does not use Exam Initial Vital Signs Initial Vital Signs: Vital Signs Temperature 98.2 F 11/11/19 19:11 Pulse Rate 106 H 11/11/19 19:11 Respiratory Rate 20 11/11/19 19:11 Blood Pressure 100/74 11/11/19 19:11 Pulse Oximetry 96 11/11/19 19:11 Const General: comfortable Limitations: mental status not altered HENMT Head: normal to inspection and normocephalic Resp Effort & Inspection: normal respiratory effort Auscultation: clear to auscultation bilaterally Cardio Rhythm: regular rhythm Neuro General: patient alert, patient awake and patient oriented x3 Course Vital Signs Vital signs: Vital Signs - 8 hr 11/11/19 19:11 Temperature 98.2 F Pulse Rate 106 H Respiratory Rate 20 Blood Pressure 100/74 Pulse Oximetry 96 MDM - Recheck/Abnormal Lab/Rx MDM Narrative Medical decision making narrative: Patient's lungs are clear. He states that he feels much better after his last visit to the emergency department where he received a nebulizer. He has a new albuterol inhaler with him. Patient has no medical reason to be here in the emergency department at this visit. No further workup needed in the emergency department. Patient will be discharged. Discharge Plan Departure Patient Disposition: Home Clinical Impression: COPD (chronic obstructive pulmonary disease) Qualifiers: COPD type: unspecified COPD Qualified Code(s): J44.9 - Chronic obstructive pulmonary disease, unspecified Activity Restrictions/Additional Instructions: Continue all of your medications as directed. Keep all of your scheduled medical appointments. Return to the emergency department for any new or worsening symptoms Prescriptions: No Action hydroxyzine HCl 25 mg Tablet 25 mg PO QID PRN (Reason: Spasms) RF: 0 levothyroxine 50 mcg Capsule 50 mcg PO DAILY RF: 0 baclofen 20 MG tablet 1 tab PO Q8H PRN (Reason: Muscle Spasm) RF: 0 albuterol sulfate 2.5 MG/3 ML solution for nebulization 3 ml INH Q6HP PRN (Reason: Shortness Of Breath Or Wheezing) RF: 0 simvastatin 20 mg Tablet 20 mg PO QPM RF: 0 metoprolol tartrate 50 mg Tablet 50 mg PO BID RF: 0 naproxen 500 mg tablet 500 mg PO BID PRN (Reason: pain) Qty: 30 RF: 0 venlafaxine 75 mg capsule,extended release 24hr 75 mg PO DAILY RF: 0 nifedipine 30 mg tablet extended release 30 mg PO DAILY RF: 0 ranitidine HCl 300 mg capsule 300 mg PO DAILY RF: 0 omeprazole 20 mg capsule,delayed release(DR/EC) 20 mg PO DAILY RF: 0 lisinopril 40 mg tablet 40 mg PO DAILY RF: 0 sumatriptan succinate [Imitrex] 100 mg Tablet 100 mg PO DAILY PRN (Reason: Headache) RF: 0 benzonatate 100 mg Capsule 100 mg PO TID PRN (Reason: Cough) Qty: 7 RF: 0 nicotine 21 mg/24 hr patch 24 hour 1 patch transdermal DAILY Qty: 28 RF: 1 Cepacol Sore Throat (nereyda-men) 15-3.6 mg lozenge 1 lozenge MM Q2-4H PRN (Reason: cough) Qty: 384 RF: 0 prednisone 50 mg tablet 50 mg PO DAILY Qty: 5 RF: 0
--- NOTE | 2019-11-11 20:15 | PC.NURSE ---
Pt reports that he is wheelchair dependent and his wheelchair is not here. Pt is making phone calls to friends for help with discharge.
--- NOTE | 2019-11-11 21:07 | PC.NURSE ---
Was in the ER earlier for shortness of breath. Recieved care and was discharged via ambulance back to his hotel. He was not able to return so ambulance brought him back to ER as he had nowhere else to go. Wheelchair is somewhere in storage.
--- NOTE | 2019-11-11 21:50 | PC.NURSE ---
Pt assisted to WC to use the phone at the nurses station to call a local hotel.
[2019-11-11 23:40] VITALS: BP 99/61; PULSE 110; RESP 22; TEMP 37.1; O2SAT 92
[2019-11-12] MEDS: NICOTINE 21 MG PATCH TOP (00:07)
--- NOTE | 2019-11-12 00:25 | PC.NURSE ---
Pt up for discharge, but pt is without his own electric wheelchair and has no one to come pick him up. Pt cannot return to the hotel where he was staying. Pt and I spent the evening hours phoning local hotels, but none had WC accessible rooms available. Pt asked to borrow a [facility] WC for use during outpatient physical therapy, but I was concerned for pt safety and declined. Care discussed with Dr Sweet, including recent vital signs. Plan for pt to stay in department, Social work consult in the morning.
[2019-11-12 04:25] VITALS: BP 127/78; PULSE 108; RESP 20; TEMP 37.1; O2SAT 94
[2019-11-12 11:27] VITALS: BP 131/87; RESP 18; O2SAT 93
[2019-11-12 11:28] VITALS: PULSE 110
--- NOTE | 2019-11-12 16:16 | CM.SWNOTE ---
Addendum entered by Jessica Vivar 11/12/19 16:32: Received call from Brad this afternoon, she reports that custodial bed found for patient at [facility] in [place]. BREAD ICER attempted to assist with transport through Medicaid. Patient currently at [facility] working with Brad. STACEY Original Note: BREAD ICER/Assessment: Received BREAD ICER consult this AM from Emergency Department provider. Per ED staff and notes patient sent back by EMS when they attempted to drop patient off at local [facility]. Patient seen twice in ED on 11/11/19. Patient is a 58yr old male with multiple medical issues: COPD, CVA, H/O [place], and [place]. Per notes, patient recently d/c'd from [facility] where he was being treated for several weeks. Apparently they discharged him to [facility] in [place]. ED provider, Dr. Ibanez reports that patient has no medical needs that require inpatient/OBS hospitalization. Therefore, patient medically cleared and orders written for patient to discharge. Met with patient this AM. Patient alert and oriented at time of visit with obvious physical impairments. Patient reports that he is w/c bound at baseline. Patient currently with no w/c in room. Patient believes his w/c is in storage? Patient currently reports that he is homeless. Patient reports that he does have state worker but is unsure whom that is? Patient reports that he has local friends that he can call for help. Notified patient that he has been discharged and that BREAD ICER would provide him with community resources for him to call to obtain assistance if needed. Patient appreciative. Placed call to fresh foods cake decorator/Akash at [facility] he reports that he is familiar with patient and that he will call patient's local nondenominational for assistance. Patient aware and agreeable. BREAD ICER provided patient with name and numbers of resources for [facility], [facility], and [facility] in [place]. Patient has working cell phone and encouraged to locate custodial for this evening. Received visit from Brad at [facility], she reports that she will work with patient today to find custodial. Patient in agreement and discharged to lobby with Brad to work on custodial. Patient provided with needed community resources to assist with both crisis and halfway planning. Akash and Brad updated and will continue to assist. P: Community referral provided. Brad from [facility] attempting to assist with custodial placement. Patient's wheelchair retrieved and in patient's possession. CONY Sweet
== END 2019-11-12 12:09 | disposition home or self-care (01) ==
PROVIDERS: Emergency Provider Emergency Medicine; PCP Family Medicine
DX: J44.9 Chronic obstructive pulmonary disease, unspecified (principal); J44.1 Chronic obstructive pulmonary disease with (acute) exacerbation
CPT/HCPCS: 36415; 71045; 80053; 81003; 82550; 83735; 83880; 84484; 85025; 85610; 85730; 87635; 93005; 93010; 94640; 96372; 96374; 99281; 99282; 99285; J2930; J3030; J7613